=== PATIENT | male | born 1935 | race Caucasian/White ===

== ENCOUNTER 2019-03-28 08:37 | Outpatient (CLI) | payer MEDICARE, SELFPAY ==
[2019-03-28 09:30] LABS: Hematocrit 42.5 % (42.0-52.0); Hemoglobin 13.7 g/dL (11.7-16.6); Mean Corpuscular HGB Conc 32.2 g/dL (30.0-36.0); Mean Corpuscular Hemoglobin 30.5 pg (28.0-34.0); Mean Corpuscular Volume 94.7 fL (80-94); Mean Platelet Volume 11.4 fL (7.4-10.4); Platelet Count 253 10^3/cmm (130-400); Red Blood Count 4.49 10^6/uL (4.1-5.3); Red Cell Distribution Width 13.2 % (12.1-15.1)
[2019-03-28 09:41] LABS: Alanine Aminotransferase 15 U/L (0-41); Albumin Level 4.7 g/dL (3.5-5.2); Alkaline Phosphatase 93 IU/L (40-130); Anion Gap 15.6 (5-19); Blood Urea Nitrogen 13 mg/dL (8-23); Calcium 10.2 mg/Dl (8.8-10.2); Carbon Dioxide 28 mmol/L (22-29); Chloride 102 mmol/L (98-107); Globulin 2.9 g/dL (1.3-4.6); Glucose 96 mg/dL (74-106); Potassium 4.6 mmol/L (3.5-5.1); Sodium 141 mmol/L (136-145); Total Bilirubin 0.9 mg/dL (0.15-1.2); Total Protein 7.6 g/dL (6.6-8.7)
[2019-03-28 09:48] LABS: Aspartate Amino Transferase 23 U/L (0-40)
[2019-03-28 12:11] LABS: Absolute Eosinophils 0.2 10^3/cmm (0.0-0.7); Absolute Segmented Neutrophil 4.2 10/cmm (1.6-7.1); Band Neutrophils Absolute 0.4 10^3/cmm (0.0-1.2); Basophils Absolute 0.1 10^3/cmm (0.0-0.2); Eosinophils 3 %; Lymphocytes 20 %; Lymphocytes Absolute 1.5 10^3/cmm (1.2-3.4); Monocytes Absolute 0.6 10^3/cmm (0.1-0.6); Ovalocytes 1+; Platelet Estimate Normal (Normal); Poikilocytosis 1+; Segmented Neutrophils 61 %; Total Cells Counted 100 (0-100)
== END 2019-03-28 08:38 | disposition home or self-care (01) ==
LOC: LAB 08:48
PROVIDERS: Family Provider Family Medicine; PCP Family Medicine; Visit Provider Internal Medicine Cardiovascular Disease
DX: I35.0 Nonrheumatic aortic (valve) stenosis (principal)
CPT/HCPCS: 80053; 85007; 85025; 85027

== ENCOUNTER 2019-04-05 10:22 | Observation (INO) | payer MEDICARE, SELFPAY ==
[2019-04-04 17:27] VITALS: BMI 25.3
[2019-04-05] VITALS (22 sets, daily range): BP systolic 108–131; BP diastolic 61–93; PULSE 56–67; RESP 16–18; TEMP 36.7–37.1; O2SAT 95–99
[2019-04-05] MEDS: diphenhydrAMINE 50 mg Capsule PO (07:15)
--- NOTE | 2019-04-05 07:30 | XACV_ITS ---
Exam Room: [facility] Ht: 183 cm Wt: 85 kg BSA: 2.08 m2 Gender: Male : 1935 Any Known Allergies: Other Exam Priority: Routine Procedure(s): Procedure Description: Diagnostic procedure Procedure Description: Coronary Angiography Diagnostic Cath Status: Elective Diagnostic Findings LM has 0% stenosis. LAD has 0% stenosis. CX has 0% stenosis. mRCA: Mild 15% stenosis, ANAHI: 3 flow. Coronary angiography shows right dominance. Conclusions There is mild coronary artery disease with one vessel disease. Indication for right and left heart: Unexplained shortness of breath. #1 Lower L eft-sided filling pressure pulmonary capillary wedge pressure #2 N ormal pulmonary artery pressure PA mean 10 mmHg #3 L ow right ventricular pressure 19/-5 mmHg #4 Low right atrial filling pressure -1 mmHgNormal cardiac output 5 L/m, CI 3 L/min/m2No intracardiac shunt noted . Recommendations Continue current medical management and risk factor modification. Usual post catheterization care. Pressures Phase:Rest AO : 104 mmHg / 55 mmHg ( 75 mmHg ) @ 4:00:00 AM 107 mmHg / 53 mmHg ( 77 mmHg ) @ 4:08:00 AM RV : 19 mmHg / -5 mmHg / @ 3:55:00 AM PA : 17 mmHg / 5 mmHg ( 10 mmHg ) @ 3:54:00 AM 18 mmHg / 4 mmHg ( 9 mmHg ) @ 3:55:00 AM RA : a wave = v wave = mean = -1 mmHg @ 3:58:00 AM a wave = v wave = mean = 3 mmHg @ 3:58:00 AM O2 Content Phase:Rest PA : O2 Content O2: 70.4 % @ 4:00:00 AM Saturations Phase:Rest AO : 97 % @ 3:55:00 AM RA : 66 % @ 3:54:00 AM RV : 66 % @ 4:08:00 AM PA : 70 % @ 4:00:00 AM Cardiac Output Phase:Rest Rachel : 5 l/min @ 4:00:00 AM Rachel Cardiac Index: 3 L/min/m2 @ 4:00:00 AM Clinical Evaluation EBL: 5mL-10mL Procedural Details Wire inserted. Cardiovascular Instability: No. Wire inserted through IV catheter in right brachial vein. Hand injection through SWAN. Hand injection performed. Unable to advance the catheter. Physician moving to femoral approach. Wire and need out. Wire out. Versacore Floppy wire inserted. Medication's Wasted: Other = fentanyl 50 mcg. Medication's Wasted: Heparin = 4000 units. Procedure Consent Obtained. Pre-Procedure Time Out. Identified patient by full name and date of as verbalized by the patient/guarantor. Does the consent match the physician's order: Yes. Accurate & Complete Informed Consent: Yes. Inpatient/Outpatient History & Physical on Chart: Yes. If H&P is completed, is and addenduem needed: No; If yes, is the addendum complete: N/A. Visualize and Verify Site with Patient/Guarantor: N/A. Relevant Radiology Images available: N/A. Pre-op teaching completed and patient verbalized understanding. The risks, benefits, and alternatives of sedation and/or procedure were discussed by physician. The patient agrees to continue. Procedure started. Correct patient, site and procedure confirmed by cath team. PERRLA. Strong, equal hand carton forming machine helper bilaterally. Lungs clear x 5 lobes. IV Site on Arrival: 20 gauge in the left anticubital. IV Fluids: 0.9% NaCl at KVO. 0 mL infused prior to greenhouse laborer. Pre Procedural Pulses: bilateral dorsalis pedis was 3+. Pre Procedural Pulses: bilateral posterior tibial was 3+. Pre Procedural Pulses: bilateral radial was 3+. Baseline sample Acquired. HR: 57 BPM. IV Site on Arrival: 20 gauge in the right anticubital. bilateral groins was prepped with chloroprep then draped in the usual sterile fashion. right brachial was prepped with chloroprep then draped in the usual sterile fashion. right radial was prepped with chloroprep then draped in the usual sterile fashion. Physician notified. Equipment: 6F - Radial. Cardiac Cath Pack. ACIST Manifold Kit Model BT 2000. Heparinized Saline (2 units/mL), 1000 mL bag. Physician arrived. [facility] Clinical Fraility Score: 4: Vulnerable. Surface Mount Technology Operator Indications: Valvular Disease. Chest Pain Symptom Assessment: Atypical Angina. Physician scrubbed in. Immediate Pre-Procedure Time Out. Correct Patient: Yes; Correct Procedure: Yes; Correct Site: Yes; Correct Patient Position: Yes; Correct Supplies: Yes; Dried Flammable Prep: Yes; Blood Products Available: N/A;. Lidocaine 1% infiltrated to the right brachial. [place]-Donald MON catheter inserted. [place]-Donald out. Lidocaine 1% infiltrated to the right radial. Arterial access obtained. A 5 polish TIG catheter in over wire. A Manual Compression was successful obtaining hemostatsis at the Right Brachial Vein insertion site. A TR Band was successful obtaining hemostatsis at the Right Radial artery insertion site. Sheath(s) removed and manual pressure held until hemostasis was achieved. Sterile 4x4 and Op-site applied to the puncture site. No oozing or hematoma noted. Post sheath removal instructions were given and the patient verbalized understanding. TR band placed. Hemostasis obtained. Lidocaine 1% infiltrated to the right groin. Venous access obtained with a micropuncture set. Arterial access obtained with micropuncture set. CRD 5F Multi-pac Diagnostic Catheter. A 5 polish JL4 catheter in over wire. Catheter removed over the exchange wire. A 5 polish AL1 catheter in over wire. Inventory is CRD 6 FR XB 3.5 GUIDE. 6 polish XB 3.5 guide catheter was inserted over the wire. Multiple views taken of left coronary artery. Guide catheter out. A 5 polish JR4 catheter in over wire. Multiple views taken of right coronary artery. A 5 polish Angled Pig catheter in over wire. A 5 polish MPA1 catheter in over wire. Catheter out. Physician scrubbed out. A Suture was successful obtaining hemostatsis at the Right Femoral vein insertion site. A Suture was successful obtaining hemostatsis at the Right Femoral artery insertion site. Sheath(s) sutured into position with 2-0 silk and sterile 4x4's and Op-site applied over the site. No oozing or signs and symptoms of hematoma noted. Arterial sheath flushed and connected to tranducer and pressure bag with heparinized saline. PERRLA. Strong, equal hand carton forming machine helper bilaterally. Post Procedure: Pulses reassessed and unchanged. No VTE prophylaxis required. Medication's Wasted: Lidocaine 1% = 10 mL. Medication's Wasted: Nitro = 49.8 mg. Total IV fluids: 100 mL. Complications: none. Post-op diagnosis: severe aortic stenosis, pre valve procedure. Estimated blood loss: 5mL-10mL. Procedure completed. Patient transferred by bed to 1st floor. Vital chart was stopped. Site: Right Brachial Vein Sheath Size: 6 Fr Hemostasis Method: Manual Compression Hemostasis Success: Successful Site: Right Radial artery Sheath Size: 6 Fr Hemostasis Method: TR Band Hemostasis Success: Successful Site: Right Femoral vein Sheath Size: 6 Fr Hemostasis Method: Suture Hemostasis Success: Successful Site: Right Femoral artery Sheath Size: 6 Fr Hemostasis Method: Suture Hemostasis Success: Successful Procedure Medications Start: 8:52 AM Stop: 8:52 AM Medication: Versed Amount: 1 mg Route: I.V. Start: 8:52 AM Stop: 8:52 AM Medication: Fentanyl Amount: 50 mcg Route: I.V. Start: 8:58 AM Stop: 8:58 AM Medication: Versed Amount: 1 mg Route: I.V. Start: 9:11 AM Stop: 9:11 AM Medication: Nitrogylcerin Amount: 200 mcg Route: I.V. Start: 9:15 AM Stop: 9:15 AM Medication: Nitrogylcerin Amount: 200 mcg Route: I.A. Start: 9:15 AM Stop: 9:15 AM Medication: Versed Amount: 1 mg Route: I.V. Start: 9:48 AM Stop: 9:48 AM Medication: Versed Amount: 1 mg Route: I.V. I, the attending physician, have reviewed and verified all procedure medications. Yes, all medications given per verbal order History/Risk Factors Hypertension: No Dyslipidemia: No Peripheral Arterial Disease (PAD): No Myocardial Infarction (NE): No Obesity: No Renal Disease: No Tobacco Use: Former Prior Interventions PCI: No CABG: No Valve Surgery: No Report Signatures Finalized by:Berna Singh MD on 04/17/2019 10:08:52 PM
[2019-04-05 07:43] LABS: Basophils # 0.1 10^3/uL (0.0-0.1); Basophils % 1.5 %; Eosinophils # 0.2 10^3/uL (0.0-0.8); Eosinophils % 3.4 %; Hematocrit 38.5 % (42.0-52.0); Hemoglobin 12.4 g/dL (11.7-16.6); Lymphocytes % 27.4 %; Mean Corpuscular HGB Conc 32.2 g/dL (30.0-36.0); Mean Corpuscular Hemoglobin 29.5 pg (28.0-34.0); Mean Corpuscular Volume 91.4 fL (80-94); Mean Platelet Volume 10.8 fL (7.4-10.4); Monocytes # 0.9 10^3/uL (0.2-0.9); Monocytes % 12.8 %; Neutrophils # 3.9 10^3/uL (1.8-7.7); Neutrophils % 54.5 %; Nucleated Red Blood Cells % 0 %; Platelet Count 272 10^3/cmm (130-400); Red Blood Count 4.21 10^6/uL (4.1-5.3); Red Cell Distribution Width 13.2 % (12.1-15.1); White Blood Count 7.1 10^3/uL (4.0-10.0)
[2019-04-05 07:57] LABS: Blood Urea Nitrogen 22 mg/dL (8-23); Calcium 9.6 mg/Dl (8.8-10.2); Carbon Dioxide 26 mmol/L (22-29); Chloride 102 mmol/L (98-107); Glucose 94 mg/dL (74-106); Sodium 140 mmol/L (136-145)
[2019-04-05 08:02] LABS: INR 1.02 (0.8-1.2)
[2019-04-05] MEDS: acetaminophen 325 mg Tablet 650 MG PO (13:47)
== END 2019-04-05 19:00 | disposition home or self-care (01) ==
LOC: CSU 10:23
PROVIDERS: Admitting Provider Internal Medicine Cardiovascular Disease; Family Provider Family Medicine; PCP Family Medicine; Visit Provider Internal Medicine Cardiovascular Disease
DX: I25.10 Atherosclerotic heart disease of native coronary artery without angina pectoris (principal); I35.0 Nonrheumatic aortic (valve) stenosis; E78.00 Pure hypercholesterolemia, unspecified; K21.9 Gastro-esophageal reflux disease without esophagitis; N40.0 Benign prostatic hyperplasia without lower urinary tract symptoms; E03.9 Hypothyroidism, unspecified; Z87.891 Personal history of nicotine dependence
CPT/HCPCS: 36415; 80048; 85025; 85610; 93456; C1751; C1769; C1887; C1894; G0378; J1644; J2001; J2250; J3010; J3490; J7030; Q0163; Q9967

== ENCOUNTER → 2019-04-12 11:01 | Outpatient (BNVA) | payer MEDICARE, SELFPAY | PROVIDERS: Family Provider Family Medicine; PCP Family Medicine; Visit Provider Nurse Practitioner Family | DX: I06.1 Rheumatic aortic insufficiency (principal) | CPT/HCPCS: 80048 ==

== ENCOUNTER 2019-06-07 06:52 | Outpatient (CLI) | payer MEDICARE, SELFPAY | END 2019-06-07 06:53 | disposition home or self-care (01) | PROVIDERS: Family Provider Family Medicine; PCP Family Medicine; Visit Provider Internal Medicine Cardiovascular Disease | DX: Z01.89 Encounter for other specified special examinations (principal) ==

== ENCOUNTER 2019-07-23 17:55 | Inpatient (IN) | payer MEDICARE, OTHER, SELFPAY ==
--- NOTE | 2019-07-19 09:26 | XR_ITS ---
WS: [id number] PORTABLE CHEST HISTORY: Preop for AVR COMPARISON: None available. Scattered granulomata throughout both lungs. No pneumonia. No pulmonary mass or nodule. No pleural ef fusion or pneumothorax. Cardiac size: Normal. Mediastinum/Aorta: Mild atherosclerosis and ectasia aorta. No osseous abnormality seen. XR/XR chest 1V portable [id number] IMPRESSION: 1. Prior granulomatous disease. 2. Mildly ectatic partially calcified thoracic aorta.
--- NOTE | 2019-07-19 09:26 | ECG_ITS ---
Measurements Intervals [place] Rate: 60 P: 6 [place]: 176 QRS: -40 QRSD: 89 T: 14 QT: 413 QTc: 413 SINUS RHYTHM MARKED LEFT AXIS DEVIATION [QRS AXIS < -30] MODERATE VOLTAGE CRITERIA FOR LVH, CONSIDER NORMAL VARIANT [MEETS CRITERIA IN ONE OF: R(aVL), S(V1), R(V5), R(V5/V6)+S(V1)] No previous ECG available for comparison Electronically Signed On 07-20-2019 16:11:08 CDT by Reina Flowers M.D. [id number]
[2019-07-19 09:31] VITALS: BMI 25.7
[2019-07-19 10:13] LABS: Basophils # 0.1 10^3/uL (0.0-0.1); Basophils % 1.4 %; Eosinophils # 0.2 10^3/uL (0.0-0.8); Eosinophils % 2.9 %; Hematocrit 42.5 % (42.0-52.0); Hemoglobin 13.1 g/dL (11.7-16.6); Lymphocytes % 24.6 %; Mean Corpuscular HGB Conc 30.8 g/dL (30.0-36.0); Mean Corpuscular Hemoglobin 29.4 pg (28.0-34.0); Mean Corpuscular Volume 95.5 fL (80-94); Mean Platelet Volume 11.7 fL (7.4-10.4); Monocytes % 12.3 %; Neutrophils # 4.7 10^3/uL (1.8-7.7); Neutrophils % 58.6 %; Nucleated Red Blood Cells % 0 %; Platelet Count 228 10^3/cmm (130-400); Red Blood Count 4.45 10^6/uL (4.1-5.3); Red Cell Distribution Width 14.6 % (12.1-15.1); White Blood Count 8.1 10^3/uL (4.0-10.0)
[2019-07-19 10:16] LABS: Add Urine Microscopic? NO
[2019-07-19 10:22] LABS: INR 0.95 (0.8-1.2)
--- NOTE | 2019-07-19 10:22 | ANES.PREANE2 ---
Pre-Anesthetic Assessment Pre-Anesthetic Assessment: Height/Weight: Height 1.83 m Weight 86.183 kg Preop Diagnosis: Critical aortic valve stenosis Proposed Procedure: Operation Date: 07/23/19 11:50 Proposed Procedures p Aortic Valve Replacement 40093/I35.0(Not Applicable) - Dioni Crespo MD Familial anesthetic complications: None Social: Social History: No alcohol and No tobacco Exam: Pre-Anes Outpt Exam: alert, oriented x 3, clear to auscultation bilaterally and regular rate & rhythm Airway: Cervical ROM: WNL MP: 2 Dentition: False Pulmonary: Pulmonary: None reported CV/HEM: CV/HEM: Murmur Comments: aortic stenosis (critical) - Rhematic fevere at age 16 : : None reported Hepatic: Hepatic: None reported GI: GI: None reported Metabolic: Metabolic: Thyroid Musc/skel: Musc/skel: None reported Neuropsych: Neuropsych: Neuropathy (b/l feet) Anesthetic Plan: ASA status: 4 Anesthesia: General Risk of > 500 ml blood loss (7ml/kg in children): No PFSH Anesthesia PFSH: Social History (System 06/26/19 @ 16:20 by Kathleen Shelby) Smoking and tobacco status: former smoker Alcohol intake: never Data Anesthesia CBC & Chem 7: 07/19/19 10:02 Other Labs: Laboratory Results - last 48 hr 07/19/19 10:02 WBC 8.1 RBC 4.45 Hgb 13.1 Hct 42.5 MCV 95.5 H MCH 29.4 MCHC 30.8 RDW 14.6 Plt Count 228 MPV 11.7 H Neut % (Auto) 58.6 Lymph % (Auto) 24.6 [place] % (Auto) 12.3 Eos % (Auto) 2.9 Baso % (Auto) 1.4 Neut # (Auto) 4.7 Lymph # (Auto) 2.0 [place] # (Auto) 1.0 H Eos # (Auto) 0.2 Baso # (Auto) 0.1 Nucleated RBC % (auto) 0 Nucleated RBCs # 0.0 Cardiac Studies: No Data to Display
[2019-07-19 10:23] LABS: Partial Thromboplastin Time 22.8 SECONDS (23.9-36.7)
[2019-07-19 10:26] LABS: Specific Gravity, Urine 1.025 (1.005-1.030); Urine Appearance Clear (CLEAR); Urine Color Yellow (Yellow)
[2019-07-19 10:27] LABS: Bilirubin Urine Neg (NEGATIVE); Blood Urine Neg (Negative); Glucose Urine UA Norm (Normal); Ketones Urine Negative (Negative); Leukocyte Esterase Urine Negative (Negative); Nitrate Urine Negative (Negative); Protein Urine Neg (Negative); Urobilinogen Urine Norm (Negative)
[2019-07-19 11:14] LABS: Alanine Aminotransferase 14 U/L (0-41); Albumin Level 4.4 g/dL (3.5-5.2); Alkaline Phosphatase 83 IU/L (40-130); Anion Gap 16.9 (5-19); Aspartate Amino Transferase 24 U/L (0-40); Blood Urea Nitrogen 15 mg/dL (8-23); Calcium 9.8 mg/dL (8.5-10.5); Carbon Dioxide 25 mmol/L (22-29); Chloride 104 mmol/L (98-107); Free T4 Free Thyroxine 0.95 ng/dL (0.82-1.77); Globulin 3.4 g/dL (1.3-4.6); Glucose 88 mg/dL (65-115); Osmolality Calculated 290 mOsm/kg (285-295); Potassium 3.9 mmol/L (3.5-5.1); Sodium 142 mmol/L (136-145); Thyroid Stimulating Hormone 4.02 uIU/mL (0.27-4.20); Total Protein 7.8 g/dL (6.6-8.7)
[2019-07-23] VITALS (23 sets, daily range): BP systolic 87–142; BP diastolic 50–78; PULSE 72–89; RESP 13–18; TEMP 36.6–38.2; O2SAT 96–100
--- NOTE | 2019-07-23 06:21 | P.ANESUD_ITS ---
Pre-Anesthetic Update Pre-Anesthetic Assessment: Date of Surgery/Procedure: 07/23/19 Preop Antonella gnosis: Critical aortic valve stenosis Proposed Procedure: Operation Date: 07/23/19 09:50 Proposed Procedures p Aortic Valve Replacement 20238/I35.0(Not Applicable) - Dioni Crespo MD Any changes to Pre-Anesthetic Assessment?: No Last Intake: Intake NPO > 8 hrs, sips with meds this morning (water) Last Liquid Date 07/22/19 Last Solid Date 07/22/19 Labs Last 48hrs: Laboratory Results - last 48 hr 07/19/19 10:02 Blood Type A Positive Rho(D) Type Positive Antibody Screen Negative Crossmatch See Detail Vitals: Temperature 98.2 F 07/23/19 06:03 Temperature Source Temporal Artery S can 07/23/19 06:03 Pulse Rate 72 07/23/19 06:03 Pulse Rhythm 07/23/19 06:07 Pulse Strength 3+ Normal 07/23/19 06:07 Respiratory Rate 18 07/23/19 06:03 Blood Pressure 133/78 07/23/19 06:03 Blood Pressure Fallon n 96 07/23/19 06:03 Pulse Oximetry 96 07/23/19 06:03 Oxygen Delivery Me thod 07/23/19 06:07 Exam: Pre-Anes Outpt Exam: alert, oriented x 3, clear to auscultation bilaterally and regular rate & rhythm Additional Exam Findings (including area of procedure): Murmur Cardiac Studies: No Data to Display
[2019-07-23 06:44] LABS: Glucose Point of Care 86 mg/dL (70-110)
--- NOTE | 2019-07-23 06:47 | W.PM.OPSUD ---
Surgery/Procedure H&P Update DATE OF PROCEDURE: July 23, 2019 DATE H&P PERFORMED: 07/19/19 H&P UPDATE INFORMATION: I have reviewed H&P completed within last 30 days, I have examined patient prior to procedure and No changes to prior documentation PREOP DIAGNOSIS: Critical aortic valve stenosis PRIMARY INDICATION FOR PROCEDURE: Critical aortic valve stenosis with progressive symptomatology PLANNED PROCEDURE: Operation Date: 07/23/19 09:50 Proposed Procedures p Aortic Valve Replacement 75175/I35.0(Not Applicable) - Dioni Crespo MD
[2019-07-23] MEDS: mupirocin oint 22 gm 1 APPLIC NASAL (07:07)
[2019-07-23] MEDS: sodium chloride 0.9% 1,000 ML 30 ML IV (07:08)
[2019-07-23] MEDS: cefUROXime 1,500 MG in sodium chloride 0.9% (plus) 50 ML 100 MG IV ×2 (09:58→15:30)
[2019-07-23] MEDS: vancomycin 1,000 MG SDV 3000 MG IRRIGATION (10:42)
[2019-07-23] MEDS: thrombin 5,000 unit SDV 5000 UNIT XX (11:00)
--- NOTE | 2019-07-23 11:37 | XR_ITS ---
WS: [id number] XR chest 1V portable [id number] REASON FOR EXAM: status post open heart FINDINGS: Endotracheal tube is seen in adequate position above the estuardo. Sternotomy changes are now seen. There is mild edema in the perihilar areas. There are scattered granulomas seen. A catheter is seen in the heart in good position. XR/XR chest 1V portable [id number] IMPRESSION: Postop coronary bypass changes.
--- NOTE | 2019-07-23 16:30 | ECG_ITS ---
Measurements Intervals [place] Rate: 82 P: 1 [place]: 153 QRS: -61 QRSD: 110 T: 75 QT: 390 QTc: 458 SINUS RHYTHM MARKED LEFT AXIS DEVIATION [QRS AXIS < -30] ANTEROSEPTAL MYOCARDIAL INFARCTION [40+ ms Q WAVE IN V1-V4], OF INDETERMINATE AGE Compared to ECG 07/19/2019 10:15:27 Myocardial infarct finding now present Electronically Signed On 07-23-2019 18:27:47 CDT by Berna Singh M.D. [id number]
[2019-07-23 17:26] LABS: ABG PCO2 33.6 mmHg (35-45); ABG PH Result 7.45 (7.35-7.45); Arterial Blood Gas Hematocrit 31.4 % (42-52); Base Excess ABG -0.4 mmol/L (-2.0-2.0); Blood Gas Sample Site ARTLINE; Blood Gas Sample Type Arterial; Blood Gas Tidal Volume 0.65; HCO3 ABG 23.3 mmol/L (22-26); Oxygen Device VENT
[2019-07-23] MEDS: propofol 1,000 MG/100 ML INJ 2.6 MG IV (18:05)
[2019-07-23 18:31] LABS: Glucose Point of Care 116 mg/dL (70-110)
[2019-07-23 18:31] LABS: Glucose Point of Care 128 mg/dL (70-110)
[2019-07-23 18:43] LABS: Basophils # 0.1 10^3/uL (0.0-0.1); Basophils % 0.4 %; Eosinophils % 0.2 %; Hematocrit 32.9 % (42.0-52.0); Hemoglobin 10.7 g/dL (11.7-16.6); Lymphocytes # 1.3 10^3/uL (0.8-4.8); Lymphocytes % 9.8 %; Mean Corpuscular HGB Conc 32.5 g/dL (30.0-36.0); Mean Corpuscular Hemoglobin 30.3 pg (28.0-34.0); Mean Corpuscular Volume 93.2 fL (80-94); Mean Platelet Volume 11.4 fL (7.4-10.4); Monocytes # 1.3 10^3/uL (0.2-0.9); Monocytes % 10.1 %; Neutrophils # 10.2 10^3/uL (1.8-7.7); Neutrophils % 78.8 %; Nucleated Red Blood Cells % 0 %; Platelet Count 129 10^3/cmm (130-400); Red Blood Count 3.53 10^6/uL (4.1-5.3); Red Cell Distribution Width 14.3 % (12.1-15.1); White Blood Count 12.9 10^3/uL (4.0-10.0)
[2019-07-23 19:00] LABS: ABG PCO2 35.7 mmHg (35-45); ABG PH Result 7.45 (7.35-7.45); Base Excess ABG 0.9 mmol/L (-2.0-2.0); HCO3 ABG 24.8 mmol/L (22-26)
[2019-07-23 19:01] LABS: Arterial Blood Gas Hematocrit 33.4 % (42-52); Ionized Calcium Level - ABG 1.1 mmol/L (1.1-1.4); Potassium Level - ABG 3.7 mmol/L (3.5-5.0)
[2019-07-23 19:02] LABS: Carboxyhemoglobin 0.5 %THgb (0.4-20.1); HGB O2 Sat 99.5 % (95-100); Methemoglobin 0.5 % (0.4-1.5); Total Hemoglobin 10.9 g/dL (14-18)
[2019-07-23 19:12] LABS: INR 1.51 (0.8-1.2)
[2019-07-23 19:13] LABS: Partial Thromboplastin Time 33.3 SECONDS (23.9-36.7)
[2019-07-23 19:16] LABS: Anion Gap 15.8 (5-19); Blood Urea Nitrogen 13 mg/dL (8-23); Calcium 7.9 mg/dL (8.5-10.5); Carbon Dioxide 21 mmol/L (22-29); Chloride 114 mmol/L (98-107); Creatinine Clr Calc Pharmacy 81.5959; Glucose 129 mg/dL (65-115); Magnesium 3.5 mg/dL (1.7-2.3); Osmolality Calculated 300 mOsm/kg (285-295); Potassium 4.8 mmol/L (3.5-5.1); Sodium 146 mmol/L (136-145)
[2019-07-23] MEDS: sodium chloride 0.9% 1,000 ML 75 ML IV (19:35)
[2019-07-23] MEDS: chlorhexidine gluconate 0.12% Btl 473 mL 15 ML MUCOUS MEM (19:36)
[2019-07-23 20:53] LABS: Basophils # 0.1 10^3/uL (0.0-0.1); Basophils % 0.3 %; Hematocrit 32.3 % (42.0-52.0); Hemoglobin 10.5 g/dL (11.7-16.6); Lymphocytes # 0.5 10^3/uL (0.8-4.8); Lymphocytes % 3.4 %; Mean Corpuscular HGB Conc 32.5 g/dL (30.0-36.0); Mean Corpuscular Hemoglobin 30.1 pg (28.0-34.0); Mean Corpuscular Volume 92.6 fL (80-94); Mean Platelet Volume 11.1 fL (7.4-10.4); Monocytes # 1.3 10^3/uL (0.2-0.9); Monocytes % 8.4 %; Neutrophils # 13.1 10^3/uL (1.8-7.7); Neutrophils % 87.2 %; Nucleated Red Blood Cells % 0 %; Platelet Count 156 10^3/cmm (130-400); Red Blood Count 3.49 10^6/uL (4.1-5.3); Red Cell Distribution Width 14.7 % (12.1-15.1)
[2019-07-23 21:16] LABS: Anion Gap 15.3 (5-19); Blood Urea Nitrogen 13 mg/dL (8-23); Calcium 7.7 mg/dL (8.5-10.5); Carbon Dioxide 20 mmol/L (22-29); Chloride 114 mmol/L (98-107); Glucose 170 mg/dL (65-115); Osmolality Calculated 300 mOsm/kg (285-295); Potassium 4.3 mmol/L (3.5-5.1); Sodium 145 mmol/L (136-145)
[2019-07-23] MEDS: albumin 12.5 GM/250 ML VIAL IV (23:43)
[2019-07-24] VITALS (68 sets, daily range): BP systolic 86–151; BP diastolic 47–79; PULSE 73–97; RESP 13–16; TEMP 37.7–38.3; O2SAT 65–99
[2019-07-24 00:40] LABS: Anion Gap 14.1 (5-19); Blood Urea Nitrogen 15 mg/dL (8-23); Calcium 7.7 mg/dL (8.5-10.5); Carbon Dioxide 20 mmol/L (22-29); Chloride 114 mmol/L (98-107); Glucose 138 mg/dL (65-115); Osmolality Calculated 296 mOsm/kg (285-295); Potassium 4.1 mmol/L (3.5-5.1); Sodium 144 mmol/L (136-145)
[2019-07-24 01:33] LABS: Basophils % 0.2 %; Eosinophils % 0.1 %; Hematocrit 29.6 % (42.0-52.0); Hemoglobin 9.7 g/dL (11.7-16.6); Lymphocytes # 0.4 10^3/uL (0.8-4.8); Lymphocytes % 3.3 %; Mean Corpuscular HGB Conc 32.8 g/dL (30.0-36.0); Mean Corpuscular Hemoglobin 30.5 pg (28.0-34.0); Mean Corpuscular Volume 93.1 fL (80-94); Mean Platelet Volume 11.7 fL (7.4-10.4); Monocytes # 1.2 10^3/uL (0.2-0.9); Neutrophils # 10.7 10^3/uL (1.8-7.7); Neutrophils % 85.9 %; Nucleated Red Blood Cells % 0 %; Platelet Count 138 10^3/cmm (130-400); Red Blood Count 3.18 10^6/uL (4.1-5.3); Red Cell Distribution Width 14.7 % (12.1-15.1); White Blood Count 12.4 10^3/uL (4.0-10.0)
[2019-07-24 04:08] LABS: ABG PCO2 26.4 mmHg (35-45); ABG PH Result 7.52 (7.35-7.45); Alveolar-Arterial Oxygen Gradi 106.9 mmHg (5-10); Arterial Blood Gas Hematocrit 28.2 % (42-52); Base Excess ABG -0.6 mmol/L (-2.0-2.0); Blood Gas Sample Site ARTLINE; Blood Gas Sample Type Arterial; Blood Gas Tidal Volume 0.45; Carboxyhemoglobin 0.6 %THgb (0.4-20.1); HCO3 ABG 21.6 mmol/L (22-26); HGB O2 Sat 94.4 % (95-100); Ionized Calcium Level - ABG 1.1 mmol/L (1.1-1.4); Methemoglobin 1.2 % (0.4-1.5); Oxygen Device VENT; Oxygen Saturation ABG 96.1; PO2 ABG 68.5 mmHg (80.0-100.0); Potassium Level - ABG 3.9 mmol/L (3.5-5.0); Total Hemoglobin 9.2 g/dL (14-18)
[2019-07-24] MEDS: propofol 1,000 MG/100 ML INJ 7.8 MG IV (04:36)
[2019-07-24 04:38] LABS: Oxygen Saturation ABG 99.4
[2019-07-24 04:39] LABS: ABG PH Result 7.37 (7.35-7.45); Base Excess ABG -0.4 mmol/L (-2.0-2.0); HCO3 ABG 24.9 mmol/L (22-26); Oxygen Saturation ABG 99.2; Potassium Level - ABG 5.4 mmol/L (3.5-5.0)
[2019-07-24 04:40] LABS: Basophils % 0.2 %; Hematocrit 27.5 % (42.0-52.0); Hemoglobin 8.8 g/dL (11.7-16.6); Lymphocytes # 0.7 10^3/uL (0.8-4.8); Lymphocytes % 6.8 %; Mean Corpuscular Hemoglobin 29.6 pg (28.0-34.0); Mean Corpuscular Volume 92.6 fL (80-94); Mean Platelet Volume 11.5 fL (7.4-10.4); Monocytes % 9.7 %; Neutrophils # 8.9 10^3/uL (1.8-7.7); Neutrophils % 82.9 %; Nucleated Red Blood Cells % 0 %; Platelet Count 127 10^3/cmm (130-400); Red Blood Count 2.97 10^6/uL (4.1-5.3); Red Cell Distribution Width 15.1 % (12.1-15.1); White Blood Count 10.8 10^3/uL (4.0-10.0)
[2019-07-24 04:40] LABS: ABG PCO2 48.3 mmHg (35-45); Base Excess ABG -2.9 mmol/L (-2.0-2.0); HCO3 ABG 23.6 mmol/L (22-26)
[2019-07-24 04:41] LABS: Blood Gas Sample Type ARTERIAL; Potassium Level - ABG 4.2 mmol/L (3.5-5.0)
[2019-07-24 04:43] LABS: ABG PCO2 46.9 mmHg (35-45); ABG PH Result 7.28 (7.35-7.45); Base Excess ABG -4.5 mmol/L (-2.0-2.0); Blood Gas Sample Type ARTERIAL; Potassium Level - ABG 4.3 mmol/L (3.5-5.0)
[2019-07-24 04:44] LABS: ABG PCO2 47.9 mmHg (35-45); ABG PH Result 7.43 (7.35-7.45); Base Excess ABG 6.7 mmol/L (-2.0-2.0); HCO3 ABG 31.7 mmol/L (22-26); Potassium Level - ABG 3.8 mmol/L (3.5-5.0)
[2019-07-24 04:45] LABS: ABG PH Result 7.39 (7.35-7.45)
[2019-07-24 04:45] LABS: Blood Gas Sample Type ARTERIAL
[2019-07-24 04:46] LABS: ABG PCO2 43.4 mmHg (35-45); Base Excess ABG 1.3 mmol/L (-2.0-2.0); Blood Gas Sample Type ARTERIAL; HCO3 ABG 26.4 mmol/L (22-26); Potassium Level - ABG 3.8 mmol/L (3.5-5.0)
[2019-07-24 05:08] LABS: Anion Gap 15.1 (5-19); Blood Urea Nitrogen 15 mg/dL (8-23); Calcium 7.4 mg/dL (8.5-10.5); Carbon Dioxide 21 mmol/L (22-29); Chloride 114 mmol/L (98-107); Glucose 137 mg/dL (65-115); Glucose Fasting 137 mg/dL (74-106); Magnesium 2.8 mg/dL (1.7-2.3); Osmolality Calculated 300 mOsm/kg (285-295); Partial Thromboplastin Time 37.9 SECONDS (23.9-36.7); Potassium 4.1 mmol/L (3.5-5.1); Sodium 146 mmol/L (136-145)
[2019-07-24] MEDS: sodium chloride 0.9% 1,000 ML 75 ML IV ×3 (05:46→23:23)
--- NOTE | 2019-07-24 06:00 | XR_ITS ---
WS: [id number] XR chest 1V portable [id number] REASON FOR EXAM: POD #1 status post AVR FINDINGS: The [place]-Donald catheter is seen in the in the heart in good position. Bypass changes are noted. The endotracheal tube is well positioned. The feeding tube is seen in the mid chest area did not in the stomach. XR/XR chest 1V portable [id number] IMPRESSION: Intracardiac [place]pe[place]-Donald catheter good position. The feeding tube is seen in the mid mediastinum. The endotracheal tube is noted in good position. Coronary bypass changes are noted.
--- NOTE | 2019-07-24 06:00 | ECG_ITS ---
Measurements Intervals [place] Rate: 77 P: 8 [place]: 158 QRS: -39 QRSD: 102 T: 63 QT: 454 QTc: 515 SINUS RHYTHM MARKED LEFT AXIS DEVIATION [QRS AXIS < -30] PATTERN CONSISTENT WITH PULMONARY DISEASE INCOMPLETE RIGHT BUNDLE BRANCH BLOCK [90+ ms QRS DURATION, TERMINAL R IN V1/V2, 40+ ms S IN I/aVL/V4/V5/V6] SEPTAL MYOCARDIAL INFARCTION [40+ ms Q WAVE IN V1/V2], PROBABLY OLD Compared to ECG 07/23/2019 17:28:24 Incomplete right bundle-branch block now present Myocardial infarct finding still present Electronically Signed On 07-24-2019 17:19:34 CDT by Rico Curiel M.D. [id number]
[2019-07-24 06:32] LABS: Glucose Point of Care 138 mg/dL (70-110)
[2019-07-24 06:32] LABS: Glucose Point of Care 127 mg/dL (70-110)
[2019-07-24 06:32] LABS: Glucose Point of Care 133 mg/dL (70-110)
[2019-07-24 06:32] LABS: Glucose Point of Care 116 mg/dL (70-110)
[2019-07-24 06:32] LABS: Glucose Point of Care 137 mg/dL (70-110)
[2019-07-24 06:32] LABS: Glucose Point of Care 121 mg/dL (70-110)
[2019-07-24 06:32] LABS: Glucose Point of Care 134 mg/dL (70-110)
[2019-07-24 06:32] LABS: Glucose Point of Care 121 mg/dL (70-110)
[2019-07-24 06:32] LABS: Glucose Point of Care 119 mg/dL (70-110)
[2019-07-24 06:32] LABS: Glucose Point of Care 118 mg/dL (70-110)
--- NOTE | 2019-07-24 06:41 | PM.PN ---
Subjective Subjective: Interval history: Postop day 1 status post AVR. Uneventful night. Chest tube output under 84 cc since surgery. No arrhythmias. Pacing has not been required. Still on 3 mics per cake per minute of dobutamine. Cardiac index 2.3. Still on low-dose propofol, though has not awakened yet. Pupils 2 mm and equal. Lungs are very clear bilaterally by chest x-ray. The endotracheal tube is in good position. OG tube is actually in mid esophagus. Nurses report that and with attempt to advance, this began to move the endotracheal tube. Vitals/I&O/Wt Last Vital Signs Temp 100.0 F H 07/24/19 06:24 Pulse 78 07/24/19 06:23 Resp 14 07/24/19 06:23 BP 112/60 07/24/19 06:23 Pulse Ox 97 07/24/19 06:23 07/23/19 07/23/19 07/24/19 14:59 22:59 06:59 Intake Total 50 / 50 2266.337 / 2316.337 1184.08 / 3500.417 Output Total 400 / 400 2052 / 2452 607 / 3059 Balance -350 / -350 214.337 / -135.663 577.08 / 441.417 Physical Exam Chest: COMMONS NORMALS: inspection of chest normal (Dressings in place. Sternum stable.) Resp: COMMON NORMALS: clear to auscultation bilaterally (Remains sedated and intubated) AUSCULTATION: clear to auscultation bilaterally (Remains sedated and intubated) Cardio: COMMON NORMALS: regular rate and regular rhythm RATE: regular rate RHYTHM: regular rhythm Urinary Catheter Management^: Street: Cath Placed During This Visit: yes Reason for Continuing Indwelling Catheter: Accurate Measurement of Urinary Output in Critically Ill Patients Urinary Catheter Date of Insertion: 07/23/19 Urinary Catheter Time of Insertion: 09:54 Data : 07/24/19 04:00 07/24/19 04:00 A&P Assessment and plan (1) Bioprosthetic aortic valve replacement during current hospitalization: Postop day #1 status post AVR. Decrease sedation and awaken patient. Wean to extubation. I would leave OG tube in position currently and remove with extubation. Will transfuse 1 unit packed RBCs CBC, BMP, chest x-ray in a.m. Status: Acute Attestations Medical Necessity Statement*: Postop day #1 status post aortic valve replacement Time Spent in Patient Care: 16 - 35 minutes Coding Level of Care Code Acute Sample Examiner for Cassius Fwmina Exam Expanded Problem Focused Diagnoses 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
[2019-07-24 07:19] LABS: Glucose Point of Care 134 mg/dL (70-110)
--- NOTE | 2019-07-24 07:54 | P.OP_ITS ---
Operative Report Date of procedure: July 24, 2019 Pre-op Diagnosis: Critical aortic valve stenosis Post-op diagnosis: same Procedure Done: Aortic valve replacement with 23 mm bioprosthetic pericardial tissue valve Implants: [address] [place] pericardial tissue valve Specimens removed/disposition: Aortic valve leaflets Surgeon: Dioni Crespo Anesthesia: General Complications: None Condition: critical Disposition: ICU Procedure: BRIEF CLINICAL HISTORY: The patient is an 83-year-old gentleman referred to our service by Dr. Singh for consideration of aortic valve replacement secondary to critical aortic valve stenosis with a valve area of 0.7 cm?. Mr. Adan underwent routine careful preoperative evaluation, including left heart catheterization, which revealed no obstructive coronary disease. Details and risks of surgery were carefully and frankly discussed with the patient and his family. Increased risks of surgery secondary to advanced age were carefully reviewed. Patient and family stated understanding of these increased risks. He had originally been referred to [place] to consider TAVR, though was not felt to be an acceptable candidate for this procedure. Therefore, [place] was [place] [facility] [place]. Specific risks reviewed included the possibilty of , stroke, heart attack, major bleeding, infection, pneumonia, organ failure, failure to benefit, need for future surgery, phrenic nerve injury, need for long-term anticoagulation and potential complications of this, postoperative pain and early or delayed failure of the valve. All questions were answered and appropriate consents were reviewed and signed. He underwent preoperative education with both written and video materials. Benefits and risks of tissue versus mechanical valve were carefully discussed. Mr. Adan wished to proceed with surgery. PROCEDURE: Appropriate preoperative evaluation was performed by our Anesthesia colleagues with adequate IV's established. The patient was brought into the Operating Room Suite and placed on the Operating Room table in the supine position. General anesthesia was carefully induced as appropriate invasive monitoring lines were placed. After careful positioning, the patient was sterilely prepped and draped. A median sternotomy incision was made in standard fashion and continued down to the sternal table. The sternum was divided with a reciprocating saw and hemostasis was controlled with cautery and bone wax. Antibiotic soaked moist laparotomy pads were placed in the wound, followed by retractor. The sternum was and a pericardial cradle was opened and suspended. The heart and great vessels were carefully inspected and cannulation sites determined. He was noted to have an enlarged a sending aorta. 2-0 pledgeted Ethibond sutures were placed at cannulation sites, including the aorta, right atrial appendage, aortic root and right superior pulmonary vein. Following this, he was fully heparinized. Next, the heart was cannulated with a 22-[place] aortic cannula, two-stage venous cannula and an aortic root vent. A left ventricular vent was then placed through the right superior pulmonary vein. The patient was placed on cardiac pulmonary bypass and cooled systemically to 34 degrees. Aortic cross-clamp was then carefully placed and cold blood cardioplegia was administered through the aortic root as topical myocardial cooling was provided with cold saline with an insulation pad in place. Left ventricular decompression was maintained by the LV sump. After completion of the initial cardioplegic dose, a slightly oblique transverse aortotomy was created approximately 15 mm above the ostium to the right coronary artery. This aortotomy was enlarged with Metzenbaum scissors to provide adequate exposure to the diseased aortic valve. Coronary cannulae were utilized for hand injection of cardioplegia into the left main and right coronary ostia at 20 minute intervals while the aorta was opened. Next, the [place] valve was inspected and found to be trileaflet, though with fused right and left coronary cusps, and then excised utilizing a combination of Metzenbaum scissors, pituitary rongeurs for decalcification and scalpel blade as required. Great care was taken to remove all loosened debris. After adequate debridement and decalcification, with our LV sump turned off, the left ventricular cavity was irrigated with a large volume of iced saline in order to remove all debris. Following this, after inspection that the anterior leaflet of the mitral valve was intact, the aortic annulus was then carefully sized. Next, 2-0 pledgeted Ethibond sutures were placed circumferentially at the level of the annulus. After again sizing the valve, the appropriate sized valve at 23 mm was brought into the field. Annular sutures were placed through the valve sewing ring and the valve was lowered into position and secured. It was confirmed that the coronary ostia were not obstructed by the sewing ring. While the re-warming phase of bypass continued, the transverse aortotomy was closed with two layers of over-felt strips, utilizing 4-0 Prolene suture. Mr. Adan was then placed in deep Trendelenburg position as the cross-clamp was released and venting was performed to the aortic root and left ventricular sump. Adequate de-airing was performed and confirmed by transesophageal echocardiography. Pacing wires were placed, brought through the skin and secured. Any fibrillatory activity was cardioverted using internal paddles at 20 joules. He was then returned to the supine position as we continued active venting of the aortic root and LV sump. After completion of de- airing, the LV sump was removed and the site was secured. After completion of systemic re-warming and cardiac stability, the patient was weaned from bypass without difficulty on 5 mcg per kilogram per minute of Dobutamine. Following this, venous cannula was removed and Protamine test dose was given. Next, full Protamine dose was given. The heart was then decannulated and cannulation sites were oversewn. The aortic valve was again inspected by echocardiography and confirmed to be functioning well. Mediastinal drains were then placed and pleural drains if required. These were connected to Pleur-evac suction. Following this, retractor was removed and sponge and needle count was correct. After confirmation of hemostasis, the wound was irrigated. Platelet rich plasma was applied prior to reapproximating the sternal tables. The sternum was then reapproximated very carefully with interrupted #7 stainless steel wire. The fascia was closed with running #1 Vicryl suture, followed by closure of the subcutaneous layer with 2-0 and 3-0 Vicryl suture. Platelet rich plasma was also used in the subcutaneous layers. The skin was closed in a subcuticular manner. Sterile dressings were applied, followed by a vacuum-assisted dressing. After confirmation of hemodynamic stability and low chest tube output, the patient was then transferred to the Intensive Care Unit. I did senior vice president & general counsel with his daughter and by phone at the completion of the procedure.
[2019-07-24] MEDS: nitroglycerin drip 50 MG/250 ML PREMIX IV (08:56)
[2019-07-24] MEDS: enoxaparin 40 mg/0.4 mL Syringe SUBCUT (08:57)
[2019-07-24] MEDS: chlorhexidine gluconate 0.12% Btl 473 mL 15 ML MUCOUS MEM ×2 (11:05→18:01)
[2019-07-24] MEDS: pantoprazole 40 mg SDV IVP (11:09)
--- NOTE | 2019-07-24 15:01 | PC.OT ---
OT note. Pt intubated, will hold at this time. Will attempt later as able.
[2019-07-24 15:12] LABS: Glucose Point of Care 121 mg/dL (70-110)
[2019-07-24 15:12] LABS: Glucose Point of Care 134 mg/dL (70-110)
[2019-07-24 15:12] LABS: Glucose Point of Care 128 mg/dL (70-110)
[2019-07-24 15:12] LABS: Glucose Point of Care 120 mg/dL (70-110)
[2019-07-24 15:12] LABS: Glucose Point of Care 119 mg/dL (70-110)
[2019-07-24 15:12] LABS: Glucose Point of Care 140 mg/dL (70-110)
[2019-07-24 15:12] LABS: Glucose Point of Care 116 mg/dL (70-110)
[2019-07-24 15:12] LABS: Glucose Point of Care 141 mg/dL (70-110)
--- NOTE | 2019-07-24 17:22 | PC.NURSE ---
Dobutamine infusion is weaned off at 1715.
[2019-07-24] MEDS: albumin 12.5 GM/250 ML VIAL IV (17:53)
[2019-07-24 18:17] LABS: Glucose Point of Care 130 mg/dL (70-110)
[2019-07-24 18:17] LABS: Glucose Point of Care 136 mg/dL (70-110)
[2019-07-24 18:17] LABS: Glucose Point of Care 123 mg/dL (70-110)
[2019-07-25] VITALS (28 sets, daily range): BP systolic 86–139; BP diastolic 55–78; PULSE 77–95; RESP 12–21; TEMP 36.7–36.9; O2SAT 91–98
[2019-07-25] MEDS: oxyCODONE-APAP 5-325 mg Tablet PO (00:52)
[2019-07-25 03:50] LABS: Glucose Point of Care 126 mg/dL (70-110)
[2019-07-25 03:50] LABS: Glucose Point of Care 111 mg/dL (70-110)
[2019-07-25 03:50] LABS: Glucose Point of Care 98 mg/dL (70-110)
[2019-07-25 04:58] LABS: Basophils % 0.2 %; Hematocrit 30.1 % (42.0-52.0); Hemoglobin 9.6 g/dL (11.7-16.6); Lymphocytes # 1.1 10^3/uL (0.8-4.8); Lymphocytes % 6.6 %; Mean Corpuscular HGB Conc 31.9 g/dL (30.0-36.0); Mean Corpuscular Hemoglobin 29.7 pg (28.0-34.0); Mean Corpuscular Volume 93.2 fL (80-94); Mean Platelet Volume 11.8 fL (7.4-10.4); Monocytes # 2.1 10^3/uL (0.2-0.9); Monocytes % 12.2 %; Neutrophils # 13.6 10^3/uL (1.8-7.7); Neutrophils % 80.5 %; Nucleated Red Blood Cells % 0 %; Platelet Count 110 10^3/cmm (130-400); Red Blood Count 3.23 10^6/uL (4.1-5.3); Red Cell Distribution Width 15.4 % (12.1-15.1); White Blood Count 16.9 10^3/uL (4.0-10.0)
[2019-07-25 05:10] LABS: Magnesium 2.5 mg/dL (1.7-2.3)
[2019-07-25 05:12] LABS: Anion Gap 13.1 (5-19); Blood Urea Nitrogen 15 mg/dL (8-23); Calcium 7.7 mg/dL (8.5-10.5); Carbon Dioxide 22 mmol/L (22-29); Chloride 113 mmol/L (98-107); Creatinine Clr Calc Pharmacy 81.5959; Glucose 128 mg/dL (65-115); Osmolality Calculated 296 mOsm/kg (285-295); Potassium 4.1 mmol/L (3.5-5.1); Sodium 144 mmol/L (136-145)
--- NOTE | 2019-07-25 05:57 | ECG_ITS ---
Measurements Intervals [place] Rate: 87 P: -35 VA: 270 QRS: 3 QRSD: 136 T: -7 QT: 403 QTc: 487 SINUS RHYTHM WITH FIRST DEGREE AV BLOCK LEFT BUNDLE BRANCH BLOCK [120+ ms QRS DURATION, 80+ ms Q/S IN V1/V2, 85+ ms R IN I/aVL/V5/V6] Compared to ECG 07/24/2019 05:58:22 First degree AV block now present Left bundle-branch block now present Left-axis deviation no longer present Incomplete right bundle-branch block no longer present Myocardial infarct finding no longer present Electronically Signed On 07-25-2019 17:11:40 CDT by Luis M Rosado M.D. [id number]
--- NOTE | 2019-07-25 06:00 | XR_ITS ---
WS: [id number] XR chest 1V portable [id number] REASON FOR EXAM: POD #2 status post AVR FINDINGS: Sternotomy changes are again seen. The intracardiac Willard-Donald catheter is been removed. The re is to catheter is seen extending from the right side. We do not noted also the feeding tube. XR/XR chest 1V portable [id number] IMPRESSION: Readjustment the multiple tubes and removal of the Willard-Donald catheter.
--- NOTE | 2019-07-25 06:36 | P.PN_ITS ---
Subjective Subjective: Interval history: Extubated and up in chair on rounds this morning. Looks quite good. He is a bit confused, and thinking that his also had cardiac surgery. He actually thinks that another person performed his surgery and that I performed his 's surgery. He has followed commands appropriately. He appears comfortable. Hemodynamically stable. Low chest tube output. Chest x-ray remains clear though there may be a small developing left effusion in the costodiaphragmatic angle. White count has bumped up to 16.9. Afebrile. Good respiratory effort. Vitals/I&O/Wt Last Vital Signs Temp 98.5 F 07/25/19 04:00 Pulse 90 07/25/19 06:00 Resp 15 07/25/19 06:00 BP 139/77 07/25/19 06:00 Pulse Ox 96 07/25/19 06:00 07/24/19 07/24/19 07/25/19 14:59 22:59 06:59 Intake Total 810.66 / 810.66 100 / 910.66 1137.5 / 2048.16 Output Total 330 / 330 202 / 532 678 / 1210 Balance 480.66 / 480.66 -102 / 378.66 459.5 / 838.16 Physical Exam Chest: COMMONS NORMALS: inspection of chest normal (Wound VAC dressing remains in place. Sternum stable. Drain sites are dry) Resp: COMMON NORMALS: normal respiratory effort and no retractions EFFORT & INSPECTION: Yes able to speak in complete sentences AUSCULTATION: rales (Slightly in the bases.) Extremity: OTHER: 1+ peripheral edema. Urinary Catheter Management^: Street: Cath Placed During This Visit: yes Reason for Continuing Indwelling Catheter: Accurate Measurement of Urinary Output in Critically Ill Patients Urinary Catheter Date of Insertion: 07/23/19 Urinary Catheter Time of Insertion: 09:54 Data : 07/25/19 04:45 07/25/19 04:45 A&P Assessment and plan (1) Bioprosthetic aortic valve replacement during current hospitalization: Postop day #2 status post AVR. Plan: Lasix 20 mg IV now Metoprolol 12.5 mg twice daily Amiodarone 2 mg p.o. twice daily, will discontinue IV amiodarone later today CBC, BMP, chest x-ray in a.m. JUAN Coronado I think it would be beneficial for him to speak with his family by phone to help with orientation. 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
[2019-07-25 07:40] LABS: Glucose Point of Care 145 mg/dL (70-110)
[2019-07-25] MEDS: enoxaparin 40 mg/0.4 mL Syringe SUBCUT (07:41)
[2019-07-25] MEDS: FUROsemide 10 mg/mL SDV 2mL 20 MG IVP (07:41)
[2019-07-25] MEDS: metoprolol tartrate 25 mg Tablet 12.5 MG PO (07:42)
[2019-07-25] MEDS: levothyroxine 50 mcg Tablet PO (08:27)
[2019-07-25] MEDS: aspirin 325 mg Tablet PO (08:27)
[2019-07-25] MEDS: amiodarone 200 mg Tablet PO ×2 (08:27→17:47)
[2019-07-25] MEDS: gabapentin 300 mg Capsule PO ×3 (08:27→20:29)
--- NOTE | 2019-07-25 10:32 | PM.CONSULT ---
Providers/Reason For Consult Consulting Physican/Specialty*: Cardiology Reason for Consult*: Aortic valve replacement Attending Physician: Dioni Crespo MD Primary Care Provider: Jun Ling MD History of Present Illness History of Present Illness Clovis Adan is a 83 year old male past medical history significant for hypertension hyperlipidemia aortic valve stenosis underwent bioprosthetic aortic valve replacement with 23 mm valve 2 days ago. Postop course was complicated with atrial fibrillation treated with IV amiodarone. New right bundle branch block was also noted. This morning patient was switched back to p.o. amiodarone. He went back into atrial fibrillation but with controlled heart rate. I was asked by Dr. Crespo to assist in his care. When I saw the patient he was sitting in the chair heart rate is controlled but systolic blood pressure around 80 it is the reason physical therapy was canceled today. Patient got Lasix this morning. He otherwise denies chest pain PND orthopnea. White blood cell count is elevated. He denies fever chills. He denies cough and sputum. Review of Systems Eyes: Denies: photophobia Skin/Breast: Reports: surgical incision All/Imm: Denies: acute wheezing Meds/Allergies Home Medications and Allergies Home Medications Medication Instructions Recorded Confirmed Last Taken Type pravastatin 40 mg tablet 40 mg PO DAILY 90 Days #90 tab 06/06/19 07/23/19 07/22/19 Rx levothyroxine 50 mcg tablet 50 mcg PO DAILY #90 tab 07/04/19 07/23/19 07/22/19 Rx gabapentin 300 mg capsule 300 mg PO TID 90 Days #270 cap 07/16/19 07/23/19 07/23/19 Rx doxepin 5 % topical cream 1 applic TOPICAL .once daily 30 07/25/19 Unknown Rx Days #45 gm Allergies Allergy/AdvReac Type Severity Reaction Status Date / Time duloxetine [From Cymbalta] Allergy Unknown Verified 07/23/19 06:37 Current Medications Current Medications Generic Name Dose Route Start Last Admin Trade Name Freq PRN Reason Stop Dose Admin Amiodarone HCl 200 mg 07/25/19 09:00 07/25/19 08:27 Cordarone PO 200 mg BID CINDY Administration Aspirin 325 mg 07/24/19 09:00 07/25/19 08:27 Aspirin PO 325 mg DAILY CINDY Administration Chlorhexidine Gluconate 15 ml 07/23/19 18:00 07/25/19 08:36 Perigard MUCOUS MEM Not Given BID CINDY Enoxaparin Sodium 40 mg 07/24/19 07:45 07/25/19 07:41 Lovenox SUBCUT 40 mg Q24H CINDY Administration Gabapentin 300 mg 07/23/19 21:00 07/25/19 08:27 Neurontin PO 300 mg TID CINDY Administration Cefuroxime Sodium 1,500 mg/ 100 mls @ 200 mls/hr 07/24/19 03:30 07/25/19 03:59 Sodium Chloride IV 07/25/19 15:59 200 mls/hr Q12H CINDY Administration Protocol Albumin Human 12.5 gm in 250 mls @ 600 mls/hr 07/23/19 16:30 07/24/19 23:23 Albumin IV Infused PRN PRN Infusion For CVP < 4 or SBP< 90 Nitroglycerin/Dextrose 50 mg in 250 mls @ 0 mls/hr 07/23/19 16:30 07/24/19 08:56 Nitroglycerin Drip IV 10 mcg/min .Q0M CINDY 3 mls/hr Administration Protocol Per Protocol Sodium Nitroprusside 50 mg/ 252 mls @ 0 mls/hr 07/23/19 16:30 07/23/19 22:52 Dextrose IV 0 mcg/kg/min .Q0M CINDY 0 mls/hr Titration Protocol Per Protocol Sodium Chloride 1,000 mls @ 75 mls/hr 07/23/19 16:30 07/24/19 23:23 Sodium Chloride 0.9% IV 75 mls/hr .[id number] CINDY Administration Propofol 1,000 mg in 100 mls @ 0 mls/hr 07/23/19 16:30 07/24/19 08:03 Diprivan IV 0 mcg/kg/min .Q0M CINDY 0 mls/hr Titration Protocol Per Protocol Insulin Aspart 0 unit 07/25/19 08:00 07/25/19 08:28 Novolog SUBCUT 2 unit WM&BEDTIME CINDY Administration Protocol Levothyroxine Sodium 50 mcg 07/24/19 09:00 07/25/19 08:27 Synthroid PO 50 mcg DAILY CINDY Administration Metoprolol Tartrate 12.5 mg 07/25/19 07:00 07/25/19 07:42 Lopressor PO 12.5 mg BID CINDY Administration Oxycodone/Acetaminophen 1 - 2 tab 07/23/19 16:30 07/25/19 00:52 Percocet 5-325 Mg PO 1 tab Q6H PRN Administration MILD TO MODERATE PAIN PFSH Acute PFSH: Medical History GERD (gastroesophageal reflux disease) Hypercholesteremia Hypothyroidism (acquired) Prostatic hypertrophy Rheumatic fever Thyroid disease neuropathy Surgical History Bioprosthetic aortic valve replacement during current hospitalization H/O hernia repair x 5 Hx of tonsillectomy Family History Daughter No problems noted. Brother Prostate cancer Social History Smoking and tobacco status: former smoker Alcohol intake: never Dietary Habits: Current diet type/program: regular Caffeine: Yes Caffeine intake frequency: coffee Exercise: What type of physical activity do you participate in?: walking Physical activity functional status: independent ambulation How many days of moderate to strenuous exercise, like a brisk walk, did you do in the last 7 days: 2 On those days that you engage in moderate to strenuous exercise, how many minutes, on average, do you exercise?: 1 Safety: Seatbelt use: always Personal Safety: Do you feel safe at home: Yes Victim of physical abuse: No Victim of emotional abuse: No Victim of sexual abuse: No Would you like help information on resources?: No Vitals/I&O/Wt Last Vital Signs Temp 98.5 F 07/25/19 04:00 Pulse 79 07/25/19 09:09 Resp 18 07/25/19 09:09 BP 124/73 07/25/19 08:00 Pulse Ox 97 07/25/19 09:09 07/24/19 07/25/19 07/25/19 22:59 06:59 14:59 Intake Total 100 / 910.66 1137.5 / 2048.16 240 / 240 Output Total 202 / 532 678 / 1210 730 / 730 Balance -102 / 378.66 459.5 / 838.16 -490 / -490 Physical Exam Narrative: EXAM NARRATIVE: GENERAL: Patient is alert, awake and oriented x3. NECK: No jugular vein distension. HEENT: No cyanosis. No icterus. No pallor. HEART: Regularly irregulay S1 and S2. No murmur, rub or gallop. LUNGS: Decreased breath sound bilaterally. ABDOMEN: Mildly distended, nontender and distended. No guarding, rebound or tenderness. CENTRAL NERVOUS SYSTEM: Grossly nonfocal. EXTREMITIES: Lower extremities without edema bilaterally. Urinary Catheter Management^: Street: Cath Placed During This Visit: yes Reason for Continuing Indwelling Catheter: Accurate Measurement of Urinary Output in Critically Ill Patients Urinary Catheter Date of Insertion: 07/23/19 Urinary Catheter Time of Insertion: 09:54 A&P Assessment and plan (1) Bioprosthetic aortic valve replacement during current hospitalization: Patient is status post aortic valve replacement with bioprosthetic aortic valve. Postop course was complicated with new right bundle branch block could be secondary to inflammation and swelling around the valve area. We will continue to monitor. Status: Acute (2) Atrial fibrillation: Currently rate controlled. Continue p.o. amiodarone and metoprolol. Hopefully he will convert back into sinus rhythm. Status: Acute (3) Right bundle branch block: Most likely secondary to inflammation/injury after aortic valve replacement. We will continue to monitor hopefully once inflammation resolves it may will improve Status: Acute (4) Hypotension: Patient appears to be slightly hypotensive. I will check urinalysis to rule out UTI. I will give him 500 mL of IV fluid. May will add antibiotic. 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
[2019-07-25] MEDS: sodium chloride 0.9% 500 ML 999 ML IV (11:03)
[2019-07-25 11:31] LABS: Glucose Point of Care 160 mg/dL (70-110)
[2019-07-25 12:20] LABS: Urine Color Yellow (Yellow)
[2019-07-25 12:21] LABS: Add Urine Microscopic? YES; Bacteria Urine 2+; Bilirubin Urine Neg (NEGATIVE); Blood Urine 3+ (Negative); Glucose Urine UA Norm (Normal); Ketones Urine 1+ (Negative); Leukocyte Esterase Urine Negative (Negative); Nitrate Urine Negative (Negative); Protein Urine 1+ (Negative); Squamous Epithelial Cell Urine 0-4 (0-5); Urine Appearance SL Hazy (CLEAR); Urobilinogen Urine 1 mg/dL (Negative); WBC Urine RARE /hpf (0-5); pH Urine 5 (5-7)
[2019-07-25 12:22] LABS: Add Urine Culture? Yes; Fine Granular Casts Urine 0-4 /lpf; Mucus Urine 1+
[2019-07-25] MEDS: sodium chloride 0.9% 1,000 ML 75 ML IV (14:40)
[2019-07-25 16:38] LABS: Glucose Point of Care 118 mg/dL (70-110)
--- NOTE | 2019-07-25 18:14 | PC.NURSE ---
ART LINE AND CORTUS REMOVAL Arterial line and cortus removed per order. Pressure held until hemostasis achieved. Site cleansed and dressing applied.
[2019-07-25 20:29] LABS: Glucose Point of Care 123 mg/dL (70-110)
[2019-07-26] VITALS (22 sets, daily range): BP systolic 85–128; BP diastolic 51–69; PULSE 64–97; RESP 8–28; TEMP 36.5–36.8; O2SAT 91–98
[2019-07-26] MEDS: sodium chloride 0.9% 1,000 ML 75 ML IV (04:29)
[2019-07-26 05:05] LABS: Basophils # 0.1 10^3/uL (0.0-0.1); Basophils % 0.5 %; Eosinophils # 0.1 10^3/uL (0.0-0.8); Eosinophils % 0.7 %; Hematocrit 28.6 % (42.0-52.0); Hemoglobin 8.9 g/dL (11.7-16.6); Lymphocytes # 1.3 10^3/uL (0.8-4.8); Lymphocytes % 8.8 %; Mean Corpuscular HGB Conc 31.1 g/dL (30.0-36.0); Mean Corpuscular Hemoglobin 30.5 pg (28.0-34.0); Mean Corpuscular Volume 97.9 fL (80-94); Monocytes # 1.5 10^3/uL (0.2-0.9); Monocytes % 10.2 %; Neutrophils # 11.4 10^3/uL (1.8-7.7); Nucleated Red Blood Cells % 0.1 %; Platelet Count 102 10^3/cmm (130-400); Red Blood Count 2.92 10^6/uL (4.1-5.3); Red Cell Distribution Width 15.2 % (12.1-15.1); White Blood Count 14.4 10^3/uL (4.0-10.0)
[2019-07-26 05:22] LABS: Anion Gap 11.9 (5-19); Blood Urea Nitrogen 25 mg/dL (8-23); Calcium 7.6 mg/dL (8.5-10.5); Carbon Dioxide 22 mmol/L (22-29); Chloride 109 mmol/L (98-107); Glucose 107 mg/dL (65-115); Osmolality Calculated 285 mOsm/kg (285-295); Potassium 3.9 mmol/L (3.5-5.1); Sodium 139 mmol/L (136-145)
--- NOTE | 2019-07-26 06:00 | XR_ITS ---
WS: [id number] XR chest 1V portable [id number] REASON FOR EXAM: pod#3 s/p avr...diuresing FINDINGS: The left perihilar area shows slight increased density suggesting mild congestion. A central line is seen extending from the jugular approach on the right in good position. There is granulomas seen in both lung dodson Previous sternotomy findings. XR/XR chest 1V portable [id number] IMPRESSION: Coronary bypass changes. Central line extends from the jugular approach on the right Fullness in the left hilum suggest a mild congestion.
--- NOTE | 2019-07-26 06:56 | P.PN_ITS ---
Subjective Subjective: Interval history: Postop day #3 status post AVR. Greatly appreciate expertise of Dr. Singh. Patient is more alert this morning still a bit confused and believes his either had cardiac surgery or coronary stenting. Answering questions appropriately however. Urinalysis reveals what appears to be an asymptomatic early UTI. We will treat accordingly with Levaquin initially. Low chest tube output. Once he is back in the chair after morning activities, I will take out his mediastinal drains today. He appears to have a bundle branch block with underlying A. fib. I will leave the pacing wires in place for now. Amiodarone has been transitioned to oral. Vitals/I&O/Wt Last Vital Signs Temp 98.2 F 07/26/19 05:00 Pulse 97 07/26/19 06:00 Resp 18 07/26/19 06:00 BP 118/63 07/26/19 06:00 Pulse Ox 94 07/26/19 06:00 07/25/19 07/25/19 07/26/19 14:59 22:59 06:59 Intake Total 1360 / 1360 240 / 1600 1000 / 2600 Output Total 765 / 765 395 / 1160 410 / 1570 Balance 595 / 595 -155 / 440 590 / 1030 Physical Exam Chest: COMMONS NORMALS: inspection of chest normal (Wound VAC dressing in place. Sternum stable. Drain sites are intact with drains in position) Resp: COMMON NORMALS: normal respiratory effort, no retractions and clear to auscultation bilaterally EFFORT & INSPECTION: Yes able to speak in complete sentences AUSCULTATION: clear to auscultation bilaterally Cardio: COMMON NORMALS: regular rate, S1 normal heart sound and S2 normal heart sound RATE: regular rate RHYTHM: abnormal rhythm HEART SOUNDS: S1 normal and S2 normal Extremity: OTHER: Minimal peripheral edema. Edema in his hands also improving. Urinary Catheter Management^: Street: Cath Placed During This Visit: yes Reason for Continuing Indwelling Catheter: Accurate Measurement of Urinary Output in Critically Ill Patients Urinary Catheter Date of Insertion: 07/23/19 Urinary Catheter Time of Insertion: 09:54 Data : 07/26/19 04:10 07/26/19 04:10 A&P Assessment and plan (1) Bioprosthetic aortic valve replacement during current hospitalization: Postop day #3 status post AVR. A. fib with bundle branch block. Rate control. Early UTI Plan: Levaquin 500 mg daily first dose now Discontinue mediastinal drains later today. If cleared by Dr. Singh, may transfer to boss though he will need a sitter as he does still have some confusion. We will need to assess the best position for discharge planning. 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
[2019-07-26] MEDS: metoprolol tartrate 25 mg Tablet 12.5 MG PO ×2 (08:33→18:06)
[2019-07-26] MEDS: aspirin 325 mg Tablet PO (08:34)
[2019-07-26] MEDS: levoFLOXacin 500 mg Tablet PO (08:34)
[2019-07-26] MEDS: gabapentin 300 mg Capsule PO ×3 (08:34→21:02)
[2019-07-26] MEDS: amiodarone 200 mg Tablet PO ×3 (08:34→21:02)
[2019-07-26] MEDS: enoxaparin 40 mg/0.4 mL Syringe SUBCUT (08:35)
[2019-07-26 08:44] LABS: Glucose Point of Care 110 mg/dL (70-110)
[2019-07-26] MEDS: levothyroxine 50 mcg Tablet PO (08:44)
--- NOTE | 2019-07-26 09:00 | PC.SOCIAL ---
[facility] Page 2 of [facility] explained to patient's daughter Dedra on the phone. She verbalizes understanding. Initialed, dated, and timed and placed in chart.
--- NOTE | 2019-07-26 10:45 | PC.NURSE ---
Pt ready to go back to bed. Pt unsteady required 3 assist to get back into bed.
--- NOTE | 2019-07-26 12:19 | PM.PN ---
Subjective Subjective: Interval history: Continues to be in atrial fibrillation with controlled heart rate he has walked around with physical therapy. Blood pressure was within normal limit. Vitals/I&O/Wt Last Vital Signs Temp 98.2 F 07/26/19 05:00 Pulse 68 07/26/19 10:39 Resp 16 07/26/19 10:39 BP 118/63 07/26/19 06:00 Pulse Ox 94 07/26/19 10:39 07/25/19 07/26/19 07/26/19 22:59 06:59 14:59 Intake Total 240 / 1600 1000 / 2600 300 / 300 Output Total 395 / 1160 410 / 1570 Balance -155 / 440 590 / 1030 300 / 300 Physical Exam Narrative: EXAM NARRATIVE: GENERAL: Patient is alert, awake and oriented x3. NECK: No jugular vein distension. HEENT: No cyanosis. No icterus. No pallor. HEART: Regularly irregulay S1 and S2. No murmur, rub or gallop. LUNGS: Decreased breath sound bilaterally. ABDOMEN: Mildly distended, nontender and distended. No guarding, rebound or tenderness. CENTRAL NERVOUS SYSTEM: Grossly nonfocal. EXTREMITIES: Lower extremities without edema bilaterally. Urinary Catheter Management^: Street: Cath Placed During This Visit: yes Reason for Continuing Indwelling Catheter: Accurate Measurement of Urinary Output in Critically Ill Patients Urinary Catheter Date of Insertion: 07/23/19 Urinary Catheter Time of Insertion: 09:54 Data : 07/26/19 04:10 07/26/19 04:10 A&P Assessment and plan (1) Bioprosthetic aortic valve replacement during current hospitalization: He does post aortic valve replacement. Continue to optimize medicine. Status: Acute (2) Atrial fibrillation: Rate controlled. We will increase amiodarone to 200 mg 3 times a day. We are trying to convert him to sinus rhythm. He is already on metoprolol Status: Acute (3) Right bundle branch block: We will continue to monitor most likely secondary to aortic valve replacement and acquired Status: Acute (4) Hypotension: Currently resolved. Status: Acute Attestations Medical Necessity Statement*: Patient require continuation hospitalization for above defined care. 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
--- NOTE | 2019-07-26 13:35 | PC.NURSE ---
DR Crespo , in unit, removed Pacer wires, and chest tubes. Central line removed, Stitches removed prior. Pressure held until hemostasis obtained. Gauze and bioclusive dressing applied. Street cath removed. 7 ml of fluid removed from balloon. NO discharged noted on intact catheter tip. Zoll pads removed. , an area pf skin smaller than a quarter raw under the front pad. Applied antibiotic. Pt resting supine, after CVL removal. Pt tolerated all well.
[2019-07-26 17:21] LABS: Glucose Point of Care 115 mg/dL (70-110)
[2019-07-26 21:35] LABS: Glucose Point of Care 94 mg/dL (70-110)
[2019-07-27] VITALS (16 sets, daily range): BP systolic 98–134; BP diastolic 61–72; PULSE 70–79; RESP 15–22; TEMP 36.3–36.8; O2SAT 86–98
--- NOTE | 2019-07-27 04:00 | XR_ITS ---
WS: [id number] XR chest 1V portable [id number] REASON FOR EXAM: post op day 4 FINDINGS: Coronary bypass changes are noted. The heart is borderline enlarged with arteriosclerotic changes. No free air under the diaphragms. No pneumonia, pulmonary edema, pleural effusion, or pneumothorax. XR/XR chest 1V portable [id number] IMPRESSION: Sternotomy with findings of coronary bypass.
[2019-07-27] MEDS: levoFLOXacin 500 mg Tablet PO (05:43)
--- NOTE | 2019-07-27 05:44 | PC.NURSE ---
SHIFT SUMMARY PT HAS BEEN ALERT AND ORIENTATED. PT LUNGS SOUNDS HAVE REMAINED CLEAR. PT HAS BEEN ABLE TO USE URINAL. PT HAS BEEN EDUCATED FREQUENTLY ON HOW TO PROPERLY USE HIS HEART PILLOW AND NOT PUT STRAIN ON HIS CHEST. PT STATES HE UNDERSTANDS THE IMPORTANCE OF NOT USING HIS ARMS TO PUSH OR PULL. REINFORCEMENT IS NEEDED. PT IS CURRENTLY UP IN CHAIR. PT IS STILL NEEDING MAX ASSISTANCE TO GET UP.
--- NOTE | 2019-07-27 07:28 | P.PN_ITS ---
Subjective Subjective: Interval history: Patient says overall he is doing better. He still is weak and required physical therapy. Chest tubes are out. Underlying rhythm remains A. fib but controlled heart rate. Medications: Reviewed: Yes Vitals/I&O/Wt Last Vital Signs Temp 97.9 F 07/27/19 05:43 Pulse 78 07/27/19 05:00 Resp 20 H 07/27/19 05:00 BP 134/72 07/27/19 05:00 Pulse Ox 92 07/27/19 05:00 07/26/19 07/27/19 07/27/19 22:59 06:59 14:59 Intake Total 150 / 650 240 / 890 Output Total 100 / 475 200 / 675 Balance 50 / 175 40 / 215 Physical Exam Narrative: EXAM NARRATIVE: GENERAL: Patient is alert, awake and oriented x3. NECK: No jugular vein distension. HEENT: No cyanosis. No icterus. No pallor. HEART: Regularly irregulay S1 and S2. No murmur, rub or gallop. LUNGS: Decreased breath sound bilaterally. ABDOMEN: Mildly distended, nontender and distended. No guarding, rebound or tenderness. CENTRAL NERVOUS SYSTEM: Grossly nonfocal. EXTREMITIES: Lower extremities without edema bilaterally. Urinary Catheter Management^: Street: Cath Placed During This Visit: yes, but has since been removed by the nurse Reason for Continuing Indwelling Catheter: Decision to DC Catheter Urinary Catheter Date of Insertion: 07/23/19 Urinary Catheter Time of Insertion: 09:54 Date Urinary Catheter Removed: 07/26/19 Time Urinary Catheter Discontinued: 13:25 Data : 07/26/19 04:10 07/26/19 04:10 Micro: Microbiology 07/25/19 11:10 Urine Culture - Preliminary Urine,Clean Catch A&P Assessment and plan (1) Bioprosthetic aortic valve replacement during current hospitalization: Patient is status post aortic valve replacement. Postop atrial fibrillation was noted. Currently it is under control. Overall he is steadily improving. Status: Acute (2) Atrial fibrillation: Currently rate controlled amiodarone was increased to 200 mg 3 times a day. I will discussed with Dr. Crespo regarding risk-benefit at this point since it is more than 48 hours of A. fib we may will start anticoagulating him. Status: Acute Qualifiers: Atrial fibrillation type: unspecified Qualified Code(s): I48.91 - Unspecified atrial fibrillation (3) Right bundle branch block: We will continue to monitor most likely secondary to aortic valve replacement and acquired. Continue to monitor Status: Acute Attestations Medical Necessity Statement*: Patient require continuation of hospitalization for above defined care. 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
[2019-07-27 07:36] LABS: Glucose Point of Care 105 mg/dL (70-110)
[2019-07-27 07:45] LABS: Glucose Point of Care 91 mg/dL (70-110)
--- NOTE | 2019-07-27 08:36 | P.PN_ITS ---
Subjective Subjective: Interval history: Postop day #4 status post AVR. Continues with bundle branch block and what appears to be intermittent A. fib. He is continuing to be more alert and appropriate. Still using his arms excessively from time to time requires repeated reminding. Chest x-ray remains relatively clear though there is just a bit of increased vasculature on the right side whic h may represent some mild volume overload from recollection of third spaced fluid. Pulling about 1000 cc on incentive spirometry though does require quite a bit of encouragement to do this. Patient states he wishes to be discharged to home after his convalescence. Chest tubes were removed yesterday. Vitals/I&O/Wt Last Vital Signs Temp 97.9 F 07/27/19 05:43 Pulse 78 07/27/19 05:00 Resp 20 H 07/27/19 05:00 BP 134/72 07/27/19 05:00 Pulse Ox 92 07/27/19 05:00 07/26/19 07/27/19 07/27/19 22:59 06:59 14:59 Intake Total 150 / 650 240 / 890 Output Total 100 / 475 200 / 675 Balance 50 / 175 40 / 215 Physical Exam Chest: COMMONS NORMALS: inspection of chest normal (Wound VAC dressing remains in place. I will remove either later today or tomorrow.) Cardio: COMMON NORMALS: regular rate and regular rhythm (Underlying A. fib by EKG though his rhythm is fairly regular) RATE: regular rate RHYTHM: regular rhythm (Underlying A. fib by EKG though his rhythm is fairly regular) Extremity: NARRATIVE EXTREMITY EXAM: Remaining edema continues to resolve. Psych: OTHER: He is oriented to person, place, and situation, though does reportedly have intermittent bouts of mild confusion as reported by the nurses. 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 Continues to slowly improve. Though Mr. Adan wishes to be discharged to home, I do not think this would be well advised. He requires quite a bit of attention and assistance with transfers. I think he would be at great risk for injury and I think it would be much better served with continued convalescence after acute hospitalization at a skilled facility. We currently plan to have a video conference with his family today. I will be at bedside with Mr. Adan when this occurs as we discussed discharge options. I will plan to transfer to the boss today. I do recommend a one-to-one sitter at this time due to his intermittent episodes of confusion and excessive use of his arms. We will obtain a CBC and BMP tomorrow. Also obtain a urinalysis tomorrow. I again greatly appreciate the expertise and oversight from Dr. Singh. 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
[2019-07-27] MEDS: FUROsemide 20 mg Tablet PO (09:31)
[2019-07-27] MEDS: levothyroxine 50 mcg Tablet PO (09:31)
[2019-07-27] MEDS: gabapentin 300 mg Capsule PO ×3 (09:31→20:06)
[2019-07-27] MEDS: metoprolol tartrate 25 mg Tablet 12.5 MG PO ×2 (09:31→18:12)
[2019-07-27] MEDS: enoxaparin 40 mg/0.4 mL Syringe SUBCUT (09:31)
[2019-07-27] MEDS: amiodarone 200 mg Tablet PO ×3 (09:31→20:06)
[2019-07-27] MEDS: aspirin 325 mg Tablet PO (09:31)
[2019-07-27 11:34] LABS: Glucose Point of Care 83 mg/dL (70-110)
--- NOTE | 2019-07-27 11:45 | PC.NURSE ---
Attempted facetime with family, unsuccessful. Ended up using this nurse's phone on speaker phone. Had a conversation with family, patient and Dr Crespo about plans for patient at discharge. Patient had been saying he wa going to go home. Pt weak needs more physical therapy and re iteration of Sternal Precautions. Marva, case management also present. Family and patient agreed for pt's well being and safety to go to [facility] for rehab.
--- NOTE | 2019-07-27 13:30 | PC.NURSE ---
Report faxed to [facility] [employer] [employer]. Further verbal report given to NOELLE Medel. Took pt's belongings upstairs and gave verbal report to NOELLE Eastman.
--- NOTE | 2019-07-27 13:45 | PC.NURSE ---
Pt put himself back to bed while this nurse on phone giving report to [facility]. Pt stated he did not see what the problem was, he did ok. Reminded pt of sternal precautions being the issue. He MUST protect his chest and follow precautions. PT Now here, going to work with pt and transport to new room 268. Pt introduced to his one on one sitter.
[2019-07-27 13:49] LABS: Blood Gas Allen Test Pos; Blood Gas Sample Type Arterial
[2019-07-27 13:49] LABS: ABG PCO2 33.4 mmHg (35-45); ABG PH Result 7.48 (7.35-7.45); Base Excess ABG 1.7 mmol/L (-2.0-2.0); Blood Gas Allen Test Pos; Blood Gas Sample Type Arterial; Carboxyhemoglobin 0.6 %THgb (0.4-20.1); HGB O2 Sat 99.4 % (95-100); Methemoglobin 0.6 % (0.4-1.5); Potassium Level - ABG 4.8 mmol/L (3.5-5.0); Total Hemoglobin 8.8 g/dL (14-18)
[2019-07-27 13:49] LABS: ABG PCO2 48.3 mmHg (35-45); Arterial Blood Gas Hematocrit 25.4 % (42-52); Base Excess ABG -2.9 mmol/L (-2.0-2.0); Blood Gas Allen Test Pos; Blood Gas Sample Type Arterial; Carboxyhemoglobin 0.5 %THgb (0.4-20.1); HCO3 ABG 23.6 mmol/L (22-26); HGB O2 Sat 98.8 % (95-100); Ionized Calcium Level - ABG 1.1 mmol/L (1.1-1.4); Methemoglobin 0.9 % (0.4-1.5); Potassium Level - ABG 4.2 mmol/L (3.5-5.0); Total Hemoglobin 8.3 g/dL (14-18)
[2019-07-27 13:49] LABS: ABG PCO2 41.7 mmHg (35-45); ABG PH Result 7.37 (7.35-7.45); Arterial Blood Gas Hematocrit 30.7 % (42-52); Base Excess ABG -1.5 mmol/L (-2.0-2.0); Blood Gas Allen Test Pos; Blood Gas Sample Type Arterial; Carboxyhemoglobin 0.3 %THgb (0.4-20.1); HCO3 ABG 23.8 mmol/L (22-26); HGB O2 Sat 98.7 % (95-100); Ionized Calcium Level - ABG 1.1 mmol/L (1.1-1.4); Potassium Level - ABG 4.2 mmol/L (3.5-5.0)
[2019-07-27 13:49] LABS: ABG PCO2 46.9 mmHg (35-45); ABG PH Result 7.28 (7.35-7.45); Arterial Blood Gas Hematocrit 23.6 % (42-52); Base Excess ABG -4.5 mmol/L (-2.0-2.0); Blood Gas Allen Test Pos; Blood Gas Sample Type Arterial; Carboxyhemoglobin 0.4 %THgb (0.4-20.1); HGB O2 Sat 98.8 % (95-100); Methemoglobin 0.9 % (0.4-1.5); Potassium Level - ABG 4.3 mmol/L (3.5-5.0); Total Hemoglobin 7.7 g/dL (14-18)
--- NOTE | 2019-07-27 14:33 | PC.NURSE ---
Patient to floor. PT ambulated patient from ICU to his room in 269.. Patient O2 sat is 94% on 2.5 litters of O2. Patient forgets precautions and tries to lift and push self up. Sternal precautions posted, and staff aware of non-compliance. Sitter is with patient.
--- NOTE | 2019-07-27 14:38 | PC.NURSE ---
Patient has wound vac to sternal sugical site. No leaks noted, and collection canister not full. Vac cord connected and plugged in.
--- NOTE | 2019-07-27 16:48 | PC.NURSE ---
Patient up in chair. Patient shaving self. tolerated well. Assist of one.
--- NOTE | 2019-07-27 18:02 | PC.NURSE ---
Patient walked to bathroom with walker and standby assist. tolerated well. Had large BM.
[2019-07-27] MEDS: chlorhexidine gluconate 0.12% Btl 473 mL 15 ML MUCOUS MEM (18:11)
--- NOTE | 2019-07-27 18:29 | PC.NURSE ---
Patient rec Morphine twice today, she appeared to be sleeping mostly. Incont of urine, and rec q2hr and as needed incont care and reposition. Patient needed suction prn, for thick secretions.
[2019-07-27 18:51] LABS: Add Urine Microscopic? YES; Bilirubin Urine Neg (NEGATIVE); Blood Urine 2+ (Negative); Glucose Urine UA Norm (Normal); Ketones Urine Negative (Negative); Leukocyte Esterase Urine Negative (Negative); Nitrate Urine Negative (Negative); Protein Urine Neg (Negative); Specific Gravity, Urine 1.015 (1.005-1.030); Urine Appearance Clear (CLEAR); Urine Color Yellow (Yellow); Urobilinogen Urine Norm (Negative); pH Urine 5 (5-7)
[2019-07-27 18:52] LABS: Add Urine Culture? Yes; Bacteria Urine 1+; Mucus Urine 4+; RBC Urine 15-25 /hpf (0-2); Squamous Epithelial Cell Urine 15-25 (0-5)
[2019-07-28] VITALS (9 sets, daily range): BP systolic 104–122; BP diastolic 64–76; PULSE 70–77; RESP 18–22; TEMP 35.6–37.1; O2SAT 90–99
[2019-07-28] MEDS: levoFLOXacin 500 mg Tablet PO (05:19)
[2019-07-28 06:21] LABS: Basophils # 0.1 10^3/uL (0.0-0.1); Basophils % 0.4 %; Eosinophils # 0.3 10^3/uL (0.0-0.8); Eosinophils % 2.5 %; Hematocrit 28.5 % (42.0-52.0); Hemoglobin 8.9 g/dL (11.7-16.6); Lymphocytes # 1.2 10^3/uL (0.8-4.8); Lymphocytes % 10.5 %; Mean Corpuscular HGB Conc 31.2 g/dL (30.0-36.0); Mean Corpuscular Hemoglobin 30.4 pg (28.0-34.0); Mean Corpuscular Volume 97.3 fL (80-94); Mean Platelet Volume 11.1 fL (7.4-10.4); Monocytes # 1.3 10^3/uL (0.2-0.9); Monocytes % 11.7 %; Neutrophils # 8.4 10^3/uL (1.8-7.7); Neutrophils % 73.1 %; Nucleated Red Blood Cells # 0.2 /100WBC; Nucleated Red Blood Cells % 1.5 %; Platelet Count 185 10^3/cmm (130-400); Red Blood Count 2.93 10^6/uL (4.1-5.3); Red Cell Distribution Width 14.6 % (12.1-15.1); White Blood Count 11.4 10^3/uL (4.0-10.0)
[2019-07-28 06:42] LABS: Anion Gap 15.6 (5-19); Blood Urea Nitrogen 27 mg/dL (8-23); Calcium 7.6 mg/dL (8.5-10.5); Carbon Dioxide 20 mmol/L (22-29); Chloride 108 mmol/L (98-107); Glucose 129 mg/dL (65-115); Osmolality Calculated 289 mOsm/kg (285-295); Potassium 3.6 mmol/L (3.5-5.1); Sodium 140 mmol/L (136-145)
[2019-07-28] MEDS: aspirin 325 mg Tablet PO (08:25)
[2019-07-28] MEDS: levothyroxine 50 mcg Tablet PO (08:25)
[2019-07-28] MEDS: amiodarone 200 mg Tablet PO (08:25)
[2019-07-28] MEDS: metoprolol tartrate 25 mg Tablet 12.5 MG PO ×2 (08:26→16:38)
[2019-07-28] MEDS: gabapentin 300 mg Capsule PO ×3 (08:27→20:24)
[2019-07-28] MEDS: enoxaparin 40 mg/0.4 mL Syringe SUBCUT (08:29)
--- NOTE | 2019-07-28 09:30 | PC.NURSE ---
0800 patient set up in chair for breakfast. Uses IS three different times this morning. Patient states he did not rest well last night. He denied having pain, and it was not the cause of little sleep. Patent breath sounds diminished t/o. Patient rec oxygen at 3 l/nc. Reported to RT with concerns. Patient being assessed and treated with RT. Wound vac canister checked, appears to be in correct working order, suction as set, and dressing to chest wall intact with no noted leaks. Patient continues need instruction for transfer from sit/stand. Following queuing well.
--- NOTE | 2019-07-28 11:10 | PM.PN ---
Subjective Subjective: Interval history: Postop day #5 status post AVR. He was transferred to the boss yesterday. We do have a one-on-one sitter with him. He is doing quite well with only some mild episodes of confusion. Very appropriate with questioning and does appear to be oriented and asking appropriate questions. Review of his lab from today reveals his white count has continued to trend down and now is at 11,000. Chest x-ray from yesterday remains clear. Still can use some work with incentive spirometry though is pulling around 1000 cc. He still desaturates when mild nasal cannula and will probably need some oxygen supplementation for a period of time after discharge. Vitals/I&O/Wt Last Vital Signs Temp 98.8 F 07/28/19 07:31 Pulse 76 07/28/19 07:31 Resp 18 07/28/19 07:31 BP 122/76 07/28/19 07:31 Pulse Ox 95 07/28/19 07:31 07/27/19 07/28/19 07/28/19 22:59 06:59 14:59 Intake Total 390 / 790 120 / 910 Output Total 400 / 650 Balance 390 / 540 -280 / 260 Physical Exam Chest: COMMONS NORMALS: inspection of chest normal (Wound VAC dressing removed. Sternotomy incision clean and dry. Drain sites well approximated. New dressings applied.) and palpation of chest normal (Sternum is stable.) Resp: COMMON NORMALS: normal respiratory effort, no retractions, no use of accessory muscles and clear to auscultation bilaterally (Improving aeration to the bases.) AUSCULTATION: clear to auscultation bilaterally (Improving aeration to the bases.) Cardio: COMMON NORMALS: regular rate, regular rhythm, no murmurs and no rub RATE: regular rate RHYTHM: regular rhythm Extremity: COMMON NORMALS: no clubbing, cyanosis or edema and no pedal edema Urinary Catheter Management^: Street: Cath Placed During This Visit: yes, but has since been removed by the nurse Reason for Continuing Indwelling Catheter: Decision to DC Catheter Urinary Catheter Date of Insertion: 07/23/19 Urinary Catheter Time of Insertion: 09:54 Date Urinary Catheter Removed: 07/26/19 Time Urinary Catheter Discontinued: 13:25 Data : 07/28/19 05:57 07/28/19 05:57 Micro: Microbiology 07/25/19 11:10 Urine Culture - Final Urine,Clean Catch A&P Assessment and plan (1) 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 Slow but progressive recovery. White count trending down. We will need repeat EKG tomorrow to determine whether he is back in sinus rhythm or still with A. fib and a bundle branch block. His atrial fibrillation ventricular rate has been quite steady. We have tentatively plan for discharge to [facility] on Tuesday. I counseled with him and family by phone yesterday. All appear to be in agreement that he would be best served with continued rehabilitation through skilled care. 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
--- NOTE | 2019-07-28 11:31 | PC.SOCIAL ---
IMM Updated Updated pt on Pg 2 IMM. Pt verbally understands. No questions voiced. Provided pt a copy & left on pt's bedside table. signed, dated, timed the copy in chart.
[2019-07-28] MEDS: chlorhexidine gluconate 0.12% Btl 473 mL 15 ML MUCOUS MEM ×2 (12:33→17:44)
--- NOTE | 2019-07-28 13:20 | ECG_ITS ---
Measurements Intervals [place] Rate: 70 P: 3 UT: 320 QRS: 8 QRSD: 152 T: 13 QT: 463 QTc: 501 SINUS RHYTHM WITH FIRST DEGREE AV BLOCK LEFT BUNDLE BRANCH BLOCK [120+ ms QRS DURATION, 80+ ms Q/S IN V1/V2, 85+ ms R IN I/aVL/V5/V6] Compared to ECG 07/25/2019 06:08:01 No significant changes Electronically Signed On 07-29-2019 20:12:03 CDT by Rico Curiel M.D. [id number]
--- NOTE | 2019-07-28 14:17 | PM.PN ---
Subjective Subjective: Interval history: Patient has desaturated while walking. His QT is slightly prolonged with first-degree heart block, sinus rhythm Medications: Reviewed: Yes Vitals/I&O/Wt Last Vital Signs Temp 97 F L 07/28/19 12:00 Pulse 70 07/28/19 13:40 Resp 18 07/28/19 13:40 BP 107/68 07/28/19 12:00 Pulse Ox 95 07/28/19 13:40 07/27/19 07/28/19 07/28/19 22:59 06:59 14:59 Intake Total 390 / 790 120 / 910 Output Total 400 / 650 Balance 390 / 540 -280 / 260 Physical Exam Narrative: EXAM NARRATIVE: GENERAL: Patient is alert, awake and oriented x3. NECK: No jugular vein distension. HEENT: No cyanosis. No icterus. No pallor. HEART: Regularly irregulay S1 and S2. No murmur, rub or gallop. LUNGS: Decreased breath sound bilaterally. ABDOMEN: Mildly distended, nontender and distended. No guarding, rebound or tenderness. CENTRAL NERVOUS SYSTEM: Grossly nonfocal. EXTREMITIES: Lower extremities without edema bilaterally. 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 Patient is also appeared to be slightly decompensated. We will give patient IV Lasix. Status: Acute (2) Atrial fibrillation: Patient is in sinus rhythm with first-degree AV block slight QT prolongation. I will reduce amiodarone to 200 mg once a day. 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
--- NOTE | 2019-07-28 16:09 | PC.NURSE ---
Dressing change after shower. Incision painted with betadine, and coverderm (2) applied to site. Patient tolerated shower well.
[2019-07-28 16:38] LABS: Glucose Point of Care 77 mg/dL (70-110)
[2019-07-29] VITALS (8 sets, daily range): BP systolic 104–134; BP diastolic 64–81; PULSE 72–96; RESP 16–20; TEMP 36.4–37.6; O2SAT 92–99
[2019-07-29] MEDS: levoFLOXacin 500 mg Tablet PO (05:29)
--- NOTE | 2019-07-29 08:00 | ECG_ITS ---
Measurements Intervals [place] Rate: 78 P: -2 DC: 257 QRS: -1 QRSD: 150 T: 82 QT: 440 QTc: 502 SINUS RHYTHM WITH FIRST DEGREE AV BLOCK LEFT BUNDLE BRANCH BLOCK [120+ ms QRS DURATION, 80+ ms Q/S IN V1/V2, 85+ ms R IN I/aVL/V5/V6] Compared to ECG 07/25/2019 06:08:01 No significant changes Electronically Signed On 07-29-2019 20:14:11 CDT by Rico Curiel M.D. [id number]
[2019-07-29] MEDS: gabapentin 300 mg Capsule PO ×3 (09:07→20:33)
[2019-07-29] MEDS: aspirin 325 mg Tablet PO (09:07)
[2019-07-29] MEDS: levothyroxine 50 mcg Tablet PO (09:08)
[2019-07-29] MEDS: enoxaparin 40 mg/0.4 mL Syringe SUBCUT (09:08)
[2019-07-29] MEDS: amiodarone 200 mg Tablet PO (09:08)
[2019-07-29] MEDS: metoprolol tartrate 25 mg Tablet 12.5 MG PO ×2 (09:08→17:10)
[2019-07-29] MEDS: chlorhexidine gluconate 0.12% Btl 473 mL 15 ML MUCOUS MEM ×2 (09:08→17:11)
--- NOTE | 2019-07-29 10:12 | DCPLANNER ---
Attempted to explain IM to pt after introducing myself. Seems like he understood the information but then said hand it to my ; Gin, right over there . No one is right over there and his 's name is not Gin. We will attempt to phone his ; Carolyn and explain it to her.
--- NOTE | 2019-07-29 11:04 | PM.PN ---
Subjective Subjective: Interval history: Greatly appreciate Dr. Singh's oversight. Up in chair on rounds. Looks quite good. No episodes of confusion have been reported by the nursing service. Still has a bit of edema in her lower extremities and I concur with a bit of diuresis today. There was one recorded temperature of 99.3, though the sitter reports that he had just taken some coffee immediately prior to that temperature recording. Most recent one is 97.5. He received a Betasept shower yesterday. Amiodarone dosing has been adjusted by Dr. Singh related to first-degree AV block and with bundle branch. Vitals/I&O/Wt Last Vital Signs Temp 97.5 F L 07/29/19 10:59 Pulse 74 07/29/19 09:02 Resp 20 H 07/29/19 09:02 BP 124/73 07/29/19 08:00 Pulse Ox 99 07/29/19 09:02 07/28/19 07/29/19 07/29/19 22:59 06:59 14:59 Intake Total 360 / 360 Output Total 200 / 200 130 / 330 Balance -200 / -200 -130 / -330 360 / 360 Physical Exam Chest: COMMONS NORMALS: inspection of chest normal (Dressings are in place. Sternum stable. No drainage.) Resp: COMMON NORMALS: normal respiratory effort, no retractions, no use of accessory muscles and clear to auscultation bilaterally AUSCULTATION: clear to auscultation bilaterally Cardio: COMMON NORMALS: regular rate, regular rhythm and S1 normal heart sound RATE: regular rate RHYTHM: regular rhythm HEART SOUNDS: S1 normal Extremity: OTHER: There is 1+ edema bilaterally. 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 Continues to progress well. Plans for discharge to [facility] tomorrow. I will continue with oral Lasix today. CBC, BMP, chest x-ray in a.m. Discharge planning for tomorrow. He will need supplemental oxygen at discharge. 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
--- NOTE | 2019-07-29 11:19 | PC.NURSE ---
put order in for betasept for shower today
--- NOTE | 2019-07-29 12:48 | PC.NURSE ---
PT and OT working with patient
[2019-07-29] MEDS: chlorhexidine gluconate 4% Btl 118 mL 4 APPLIC (14:39)
--- NOTE | 2019-07-29 16:05 | P.PN_ITS ---
Subjective Subjective: Interval history: Patient is in sinus rhythm with right bundle branch block and first-degree AV block. Today's feeling better but felt dizzy when we try to stand him up later he got better and had good walk around with physical therapy. Medications: Reviewed: Yes Vitals/I&O/Wt Last Vital Signs Temp 98.5 F 07/29/19 15:18 Pulse 77 07/29/19 15:18 Resp 16 07/29/19 15:18 BP 110/69 07/29/19 15:18 Pulse Ox 92 07/29/19 15:18 07/29/19 07/29/19 07/29/19 06:59 14:59 22:59 Intake Total 600 / 600 Output Total 130 / 330 Balance -130 / -330 600 / 600 Physical Exam Narrative: EXAM NARRATIVE: GENERAL: Patient is alert, awake and oriented x3. NECK: No jugular vein distension. HEENT: No cyanosis. No icterus. No pallor. HEART: Regularly irregulay S1 and S2. No murmur, rub or gallop. LUNGS: Decreased breath sound bilaterally. ABDOMEN: Mildly distended, nontender and distended. No guarding, rebound or tenderness. CENTRAL NERVOUS SYSTEM: Grossly nonfocal. EXTREMITIES: Lower extremities without edema bilaterally. 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 Status post AVR. Continues to progress. Continue physical therapy. Patient was dizzy this morning we will note orthostasis on him. He was given IV Lasix. Overall he is stable. He may will be going to shelter care facility tomorrow. Status: Acute (2) Atrial fibrillation: Patient is sinus rhythm. Continue amiodarone 100 mg once a day. Continue full dose aspirin. Status: Acute Qualifiers: Atrial fibrillation type: unspecified Qualified Code(s): I48.91 - Unspecified atrial fibrillation (3) Right bundle branch block: Continue to monitor. 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
[2019-07-29] MEDS: FUROsemide 20 mg Tablet PO (16:09)
[2019-07-30] VITALS (8 sets, daily range): BP systolic 104–122; BP diastolic 59–75; PULSE 66–79; RESP 16–18; TEMP 36.2–36.8; O2SAT 90–99
[2019-07-30 04:45] LABS: Basophils # 0.1 10^3/uL (0.0-0.1); Basophils % 0.6 %; Eosinophils # 0.4 10^3/uL (0.0-0.8); Eosinophils % 2.9 %; Hematocrit 29.3 % (42.0-52.0); Hemoglobin 9.2 g/dL (11.7-16.6); Lymphocytes # 1.2 10^3/uL (0.8-4.8); Lymphocytes % 9.8 %; Mean Corpuscular HGB Conc 31.4 g/dL (30.0-36.0); Mean Corpuscular Hemoglobin 30.4 pg (28.0-34.0); Mean Corpuscular Volume 96.7 fL (80-94); Monocytes # 1.2 10^3/uL (0.2-0.9); Monocytes % 9.5 %; Neutrophils # 9.2 10^3/uL (1.8-7.7); Neutrophils % 73.2 %; Nucleated Red Blood Cells # 0.1 /100WBC; Platelet Count 253 10^3/cmm (130-400); Red Blood Count 3.03 10^6/uL (4.1-5.3); White Blood Count 12.6 10^3/uL (4.0-10.0)
[2019-07-30 05:08] LABS: Anion Gap 14.7 (5-19); Blood Urea Nitrogen 19 mg/dL (8-23); Calcium 8.2 mg/dL (8.5-10.5); Carbon Dioxide 21 mmol/L (22-29); Chloride 107 mmol/L (98-107); Glucose 103 mg/dL (65-115); Osmolality Calculated 285 mOsm/kg (285-295); Potassium 3.7 mmol/L (3.5-5.1); Sodium 139 mmol/L (136-145)
[2019-07-30] MEDS: levoFLOXacin 500 mg Tablet PO (05:17)
--- NOTE | 2019-07-30 05:55 | P.PN_ITS ---
Subjective Subjective: Interval history: Postop day #7 status post AVR. Uneventful night. Remains in sinus rhythm with first-degree AV block. I assisted him with the nurse to get up from the bed to the chair. He will need quite a bit of assistance and physical therapy. He is very cooperative but clearly weak. He is eager for discharge. Lab work is stable. Vitals/I&O/Wt Last Vital Signs Temp 98 F 07/30/19 03:00 Pulse 73 07/30/19 03:00 Resp 18 07/30/19 03:00 BP 122/75 07/30/19 03:00 Pulse Ox 99 07/30/19 03:00 07/29/19 07/29/19 07/30/19 14:59 22:59 06:59 Intake Total 600 / 600 800 / 1400 Output Total 700 / 700 700 / 1400 Balance 600 / 600 100 / 700 -700 / 0 Physical Exam Chest: COMMONS NORMALS: inspection of chest normal (We will have another Betasept shower today prior to discharge) and palpation of chest normal Resp: COMMON NORMALS: normal respiratory effort EFFORT & INSPECTION: Yes able to speak in complete sentences and Yes symmetric chest movement Cardio: COMMON NORMALS: regular rate and regular rhythm RATE: regular rate RHYTHM: regular rhythm Extremity: COMMON NORMALS: no clubbing, cyanosis or edema Urinary Catheter Management^: Street: Cath Placed During This Visit: yes, but has since been removed by the nurse Reason for Continuing Indwelling Catheter: Decision to DC Catheter Urinary Catheter Date of Insertion: 07/23/19 Urinary Catheter Time of Insertion: 09:54 Date Urinary Catheter Removed: 07/26/19 Time Urinary Catheter Discontinued: 13:25 Data : 07/30/19 04:30 07/30/19 04:30 Micro: Microbiology 07/27/19 16:20 Urine Culture - Preliminary Urine,Clean Catch A&P Assessment and plan (1) 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
--- NOTE | 2019-07-30 06:00 | XR_ITS ---
WS: [id number] PORTABLE CHEST HISTORY: Status post aVR COMPARISON: 07/27/2019 Prior median sternotomy. Mild hyperinflated lungs. Benign granuloma in the lower lung dodson. Haziness and mild interstitial t hickening in the medial RIGHT lower lung. Small bilateral pleural effusions. Overall improved aeratio n since the prior study. Cardiac size: Mildly enlarged cardiac silhouette. Mediastinum/Aorta: Mild atherosclerosis aorta. No osseous abnormality seen. XR/XR chest 1V portable [id number] IMPRESSION: 1. Small bilateral pleural effusions similar to the prior study. 2. Mild interstitial thickening in the medial RIGHT lower lung. Probably an ar ea of pneumonitis or pneumonia. 3. Prior median sternotomy and valve replacement changes with no pneumonia.
--- NOTE | 2019-07-30 06:46 | P.DS_ITS ---
Discharge Providers Date of Admission: 07/23/19 17:55 Date of Discharge: July 30, 2019 Attending Provider at Admission: Dioni Crespo MD Attending Provider at Discharge: Dioni Crespo MD Primary Care Provider: Jun Ling MD Diagnoses at Discharge Discharge Diagnosis (1) Bioprosthetic aortic valve replacement during current hospitalization: Status: Acute Reason for Visit Reason for Visit: Reason For Visit: AVR Hospital Course Hospital Course: Mr. Adan is a very pleasant 83-year-old gentleman with critical aortic valve stenosis who was evaluated by Dr. Singh. He was referred for consideration of TAVR but was not felt to be an acceptable candidate and open repair was recommended. He wished to have surgery at [facility]. After careful preop evaluation he was electively admitted on July 22 and underwent aortic valve replacement with a bioprosthetic 23 mm [place] valve. Postop day, he convalesced in the ICU where he made slow but steady progress. He remained hemodynamically stable throughout his postop course with a brief period of atrial fibrillation and spontaneously converted. He is on amiodarone currently 20 mg daily. He has a first-degree sinus block with a bundle branch. He has been carefully followed by Dr. Singh. Chest tube output remained low and chest tube discontinued in the morning of the fourth day. He was transferred to the boss where he continues to do well. Wound VAC dressing is been removed. Incisions are clean and dry sternum is stable. He did have an asymptomatic urinary tract infection was treated with Levaquin with good result. He will need outpatient rehabilitation and custodial care is been recommended. He and his family have agreed. He does desaturate with exercise without oxygen, therefore he will be discharged with 2 L nasal cannula. He is currently scheduled for discharge to [facility]. At the time of discharge, he is in stable condition. Physical Exam Chest: COMMONS NORMALS: inspection of chest normal (Incision clean and dry. Sternum stable. Drain sites well approximated.) and palpation of chest normal Resp: COMMON NORMALS: normal respiratory effort and no retractions EFFORT & INSPECTION: Yes able to speak in complete sentences Cardio: COMMON NORMALS: regular rate, regular rhythm, S1 normal heart sound and no murmurs RATE: regular rate RHYTHM: regular rhythm HEART SOUNDS: S1 normal Extremity: OTHER: Trace of pretibial edema. Urinary Catheter Management^: Street: Cath Placed During This Visit: yes, but has since been removed by the nurse Reason for Continuing Indwelling Catheter: Decision to DC Catheter Urinary Catheter Date of Insertion: 07/23/19 Urinary Catheter Time of Insertion: 09:54 Date Urinary Catheter Removed: 07/26/19 Time Urinary Catheter Discontinued: 13:25 Discharge Data Data Completed and Pending: Completed Studies During Hospitalization Category Date Time Status XR chest 1V familia ble [id number] Routine Exams 07/19/19 09:26 Completed XR chest 1V familia ble [id number] Routine Exams 07/23/19 11:37 Completed XR chest 1V familia ble [id number] Routine Exams 07/24/19 06:00 Completed XR chest 1V faimlia ble [id number] Routine Exams 07/25/19 06:00 Completed XR chest 1V familia ble [id number] Routine Exams 07/26/19 06:00 Completed XR chest 1V familia ble [id number] Routine Exams 07/27/19 04:00 Completed Pathology: Surgic al [PTH] Routine Pth 07/23/19 13:16 Completed Pending at discharge Category Date Time Status XR chest 1V familia ble [id number] Routine Exams 07/30/19 06:00 Taken ABG FULL [Arteria l Blood Gas Full] Routine Lab 07/23/19 11:40 Ordered Urine Culture Rou gianna Lab 07/27/19 16:20 Results Labs from last 24 hours 07/30/19 07/30/19 04:30 04:30 WBC 12.6 H RBC 3.03 L Hgb 9.2 L Hct 29.3 L MCV 96.7 H MCH 30.4 MCHC 31.4 RDW 15.0 Plt Count 253 MPV 11.0 H Neut % (Auto) 73.2 Lymph % (Auto) 9.8 Harding % (Auto) 9.5 Eos % (Auto) 2.9 Baso % (Auto) 0.6 Neut # (Auto) 9.2 H Lymph # (Auto) 1.2 Harding # (Auto) 1.2 H Eos # (Auto) 0.4 Baso # (Auto) 0.1 Nucleated RBC % (a uto) 1.0 Nucleated RBCs # 0.1 Sodium 139 Potassium 3.7 Chloride 107 Carbon Dioxide 21 L Anion Gap 14.7 BUN 19 Creatinine 1.0 Glucose 103 Calculated Osmolal ity 285 Calcium 8.2 L Vitals: Last Vital Signs Temp 98 F 07/30/19 03:00 Pulse 73 05/11/20 03:00 Resp 18 07/30/19 03:00 BP 122/75 07/30/19 03:00 Pulse Ox 99 07/30/19 03:00 Discharge Plan Discharge Patient Disposition: Home, Self-Care Condition: Stable Prescriptions: New hydrocodone-acetaminophen 5-325 mg Tablet 1 tab PO Q6H PRN (Reason: Moderate Pain) Qty: 28 RF: 0 amiodarone [Pacerone] 200 mg Tablet 200 mg PO DAILY Qty: 30 RF: 0 aspirin 325 mg Tablet 325 mg PO DAILY Qty: 100 RF: 5 metoprolol tartrate 25 mg Tablet 12.5 mg PO BID Qty: 60 RF: 5 Continued pravastatin 40 mg tablet 40 mg PO DAILY 90 Days Qty: 90 RF: 3 levothyroxine 50 mcg tablet 50 mcg PO DAILY Qty: 90 RF: 0 gabapentin 300 mg capsule 300 mg PO TID 90 Days Qty: 270 RF: 3 Discontinued doxepin 5 % cream 1 applic TOPICAL .once daily 30 Days Qty: 45 RF: 5 Discharge Orders: Discharge Order (Routine); Ordered 07/30/19 Ordered By: Dioni Crespo Referrals: [facility] [Outside] Dioni Crespo MD [Physician] - 08/02/19 Discharge Diet: Advance as tolerated Discharge Activity: Limit activity as instructed Activity Restrictions/Additional Instructions: Absolutely no lifting, pulling, or pushing, greater than 5 pounds with his upper extremities for the next 8 weeks May shower daily without dressings. Dry incisions completely, paint incisions with Betadine and cover to prevent soiling after showers and daily No swimming or tub baths x6 weeks Encourage frequent use of incentive spirometer Physical therapy as directed by onsite physical therapist Oxygen at 2 L nasal cannula. Check pulse oximetry daily and titrate. Report any lower extremity swelling, as patient may require diuresis Discharge Attestations Time Spent in Discharge Care*: less than 30 min Specific Discharge Activities: Specific discharge activities: educating patient, discussing with field nurse case manager/social workers/dc planners, documenting/other paperwork and evaluating patient/reviewing data Status at Discharge: Cognitive status at discharge: cognitively intact , Behavioral status at discharge: cooperative and dependent in ADL's , Functional status at discharge: other assisted ambulation Overall status at discharge: patient is progressing back to baseline Quality Metrics Clinical Quality Measures During this hospital stay, did patient experience: None Coding Level of Care Code Acute Kelp Or Seagrass Gatherer for Chg Fwd Diagnoses 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
[2019-07-30] MEDS: levothyroxine 50 mcg Tablet PO (09:13)
[2019-07-30] MEDS: chlorhexidine gluconate 0.12% Btl 473 mL 15 ML MUCOUS MEM ×2 (09:14→17:23)
[2019-07-30] MEDS: gabapentin 300 mg Capsule PO ×3 (09:14→20:55)
[2019-07-30] MEDS: amiodarone 200 mg Tablet PO (09:14)
[2019-07-30] MEDS: metoprolol tartrate 25 mg Tablet 12.5 MG PO ×2 (09:15→17:22)
[2019-07-30] MEDS: aspirin 325 mg Tablet PO (09:15)
[2019-07-30] MEDS: chlorhexidine gluconate 4% Btl 118 mL 1 APPLIC TOPICAL (09:17)
[2019-07-30] MEDS: enoxaparin 40 mg/0.4 mL Syringe SUBCUT (09:24)
[2019-07-30] MEDS: FUROsemide 20 mg Tablet PO ×2 (09:24→15:11)
--- NOTE | 2019-07-30 09:45 | PM.PN ---
Subjective Subjective: Interval history: Feeling better with heart rate into 70s. Medications: Reviewed: Yes Vitals/I&O/Wt Last Vital Signs Temp 97.6 F 07/30/19 08:00 Pulse 79 07/30/19 08:00 Resp 18 07/30/19 08:00 BP 106/59 07/30/19 08:00 Pulse Ox 97 07/30/19 08:00 07/29/19 07/30/19 07/30/19 22:59 06:59 14:59 Intake Total 800 / 1400 240 / 240 Output Total 700 / 700 700 / 1400 Balance 100 / 700 -700 / 0 240 / 240 Physical Exam Narrative: EXAM NARRATIVE: GENERAL: Patient is alert, awake and oriented x3. NECK: No jugular vein distension. HEENT: No cyanosis. No icterus. No pallor. HEART: Regularly irregulay S1 and S2. No murmur, rub or gallop. LUNGS: Decreased breath sound bilaterally. ABDOMEN: Mildly distended, nontender and distended. No guarding, rebound or tenderness. CENTRAL NERVOUS SYSTEM: Grossly nonfocal. EXTREMITIES: Lower extremities with 1+ edema bilaterally. Urinary Catheter Management^: Street: Cath Placed During This Visit: yes, but has since been removed by the nurse Reason for Continuing Indwelling Catheter: Decision to DC Catheter Urinary Catheter Date of Insertion: 07/23/19 Urinary Catheter Time of Insertion: 09:54 Date Urinary Catheter Removed: 07/26/19 Time Urinary Catheter Discontinued: 13:25 Data : 07/30/19 04:30 07/30/19 04:30 Micro: Microbiology 07/27/19 16:20 Urine Culture - Preliminary Urine,Clean Catch A&P Assessment and plan (1) Bioprosthetic aortic valve replacement during current hospitalization: Postop day 8. Status post AVR. Doing fine from a valvular and cardiac perspective. He is walked around heart rate is stable in sinus rhythm. Patient can be discharged to the half-way facility. He is going to follow-up with us in 7 to 10 days. Patient has been encouraged to call us back if required Status: Acute (2) Atrial fibrillation: Patient is sinus rhythm for post op A. fib. Continue amiodarone 200 mg once a day. Continue full dose aspirin 325 mg. Status: Acute Qualifiers: Atrial fibrillation type: unspecified Qualified Code(s): I48.91 - Unspecified atrial fibrillation (3) Right bundle branch block: Continue to monitor with twelve-lead EKG as an outpatient in 10 days. If noticed slowing of the heart rate dizziness please call Dr. Welsh's office. Status: Acute Attestations Medical Necessity Statement*: From a cardiovascular perspective patient can be discharged to shelter facility. Follow-up with Dr. Welsh in 10 days. Follow-up with Dr. 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
[2019-07-31] VITALS: BP 120/68; PULSE 74; RESP 20; TEMP 37.1; O2SAT 94
[2019-07-31 04:00] VITALS: BP 109/68; PULSE 73; RESP 20; TEMP 36.4; O2SAT 93
[2019-07-31] MEDS: levoFLOXacin 500 mg Tablet PO (05:59)
[2019-07-31 08:00] VITALS: BP 113/68; PULSE 79; RESP 18; TEMP 37; O2SAT 93
[2019-07-31] MEDS: enoxaparin 40 mg/0.4 mL Syringe SUBCUT (09:10)
[2019-07-31] MEDS: chlorhexidine gluconate 0.12% Btl 473 mL 15 ML MUCOUS MEM (09:10)
[2019-07-31] MEDS: aspirin 325 mg Tablet PO (09:11)
[2019-07-31] MEDS: gabapentin 300 mg Capsule PO (09:11)
[2019-07-31] MEDS: levothyroxine 50 mcg Tablet PO (09:11)
[2019-07-31] MEDS: metoprolol tartrate 25 mg Tablet 12.5 MG PO (09:11)
[2019-07-31] MEDS: amiodarone 200 mg Tablet PO (09:11)
[2019-07-31] MEDS: chlorhexidine gluconate 4% Btl 118 mL 1 APPLIC TOPICAL (09:17)
[2019-07-31] MEDS: FUROsemide 20 mg Tablet PO (09:17)
[2019-07-31 12:00] VITALS: BP 110/67; PULSE 72; RESP 18; TEMP 37.1; O2SAT 94
--- NOTE | 2019-07-31 13:37 | PC.NURSE ---
notified family that patient is being discharged to [facility] today
[2019-07-31 13:47] VITALS: BP 110/67; PULSE 72; RESP 18; TEMP 37.1; O2SAT 94
== END 2019-07-31 13:49 | disposition home or self-care (01) | DRG 220 ==
LOC: ICU 17:56 → MEDSURG 07-27 14:23
PROVIDERS: Internal Medicine Cardiovascular Disease; Admitting Provider Thoracic Surgery (Cardiothoracic Vascular Surgery); Family Provider Family Medicine; PCP Family Medicine; Visit Provider Thoracic Surgery (Cardiothoracic Vascular Surgery)
PROC: 30233N1 Transfusion of Nonautologous Red Blood Cells into Peripheral Vein, Percutaneous Approach (ICD-10-PCS; principal; 2019-07-23 08:50)
DX: I06.0 Rheumatic aortic stenosis (principal); I97.190 Other postprocedural cardiac functional disturbances following cardiac surgery; N39.0 Urinary tract infection, site not specified; I10 Essential (primary) hypertension; E78.5 Hyperlipidemia, unspecified; I48.91 Unspecified atrial fibrillation; I45.10 Unspecified right bundle-branch block; K21.9 Gastro-esophageal reflux disease without esophagitis; E78.00 Pure hypercholesterolemia, unspecified; N40.0 Benign prostatic hyperplasia without lower urinary tract symptoms; E03.9 Hypothyroidism, unspecified; Z87.891 Personal history of nicotine dependence; I95.81 Postprocedural hypotension
CPT/HCPCS: 12345; 36415; 36416; 36430; 36592; 71045; 80048; 80051; 80076; 81001; 81003; 82803; 82810; 82947; 82962; 83735; 83986; 84439; 84443; 85025; 85347; 85610; 85730; 86850; 86900; 86920; 87086; 88305; 93005; 94002; 94003; 94640; 94799; 96372; 96375; 97110; 97116; 97163; 97166; 97530; 97535; C9113; J0282; J0697; J1250; J1644; J1650; J1815; J1940; J2001; J2150; J2250; J2370; J2704; J2720; J3010; J3370; J3475; J3490; J7030; J7040; J7050; J7060; P9016; P9041; P9047

== ENCOUNTER → 2019-12-05 11:32 | Outpatient (BNVA) | payer MEDICARE, SELFPAY | PROVIDERS: Family Provider Family Medicine; PCP Family Medicine; Visit Provider Family Medicine | DX: E78.00 Pure hypercholesterolemia, unspecified (principal); D64.9 Anemia, unspecified; E03.9 Hypothyroidism, unspecified | CPT/HCPCS: 80053; 80061; 84443; 85025 ==

== ENCOUNTER → 2020-04-16 11:10 | Outpatient (BNVA) | payer MEDICARE, SELFPAY | PROVIDERS: Family Provider Family Medicine; PCP Family Medicine; Visit Provider Specialist | DX: G62.9 Polyneuropathy, unspecified (principal); Z87.891 Personal history of nicotine dependence | CPT/HCPCS: 99213 ==

== ENCOUNTER 2020-05-20 06:50 | Emergency (ER) | payer MEDICARE, SELFPAY ==
[2020-05-20 07:21] VITALS: BP 138/83; PULSE 92; RESP 16; TEMP 36.2; O2SAT 96; BMI 25.7
[2020-05-20 07:31] VITALS: BP 117/64; PULSE 88; RESP 17; O2SAT 96
--- NOTE | 2020-05-20 07:35 | XR_ITS ---
WS: [id number] THORACIC SPINE TECHNIQUE: AP and lateral views are performed. HISTORY: pain COMPARISON: None available. Mild increase in thoracic kyphosis. Osteopenia with moderate degenerative disc space narrowing and os teophytosis. Anterior bridging osteophytes throughout the mid and lower thoracic spine. Marginal oste ophytes are greater to the RIGHT. No acute fractures are identified. Prior median sternotomy. XR/XR thoracic spine 3V* [id number] IMPRESSION: 1. Moderate spondylitic changes in the thoracic spine. No fractures are identi fied.
--- NOTE | 2020-05-20 07:35 | XR_ITS ---
WS: [id number] LEFT RIBS, MULTIPLE VIEWS WITH PA CHEST HISTORY: fall pain COMPARISON: 07/30/2019 Lungs and mediastinum: Scattered benign granulomata. No pneumonia or pulmonary contusion. No pneumoth orax. Prior median sternotomy. Ribs: Rib deformities along the inferior lateral and posterior LEFT thorax. Mild deformity of the lateral s eventh, eighth and ninth and 10th ribs. There is additional slight deformity involving the anterior l ateral second rib which may be remote fracture. XR/XR ribs LT mn 3V w CXR1V [id number] IMPRESSION: 1. Minimally deformed acute LEFT seventh, eighth, ninth and 10th rib fractures . There is noted additional age-indeterminate second rib fracture. 2. No pneumothorax.
--- NOTE | 2020-05-20 08:40 | ED_ITS ---
HPI - Back Pain/Injury General: Chief Complaint: Back Pain/Injury Stated Complaint: Poss broken rib Time Seen by Provider: 05/20/20 07:11 History of Present Illness: HPI Narrative: 84 yo male presents complaining of right lateral and posterior pain after falling down stairs. Not strike his head and out of consciousness. He has no other injury. He is wearing a rib belt. He is not taking anything for the pain at home. MD elicited complaint: back pain and fall Pertinent past history: recent trauma Onset (ago): day(s) Timing: constant Severity: moderate Quality: sharp Location: lumbar spine and left upper back (Laterally) Radiation: none Exacerbating factors: movement and deep breaths Relieving factors: immobilization Context: fall Associated symptoms: Deny abdominal pain, arthralgias, chills, change in bowel habits, difficulty walking, dysuria, fatigue, fecal incontinence, fever(s), hematuria, myalgias, nausea, numbness, syncope, tingling/numbness/burning, urinary frequency, urinary urgency, vomiting or weakness Work related injury: No Review of Systems Const: Denies: fever(s), chills or fatigue ENMT: Denies: throat pain, ear or mastoid pain, nasal discharge or nasal congestion Card: Denies: syncope Resp: Denies: dyspnea, productive cough or non-productive cough GI: Denies: abdominal pain, nausea, vomiting, fecal incontinence or change in bowel habits : Denies: dysuria, urinary urgency or hematuria Skin/Breast: Denies: rash or pruritus Neuro: Denies: difficulty walking PFSH ED PFSH: Medical History GERD (gastroesophageal reflux disease) Hypercholesteremia Hypothyroidism (acquired) Prostatic hypertrophy Rheumatic fever Thyroid disease neuropathy Surgical History Bioprosthetic aortic valve replacement during current hospitalization H/O hernia repair x 5 History of aortic valve replacement Hx of tonsillectomy Status post aortic valve replacement with bioprosthetic valve Family History Daughter No problems noted. Brother Prostate cancer Social History Smoking and tobacco status: former smoker Alcohol intake: never Physical Exam Const: COMMON NORMALS: no acute distress GENERAL APPEARANCE: cooperative and comfortable ORIENTATION/CONSCIOUSNESS: Yes awake, Yes oriented to person, Yes oriented to place and Yes oriented to time HENMT: COMMON NORMALS: normocephalic, atraumatic and hearing grossly normal bilaterally HEAD & SCALP: normocephalic and atraumatic Eye: COMMON NORMALS: Equal, round and reactive pupils present, EOMs intact bilaterally, conjunctivae normal and no scleral icterus CONJUNCTIVA: Yes conjunctivae normal PUPIL: Yes Equal, round and reactive pupils present Neck/C-Spine: COMMON NORMALS: full ROM, no lymphadenopathy, supple and no JVD Chest: OTHER: Pain with palpation over the left lower lateral chest wall. Positioning is consistent with fracture seen on x-ray. There is no subcutaneous emphysema. Good breath sounds in the region. Resp: COMMON NORMALS: normal respiratory effort, No retractions, No use of accessory muscles and clear to auscultation bilaterally AUSCULTATION: clear to auscultation bilaterally Cardio: COMMON NORMALS: no JVD, regular rate, regular rhythm and No murmurs present (Cardio) RATE: regular rate RHYTHM: regular rhythm GI: COMMON NORMALS: Soft to palpation and No hepatosplenomegaly present AUSCULTATION: Yes normoactive bowel sounds PALPATION: Yes Soft to palpation, No Tenderness to palpation present (GI), No Guarding due to palpation present (GI) and Yes No hepatosplenomegaly present Extremity: COMMON NORMALS: normal to inspection, capillary refill normal, no clubbing, cyanosis or edema, no calf tenderness and no pedal edema Neuro: SENSORIUM/ORIENTATION: Yes oriented to person, Yes oriented to place and Yes oriented to time Skin: COMMON NORMALS: no rashes or lesions noted GENERAL SKIN EXAM: no rashes or lesions noted Course Vital Signs: Vital signs: Vital Signs Temperature 97.2 F L 05/20/20 07:21 Pulse Rate 79 05/20/20 08:51 Respiratory Rate 17 05/20/20 08:51 Blood Pressure 119/73 05/20/20 08:51 Pulse Oximetry 94 05/20/20 08:51 MDM - Back Pain/Injury MDM Narrative: Medical decision making narrative: X-ray shows acute rib fracture consistent with his clinical exam. We will start him on pain medications advised against rib belt follow-up with primary care as needed Discharge Plan Discharge Patient Disposition: Home Clinical Impression: Fracture, rib, Strain of lumbar region Condition: Stable Prescriptions: New hydrocodone-acetaminophen 5-325 mg tablet 1 tab PO Q6H PRN (Reason: pain) Qty: 20 RF: 0 No Action pravastatin 40 mg tablet 40 mg PO DAILY 90 Days Qty: 90 RF: 3 levothyroxine 50 mcg tablet 50 mcg PO DAILY Qty: 90 RF: 1 gabapentin 300 mg capsule 300 mg PO TID Qty: 270 RF: 1 aspirin 325 mg Tablet 325 mg PO DAILY Qty: 100 RF: 5 Discharge Orders: Discharge ED (Routine); Ordered 05/20/20 Ordered By: Osmar Raya Referrals: Jun Ling MD [Primary Care Provider] - Discharge Diet: Usual diet Discharge Activity: Limit activity as instructed Patient Instructions: Opioid Safety Coding Level of Care Code 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
[2020-05-20 08:51] VITALS: BP 119/73; PULSE 79; RESP 17; O2SAT 94
== END 2020-05-20 08:53 | disposition home or self-care (01) ==
PROVIDERS: Emergency Provider Family Medicine; PCP Family Medicine
DX: S22.42XA Multiple fractures of ribs, left side, initial encounter for closed fracture (principal); S39.012A Strain of muscle, fascia and tendon of lower back, initial encounter; Z79.82 Long term (current) use of aspirin; W10.8XXA Fall (on) (from) other stairs and steps, initial encounter; Z87.891 Personal history of nicotine dependence
CPT/HCPCS: 71101; 72072; 99282

== ENCOUNTER → 2020-05-26 10:47 | Outpatient (BNVA) | payer MEDICARE, SELFPAY | PROVIDERS: PCP Family Medicine; Visit Provider Family Medicine | DX: E03.9 Hypothyroidism, unspecified (principal); E78.00 Pure hypercholesterolemia, unspecified; Z95.3 Presence of xenogenic heart valve; S22.41XA Multiple fractures of ribs, right side, initial encounter for closed fracture | CPT/HCPCS: 80053; 80061; 84443; 85025 ==

== ENCOUNTER → 2021-04-09 08:24 | Outpatient (BNVA) | payer MEDICARE, SELFPAY | PROVIDERS: PCP Family Medicine; Visit Provider Podiatrist Foot & Ankle Surgery | DX: M79.671 Pain in right foot (principal) | CPT/HCPCS: 73630 ==

== ENCOUNTER → 2021-04-14 08:29 | Outpatient (BNVA) | payer MEDICARE, SELFPAY | PROVIDERS: PCP Family Medicine; Visit Provider Specialist | DX: G62.9 Polyneuropathy, unspecified (principal) | CPT/HCPCS: 99212; 99213 ==

== ENCOUNTER → 2021-05-04 09:25 | Outpatient (BNVA) | payer MEDICARE, SELFPAY | PROVIDERS: PCP Family Medicine; Visit Provider Podiatrist Foot & Ankle Surgery | DX: Z01.818 Encounter for other preprocedural examination (principal) | CPT/HCPCS: 87635 ==

== ENCOUNTER 2021-05-08 09:55 | Day surgery (SDC) | payer MEDICARE, SELFPAY ==
[2021-05-07 15:46] VITALS: BMI 25.0
--- NOTE | 2021-05-08 10:20 | P.OP_ITS ---
Operative Report Date of procedure: May 09, 2021 Pre-op diagnosis: Recalcitrant ulceration right hallux interphalangeal joint, hallux interphalangeus accessory ossicle right foot. Procedure done: Excision of accessory ossicle and resection of proximal phalanx head right great toe. Implants: 4-0 Vicryl, 4-0 nylon Surgeon: Drake Cardenas D.P.M. [employer] Recapper: Roscoe Estimated blood loss: Less than 5 See intraoperative documentation Brief History: Patient is a pleasant 85-year-old male has had a recalcitrant ulceration to the plantar aspect of his right hallux. On x-ray he has hallux interphalangeus accessory ossicle corresponding directly to the area of excessive pressure and callus buildup. Callus becomes excessive in a matter of days and ulcerates. This is been going on for greater than a year. He would like to proceed with surgical offloading this will entail excision of accessory ossicle and resection of the proximal phalanx head on the right great toe. Risks include pain, bleeding, numbness, infection, surgical site dehiscence, failure to adequately offload the right great toe and reoccurrence of ulceration, hyperkeratosis as well as transfer pressure and transfer lesions. N.p.o. since midnight. Covid screening negative. Informed consent signed by patient and myself. No guarantees written, expressed or implied. Patient wished to proceed. Procedure: Under mild sedation the patient was brought to the operating room and remained on the gurney in supine position. A timeout was performed. Anesthesia was then administered by the anesthesia service. Local anesthesia injected by myself consisting of 20 cc of one-to-one mixture 0.5% Marcaine and 1% lidocaine plain and a right Juárez block fashion. Well-padded pneumatic tourniquet applied to the right ankle. Right lower extremity was then scrubbed, prepped and draped utilizing normal aseptic technique followed by exam duration of the right foot utilizing an Esmarch bandage and tourniquet inflation to 250 mmHg. Attention was directed to the right hallux interphalangeal joint where a transverse semielliptical incision was converging with small skin bridge was performed with a skin bridge excised and passed from the operative field. Transection of the extensor houses longus and transverse capsulotomy was perform ed the head of the proximal phalanx was freed from its soft tissue attachments and the head of the proximal phalanx was then transected utilizing a sagittal saw, hallux interphalangeus was then visualized in the joint space and excised in total and passed from operative field followed by saline flush. Extensor tendon was reapproximated utilizing 4-0 Vicryl followed by closure of subcutaneous tissue with 4-0 Vicryl and skin closed with 4-0 nylon. Incision was dressed with Adaptic, sterile 4 x 4, Kerlix, Markie wrap and postop shoe was applied. Tourniquet was deflated and a prompt hyperemic response was noted to the distal digits of the right foot. Patient tolerated the procedure and anesthesia well and was transferred to the PACU with vital signs stable and vascular status intact. Following a period of postop monitoring he will be discharged home. May be protected weightbearing with postop shoe. Has follow- up and at home care instructions on discharge paperwork.
[2021-05-08 10:21] VITALS: BP 140/79; PULSE 76; RESP 18; TEMP 36.1; O2SAT 96
--- NOTE | 2021-05-08 10:24 | ECG_ITS ---
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 Measurements Intervals [place] Rate: 72 P: 11 SD: 181 QRS: -46 QRSD: 96 T: -35 QT: 381 QTc: 419 Interpretive Statements SINUS RHYTHM LEFT AXIS DEVIATION [QRS AXIS < -30] PATTERN CONSISTENT WITH PULMONARY DISEASE MODERATE T-WAVE ABNORMALITY, CONSIDER INFERIOR ISCHEMIA [-0.1+ mV T-WAVE IN II/aVF] Compared to ECG 07/29/2019 08:56:22 Left-axis deviation now present T-wave abnormality now present Possible ischemia now present First degree AV block no longer present Left bundle-branch block no longer present Electronically Signed On 05-09-2021 10:31:41 FOREST BOTANY INSTRUCTOR by Reina Flowers M.D. [id number]
[2021-05-08] MEDS: sodium chloride 0.9% 1,000 ML 30 ML IV (10:38)
[2021-05-08] MEDS: CELEcoxib 200 mg Capsule 400 MG PO (10:38)
--- NOTE | 2021-05-08 11:11 | ANES.PREANE2 ---
Pre-Anesthetic Assessment Height/Weight: Height 1.83 m Weight 83.915 kg Temp Pulse Resp BP Pulse Ox 97 F L 76 18 140/79 96 05/08/21 10:21 05/08/21 10:21 05/08/21 10:21 05/08/21 10:21 05/08/21 10:21 Preop Diagnosis: Recalcitrant ulceration right hallux interphalangeal joint Operation Date: 05/08/21 11:20 Proposed Procedures p Condylectomy and flexor tenotomy right great toe 74610/[id number]/L84(Right) - Drake Cardenas DPM Familial anesthetic complications: None Was Beta Keily taken within 24 hours: N/A Was Clonidine taken within 24 hours: N/A Social No alcohol and No tobacco Exam alert, oriented x 3, clear to auscultation bilaterally and regular rate & rhythm Airway Submandibular: within normal limits Cervical ROM: Other (Limited) Mallampati: Class II Dentition: false Pulmonary None reported CV/HEM Atrial Fibrillation and Murmur S/P AVR in 2019, 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 ? Indication for right and left heart: Unexplained shortness of breath. ? #1 Lower ? L? eft-sided filling pressure pulmonary capillary wedge pressure ? #2? N? ormal pulmonary artery pressure PA mean 10 mmHg ? #3? L? ow? right? ventricular pressure? 19/-5 mmHg ? #4 Low right atrial filling pressure -1? mmHgNormal cardiac output 5 L/m, CI 3 L/min/m2No intracardiac shunt noted ECHO 01/2019 ?1-Normal left ventricular cavity size. Normal left ventricular?? ?systolic function. No regional wall motion abnormalities. Left?? ?ventricular ejection fraction is estimated at 63 %. Grade I/IV?? ?diastolic dysfunction (abnormal relaxation filling pattern),?? ?normal to mildly elevated filling pressures.?? ?2-Mildly thickened mitral valve. No mitral valve stenosis. Mild?? ?mitral valve regurgitation.?? ?3-Severe aortic valve calcification. Moderate to severe aortic?? ?valve stenosis, mean gradient 22.2 mmHg, JOHNATHON 0.76 cm squared. Peak?? ?gradient of 46mmHg, while velocity across the aortic valve is???3.4m/s.? 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 ?5-Trace tricuspid valve regurgitation.?? ?6-Right atrial pressure is around 5 mm of mercury.?? ?7-There are no prior echocardiogram studies to compare.?? BPH Hepatic None reported GI Gastroesophageal Reflux Disease Metabolic Thyroid Disease [facility] None reported Neuropsych None reported Anesthetic Plan ASA status: 3 (85 year old male s/p AVR) Anesthesia: Anesthesia Evaluation, General and MAC Other: Prefers MAC. I discussed with the patient risks, goals, and benefits of MAC and general anesthesia. We discussed spectrum of MAC anesthesia including conversion to general as well as possibility of recall of intraoperative stimuli including discomfort/pain. Patient agrees to proceed with MAC. Risk of > 500 ml blood loss (7ml/kg in children): No Medications/Allergies Home Medications Medication Instructions Recorded Confirmed Last Taken Type aspirin 325 mg tablet 325 mg PO DAILY #100 tab 07/30/19 05/07/21 05/04/21 Rx pravastatin 40 mg tablet 40 mg PO DAILY 90 Days #90 tab 06/10/20 05/07/21 Unknown Rx levothyroxine 50 mcg tablet See Rx Instructions .ROUTE 03/23/21 05/07/21 Unknown Rx .COMPLEX #90 tab gabapentin 300 mg capsule 300 mg PO TID #270 cap 04/14/21 05/07/21 Unknown Rx Allergies Allergy/AdvReac Type Severity Reaction Status Date / Time duloxetine [From Cymbalta] Allergy Unknown Verified 05/04/21 09:18 Current Medications Generic Name Dose Route Start Last Admin Trade Name Jeanq PRN Reason Stop Dose Admin Sodium Chloride 1,000 mls @ 30 mls/hr 05/08/21 10:15 05/08/21 10:38 Sodium Chloride 0.9% IV 05/09/21 10:14 30 mls/hr .Q24H CINDY Administration PFSH Anesthesia Medical History GERD (gastroesophageal reflux disease) Hypercholesteremia Hypothyroidism (acquired) Prostatic hypertrophy Rheumatic fever Thyroid disease neuropathy Surgical History Bioprosthetic aortic valve replacement during current hospitalization H/O hernia repair x 5 History of aortic valve replacement Hx of tonsillectomy Status post aortic valve replacement with bioprosthetic valve Family History Daughter No problems noted. Brother Prostate cancer Social History Smoking and tobacco status: never smoked Alcohol intake: never Data Anesthesia : 05/08/21 11:05 Cardiac Studies: No Data to Display
[2021-05-08 11:17] LABS: Basophils # 0.1 10^3/uL (0.0-0.1); Basophils % 1.2 %; Eosinophils # 0.2 10^3/uL (0.0-0.8); Hematocrit 42.9 % (42.0-52.0); Hemoglobin 14.2 g/dL (11.7-16.6); Lymphocytes % 23.7 %; Mean Corpuscular HGB Conc 33.1 g/dL (30.0-36.0); Mean Corpuscular Hemoglobin 30.5 pg (28.0-34.0); Mean Corpuscular Volume 92.3 fl (80-94); Mean Platelet Volume 11.4 fL (7.4-10.4); Monocytes # 0.8 10^3/uL (0.2-0.9); Monocytes % 9.4 %; Neutrophils # 5.26 10^3/uL (1.8-7.7); Neutrophils % 63.3 %; Nucleated Red Blood Cells % 0 %; Platelet Count 240 10^3/cmm (130-400); Red Blood Count 4.65 10^6/uL (4.1-5.3); White Blood Count 8.3 10^3/uL (4.0-10.0)
[2021-05-08 12:04] LABS: Slide Review Slide Review Perform
--- NOTE | 2021-05-08 12:42 | W.PM.OPSUD ---
Surgery/Procedure H&P Update DATE OF PROCEDURE: May 08, 2021 DATE H&P PERFORMED: 05/04/21 CHANGES TO PREVIOUS DOCUMENTATION: none PREOP DIAGNOSIS: Recalcitrant ulceration right hallux interphalangeal joint PLANNED PROCEDURE: Operation Date: 05/08/21 11:20 Proposed Procedures p Condylectomy and flexor tenotomy right great toe [id number]/05187/L84(Right) - Drake Cardenas DPM
[2021-05-08] MEDS: lidocaine 1% INJ 20 mL SUBCUT (13:02)
--- NOTE | 2021-05-08 13:34 | XR_ITS ---
WS: [id number] Right foot, AP and lateral views, 05/08/2021 Clinical Data: post op Comparison: Right foot, 04/09/2021. Findings: No fractures or dislocations are seen. No bone destruction or erosion is noted. The joint spaces and soft tissues are normal. There is a plantar spur. XR/XR foot RT 2V [id number] Impression: Negative right foot.
[2021-05-08 13:40] VITALS: BP 101/64; PULSE 71; RESP 16; TEMP 36.1; O2SAT 95
[2021-05-08 13:45] VITALS: BP 117/63; PULSE 69; RESP 18; O2SAT 94
[2021-05-08 13:50] VITALS: BP 132/76; PULSE 70; RESP 18; O2SAT 95
[2021-05-08 14:00] VITALS: BP 131/75; PULSE 62; RESP 16; TEMP 36.1; O2SAT 97
[2021-05-08 14:48] VITALS: BP 148/69; PULSE 68; RESP 18; O2SAT 98
--- NOTE | 2021-05-08 15:36 | ANE.PACU2 ---
Inpatient post-anesthesia follow up: Airway intact: Yes Vital signs: Temperature 97 F Pulse Rate 68 Respiratory Rate 18 Blood Pressure 148/69 Pulse Oximetry 98 Oxygen Delivery Me thod Room Air Oxygen Flow Rate Fraction of Inspir ed Oxygen Hydration adequate: Yes Nausea and vomiting: No Pain level: 1 Mental status: Baseline
== END 2021-05-08 14:45 | disposition home or self-care (01) ==
PROVIDERS: Anesthesiology; PCP Family Medicine; Visit Provider Podiatrist Foot & Ankle Surgery
PROC: (CPT 21050; principal; 2021-05-08 11:10)
DX: L84 Corns and callosities (principal); G62.9 Polyneuropathy, unspecified; Z79.82 Long term (current) use of aspirin; E78.00 Pure hypercholesterolemia, unspecified; E03.9 Hypothyroidism, unspecified; I25.10 Atherosclerotic heart disease of native coronary artery without angina pectoris; N40.0 Benign prostatic hyperplasia without lower urinary tract symptoms
CPT/HCPCS: 28153; 28230; 73620; 85025; 93005; J0690; J2704; J3490; J7030

== ENCOUNTER → 2021-05-21 13:46 | Outpatient (BNVA) | payer MEDICARE, SELFPAY | PROVIDERS: PCP Family Medicine; Visit Provider Podiatrist Foot & Ankle Surgery | DX: Z98.890 Other specified postprocedural states (principal) | CPT/HCPCS: 73630 ==

== ENCOUNTER 2021-06-18 07:54 | Emergency (ER) | payer MEDICARE, SELFPAY ==
[2021-06-18 07:57] VITALS: BP 129/61; PULSE 75; RESP 14; TEMP 37.3; O2SAT 95; BMI 24.4
--- NOTE | 2021-06-18 07:58 | CT_ITS ---
WS: [id number] CT LUMBAR SPINE, noncontrast. HISTORY: pain/fall TECHNIQUE: Contiguous 2.5 mm axial imaging are performed. Sagittal and coronal reformats are submitte d and reviewed. All CT scans at [facility] use at least one of these dose optimization techni ques: automated exposure control; mA and/or kV adjustment per patient size (includes targeted exams w here dose is matched to clinical indication); or iterative reconstruction. IV contrast: None DLP: 2511.02 mGy.cm COMPARISON: None available. Slight increase in the lumbar lordosis. 2 mm retrolisthesis of L4. Anterior bridging osteophytes from L2 to L5. Osteophyte is complete at the L4-5 level anteriorly. There is mild osteopenia. No fracture identified. L1-2: Normal. L2-3: Mild facet arthritis. No high-grade stenosis. L3-4: Mild annular disc bulging, central disc protrusion, facet and ligamentum flavum arthritis. Mild central stenosis and encroachment into the subarticular recesses. L4-5: Mild annular disc bulging with marked osteophytic ridging. Mild central stenosis and narrowing of the subarticular recesses. Mild encroachment upon the traversing L5 nerve roots. L5-S1: Shallow central disc protrusion. No high-grade stenosis. Scattered calcifications within the aorta. No aneurysm. Mild bilateral perinephric stranding. Calcifi cation lower pole LEFT kidney. CT/CT lumbar spine wo con* [id number] IMPRESSION: 1. No acute lumbar spine fracture identified. 2. Multilevel facet joint arthritis in the anterior bridging osteophytes. 3. Mild central and subarticular recess stenosis at L3-4 and L4-5. 4. Shallow central disc protrusion at L5-S1.
--- NOTE | 2021-06-18 07:59 | ECG_ITS ---
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 Measurements Intervals [place] Rate: 74 P: -14 IN: 178 QRS: -25 QRSD: 100 T: 138 QT: 375 QTc: 417 Interpretive Statements SINUS RHYTHM MINIMAL VOLTAGE CRITERIA FOR LVH, CONSIDER NORMAL VARIANT SEPTAL MYOCARDIAL INFARCTION , PROBABLY OLD [40+ ms Q WAVE IN V1/V2] MODERATE T-WAVE ABNORMALITY, CONSIDER LATERAL ISCHEMIA Compared to ECG 05/08/2021 10:32:18 Myocardial infarct finding now present Left-axis deviation no longer present T-wave abnormality still present Possible ischemia still present Electronically Signed On 06-19-2021 11:14:33 CDT by Reina Flowers M.D. [id number]
--- NOTE | 2021-06-18 07:59 | XR_ITS ---
WS: [id number] Exam: XR chest 1V portable [id number] Date/Time of Exam: 06/18/2021 8:04 AM Reason For Exam: dyspnea/cough Comparison 05/20/2020. Comparison 05/20/2020. Lungs are fully expanded and clear. Cardiomediastinal silhouette is unremarkable. Signs of median mihai rnotomy. No pleural effusion. Calcified granulomas in both lungs. Monitoring leads superimpose the ch est. XR/XR chest 1V portable [id number] IMPRESSION: 1. No acute cardiopulmonary finding.
--- NOTE | 2021-06-18 08:27 | ED_ITS ---
HPI - Fall General: Chief Complaint: Fall Stated Complaint: LOW BACK PAIN, FALL, COVID + Time Seen by Provider: 06/18/21 07:58 Source: patient Mode of arrival: EMS History of Present Illness: 85-year-old male presents emergency room after a fall last night. States he has neuropathy and actually falls quite a bit he did really slip trip he did not pass out get lightheaded or dizzy he just fell which is similar pattern he has had before interestingly he also is known to be Covid positive he has been vaccinated he has no symptoms he received a COVID test in the mail and just took it because he got it and it came back positive. Is not had any confirmatory test I presume is one of the home rapid antigen kits. The test was positive yesterday has had no further development of symptoms at all. He is complaining now of some low back pain but has been able to ambulate. Denies any other injuries. MD complaint: fall Onset (ago): day(s) Fall from: standing Fall witnessed: no Place fall occurred: home Loss of consciousness: None Prolonged down time: no Symptoms prior to fall: none Context: history of frequent falls (Secondary to peripheral neuropathy) Location of injury: back Severity: mild Associated symptoms-after fall: Reports difficulty walking; Denies abdominal pain, chest pain, confusion, headache(s), hematuria, lightheadedness, neck pain, numbness, short of breath, vertigo or weakness Review of Systems Const: Denies: fever(s), chills, body aches, change in appetite, fatigue or malaise ENMT: Denies: throat pain, ear or mastoid pain, nasal discharge or nasal congestion Card: Denies: chest pain or lightheadedness Resp: Denies: dyspnea, productive cough or non-productive cough GI: Denies: abdominal pain : Denies: hematuria Musc: Denies: neck pain Skin/Breast: Denies: rash or pruritus Neuro: Reports: difficulty walking; Denies: headache(s), vertigo or confusion PFS ED PFSH: Medical History COVID-19 GERD (gastroesophageal reflux disease) Hypercholesteremia Hypothyroidism (acquired) Prostatic hypertrophy Rheumatic fever Thyroid disease neuropathy Surgical History Bioprosthetic aortic valve replacement during current hospitalization H/O hernia repair x 5 History of aortic valve replacement Hx of tonsillectomy Status post aortic valve replacement with bioprosthetic valve Status post right foot surgery Family History Daughter No problems noted. Brother Prostate cancer Social History Smoking and tobacco status: never smoked Alcohol intake: never Physical Exam Const: GENERAL APPEARANCE: cooperative and comfortable ORIENTATION/CONSCIOUSNESS: Yes awake, Yes oriented to person, Yes oriented to place and Yes oriented to time HENMT: COMMON NORMALS: normocephalic, atraumatic and hearing grossly normal bilaterally HEAD & SCALP: normocephalic and atraumatic Neck/C-Spine: COMMON NORMALS: no JVD Resp: COMMON NORMALS: normal respiratory effort, No retractions, No use of accessory muscles and clear to auscultation bilaterally AUSCULTATION: clear to auscultation bilaterally Cardio: COMMON NORMALS: no JVD, regular rate, regular rhythm and No murmurs present (Cardio) RATE: regular rate RHYTHM: regular rhythm GI: COMMON NORMALS: Soft to palpation and No hepatosplenomegaly present AUSCULTATION: Yes normoactive bowel sounds PALPATION: Yes Soft to palpation, No Tenderness to palpation present (GI), No Guarding due to palpation present (GI) and Yes No hepatosplenomegaly present Extremity: COMMON NORMALS: normal to inspection, capillary refill normal, no clubbing, cyanosis or edema, no calf tenderness and no pedal edema Neuro: SENSORIUM/ORIENTATION: Yes oriented to person, Yes oriented to place and Yes oriented to time Skin: COMMON NORMALS: no rashes or lesions noted GENERAL SKIN EXAM: no rashes or lesions noted Course Vital Signs: Vital signs: Vital Signs Temperature 99.2 F 06/18/21 07:57 Pulse Rate 71 06/18/21 12:29 Respiratory Rate 16 06/18/21 12:29 Blood Pressure 150/82 06/18/21 12:29 Pulse Oximetry 96 06/18/21 12:29 MDM - Fall Medical Decision Making Covid testing done today confirms. Patient is otherwise asymptomatic labs and imaging reviewed. Will discharge patient home set him up for outpatient monoclonal antibodies discussed risks benefits he wishes to proceed otherwise follow-up with primary care as needed. Return if has any worsening of symptoms. Medical Records I reviewed the patient's medical records. Lab Data I reviewed the patient's lab results. : 06/18/21 10:00 06/18/21 10:00 Radiology Impressions Lumbar Spine CT 06/18/21 07:58 IMPRESSION: 1. No acute lumbar spine fracture identified. 2. Multilevel facet joint arthritis in the anterior bridging osteophytes. 3. Mild central and subarticular recess stenosis at L3-4 and L4-5. 4. Shallow central disc protrusion at L5-S1. Chest X-Ray 06/18/21 07:59 IMPRESSION: 1. No acute cardiopulmonary finding. Laboratory Results WBC 7.2 10^3/uL (4.0-10.0) 06/18/21 10:00 Corrected WBC Cancelled 06/18/21 09:03 RBC 4.39 10^6/uL (4.1-5.3) 06/18/21 10:00 Hgb 13.0 g/dL (11.7-16.6) 06/18/21 10:00 Hct 40.6 % (42.0-52.0) L 06/18/21 10:00 MCV 92.5 fl (80-94) 06/18/21 10:00 MCH 29.6 pg (28.0-34.0) 06/18/21 10:00 MCHC 32.0 g/dL (30.0-36.0) 06/18/21 10:00 RDW 14.4 % (12.1-15.1) 06/18/21 10:00 Plt Count 194 10^3/cmm (130-400) 06/18/21 10:00 MPV 11.4 fL (7.4-10.4) H 06/18/21 10:00 Gran % Cancelled 06/18/21 09:03 Neut % (Auto) 70.2 % 06/18/21 10:00 Lymph % (Auto) 13.5 % 06/18/21 10:00 [place] % (Auto) 14.3 % 06/18/21 10:00 Eos % (Auto) 0.6 % 06/18/21 10:00 Baso % (Auto) 1.1 % 06/18/21 10:00 Neut # (Auto) 5.06 10^3/uL (1.8-7.7) 06/18/21 10:00 Lymph # (Auto) 1.0 10^3/uL (0.8-4.8) 06/18/21 10:00 [place] # (Auto) 1.0 10^3/uL (0.2-0.9) H 06/18/21 10:00 Eos # (Auto) 0.0 10^3/uL (0.0-0.8) 06/18/21 10:00 Baso # (Auto) 0.1 10^3/uL (0.0-0.1) 06/18/21 10:00 Absolute Gran (auto) Cancelled 06/18/21 09:03 Nucleated RBC % (auto) 0 % 06/18/21 10:00 Nucleated RBCs # 0.0 /100WBC 06/18/21 10:00 Sodium 136 mmol/L (136-145) 06/18/21 10:00 Potassium 3.8 mmol/L (3.5-5.1) 06/18/21 10:00 Chloride 104 mmol/L (98-107) 06/18/21 10:00 Carbon Dioxide 21 mmol/L (22-29) L 06/18/21 10:00 Anion Gap 14.8 (5-19) 06/18/21 10:00 BUN 11 mg/dL (8-23) 06/18/21 10:00 Creatinine 0.9 mg/dL (0.7-1.2) 06/18/21 10:00 GFR Calculation Not Reportable 06/18/21 10:00 Glucose 92 mg/dL (65-115) 06/18/21 10:00 Calculated Osmolality 281 mOsm/kg (285-295) L 06/18/21 10:00 Calcium 8.6 mg/dL (8.5-10.5) 06/18/21 10:00 Coronavirus 229E (PCR) Not detected (NOT DETECT) 06/18/21 08:57 SARS-CoV-2 (PCR) Detected (NOT DETECT) A 06/18/21 08:57 Discharge Plan Discharge Patient Disposition: Home Clinical Impression: Fall, COVID-19 Condition: Stable Prescriptions: New diclofenac sodium 75 mg tablet,delayed release (DR/EC) 75 mg PO Q12H PRN (Reason: pain) Qty: 20 0RF No Action gabapentin 300 mg capsule 300 mg PO TID Qty: 270 2RF levothyroxine 50 mcg tablet See Rx Instructions .ROUTE .COMPLEX Qty: 90 2RF Dose Instruction: Take 1 tablet by mouth once daily Rx Instructions: Take 1 tablet by mouth once daily pravastatin 40 mg tablet See Rx Instructions .ROUTE .COMPLEX Qty: 90 1RF Dose Instruction: Take 1 tablet by mouth once daily Rx Instructions: Take 1 tablet by mouth once daily aspirin 325 mg Tablet 325 mg PO DAILY Qty: 100 5RF Discharge Orders: Discharge ED (Routine); Ordered 06/18/21 Ordered By: Osmar Raya Other Ambulatory Orders: Request for MCA (Routine) Timeframe: 1 Day Facility: [facility] - Location: Outpatient Surgical Services Ordered By: Osmar Raya Referrals: Jun Ling MD [Primary Care Provider] - Patient Instructions: Opioid Safety Coding Level of Care Code 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
[2021-06-18 09:49] VITALS: BP 136/75; PULSE 73; RESP 21; O2SAT 97
[2021-06-18 10:17] LABS: Basophils # 0.1 10^3/uL (0.0-0.1); Basophils % 1.1 %; Eosinophils % 0.6 %; Hematocrit 40.6 % (42.0-52.0); Lymphocytes % 13.5 %; Mean Corpuscular Hemoglobin 29.6 pg (28.0-34.0); Mean Corpuscular Volume 92.5 fl (80-94); Mean Platelet Volume 11.4 fL (7.4-10.4); Monocytes % 14.3 %; Neutrophils # 5.06 10^3/uL (1.8-7.7); Neutrophils % 70.2 %; Nucleated Red Blood Cells % 0 %; Platelet Count 194 10^3/cmm (130-400); Red Blood Count 4.39 10^6/uL (4.1-5.3); Red Cell Distribution Width 14.4 % (12.1-15.1); White Blood Count 7.2 10^3/uL (4.0-10.0)
[2021-06-18 10:47] LABS: Anion Gap 14.8 (5-19); Blood Urea Nitrogen 11 mg/dL (8-23); Calcium 8.6 mg/dL (8.5-10.5); Carbon Dioxide 21 mmol/L (22-29); Chloride 104 mmol/L (98-107); Glucose 92 mg/dL (65-115); Osmolality Calculated 281 mOsm/kg (285-295); Potassium 3.8 mmol/L (3.5-5.1); Sodium 136 mmol/L (136-145)
[2021-06-18 11:17] VITALS: BP 139/81; PULSE 73; RESP 15; O2SAT 96
[2021-06-18 11:19] LABS: Adenovirus Not Detected (NOT DETECT); Chlamydia Pneumoniae Not Detected (NOT DETECT); Coronavirus 229E,HKU1,NL63,OC4 Not Detected (NOT DETECT); Human Metapneumovirus Not Detected (NOT DETECT); Human Rhinovirus/Enterovirus Not Detected (NOT DETECT); Influenza A Not Detected (NOT DETECT); Influenza A H1 Not Detected (NOT DETECT); Influenza A H1-2009 Not Detected (NOT DETECT); Influenza A H3 Not Detected (NOT DETECT); Influenza B Not Detected (NOT DETECT); Mycoplasma Pneumoniae Not Detected (NOT DETECT); Parainfluenza Virus Type 1 Not Detected (NOT DETECT); Parainfluenza Virus Type 2 Not Detected (NOT DETECT); Parainfluenza Virus Type 3 Not Detected (NOT DETECT); Parainfluenza Virus Type 4 Not Detected (NOT DETECT); Respiratory Syncytial Virus A Not Detected (NOT DETECT); Respiratory Syncytial Virus B Not Detected (NOT DETECT); SARS-COV-2 Detected (NOT DETECT)
[2021-06-18 12:29] VITALS: BP 150/82; PULSE 71; RESP 16; O2SAT 96
== END 2021-06-18 12:30 | disposition home or self-care (01) ==
PROVIDERS: Emergency Provider Family Medicine; PCP Family Medicine
DX: U07.1 COVID-19 (principal); M54.50 Low back pain, unspecified; W19.XXXA Unspecified fall, initial encounter; R29.6 Repeated falls; Z91.81 History of falling; G62.9 Polyneuropathy, unspecified; Z79.82 Long term (current) use of aspirin
CPT/HCPCS: 71045; 72131; 80048; 85025; 87635; 93005; 99283

== ENCOUNTER 2021-08-12 16:45 | Inpatient (IN) | payer MEDICARE, SELFPAY ==
[2021-08-12] VITALS (7 sets, daily range): BP systolic 135–157; BP diastolic 81–92; PULSE 28–125; RESP 16–125; TEMP 37.2–39.7; O2SAT 91–96; BMI 27.5
--- NOTE | 2021-08-12 16:56 | ECG_ITS ---
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 Measurements Intervals [place] Rate: 112 P: -1 DC: 179 QRS: -57 QRSD: 109 T: 80 QT: 307 QTc: 420 Interpretive Statements SINUS TACHYCARDIA LEFT AXIS DEVIATION [QRS AXIS < -30] LEFT VENTRICULAR HYPERTROPHY AND ST-T CHANGE Compared to ECG 06/18/2021 08:46:35 Left-axis deviation now present ST (T wave) deviation now present Sinus rhythm no longer present Myocardial infarct finding no longer present T-wave abnormality no longer present Possible ischemia no longer present Electronically Signed On 08-12-2021 21:20:21 CDT by Reina Flowers M.D. [id number]
--- NOTE | 2021-08-12 16:56 | XRR_ITS ---
PROCEDURE INFORMATION: Exam: XR Chest Exam date and time: 08/12/2021 5:35 PM Age: 85 years old Clinical indication: Dyspnea; Prior surgery; Surgery date: 6+ months; Surgery type: Aortic valve repair; Additional info: Shortness of breath TECHNIQUE: Imaging protocol: XR of the chest. Views: 1 view. COMPARISON: CR XR chest 1V portable [id number] 06/18/2021 8:11 AM FINDINGS: Lungs: Calcified granulomas at the right lung base. No consolidation. Pleural spaces: No pleural effusion. No pneumothorax. Heart/Mediastinum: Sequela of aortic valve replacement. No cardiomegaly. Bones/joints: Sternotomy wires noted. Visualized osseous structures are intact. XR/XR chest 1V portable [id number] IMPRESSION: No acute findings.
--- NOTE | 2021-08-12 16:56 | CTR_ITS ---
PROCEDURE INFORMATION: Exam: CT Head Without Contrast Exam date and time: 08/12/2021 5:31 PM Age: 85 years old Clinical indication: Altered mental status/memory loss; Additional info: AMS TECHNIQUE: Imaging protocol: Computed tomography of the head without contrast. Radiation optimization: All CT scans at this facility use at least one of these dose optimization techniques: automated exposure control; mA and/or kV adjustment per patient size (includes targeted exams where dose is matched to clinical indication); or iterative reconstruction. COMPARISON: No relevant prior studies available. RADIATION DOSE METRICS: Total DLP (mGy-cm): 1238.66 FINDINGS: Brain: No hemorrhage. No edema. Moderate diffuse cerebral atrophy. No significant white matter disease. No mass effect. Cerebral ventricles: No ventriculomegaly. Paranasal sinuses: Visualized sinuses are unremarkable. No fluid levels. Mastoid air cells: Visualized mastoid air cells are well aerated. Bones/joints: Unremarkable. No acute fracture. Soft tissues: Unremarkable. CT/CT head wo con* [id number] IMPRESSION: No acute intracranial abnormality.
[2021-08-12 17:08] LABS: Basophils # 0.1 10^3/uL (0.0-0.1); Basophils % 0.5 %; Eosinophils % 0.4 %; Hematocrit 41.5 % (42.0-52.0); Hemoglobin 13.6 g/dL (11.7-16.6); Lymphocytes % 9.7 %; Mean Corpuscular HGB Conc 32.8 g/dL (30.0-36.0); Mean Corpuscular Hemoglobin 30.1 pg (28.0-34.0); Mean Corpuscular Volume 91.8 fl (80-94); Monocytes # 0.3 10^3/uL (0.2-0.9); Monocytes % 2.6 %; Neutrophils # 8.98 10^3/uL (1.8-7.7); Neutrophils % 86.3 %; Nucleated Red Blood Cells % 0 %; Platelet Count 194 10^3/cmm (130-400); Red Blood Count 4.52 10^6/uL (4.1-5.3); Red Cell Distribution Width 14.9 % (12.1-15.1); White Blood Count 10.4 10^3/uL (4.0-10.0)
--- NOTE | 2021-08-12 17:09 | ED_ITS ---
HPI - Altered Mental Status General: Chief Complaint: Altered Mental Status Stated Complaint: AMS/ POSSIBLE STROKE Time Seen by Provider: 08/12/21 16:50 History of Present Illness: Patient comes in by EMS with altered mental status. Per EMS the patient was found by family unresponsive in his chair about 45 minutes prior to arrival. It is unclear when he was last seen normal. Upon arrival here he is hypoxic and requiring supplemental oxygen. He is febrile, tachycardic, and diaphoretic. The patient is confused and does not answer questions or follow commands, except for his name and that he is at the hospital. Review of Systems General: Reports: Other (Unable to obtain review of systems due to mental status) Const: Denies: fever(s) or body aches Eyes: Denies: change in vision or blurry vision ENMT: Denies: throat pain or odynophagia Card: Denies: chest pain or palpitations Resp: Denies: dyspnea or productive cough GI: Denies: abdominal pain, nausea or vomiting : Denies: flank pain or dysuria Musc: Denies: neck pain or back pain Skin/Breast: Denies: rash or pruritus Neuro: Reports: numbness in extremities and weakness in extremities; Denies: headache(s) Psych: Denies: anxiety or change in appetite Endo: Denies: polyuria or excessive sweating PFSH ED PFSH: Medical History COVID-19 GERD (gastroesophageal reflux disease) Hypercholesteremia Hypothyroidism (acquired) Prostatic hypertrophy Rheumatic fever Thyroid disease neuropathy Surgical History Bioprosthetic aortic valve replacement during current hospitalization H/O hernia repair x 5 History of aortic valve replacement Hx of tonsillectomy Status post aortic valve replacement with bioprosthetic valve Status post right foot surgery Family History Daughter No problems noted. Brother Prostate cancer Social History Smoking and tobacco status: never smoked Alcohol intake: never Physical Exam Narrative: Patient is confused and diaphoretic his skin is hot to touch HENMT: COMMON NORMALS: normocephalic and atraumatic HEAD & SCALP: normocephalic and atraumatic Eye: COMMON NORMALS: Equal, round and reactive pupils present and EOMs intact bilaterally PUPIL: Yes Equal, round and reactive pupils present Neck/C-Spine: COMMON NORMALS: full ROM and supple Resp: COMMON NORMALS: normal respiratory effort, No retractions and No use of accessory muscles Cardio: OTHER: Tachycardia GI: COMMON NORMALS: Normal to inspection, nondistended, normoactive bowel sounds present, Soft to palpation and non-tender PALPATION: Yes Soft to palpation Back/Pelvis: COMMON NORMALS: thoracic and lumbar spine normal to inspection and no thoracic nor lumbar tenderness Extremity: COMMON NORMALS: normal to inspection and full ROM Neuro: OTHER: Confused, but awake. Oriented to person and place Skin: COMMON NORMALS: no rashes or lesions noted and no wounds GENERAL SKIN EXAM: no rashes or lesions noted Course Vital Signs: Vital signs: Vital Signs Temperature 98.3 F 08/13/21 04:00 Pulse Rate 75 08/13/21 05:35 Respiratory Rate 17 08/13/21 04:00 Blood Pressure 99/63 08/13/21 04:00 Pulse Oximetry 95 08/13/21 04:00 MDM - Altered Mental Status Medical Decision Making Patient comes in by EMS with altered mental status. Per EMS the patient was found by family unresponsive in his chair about 45 minutes prior to arrival. It is unclear when he was last seen normal. Upon arrival here he is hypoxic and requiring supplemental oxygen. He is febrile, tachycardic, and diaphoretic. The patient is confused and does not answer questions or follow commands, except for his name and that he is at the hospital. Will check labs, CT, give IV fluids, and reassess. On reassessment the patient is more awake and alert. He continues to require oxygen and his chest x-ray is concerning for possible pneumonia. We will start antibiotics. I discussed the case with the hospitalist, and we will admit for further work-up and treatment. Lab Data : 08/13/21 02:16 08/13/21 02:16 Radiology Impressions Chest X-Ray 08/12/21 16:56 IMPRESSION: No acute findings. Head CT 08/12/21 16:56 IMPRESSION: No acute intracranial abnormality. Laboratory Results WBC 10.4 10^3/uL (4.0-10.0) H 08/12/21 16:56 RBC 4.52 10^6/uL (4.1-5.3) 08/12/21 16:56 Hgb 13.6 g/dL (11.7-16.6) 08/12/21 16:56 Hct 41.5 % (42.0-52.0) L 08/12/21 16:56 MCV 91.8 fl (80-94) 08/12/21 16:56 MCH 30.1 pg (28.0-34.0) 08/12/21 16:56 MCHC 32.8 g/dL (30.0-36.0) 08/12/21 16:56 RDW 14.9 % (12.1-15.1) 08/12/21 16:56 Plt Count 194 10^3/cmm (130-400) 08/12/21 16:56 MPV 12.0 fL (7.4-10.4) H 08/12/21 16:56 Neut % (Auto) 86.3 % 08/12/21 16:56 Lymph % (Auto) 9.7 % 08/12/21 16:56 [place] % (Auto) 2.6 % 08/12/21 16:56 Eos % (Auto) 0.4 % 08/12/21 16:56 Baso % (Auto) 0.5 % 08/12/21 16:56 Neut # (Auto) 8.98 10^3/uL (1.8-7.7) H 08/12/21 16:56 Lymph # (Auto) 1.0 10^3/uL (0.8-4.8) 08/12/21 16:56 [place] # (Auto) 0.3 10^3/uL (0.2-0.9) 08/12/21 16:56 Eos # (Auto) 0.0 10^3/uL (0.0-0.8) 08/12/21 16:56 Baso # (Auto) 0.1 10^3/uL (0.0-0.1) 08/12/21 16:56 Nucleated RBC % (auto) 0 % 08/12/21 16:56 Nucleated RBCs # 0.0 /100WBC 08/12/21 16:56 Specimen Type Arterial 08/12/21 17:46 Sample Site Radial, left 08/12/21 17:46 ABG pH 7.50 (7.35-7.45) H 08/12/21 17:46 ABG pCO2 28.4 mmHg (35-45) L 08/12/21 17:46 ABG pO2 94.8 mmHg (80.0-100.0) 08/12/21 17:46 ABG HCO3 22.2 mmol/L (22-26) 08/12/21 17:46 ABG Base Excess 0.0 mmol/L (-2.0-2.0) 08/12/21 17:46 Reji Test Pos 08/12/21 17:46 Hematocrit 39.0 % (42-52) L 08/12/21 17:46 O2 Delivery Device Nc 08/12/21 17:46 O2 Liters/Min 3.5 % 08/12/21 17:46 FiO2 34.0 % 08/12/21 17:46 Drum Stock Clerk ID Cak 08/12/21 17:46 Sodium 134 mmol/L (136-145) L 08/12/21 16:56 Potassium 4.2 mmol/L (3.5-5.1) 08/12/21 16:56 Chloride 99 mmol/L (98-107) 08/12/21 16:56 Carbon Dioxide 19 mmol/L (22-29) L 08/12/21 16:56 Anion Gap 20.2 (5-19) H 08/12/21 16:56 BUN 14 mg/dL (8-23) 08/12/21 16:56 Creatinine 0.8 mg/dL (0.7-1.2) 08/12/21 16:56 GFR Calculation Not Reportable 08/12/21 16:56 Glucose 162 mg/dL (65-115) H 08/12/21 16:56 Calculated Osmolality 282 mOsm/kg (285-295) L 08/12/21 16:56 Calcium 9.3 mg/dL (8.5-10.5) 08/12/21 16:56 Magnesium 2.0 mg/dL (1.7-2.3) 08/12/21 16:56 Total Bilirubin 1.7 mg/dL (0.15-1.2) H 08/12/21 16:56 AST 74 U/L (0-40) H 08/12/21 16:56 ALT 55 U/L (0-41) H 08/12/21 16:56 Alkaline Phosphatase 114 IU/L (40-130) 08/12/21 16:56 Total Protein 7.4 g/dL (6.6-8.7) 08/12/21 16:56 Albumin 4.0 g/dL (3.5-5.2) 08/12/21 16:56 Globulin 3.4 g/dL (1.3-4.6) 08/12/21 16:56 Procalcitonin 0.53 ng/mL (0-0.5) H 08/12/21 16:56 Urine Color Yellow (Yellow) 08/12/21 17:07 Urine Appearance Clear (CLEAR) 08/12/21 17:07 Urine pH 5 (5-7) 08/12/21 17:07 Ur Specific [place] 1.015 (1.005-1.030) 08/12/21 17:07 Urine Protein 1+ (Negative) H 08/12/21 17:07 Urine Glucose (UA) Norm (Normal) 08/12/21 17:07 Urine Ketones 1+ (Negative) H 08/12/21 17:07 Urine Blood 3+ (Negative) H 08/12/21 17:07 Urine Nitrate Negative (Negative) 08/12/21 17:07 Urine Bilirubin Neg (Negative) 08/12/21 17:07 Urine Urobilinogen 1 mg/dL (Negative) H 08/12/21 17:07 Ur Leukocyte Esterase Negative (Negative) 08/12/21 17:07 Urine RBC 5-10 /hpf (0-2) H 08/12/21 17:07 Urine WBC 5-10 /hpf (0-5) H 08/12/21 17:07 Ur Squamous Epith Cells 0-4 /hpf (0-5) H 08/12/21 17:07 Amorphous Sediment 2+ /hpf 08/12/21 17:07 Urine Bacteria 1+ /hpf (NONE) H 08/12/21 17:07 Salicylates 1.5 mg/dL (3-10) L 08/12/21 16:56 Urine Opiates Screen Negative ng/mL (Negative) 08/12/21 17:07 Acetaminophen < 5.0 ug/mL (10-30) L 08/12/21 16:56 Ur Barbiturates Screen Negative ng/mL (Negative) 08/12/21 17:07 Ur Phencyclidine Scrn Negative ng/mL (Negative) 08/12/21 17:07 Ur Amphetamines Screen Negative ng/mL (Negative) 08/12/21 17:07 U Benzodiazepines Scrn Negative ng/mL (Negative) 08/12/21 17:07 Urine Cocaine Screen Negative ng/mL (Negative) 08/12/21 17:07 U Marijuana (THC) Screen Negative ng/mL (Negative) 08/12/21 17:07 Ethyl Alcohol < 10 mg/dL (0-10) 08/12/21 16:56 Discharge Plan Discharge Patient Disposition: Admitted As Inpatient Admit Provider: Mike Arias Clinical Impression: CAP (community acquired pneumonia), Hypoxia Condition: Stable Coding Level of Care Code ED 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
[2021-08-12 17:29] LABS: Add Urine Microscopic? YES; Bilirubin Urine Neg (Negative); Blood Urine 3+ (Negative); Glucose Urine UA Norm (Normal); Ketones Urine 1+ (Negative); Leukocyte Esterase Urine Negative (Negative); Nitrate Urine Negative (Negative); Protein Urine 1+ (Negative); Specific Gravity, Urine 1.015 (1.005-1.030); Squamous Epithelial Cell Urine 0-4 /hpf (0-5); Urine Appearance Clear (CLEAR); Urine Color Yellow (Yellow); Urobilinogen Urine 1 mg/dL (Negative); pH Urine 5 (5-7)
[2021-08-12 17:30] LABS: Amorphous Sediment Urine 2+ /hpf; Amphetamines Screen Urine Negative (Negative); Bacteria Urine 1+ /hpf; Barbiturates Screen Urine Negative (Negative); Benzodiazepines Screen Urine Negative (Negative); Cocaine Screen Urine Negative (Negative); Opiate Screen Urine Negative (Negative); PCP Screen Urine Negative (Negative); THC Screen Urine Negative (Negative)
[2021-08-12 17:32] LABS: Add Urine Culture? No
[2021-08-12 17:49] LABS: Alanine Aminotransferase 55 U/L (0-41); Alkaline Phosphatase 114 IU/L (40-130); Anion Gap 20.2 (5-19); Aspartate Amino Transferase 74 U/L (0-40); Blood Urea Nitrogen 14 mg/dL (8-23); Calcium 9.3 mg/dL (8.5-10.5); Carbon Dioxide 19 mmol/L (22-29); Chloride 99 mmol/L (98-107); Globulin 3.4 g/dL (1.3-4.6); Glucose 162 mg/dL (65-115); Osmolality Calculated 282 mOsm/kg (285-295); Potassium 4.2 mmol/L (3.5-5.1); Salicylate 1.5 mg/dL (3-10); Sodium 134 mmol/L (136-145); Total Bilirubin 1.7 mg/dL (0.15-1.2); Total Protein 7.4 g/dL (6.6-8.7)
[2021-08-12 17:57] LABS: ABG PCO2 28.4 mmHg (35-45); Blood Gas Allen Test Pos; Blood Gas LPM 3.5 %; Blood Gas Operator Identificat CAK; Blood Gas Sample Site Radial, left; Blood Gas Sample Type Arterial; HCO3 ABG 22.2 mmol/L (22-26); Oxygen Device NC; PO2 ABG 94.8 mmHg (80.0-100.0)
[2021-08-12 18:00] LABS: Acetaminophen < 5.0 ug/mL (10-30); Alcohol Level < 10 mg/dL (0-10)
--- NOTE | 2021-08-12 18:14 | PM.HP ---
Providers/Chief Complaint Admitting Physician: Mike Arias Primary Care Provider: Jun Ling MD Chief Complaint: AMS/ POSSIBLE STROKE History of Present Illness Clovis Adan is a 85 year old male with a past medical history significant for hypothyroidism, hyperlipidemia, and neuropathy who presents to the emergency department with altered mental status. Prior to presentation to the emergency department, patient was reportedly found by family unresponsive about 45 minutes prior to arrival. In the ED, he was found to be hypoxic requiring 4 L nasal cannula support. He was found to be tachycardic, febrile, and diaphoretic. He was found to have altered mental status with confusion. Upon evaluation patient is unable to recall prior events that lead him to the ED which severely limits history. He is oriented to his name and knows he it at the hospital. He does not know the year. He reports he was told he had pneumonia. He endorses fevers and diffuse weakness. Denies chest pain, chills, abdominal pain, or headaches. Denies recent chocking or aspiration episdoe. 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 Review of Systems Narrative: A complete review of systems was obtained and is negative except as stated in HPI. Medications/Allergies Home Medications Medication Instructions Recorded Confirmed Last Taken Type aspirin 325 mg tablet 325 mg PO DAILY #100 tab 07/30/19 06/10/21 05/04/21 Rx levothyroxine 50 mcg tablet See Rx Instructions .ROUTE 03/23/21 06/10/21 Unknown Rx .COMPLEX #90 tab gabapentin 300 mg capsule 300 mg PO TID #270 cap 04/14/21 06/10/21 Unknown Rx pravastatin 40 mg tablet See Rx Instructions .ROUTE 06/15/21 Unknown Rx .COMPLEX #90 tab diclofenac sodium 75 mg 75 mg PO Q12H PRN #20 tab 06/18/21 Unknown Rx tablet,delayed release Allergies Allergy/AdvReac Type Severity Reaction Status Date / Time duloxetine [From Cymbalta] Allergy Unknown Verified 06/18/21 07:57 PFSH Acute PFSH: Medical History COVID-19 GERD (gastroesophageal reflux disease) Hypercholesteremia Hypothyroidism (acquired) Prostatic hypertrophy Rheumatic fever Thyroid disease neuropathy Surgical History Bioprosthetic aortic valve replacement during current hospitalization H/O hernia repair x 5 History of aortic valve replacement Hx of tonsillectomy Status post aortic valve replacement with bioprosthetic valve Status post right foot surgery Family History Daughter No problems noted. Brother Prostate cancer Social History Smoking and tobacco status: never smoked Alcohol intake: never Vitals/I&O/Wt Last Vital Signs Temp 100.6 F H 08/12/21 17:03 Pulse 118 H 08/12/21 17:03 Resp 16 08/12/21 17:03 BP 143/82 08/12/21 17:03 Pulse Ox 92 08/12/21 17:03 Physical Exam Narrative: General: Patient is awake. Appears ill. Febrile. Head: Normocephalic. Atraumatic. EOM intact. Neck: No JVD. Cardiovascular: RRR. 2-3+ systolic ejection murmur. No rubs. No gallops. Lungs: Breath sounds mildly diminished in bilateral bases. Breath sounds are course. No use of accessory muscles, no crackles or wheezes. On nasal canula. Skin: No jaundice. No rashes. Abdomen: Normal bowel sounds, abdomen soft and nontender. Genito Urinary: Genital exam not performed since complaints not related. Rectal: Rectal exam not performed since no symptoms indicated blood loss. Extremeties: No cyanosis or clubbing. Musculoskeletal: Diffuse weakness, but no focal deficits. Neurological: Moves all 4 extremities. No myoclonus. Data : 08/12/21 16:56 08/12/21 16:56 A&P Assessment and plan (1) CAP (community acquired pneumonia): -Febrile and hypoxic with shortness of breath, diaphoresis, and tachycardia -Faint infiltrate on CXR -Start ceftriaxone -Pulmonary toilet -Telemetry Status: Acute (2) Hypoxia: -Acute hypoxic respiratory failure on 4 L -2/2 CAP -Treat undelying PNA -Continuous pulse oximetry Status: Acute (3) Altered mental status: -Secondary to acute infectious encephalopathy -No focal or localizing findings -CT head negative for acute findings -Treat underlying infection -Frequent reorientation Status: Acute (4) Debility: -With generalized weakness -Secondary to CAP -Treat underlying infection -PT/OT Status: Acute (5) Peripheral neuropathy: -Continue gabapentin Status: Acute (6) Hypothyroidism (acquired): -Continue Synthroid Status: Acute (7) Atrial fibrillation: -Continue aspirin -Not on therapeutic anticoagulation Status: Acute Qualifiers: Atrial fibrillation type: unspecified Qualified Code(s): I48.91 - Unspecified atrial fibrillation (8) Metabolic acidosis: -2/2 infection -Treat underlying infection Status: Acute (9) Leukocytosis: -2/2 infection -Treat underlying infection Status: Acute (10) Hyperbilirubinemia: -2/2 infection -Treat underlying infection Status: Acute (11) Hypercholesteremia: Status: Acute Plan DVT ppx: Lovenox Attestations Medical Necessity Statement*: Patient with CAP and marked weakness with hospitalization expected to cross two midnights. Coding Level of Care Code Acute Chorus Master for [facility] Fwd Diagnoses CAP (community acquired pneumonia) J18.9 Hypoxia R09.02 Peripheral neuropathy G62.9 Hypothyroidism (acquired) E03.9 Hypercholesteremia E78.00 Atrial fibrillation I48.91 Atrial fibrillation type: unspecified Altered mental status R41.82 Debility R53.81 Metabolic acidosis E87.2 Leukocytosis D72.829 Hyperbilirubinemia E80.6
[2021-08-12] MEDS: sodium chloride 0.9% 1,000 ML 999 ML IV (18:21)
[2021-08-12] MEDS: cefTRIAXone 1,000 MG in sodium chloride 0.9% (plus) 50 ML 100 MG IV (18:23)
[2021-08-12] MEDS: azithromycin 500 MG in sodium chloride 0.9% 250 ML 250 MG IV (18:33)
[2021-08-12 18:54] LABS: Lactate (Lactic Acid level) 2.1 mmol/L (0.5-2.2)
[2021-08-12 18:56] LABS: Ammonia 22 umol/L (16-60)
[2021-08-12 20:08] LABS: Adenovirus Not Detected (NOT DETECT); Chlamydia Pneumoniae Not Detected (NOT DETECT); Coronavirus 229E,HKU1,NL63,OC4 Not Detected (NOT DETECT); Human Metapneumovirus Not Detected (NOT DETECT); Human Rhinovirus/Enterovirus Not Detected (NOT DETECT); Influenza A Not Detected (NOT DETECT); Influenza A H1 Not Detected (NOT DETECT); Influenza A H1-2009 Not Detected (NOT DETECT); Influenza A H3 Not Detected (NOT DETECT); Influenza B Not Detected (NOT DETECT); Mycoplasma Pneumoniae Not Detected (NOT DETECT); Parainfluenza Virus Type 1 Not Detected (NOT DETECT); Parainfluenza Virus Type 2 Not Detected (NOT DETECT); Parainfluenza Virus Type 3 Not Detected (NOT DETECT); Parainfluenza Virus Type 4 Not Detected (NOT DETECT); Respiratory Syncytial Virus A Not Detected (NOT DETECT); Respiratory Syncytial Virus B Not Detected (NOT DETECT); SARS-COV-2 Not Detected (NOT DETECT)
[2021-08-12 20:33] LABS: Procalcitonin 0.53 ng/mL (0-0.5)
[2021-08-12] MEDS: gabapentin 300 mg Capsule PO (20:55)
[2021-08-12] MEDS: enoxaparin 40 mg/0.4 mL Syringe SUBCUT (20:55)
[2021-08-12] MEDS: acetaminophen 650 mg Supp PR (20:55)
[2021-08-12] MEDS: levothyroxine 50 mcg Tablet PO (20:56)
[2021-08-13] VITALS (9 sets, daily range): BP systolic 99–138; BP diastolic 60–75; PULSE 73–96; RESP 13–20; TEMP 36.8–37.6; O2SAT 93–97
[2021-08-13 03:36] LABS: Alanine Aminotransferase 64 U/L (0-41); Albumin Level 3.2 g/dL (3.5-5.2); Alkaline Phosphatase 133 IU/L (40-130); Anion Gap 17.6 (5-19); Aspartate Amino Transferase 94 U/L (0-40); Blood Urea Nitrogen 19 mg/dL (8-23); Calcium 8.4 mg/dL (8.5-10.5); Carbon Dioxide 20 mmol/L (22-29); Chloride 105 mmol/L (98-107); Globulin 3.3 g/dL (1.3-4.6); Glucose 137 mg/dL (65-115); Osmolality Calculated 292 mOsm/kg (285-295); Phosphorus 2.7 mg/dL (2.5-4.5); Potassium 3.6 mmol/L (3.5-5.1); Sodium 139 mmol/L (136-145); Total Bilirubin 1.5 mg/dL (0.15-1.2); Total Protein 6.5 g/dL (6.6-8.7)
[2021-08-13 04:23] LABS: Basophils # 0.1 10^3/uL (0.0-0.1); Basophils % 0.3 %; Hematocrit 37.5 % (42.0-52.0); Lymphocytes # 0.9 10^3/uL (0.8-4.8); Mean Corpuscular Hemoglobin 30.6 pg (28.0-34.0); Mean Corpuscular Volume 95.7 fl (80-94); Mean Platelet Volume 11.8 fL (7.4-10.4); Monocytes # 1.6 10^3/uL (0.2-0.9); Monocytes % 6.7 %; Neutrophils # 20.07 10^3/uL (1.8-7.7); Neutrophils % 87.3 %; Nucleated Red Blood Cells % 0 %; Platelet Count 173 10^3/cmm (130-400); Red Blood Count 3.92 10^6/uL (4.1-5.3); Red Cell Distribution Width 15.3 % (12.1-15.1)
[2021-08-13 04:24] LABS: Slide Review Slide Review Perform
[2021-08-13 08:01] LABS: Acinetobacter baumannii Not Detected (NOT DETECT); Bacteroides fragilis Not Detected (NOT DETECT); CTX-M Not Detected (NOT DETECT); Citrobacter Not Detected (NOT DETECT); Cronobacter sakazakii Not Detected (NOT DETECT); Enterobacter cloacae complex Not Detected (NOT DETECT); Enterobacter non cloacae Not Detected (NOT DETECT); Fusobacterium necrophorum Not Detected (NOT DETECT); Fusobacterium nucleatum Not Detected (NOT DETECT); Haemophilus influenzae Not Detected (NOT DETECT); IMP Resistance Gene Not Detected (NOT DETECT); KPC Resistance Gene Not Detected (NOT DETECT); Klebsiella pneumoniae group Not Detected (NOT DETECT); Morganella morganii Not Detected (NOT DETECT); NDM Resistance Gene Not Detected (NOT DETECT); Neisseria meningitidis Not Detected (NOT DETECT); OXA Resistance Gene Not Detected (NOT DETECT); Pan Candida Not Detected (NOT DETECT); Pan Gram-Positive Not Detected (NOT DETECT); Proteus mirabilis Not Detected (NOT DETECT); Pseudomonas aeruginosa Not Detected (NOT DETECT); Salmonella Not Detected (NOT DETECT); Serratia Not Detected (NOT DETECT); Serratia marcescens Not Detected (NOT DETECT); Stenotrophomonas maltophilia Not Detected (NOT DETECT); VIM Resistance Gene Not Detected (NOT DETECT)
[2021-08-13] MEDS: levothyroxine 50 mcg Tablet PO (08:04)
[2021-08-13] MEDS: gabapentin 300 mg Capsule PO ×3 (08:04→20:28)
[2021-08-13] MEDS: aspirin 325 mg Tablet PO (08:04)
--- NOTE | 2021-08-13 10:02 | P.PN_ITS ---
Subjective Subjective: Patient reports his fevers improved. He endorses generalized fatigue and weakness. He denies nausea, emesis, abdominal pain, focal weakness, or headaches. He expresses concern over his being at home. Medications: Reviewed: Yes Vitals/I&O/Wt Last Vital Signs Temp 98.3 F 08/13/21 04:00 Pulse 73 08/13/21 07:09 Resp 13 08/13/21 07:09 BP 121/68 08/13/21 07:09 Pulse Ox 96 08/13/21 07:09 08/12/21 08/13/21 08/13/21 22:59 06:59 14:59 Intake Total 170 / 170 360 / 530 260 / 260 Output Total 650 / 650 Balance 170 / 170 -290 / -120 260 / 260 Weight last 48 hrs Weight 90.401 kg Weight 92.079 kg Weight 92.397 kg Physical Exam Narrative: General: Patient is awake. Appears fatigued. Head: Normocephalic. Atraumatic. EOM intact. Neck: No JVD. Cardiovascular: RRR. No gallops. 3+ systolic ejection murmur. Lungs: Clear to auscultation, no use of accessory muscles, no crackles or wheezes. Skin: No jaundice. No rashes. Abdomen: Normal bowel sounds, abdomen soft and nontender. Genito Urinary: Genital exam not performed since complaints not related. Rectal: Rectal exam not performed since no symptoms indicated blood loss. Extremeties: No cyanosis or clubbing. Musculoskeletal: No swollen or erythematous joints. Neurological: Moves all 4 extremities. No myoclonus. Data : 08/13/21 02:16 08/13/21 02:16 Micro: Microbiology 08/12/21 18:15 Blood Culture - Preliminary Blood Escherichia coli 08/12/21 18:20 Blood Culture - Preliminary Blood Escherichia coli A&P Assessment and plan (1) Bacteremia: -Blood cultures with E. coli x2 -Continue Rocephin -Follow-up sensitivities -TTE given prosthetic heart valve Status: Acute (2) UTI (urinary tract infection): -Continue IV antibiotics Status: Acute (3) CAP (community acquired pneumonia): -Continue ceftriazone (08/12-p) -Continue azithromycin (08/12-p) -Telemetry with continuous pulse oximetry Status: Acute (4) Hypoxia: -Acute hypoxic respiratory failure -2/2 CAP -Continue antibiotics as above Status: Acute (5) Altered mental status: -2/2 acute infectious encephalopathy, improving -Treat underlying infection -Frequent reorientation as needed Status: Acute (6) Debility: -Remains diffusely weak with generalized weakness and physical deconditioning 2/2 CAP -PT/OT Status: Acute (7) Peripheral neuropathy: -Continue gabapentin Status: Acute (8) Hypothyroidism (acquired): -Continue Synthroid Status: Acute (9) Atrial fibrillation: -Continue aspirin -Not on therapeutic anticoagulation Status: Acute Qualifiers: Atrial fibrillation type: unspecified Qualified Code(s): I48.91 - Unspecified atrial fibrillation (10) Metabolic acidosis: -2/2 infection -Treat underlying infection Status: Acute (11) Leukocytosis: -Worsening -Continue IV antibiotics Status: Acute (12) Hyperbilirubinemia: -With transaminitis -2/2 infection -Treat underlying infection Status: Acute (13) History of aortic valve replacement: -Murmur noted on exam -Euvolemic -Daily assessment of volume status Status: Acute (14) Hypercholesteremia: Status: Acute Plan DVT ppx: Lovenox Attestations Medical Necessity Statement*: Patient remains significantly debilitated with worsening leukocytosis, UTI, CAP, and E. coli bacteremia Coding Level of Care Code Acute Steam Conditioner Filling for [facility] Fwd Diagnoses CAP (community acquired pneumonia) J18.9 Hypoxia R09.02 Altered mental status R41.82 Debility R53.81 Peripheral neuropathy G62.9 Hypothyroidism (acquired) E03.9 Atrial fibrillation I48.91 Atrial fibrillation type: unspecified Metabolic acidosis E87.2 Leukocytosis D72.829 Hyperbilirubinemia E80.6 Hypercholesteremia E78.00 History of aortic valve replacement Z95.2 Bacteremia R78.81 UTI (urinary tract infection) N39.0
--- NOTE | 2021-08-13 10:18 | USCV_ITS ---
Clovis Adan Age: 85 Gender: M : 1935 Exam Date: 08/13/2021 11:12 Ordering Phys: Mike Arias MD Technologist: Michelle Paul Exam Location: [facility] [place] Indication: Bacteremia history of valve replacement BP: 139 / 77 HR: 81 Rhythm: Sinus Technical Quality: Adequate MEASUREMENTS (Male / Female) Normal Values 2D ECHO LV Diastolic Diameter PLAX 4.5 cm 4.2 - 5.9 / 3.9 - 5.3 cm LV Systolic Diameter PLAX 3.0 cm IVS Diastolic Thickness 0.8 cm 0.6 - 1.0 / 0.6 - 0.9 cm IVS Systolic Thickness 1.6 cm LVPW Diastolic Thickness 0.9 cm 0.6 - 1.0 / 0.6 - 0.9 cm LVPW Systolic Thickness 1.4 cm LVOT Diameter 2.0 cm LV Ejection Fraction 2D Teich 63.0 % LV Ejection Fraction MOD 2C 63.3 % LV Ejection Fraction 2C AL 62.1 % LA Diameter 3.9 cm LA Width 2.9 cm LA Height 3.5 cm RA Width 3.0 cm RA Height 3.2 cm Aorta at Sinotubular Diameter 2.8 cm M-MODE MV E Point Septal Separation 0.5 cm FINDINGS Left Ventricle Normal left ventricular size and systolic function, EF 66 %. Mild diffuse hypokinesia of the septum and anteroseptal segments. Right Ventricle Upper limit of normal with a normal ejection fraction. Right Atrium Upper limit of normal. Left Atrium I will order normal size Mitral Valve Thickened mitral valve. Aortic Valve The bioprosthetic valve in the aortic position appears to be well-seated. The valve leaflets appears to be somewhat thickened Tricuspid Valve No gross abnormalities noted Pulmonic Valve No gross abnormalities noted Pericardium No pericardial effusion. Aorta Normal aortic annulus size. IVC Normal inferior vena cava. CONCLUSIONS Normal left ventricular size and systolic function, EF 66 %. Mild diffuse hypokinesia of the septum and anteroseptal segments. Left atrium, upper limit of normal size. Thickened mitral valve. The bioprosthetic valve in the aortic position appears to be well-seated. The valve leaflets appears to be somewhat thickened. No obvious masses or vegetations. Consider HEMA, if clinically indicated Compared to the study from 02/05/2019, there may not be a significant change Dr Rico Curiel MD FACC (Electronically Signed) Final Date: 13 Aug 2021 17:36 S
--- NOTE | 2021-08-13 11:04 | PC.CHAP ---
Pastoral Care Encounter/Spiritual Assessment Type of Contact [] Declined control room agent visit [] Patient/Family/Request visit [] Outpatient visit [] Follow-up visit [] Physician referral [] Code/Alert [x] Routine visit [] Staff referral [] Actively dying [] Patient sleeping [] Family support [] [] Out of room [] Palliative care [] [x] Receiving care in room [] Pre-surgical visit [] Trauma [] Long length of stay [] ICU visit [] Other: Relational/Emotional Strength [x] Patient feels connected with others/family/visitors/staff [] Distress [] Loneliness/isolation [] Abandonment Spirituality of Patient [x] Person of Arely [] Attends Mandaen of their Arely [x] Believes in Prayer [] Reads Bible or Roman Catholic materials [] There are Spiritual issues to be addressed Pocket Flap Creasing Machine Operator Interventions [x] Prayer [x] Active listening [x] Non-anxious presence [x] Spiritual/emotional support [] Crisis/trauma care [x] Spiritual counseling [] Bereavement support [] Provided bereavement packet [] Provided Bible/devotional materials [] Provided toy/stuffed animal, coloring book to patient or family member [] Provided Communion [] Anointing/[place] [] Salvation [x] Completed spiritual assessment [] Other: Impact on Illness or Injury [] Angry [] Fearful [] Anxious [] Often cries [] Exhaustion [] Unable to work [] Unable to attend hoahaoism [] Unable to walk/stand [] Unable to read [] Unable to drive [] Unable to eat/drink [] Unable to sleep [] Unable to be with family [] Patient intubated [] Other: Summary Tests doesn't know about health waiting doctors report going home Time spent with patient 10 mins
[2021-08-13] MEDS: azithromycin 500 MG in sodium chloride 0.9% 250 ML 250 MG IV (18:16)
[2021-08-13] MEDS: cefTRIAXone 1,000 MG in sodium chloride 0.9% (plus) 50 ML 100 MG IV (19:32)
[2021-08-13] MEDS: enoxaparin 40 mg/0.4 mL Syringe SUBCUT (20:28)
[2021-08-13] MEDS: acetaminophen 325 mg Tablet 650 MG PO (20:34)
[2021-08-14] VITALS (9 sets, daily range): BP systolic 101–125; BP diastolic 63–74; PULSE 71–89; RESP 16–19; TEMP 36.6–36.9; O2SAT 93–97
[2021-08-14] MEDS: acetaminophen 325 mg Tablet 650 MG PO (04:34)
[2021-08-14] MEDS: aspirin 325 mg Tablet PO (07:59)
[2021-08-14] MEDS: levothyroxine 50 mcg Tablet PO (07:59)
[2021-08-14] MEDS: gabapentin 300 mg Capsule PO ×3 (07:59→21:04)
--- NOTE | 2021-08-14 08:09 | P.PN_ITS ---
Subjective Subjective: Patient reports he is feeling better today. He denies nauesa, emesis, chest pain, fevers, or chills. Continues to endorse generalized weakness. Discussed PT/OT recommendation that he go to SNF for rehab when discharged. He reports he did this last time and he didn't think it helped him much. He reports he would like home services if possible instead. Medications: Reviewed: Yes Vitals/I&O/Wt Last Vital Signs Temp 98.2 F 08/14/21 04:00 Pulse 75 08/14/21 05:42 Resp 18 08/14/21 04:00 BP 118/74 08/14/21 04:00 Pulse Ox 94 08/14/21 04:00 08/13/21 08/14/21 08/14/21 22:59 06:59 14:59 Intake Total 900 / 1400 650 / 2050 Output Total 800 / 800 Balance 900 / 1400 -150 / 1250 Weight last 48 hrs Weight 88.269 kg Weight 90.401 kg Weight 92.079 kg Weight 92.397 kg Physical Exam Narrative: General: Patient is awake and alert.? Appears fatigued. Head:? Normocephalic. Atraumatic. EOM intact. Neck: No JVD. Cardiovascular: RRR. No gallops. 3+ systolic ejection murmur. Lungs: Clear to auscultation, no use of accessory muscles, no crackles or wheezes. Skin: No jaundice. No rashes. Abdomen: Normal bowel sounds, abdomen soft and nontender. Genito Urinary: Genital exam not performed since complaints not related. Rectal: Rectal exam not performed since no symptoms indicated blood loss. Extremeties: No cyanosis or clubbing. Musculoskeletal: No swollen or erythematous joints. Neurological: Moves all 4 extremities. No myoclonus. Urinary Catheter Management: 2-way Urethral: Cath Placed During This Visit: yes Reason for Continuing Indwelling Catheter: Acute Urinary Retention or Obstruction Urinary Catheter Date of Insertion: 08/12/21 Data : 08/13/21 02:16 08/13/21 02:16 Micro: Microbiology 08/12/21 18:15 Blood Culture - Preliminary Blood Escherichia coli 08/12/21 18:20 Blood Culture - Preliminary Blood Escherichia coli A&P Assessment and plan (1) Bacteremia: -E. coli bacteremia -Sensitivities are pending -Suspected source is UTI -Continue ceftriaxone -TTE negative for evidence of IE Status: Acute (2) UTI (urinary tract infection): -Unfortunately urine specimen did not reflex to culture, suspect same E. coli likely culprit -Continue IV abx Status: Acute (3) CAP (community acquired pneumonia): -Continue ceftriazone (08/12-p) -Continue azithromycin (08/12-p) -Telemetry with continuous pulse oximetry Status: Acute (4) Hypoxia: -Acute hypoxic respiratory failure 2/2 CAP -Continue antibiotics for CAP -Wean supplemental oxygen support as tolerated Status: Acute (5) Altered mental status: -2/2 acute metabolic encephalopathy, resolved Status: Acute (6) Debility: -PT/OT recommending SNF -Patient prefers , will discuss w/ CM Status: Acute (7) Peripheral neuropathy: -Continue gabapentin Status: Acute (8) Hypothyroidism (acquired): -Continue Synthroid Status: Acute (9) Atrial fibrillation: -Not on therapuetic anticoagulation -Continue aspirin -Telemetry monitoring Status: Acute Qualifiers: Atrial fibrillation type: unspecified Qualified Code(s): I48.91 - Unspecified atrial fibrillation (10) Metabolic acidosis: -AM labs pending, will follow up -Continue treating underlying infection Status: Acute (11) Hyperbilirubinemia: -AM labs pending, will follow up -Continue treating underlying infection Status: Acute (12) Leukocytosis: -AM labs pending, will follow up -Continue treating underlying infection Status: Acute (13) History of aortic valve replacement: -TTE reviewed, valve in good position without evidence of IE Status: Acute (14) Hypercholesteremia: Status: Acute Plan DVT ppx: Lovenox Attestations Medical Necessity Statement*: Patient requires ongoing hospitalization for IV antibiotics in the setting of E coli bacteremia with sensitivities still pending, CAP, and UTI Coding Level of Care Code Acute Strategy Lead for [facility] Fwd Diagnoses Bacteremia R78.81 UTI (urinary tract infection) N39.0 CAP (community acquired pneumonia) J18.9 Hypoxia R09.02 Altered mental status R41.82 Debility R53.81 Peripheral neuropathy G62.9 Hypothyroidism (acquired) E03.9 Atrial fibrillation I48.91 Atrial fibrillation type: unspecified Metabolic acidosis E87.2 Hyperbilirubinemia E80.6 Leukocytosis D72.829 Hypercholesteremia E78.00 History of aortic valve replacement Z95.2
[2021-08-14 10:25] LABS: Basophils # 0.1 10^3/uL (0.0-0.1); Basophils % 0.5 %; Eosinophils # 0.1 10^3/uL (0.0-0.8); Eosinophils % 0.9 %; Hematocrit 41.2 % (42.0-52.0); Hemoglobin 13.1 g/dL (11.7-16.6); Lymphocytes % 6.6 %; Mean Corpuscular HGB Conc 31.8 g/dL (30.0-36.0); Mean Corpuscular Volume 94.3 fl (80-94); Monocytes # 0.5 10^3/uL (0.2-0.9); Monocytes % 3.1 %; Neutrophils # 13.27 10^3/uL (1.8-7.7); Neutrophils % 88.3 %; Nucleated Red Blood Cells % 0 %; Platelet Count 183 10^3/cmm (130-400); Red Blood Count 4.37 10^6/uL (4.1-5.3); Red Cell Distribution Width 15.6 % (12.1-15.1)
[2021-08-14 10:40] LABS: Alanine Aminotransferase 56 U/L (0-41); Albumin Level 3.4 g/dL (3.5-5.2); Alkaline Phosphatase 145 IU/L (40-130); Anion Gap 16.5 (5-19); Aspartate Amino Transferase 73 U/L (0-40); Blood Urea Nitrogen 28 mg/dL (8-23); Calcium 9.2 mg/dL (8.5-10.5); Carbon Dioxide 24 mmol/L (22-29); Chloride 99 mmol/L (98-107); Globulin 4.2 g/dL (1.3-4.6); Glucose 178 mg/dL (65-115); Osmolality Calculated 292 mOsm/kg (285-295); Potassium 3.5 mmol/L (3.5-5.1); Sodium 136 mmol/L (136-145); Total Bilirubin 0.7 mg/dL (0.15-1.2); Total Protein 7.6 g/dL (6.6-8.7)
[2021-08-14] MEDS: azithromycin 500 MG in sodium chloride 0.9% 250 ML 250 MG IV (17:22)
[2021-08-14] MEDS: cefTRIAXone 1,000 MG in sodium chloride 0.9% (plus) 50 ML 100 MG IV (19:48)
[2021-08-14] MEDS: enoxaparin 40 mg/0.4 mL Syringe SUBCUT (19:50)
[2021-08-15] VITALS (7 sets, daily range): BP systolic 110–129; BP diastolic 71–80; PULSE 72–113; RESP 17–19; TEMP 36.5–36.9; O2SAT 93–97
[2021-08-15 05:35] LABS: Basophils # 0.1 10^3/uL (0.0-0.1); Basophils % 0.6 %; Eosinophils # 0.3 10^3/uL (0.0-0.8); Eosinophils % 2.3 %; Hematocrit 39.8 % (42.0-52.0); Hemoglobin 12.4 g/dL (11.7-16.6); Lymphocytes # 1.5 10^3/uL (0.8-4.8); Lymphocytes % 11.2 %; Mean Corpuscular HGB Conc 31.2 g/dL (30.0-36.0); Mean Corpuscular Hemoglobin 29.7 pg (28.0-34.0); Mean Corpuscular Volume 95.2 fl (80-94); Mean Platelet Volume 11.8 fL (7.4-10.4); Monocytes # 1.1 10^3/uL (0.2-0.9); Monocytes % 8.6 %; Neutrophils # 10.19 10^3/uL (1.8-7.7); Neutrophils % 76.7 %; Nucleated Red Blood Cells % 0 %; Platelet Count 169 10^3/cmm (130-400); Red Blood Count 4.18 10^6/uL (4.1-5.3); Red Cell Distribution Width 15.6 % (12.1-15.1); White Blood Count 13.3 10^3/uL (4.0-10.0)
[2021-08-15 05:52] LABS: Alanine Aminotransferase 47 U/L (0-41); Albumin Level 3.1 g/dL (3.5-5.2); Alkaline Phosphatase 136 IU/L (40-130); Anion Gap 14.9 (5-19); Aspartate Amino Transferase 56 U/L (0-40); Blood Urea Nitrogen 22 mg/dL (8-23); Calcium 8.6 mg/dL (8.5-10.5); Carbon Dioxide 23 mmol/L (22-29); Chloride 104 mmol/L (98-107); Globulin 3.8 g/dL (1.3-4.6); Glucose 95 mg/dL (65-115); Osmolality Calculated 289 mOsm/kg (285-295); Potassium 3.9 mmol/L (3.5-5.1); Sodium 138 mmol/L (136-145); Total Bilirubin 0.6 mg/dL (0.15-1.2); Total Protein 6.9 g/dL (6.6-8.7)
[2021-08-15] MEDS: aspirin 325 mg Tablet PO (08:10)
[2021-08-15] MEDS: gabapentin 300 mg Capsule PO (08:10)
[2021-08-15] MEDS: levothyroxine 50 mcg Tablet PO (08:10)
--- NOTE | 2021-08-15 10:33 | PM.DCS ---
Discharge Providers Date of Admission: 08/12/21 18:07 Date of Discharge: August 15, 2021 Attending Provider at Admission: Mike Arias MD Attending Provider at Discharge: Mike Arias MD Primary Care Provider: Jun Ling MD Diagnoses at Discharge Discharge Diagnosis (1) Bacteremia: Status: Acute (2) UTI (urinary tract infection): Status: Acute (3) CAP (community acquired pneumonia): Status: Acute (4) Hypoxia: Status: Acute (5) Altered mental status: Status: Acute (6) Debility: Status: Acute (7) Peripheral neuropathy: Status: Acute (8) Hypothyroidism (acquired): Status: Acute (9) Atrial fibrillation: Status: Acute Qualifiers: Atrial fibrillation type: unspecified Qualified Code(s): I48.91 - Unspecified atrial fibrillation Permanent problem details: Pt had post operative fibrillation (10) Metabolic acidosis: Status: Acute (11) Hyperbilirubinemia: Status: Acute (12) Leukocytosis: Status: Acute (13) History of aortic valve replacement: Status: Acute (14) Hypercholesteremia: Status: Acute Reason for Visit Reason for Visit: AMS/ POSSIBLE STROKE Hospital Course Hospital Course Clovis Adan is a 85 year old male with a past medical history significant for hypothyroidism, hyperlipidemia, and neuropathy who presents to the emergency department with altered mental status, found to have acute metabolic encephalopathy secondary to pansensitive E coli bacteremia, urinary tract infection, and community acquired pneumonia complicated by acute hypoxic respiratory failure. He was treated with ceftriaxone and azithromycin, and discharged on cefdinir based upon culture and sensitivity information to complete at least 14 days of antibiotic therapy. Patient has history of prosthetic heart valve for which TTE was negative for evidence of infective endocarditis. He was found to have multiple derrangements on labs upon admission including metabolic acidosis, hyperbilirubinemia, and leukocytosis which improved with treatment. He was evaluated by therapy recommending initially SNF placement which patient refused. He was open to home health which was set up prior to discharge. Patient was discharged to home in stable condition. Physical Exam Narrative: General: Patient is awake and alert.? NAD. Head:? Normocephalic. Atraumatic. EOM intact. Neck: No JVD. Cardiovascular: RRR. No gallops. 3+ systolic ejection murmur unchanged from prior exam. Lungs: Clear to auscultation, no use of accessory muscles, no crackles or wheezes. Skin: No jaundice. No rashes. Abdomen: Normal bowel sounds, abdomen soft and nontender. No guarding. Extremeties: No cyanosis or clubbing. Musculoskeletal: No swollen or erythematous joints. Neurological: Moves all 4 extremities. No myoclonus. Urinary Catheter Management: 2-way Urethral: Cath Placed During This Visit: yes, but has since been removed by the nurse Reason for Continuing Indwelling Catheter: Decision to DC Catheter Urinary Catheter Date of Insertion: 08/12/21 Date Urinary Catheter Removed: 08/14/21 Time Urinary Catheter Discontinued: 11:56 Discharge Data Studies Completed and Pending Completed Studies During Hospitalization Category Date Time Status CT head wo con* [id number] Urgent Cat Scan 08/12/21 16:56 Completed XR chest 1V portable [id number] Urgent Exams 08/12/21 16:56 Completed CV. echo limited [id number] Routine Ultrasound 08/13/21 10:18 Completed Pending at discharge Category Date Time Status Blood Culture Stat Lab 08/12/21 18:20 Results Radiology Impressions Chest X-Ray 08/12/21 16:56 IMPRESSION: No acute findings. Head CT 08/12/21 16:56 IMPRESSION: No acute intracranial abnormality. Laboratory Results WBC 13.3 10^3/uL (4.0-10.0) H 08/15/21 05:20 RBC 4.18 10^6/uL (4.1-5.3) 08/15/21 05:20 Hgb 12.4 g/dL (11.7-16.6) 08/15/21 05:20 Hct 39.8 % (42.0-52.0) L 08/15/21 05:20 MCV 95.2 fl (80-94) H 08/15/21 05:20 MCH 29.7 pg (28.0-34.0) 08/15/21 05:20 MCHC 31.2 g/dL (30.0-36.0) 08/15/21 05:20 RDW 15.6 % (12.1-15.1) H 08/15/21 05:20 Plt Count 169 10^3/cmm (130-400) 08/15/21 05:20 MPV 11.8 fL (7.4-10.4) H 08/15/21 05:20 Neut % (Auto) 76.7 % 08/15/21 05:20 Lymph % (Auto) 11.2 % 08/15/21 05:20 [place] % (Auto) 8.6 % 08/15/21 05:20 Eos % (Auto) 2.3 % 08/15/21 05:20 Baso % (Auto) 0.6 % 08/15/21 05:20 Neut # (Auto) 10.19 10^3/uL (1.8-7.7) H 08/15/21 05:20 Lymph # (Auto) 1.5 10^3/uL (0.8-4.8) 08/15/21 05:20 [place] # (Auto) 1.1 10^3/uL (0.2-0.9) H 08/15/21 05:20 Eos # (Auto) 0.3 10^3/uL (0.0-0.8) 08/15/21 05:20 Baso # (Auto) 0.1 10^3/uL (0.0-0.1) 08/15/21 05:20 Nucleated RBC % (auto) 0 % 08/15/21 05:20 Nucleated RBCs # 0.0 /100WBC 08/15/21 05:20 Specimen Type Arterial 08/12/21 17:46 Sample Site Radial, left 08/12/21 17:46 ABG pH 7.50 (7.35-7.45) H 08/12/21 17:46 ABG pCO2 28.4 mmHg (35-45) L 08/12/21 17:46 ABG pO2 94.8 mmHg (80.0-100.0) 08/12/21 17:46 ABG HCO3 22.2 mmol/L (22-26) 08/12/21 17:46 ABG Base Excess 0.0 mmol/L (-2.0-2.0) 08/12/21 17:46 Reji Test Pos 08/12/21 17:46 Hematocrit 39.0 % (42-52) L 08/12/21 17:46 O2 Delivery Device Nc 08/12/21 17:46 O2 Liters/Min 3.5 % 08/12/21 17:46 FiO2 34.0 % 08/12/21 17:46 Fisheries Technician ID Cak 08/12/21 17:46 Sodium 138 mmol/L (136-145) 08/15/21 05:20 Potassium 3.9 mmol/L (3.5-5.1) 08/15/21 05:20 Chloride 104 mmol/L (98-107) 08/15/21 05:20 Carbon Dioxide 23 mmol/L (22-29) 08/15/21 05:20 Anion Gap 14.9 (5-19) 08/15/21 05:20 BUN 22 mg/dL (8-23) 08/15/21 05:20 Creatinine 0.7 mg/dL (0.7-1.2) 08/15/21 05:20 GFR Calculation Not Reportable 08/15/21 05:20 Glucose 95 mg/dL (65-115) 08/15/21 05:20 Calculated Osmolality 289 mOsm/kg (285-295) 08/15/21 05:20 Lactate 2.1 mmol/L (0.5-2.2) 08/12/21 18:15 Calcium 8.6 mg/dL (8.5-10.5) 08/15/21 05:20 Phosphorus 2.7 mg/dL (2.5-4.5) 08/13/21 02:16 Magnesium 2.0 mg/dL (1.7-2.3) 08/12/21 16:56 Total Bilirubin 0.6 mg/dL (0.15-1.2) 08/15/21 05:20 AST 56 U/L (0-40) H 08/15/21 05:20 ALT 47 U/L (0-41) H 08/15/21 05:20 Alkaline Phosphatase 136 IU/L (40-130) H 08/15/21 05:20 Ammonia 22 umol/L (16-60) 08/12/21 18:15 Total Protein 6.9 g/dL (6.6-8.7) 08/15/21 05:20 Albumin 3.1 g/dL (3.5-5.2) L 08/15/21 05:20 Globulin 3.8 g/dL (1.3-4.6) 08/15/21 05:20 Procalcitonin 0.53 ng/mL (0-0.5) H 08/12/21 16:56 Urine Color Yellow (Yellow) 08/12/21 17:07 Urine Appearance Clear (CLEAR) 08/12/21 17:07 Urine pH 5 (5-7) 08/12/21 17:07 Ur Specific [place] 1.015 (1.005-1.030) 08/12/21 17:07 Urine Protein 1+ (Negative) H 08/12/21 17:07 Urine Glucose (UA) Norm (Normal) 08/12/21 17:07 Urine Ketones 1+ (Negative) H 08/12/21 17:07 Urine Blood 3+ (Negative) H 08/12/21 17:07 Urine Nitrate Negative (Negative) 08/12/21 17:07 Urine Bilirubin Neg (Negative) 08/12/21 17:07 Urine Urobilinogen 1 mg/dL (Negative) H 08/12/21 17:07 Ur Leukocyte Esterase Negative (Negative) 08/12/21 17:07 Urine RBC 5-10 /hpf (0-2) H 08/12/21 17:07 Urine WBC 5-10 /hpf (0-5) H 08/12/21 17:07 Ur Squamous Epith Cells 0-4 /hpf (0-5) H 08/12/21 17:07 Amorphous Sediment 2+ /hpf 08/12/21 17:07 Urine Bacteria 1+ /hpf (NONE) H 08/12/21 17:07 Salicylates 1.5 mg/dL (3-10) L 08/12/21 16:56 Urine Opiates Screen Negative ng/mL (Negative) 08/12/21 17:07 Acetaminophen < 5.0 ug/mL (10-30) L 08/12/21 16:56 Ur Barbiturates Screen Negative ng/mL (Negative) 08/12/21 17:07 Ur Phencyclidine Scrn Negative ng/mL (Negative) 08/12/21 17:07 Ur Amphetamines Screen Negative ng/mL (Negative) 08/12/21 17:07 U Benzodiazepines Scrn Negative ng/mL (Negative) 08/12/21 17:07 Urine Cocaine Screen Negative ng/mL (Negative) 08/12/21 17:07 U Marijuana (THC) Screen Negative ng/mL (Negative) 08/12/21 17:07 Ethyl Alcohol < 10 mg/dL (0-10) 08/12/21 16:56 Coronavirus 229E (PCR) Not detected (NOT DETECT) 08/12/21 18:16 SARS-CoV-2 (PCR) Not detected (NOT DETECT) 08/12/21 18:16 Vitals Last Vital Signs Temp 97.7 F 08/15/21 08:08 Pulse 74 08/15/21 09:03 Resp 18 08/15/21 08:08 BP 119/75 08/15/21 08:08 Pulse Ox 93 08/15/21 09:03 Discharge Plan Discharge Patient Disposition: Home Health Service Condition: Stable Prescriptions: New cefdinir 300 mg capsule 300 mg PO BID 12 Days Qty: 24 0RF Continued gabapentin 300 mg capsule 300 mg PO TID Qty: 270 2RF levothyroxine 50 mcg tablet See Rx Instructions .ROUTE .COMPLEX Qty: 90 2RF Dose Instruction: Take 1 tablet by mouth once daily Rx Instructions: Take 1 tablet by mouth once daily aspirin 325 mg Tablet 325 mg PO DAILY Qty: 100 5RF pravastatin 40 mg tablet 40 mg PO DAILY 0RF Discharge Orders: Discharge Order (Routine); Ordered 08/15/21 Ordered By: Mike Arias Referrals: [facility] [Outside] Jun Ling MD [Primary Care Provider] - 4-7 days ([facility] will contact you to schedule an follow-up appointment in 4 to 7 days, If you haven't heard from them by Tuesday afternoon. Please call ) Discharge Diet: Cardiac Discharge Activity: Increase activity as tolerated Patient Instructions: Cefdinir (By mouth), Urinary Tract Infection in Men (DC), Community Acquired Pneumonia (DC), Hypoxia (GEN), Opioid Safety Discharge Attestations Time Spent in Discharge Care*: greater than 30 min Status at Discharge: Cognitive status at discharge: cognitively intact, Behavioral status at discharge: cooperative and dependent in ADL's, Quality Metrics Clinical Quality Measures [ No reported AMI, CVA or VTE this stay] Coding Level of Care Code Acute Chg FW DC note Diagnoses Bacteremia R78.81 UTI (urinary tract infection) N39.0 CAP (community acquired pneumonia) J18.9 Hypoxia R09.02 Altered mental status R41.82 Debility R53.81 Peripheral neuropathy G62.9 Hypothyroidism (acquired) E03.9 Atrial fibrillation I48.91 Atrial fibrillation type: unspecified Metabolic acidosis E87.2 Hyperbilirubinemia E80.6 Leukocytosis D72.829 History of aortic valve replacement Z95.2 Hypercholesteremia E78.00
--- NOTE | 2021-08-15 10:42 | PC.SOCIAL ---
IMM Update pg 2 of IMM updated and reviewed w/ patient. Copy provided and Copy placed in chart.
== END 2021-08-15 14:17 | disposition home health service (06) | DRG 193 ==
LOC: ER 18:07 → MEDSURG 18:38
PROVIDERS: Admitting Provider Internal Medicine; Emergency Provider Emergency Medicine; PCP Family Medicine; Visit Provider Internal Medicine
DX: J18.9 Pneumonia, unspecified organism (principal); G93.41 Metabolic encephalopathy; J96.01 Acute respiratory failure with hypoxia; E87.2 Acidosis; N39.0 Urinary tract infection, site not specified; Z86.16 Personal history of COVID-19; K21.9 Gastro-esophageal reflux disease without esophagitis; E78.00 Pure hypercholesterolemia, unspecified; E03.9 Hypothyroidism, unspecified; G62.9 Polyneuropathy, unspecified; E78.5 Hyperlipidemia, unspecified; Z95.3 Presence of xenogenic heart valve; B96.20 Unspecified Escherichia coli [E. coli] as the cause of diseases classified elsewhere
CPT/HCPCS: 36415; 36600; 70450; 71045; 80053; 80306; 80307; 81001; 82140; 82803; 83605; 83735; 84100; 84145; 85025; 87040; 87077; 87150; 87186; 87205; 87635; 93005; 93308; 94664; 94762; 96365; 96367; 96372; 97110; 97116; 97161; 97167; 97530; 97535; 99285; J0456; J0696; J1650; J7030; J7050

== ENCOUNTER → 2021-08-24 08:01 | Outpatient (BNVA) | payer MEDICARE, SELFPAY | PROVIDERS: PCP Family Medicine; Visit Provider Podiatrist Foot & Ankle Surgery | DX: M19.071 Primary osteoarthritis, right ankle and foot (principal) | CPT/HCPCS: 99213 ==

== ENCOUNTER → 2021-09-22 14:28 | Outpatient (BNVA) | payer MEDICARE, SELFPAY | PROVIDERS: PCP Family Medicine; Visit Provider Nurse Practitioner Family | DX: I48.91 Unspecified atrial fibrillation (principal); Z95.3 Presence of xenogenic heart valve | CPT/HCPCS: 99213; 99214 ==

== ENCOUNTER 2021-10-02 19:26 | Emergency (ER) | payer MEDICARE, SELFPAY ==
[2021-10-02 19:45] VITALS: BP 120/68; PULSE 88; RESP 18; TEMP 37.6; O2SAT 95; BMI 25.7
[2021-10-03 00:08] VITALS: BP 144/84; PULSE 82; RESP 12; O2SAT 95
--- NOTE | 2021-10-03 00:49 | CTR_ITS ---
PROCEDURE INFORMATION: Exam: CT Head Without Contrast Exam date and time: 10/03/2021 1:23 AM Age: 85 years old Clinical indication: Weakness, facial TECHNIQUE: Imaging protocol: Computed tomography of the head without contrast. Radiation optimization: All CT scans at this facility use at least one of these dose optimization techniques: automated exposure control; mA and/or kV adjustment per patient size (includes targeted exams where dose is matched to clinical indication); or iterative reconstruction. COMPARISON: CT head wo con* [id number] 08/12/2021 5:31 PM RADIATION DOSE METRICS: Total DLP (mGy-cm): 1128.58 FINDINGS: Brain: There is unchanged generalized brain parenchymal atrophy related to the patient's age. Unchanged moderate nonspecific white matter changes are seen, consistent with small vessel disease. Unchanged bilateral basal ganglion tiny low-attenuation areas are seen, which may represent prominent [place] Kenneth perivascular spaces or tiny old lacunar infarcts. There are no intracranial masses, mass effect or midline shift. There is no cerebral edema. There is no subarachnoid hemorrhage. There are no intra-or extra-axial fluid collections, intraventricular or intraparenchymal hemorrhage. There are no definite low attenuation demarcating areas on the non-contrast CT to suggest subacute stroke. Cerebral ventricles: Unchanged mildly dilated ventricles are seen. This may be related to the generalized brain parenchymal atrophy or could be related to normal pressure hydrocephalus. Recommend correlation with clinical exam findings and neurological findings. CSF nuclear cisternogram may be performed for complete assessment, if there is clinical concern. The basilar cisterns appear unremarkable. Paranasal sinuses: Visualized sinuses are unremarkable. Mastoid air cells: Visualized mastoid air cells are unremarkable. Bones/joints: No definite acute osseous or skull abnormalities seen. Soft tissues: Unremarkable. Notes: If there is further clinical concern for intracranial pathology, MRI of the brain may be performed for further assessment. CT/CT head wo con* [id number] IMPRESSION: Unchanged atrophic changes. Unchanged mildly dilated ventricles. No non-contrast CT evidence of intracranial hemorrhage, masses or definite subacute stroke. MR brain may be performed, if there is further clinical concern. ASPECTS ([place] Stroke Program Early CT Score) is 10.
--- NOTE | 2021-10-03 00:49 | XRR_ITS ---
PROCEDURE INFORMATION: Exam: XR Chest Exam date and time: 10/03/2021 1:13 AM Age: 85 years old Clinical indication: Other: Weakness TECHNIQUE: Imaging protocol: Radiologic exam of the chest. Views: 1 view. COMPARISON: CR (CHEST, ) 08/12/2021 5:35 PM FINDINGS: Lungs: There are normal lung volumes without confluent interstitial or airspace opacities. Age-related interstitial prominence is seen in the lungs. Unchanged bilateral lower lung zones scattered calcified granulomas are seen. Pleural spaces: There are no pleural effusions or pneumothorax. Heart/Mediastinum: The heart size is normal. The patient is status post median sternotomy with sternal wires. There is a mildly tortuous thoracic aorta. The trachea is in the midline. Bones/joints: No acute abnormalities. Unchanged old healed left lower posterolateral rib fractures are seen. There is unchanged generalized osteopenia. Soft tissues: Multiple external densities are seen overlying the chest, limiting assessment. XR/XR chest 1V portable [id number] IMPRESSION: No confluent infiltrates in the lungs.
--- NOTE | 2021-10-03 00:50 | ECG_ITS ---
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 Measurements Intervals [place] Rate: 79 P: 21 LA: 184 QRS: -49 QRSD: 104 T: 68 QT: 376 QTc: 433 Interpretive Statements SINUS RHYTHM PATTERN CONSISTENT WITH PULMONARY DISEASE LEFT ANTERIOR FASCICULAR BLOCK [QRS AXIS <= -45, QR IN I, RS IN II] MINIMAL ST DEPRESSION [0.025+ mV ST DEPRESSION] Compared to ECG 10/03/2021 01:35:22 Left anterior fascicular block now present ST (T wave) deviation now present Left-axis deviation no longer present Intraventricular conduction delay no longer present Electronically Signed On 10-05-2021 17:54:44 CDT by Shahzad Jacobsen M.D. [email or web address]
[2021-10-03 00:56] LABS: Basophils # 0.1 10^3/uL (0.0-0.1); Basophils % 0.8 %; Eosinophils # 0.1 10^3/uL (0.0-0.8); Eosinophils % 1.2 %; Hematocrit 38.2 % (42.0-52.0); Hemoglobin 12.8 g/dL (11.7-16.6); Lymphocytes # 2.3 10^3/uL (0.8-4.8); Lymphocytes % 19.2 %; Mean Corpuscular HGB Conc 33.5 g/dL (30.0-36.0); Mean Corpuscular Hemoglobin 29.9 pg (28.0-34.0); Mean Corpuscular Volume 89.3 fl (80-94); Mean Platelet Volume 12.1 fL (7.4-10.4); Monocytes # 1.7 10^3/uL (0.2-0.9); Monocytes % 14.3 %; Neutrophils # 7.58 10^3/uL (1.8-7.7); Nucleated Red Blood Cells % 0 %; Platelet Count 214 10^3/cmm (130-400); Red Blood Count 4.28 10^6/uL (4.1-5.3); Red Cell Distribution Width 14.8 % (12.1-15.1); White Blood Count 11.9 10^3/uL (4.0-10.0)
[2021-10-03 01:23] LABS: Troponin(5th) Baseline 17 ng/L (0-15)
[2021-10-03 01:31] LABS: NT Pro B Type Natriuretic Pept 276 pg/mL (0-450); Procalcitonin 0.08 ng/mL (0-0.5)
[2021-10-03] MEDS: sodium chloride 0.9% 1,000 ML 999 ML IV (01:35)
[2021-10-03 01:38] LABS: Lactate (Lactic Acid level) 1.7 mmol/L (0.5-2.2)
[2021-10-03 01:41] LABS: Alanine Aminotransferase 11 U/L (0-41); Albumin Level 3.9 g/dL (3.5-5.2); Alkaline Phosphatase 92 IU/L (40-130); Aspartate Amino Transferase 18 U/L (0-40); Blood Urea Nitrogen 15 mg/dL (8-23); C Reactive Protein 57.8 mg/L (0.0-4.9); Calcium 8.9 mg/dL (8.5-10.5); Carbon Dioxide 24 mmol/L (22-29); Chloride 102 mmol/L (98-107); Creatine Phosphokinase 115 U/L (39-308); Creatinine Clr Calc Pharmacy 78.7823; Globulin 3.2 g/dL (1.3-4.6); Glucose 90 mg/dL (65-115); Osmolality Calculated 286 mOsm/kg (285-295); Sodium 138 mmol/L (136-145); Total Bilirubin 0.8 mg/dL (0.15-1.2); Total Protein 7.1 g/dL (6.6-8.7)
[2021-10-03 02:17] LABS: Troponin 5 2HR 17.53 ng/L (0-15)
[2021-10-03 02:18] LABS: Troponin 5 2HR Delta 0.53 ABS# (0-10)
--- NOTE | 2021-10-03 02:27 | W.ED.DIZZY ---
HPI - Dizziness General: Chief Complaint: Dizziness Stated Complaint: dizzy Time Seen by Provider: 10/03/21 00:12 Source: patient History of Present Illness: HPI Narrative: 85-year-old gentleman who has had an episode of bilateral lower extremity weakness at home. He called a family member this evening. He notes that this began to be noticeable around noon today. It progressively got worse, until he was unsteady on his feet, not fully able to walk on his own this evening. He has a neuropathy in his feet, but the symptoms seem stable. He has not had any focal loss of strength to the left or right side. No language problems, no vision problems, no speech problems, no change in sensation. He has a low-grade temp on arrival, he denies cough, congestion, abdominal pain or urinary symptoms. Onset (ago): hour(s) Timing: gradual onset Severity: moderate Associated symptoms: Denies chest pain, cough, fevers/chills, headache(s), nausea, nasal congestion or vomiting Associated neuro symptoms: Reports confusion (mild), extremity weakness and gait changes; Deny difficulty speaking, dysphagia, diplopia, facial numbness, facial weakness or numbness in extremities Review of Systems Const: Denies: fever(s) Eyes: Denies: change in vision ENMT: Denies: nasal congestion Card: Denies: chest pain Resp: Denies: dyspnea or productive cough GI: Denies: nausea, vomiting or dysphagia Neuro: Reports: confusion (mild); Denies: headache(s) or numbness in extremities PFS ED PFSH: Medical History (Updated 10/03/21 @ 03:13 by Jose A Teixeira DO) COVID-19 GERD (gastroesophageal reflux disease) Hypercholesteremia Hypothyroidism (acquired) Prostatic hypertrophy Rheumatic fever Thyroid disease neuropathy Surgical History (Updated 09/22/21 @ 16:09 by MILES Dasilva) H/O hernia repair x 5 Hx of tonsillectomy Status post aortic valve replacement with bioprosthetic valve Status post right foot surgery Family History Daughter No problems noted. Brother Prostate cancer Social History Smoking and tobacco status: never smoked Alcohol intake: never Physical Exam Const: GENERAL APPEARANCE: cooperative and frail appearing (moderate) ORIENTATION/CONSCIOUSNESS: Yes awake, Yes oriented to person, Yes oriented to place and Yes oriented to time HENMT: COMMON NORMALS: normocephalic, atraumatic and Normal external nose present HEAD & SCALP: normocephalic and atraumatic FACE & SINUS: normal facial exam NOSE: Normal external nose present Eye: COMMON NORMALS: Equal, round and reactive pupils present and EOMs intact bilaterally VISUAL ACUITY: Yes acuity normal PUPIL: Yes Equal, round and reactive pupils present Resp: COMMON NORMALS: normal respiratory effort, No use of accessory muscles and clear to auscultation bilaterally AUSCULTATION: clear to auscultation bilaterally Cardio: COMMON NORMALS: regular rate and regular rhythm RATE: regular rate RHYTHM: regular rhythm GI: COMMON NORMALS: Normal to inspection, nondistended, normoactive bowel sounds present and Soft to palpation PALPATION: Yes Soft to palpation Extremity: COMMON NORMALS: no pedal edema Neuro: [place] COMA SCALE: document GCS findings [place] coma scale eye opening: Spontaneous [place] coma scale verbal response: Orientated [place] coma scale motor response: Obey commands [place] coma scale total score: 15 SENSORIUM/ORIENTATION: Yes oriented to person, Yes oriented to place and Yes oriented to time CRANIAL NERVES: Yes CN VII (facial) Laterality: left CN VII left: facial droop (minimal. family says may not be signficantly different or new) COORDINATION/BALANCE: allqlf-yp-mdqu test normal and dcex-es-zfcv test normal SPEECH: speech normal MOTOR EXAM: Pronator motor function not present and Normal motor muscle tone present throughout COORDINATION: wmsdkn-kj-inzb test normal and jerx-cm-wyan test normal Course Vital Signs: Vital signs: Vital Signs Temperature 99.7 F H 10/02/21 19:45 Pulse Rate 75 10/03/21 03:55 Respiratory Rate 16 10/03/21 03:55 Blood Pressure 128/68 10/03/21 03:55 Pulse Oximetry 95 10/03/21 03:55 MDM - Dizziness Medical Decision Making 85-year-old gentleman with generalized lower extremity weakness. His white blood cell count is 11.9 with a normal differential. BMP is normal. His troponin was slightly elevated at baseline, but did not further elevated at 2 hours. His CRP is elevated at 58, which is attributable to his temperature. Urinalysis is pending chest x-ray does not reveal a pneumonia. Head CT is negative. UA reveals uti, which is most likely cause. patient walked with minimal assistance in the er after fluid bolus. received iv rocephin. home on cefdinir to treat uti. Lab Data : 10/03/21 00:00 10/03/21 00:00 Radiology Impressions Chest X-Ray 10/03/21 00:49 IMPRESSION: No confluent infiltrates in the lungs. Head CT 10/03/21 00:49 IMPRESSION: Unchanged atrophic changes. Unchanged mildly dilated ventricles. No non-contrast CT evidence of intracranial hemorrhage, masses or definite subacute stroke. MR brain may be performed, if there is further clinical concern. ASPECTS ([place] Stroke Program Early CT Score) is 10. Laboratory Results WBC 11.9 10^3/uL (4.0-10.0) H 10/03/21 00:00 RBC 4.28 10^6/uL (4.1-5.3) 10/03/21 00:00 Hgb 12.8 g/dL (11.7-16.6) 10/03/21 00:00 Hct 38.2 % (42.0-52.0) L 10/03/21 00:00 MCV 89.3 fl (80-94) 10/03/21 00:00 MCH 29.9 pg (28.0-34.0) 10/03/21 00:00 MCHC 33.5 g/dL (30.0-36.0) 10/03/21 00:00 RDW 14.8 % (12.1-15.1) 10/03/21 00:00 Plt Count 214 10^3/cmm (130-400) 10/03/21 00:00 MPV 12.1 fL (7.4-10.4) H 10/03/21 00:00 Neut % (Auto) 64.0 % 10/03/21 00:00 Lymph % (Auto) 19.2 % 10/03/21 00:00 [place] % (Auto) 14.3 % 10/03/21 00:00 Eos % (Auto) 1.2 % 10/03/21 00:00 Baso % (Auto) 0.8 % 10/03/21 00:00 Neut # (Auto) 7.58 10^3/uL (1.8-7.7) 10/03/21 00:00 Lymph # (Auto) 2.3 10^3/uL (0.8-4.8) 10/03/21 00:00 [place] # (Auto) 1.7 10^3/uL (0.2-0.9) H 10/03/21 00:00 Eos # (Auto) 0.1 10^3/uL (0.0-0.8) 10/03/21 00:00 Baso # (Auto) 0.1 10^3/uL (0.0-0.1) 10/03/21 00:00 Nucleated RBC % (auto) 0 % 10/03/21 00:00 Nucleated RBCs # 0.0 /100WBC 10/03/21 00:00 Sodium 138 mmol/L (136-145) 10/03/21 00:00 Potassium 4.0 mmol/L (3.5-5.1) 10/03/21 00:00 Chloride 102 mmol/L (98-107) 10/03/21 00:00 Carbon Dioxide 24 mmol/L (22-29) 10/03/21 00:00 Anion Gap 16.0 (5-19) 10/03/21 00:00 BUN 15 mg/dL (8-23) 10/03/21 00:00 Creatinine 0.8 mg/dL (0.7-1.2) 10/03/21 00:00 GFR Calculation Not Reportable 10/03/21 00:00 Glucose 90 mg/dL (65-115) 10/03/21 00:00 Calculated Osmolality 286 mOsm/kg (285-295) 10/03/21 00:00 Lactate 1.7 mmol/L (0.5-2.2) 10/03/21 01:13 Calcium 8.9 mg/dL (8.5-10.5) 10/03/21 00:00 Total Bilirubin 0.8 mg/dL (0.15-1.2) 10/03/21 00:00 AST 18 U/L (0-40) 10/03/21 00:00 ALT 11 U/L (0-41) 10/03/21 00:00 Alkaline Phosphatase 92 IU/L (40-130) 10/03/21 00:00 Creatine Kinase 115 U/L (39-308) 10/03/21 00:00 Troponin T Baseline 17 ng/L (0-15) H 10/03/21 00:00 Troponin T 120 Minute 17.53 ng/L (0-15) H 10/03/21 01:38 Delta Troponin T 0.53 ABS# (0-10) 10/03/21 01:38 C-Reactive Protein 57.8 mg/L (0.0-4.9) H 10/03/21 00:00 NT-Pro-B Natriuret Pep 276 pg/mL (0-450) 10/03/21 00:00 Total Protein 7.1 g/dL (6.6-8.7) 10/03/21 00:00 Albumin 3.9 g/dL (3.5-5.2) 10/03/21 00:00 Globulin 3.2 g/dL (1.3-4.6) 10/03/21 00:00 Procalcitonin 0.08 ng/mL (0-0.5) 10/03/21 00:00 Urine Color Yellow (Yellow) 10/03/21 02:10 Urine Appearance Clear (CLEAR) 10/03/21 02:10 Urine pH 6.5 (5-7) 10/03/21 02:10 Ur Specific [place] 1.005 (1.005-1.030) 10/03/21 02:10 Urine Protein Neg (Negative) 10/03/21 02:10 Urine Glucose (UA) Norm (Normal) 10/03/21 02:10 Urine Ketones Negative (Negative) 10/03/21 02:10 Urine Blood Neg (Negative) 10/03/21 02:10 Urine Nitrate Negative (Negative) 10/03/21 02:10 Urine Bilirubin Neg (Negative) 10/03/21 02:10 Urine Urobilinogen Norm mg/dL (Negative) 10/03/21 02:10 Ur Leukocyte Esterase 2+ (Negative) H 10/03/21 02:10 Urine RBC 0-4 /hpf (0-2) H 10/03/21 02:10 Urine WBC 5-10 /hpf (0-5) H 10/03/21 02:10 Ur Squamous Epith Cells 0-4 /hpf (0-5) H 10/03/21 02:10 Amorphous Sediment Not Reportable 10/03/21 02:10 Urine Bacteria Trace /hpf (NONE) 10/03/21 02:10 Discharge Plan Discharge Patient Disposition: Home Clinical Impression: Urinary tract infection in male Condition: Stable Prescriptions: New cefdinir 300 mg capsule 300 mg PO BID Qty: 14 0RF No Action gabapentin 300 mg capsule 300 mg PO TID Qty: 270 2RF prednisone 20 mg tablet 40 mg PO DAILY 5 Days Qty: 10 0RF levothyroxine 50 mcg tablet See Rx Instructions .ROUTE .COMPLEX Qty: 90 2RF Dose Instruction: Take 1 tablet by mouth once daily Rx Instructions: Take 1 tablet by mouth once daily aspirin 325 mg Tablet 325 mg PO DAILY Qty: 100 5RF pravastatin 40 mg tablet 40 mg PO DAILY 0RF Discharge Orders: Discharge ED (Routine); Ordered 10/03/21 Ordered By: Jose A Teixeira Referrals: Jun Ling MD [Primary Care Provider] - 1-3 days Discharge Diet: Advance as tolerated Discharge Activity: Increase activity as tolerated Patient Instructions: Urinary Tract Infection in Older Adults (ED) Activity Restrictions/Additional Instructions: Return for fever greater than 100 despite 2-3 doses of antibiotics, worsening weakness, mental status changes, lethargy, any other concerning symptoms. Coding Level of Care Code ED Placement Coordinator for Cassius Cadet
[2021-10-03 02:32] LABS: Add Urine Microscopic? YES; Bilirubin Urine Neg (Negative); Blood Urine Neg (Negative); Glucose Urine UA Norm (Normal); Ketones Urine Negative (Negative); Leukocyte Esterase Urine 2+ (Negative); Nitrate Urine Negative (Negative); Protein Urine Neg (Negative); Specific Gravity, Urine 1.005 (1.005-1.030); Urine Appearance Clear (CLEAR); Urine Color Yellow (Yellow); Urobilinogen Urine Norm (Negative); pH Urine 6.5 (5-7)
[2021-10-03 02:33] LABS: RBC Urine 0-4 /hpf (0-2)
[2021-10-03 02:34] LABS: Add Urine Culture? No; Bacteria Urine TRACE /hpf; Squamous Epithelial Cell Urine 0-4 /hpf (0-5)
--- NOTE | 2021-10-03 02:50 | ECG_ITS ---
[facility] Test Date: 2021-10-03 Pat Name: Clovis Adan Department: Room: Gender: Male Senior Online Marketing Manager: : 1935 Requested By: Jose A Mckeon Order Number: [id number] Cirilo MD: Shahzad Jacobsen M.D. Measurements Intervals [place] Rate: 81 P: 26 [place]: 185 QRS: -36 QRSD: 117 T: 68 QT: 373 QTc: 433 Interpretive Statements SINUS RHYTHM LEFT AXIS DEVIATION [QRS AXIS < -30] PATTERN CONSISTENT WITH PULMONARY DISEASE MODERATE INTRAVENTRICULAR CONDUCTION DELAY [110+ ms QRS DURATION] Compared to ECG 08/12/2021 17:18:29 Intraventricular conduction delay now present Sinus tachycardia no longer present Left ventricular hypertrophy no longer present ST (T wave) deviation no longer present Electronically Signed On 10-05-2021 18:17:54 CDT by Shahzad Jacobsen M.D. [id number]
[2021-10-03] MEDS: cefTRIAXone 1,000 MG in sodium chloride 0.9% (plus) 50 ML 100 MG IV (03:10)
[2021-10-03 03:55] VITALS: BP 128/68; PULSE 75; RESP 16; O2SAT 95
== END 2021-10-03 03:50 | disposition home or self-care (01) ==
PROVIDERS: Emergency Provider Emergency Medicine; PCP Family Medicine
DX: N39.0 Urinary tract infection, site not specified (principal); Z79.82 Long term (current) use of aspirin
CPT/HCPCS: 70450; 71045; 80053; 81001; 82550; 83605; 83880; 84145; 84484; 85025; 86140; 93005; 96365; 99285; J0696; J7030

== ENCOUNTER 2022-02-06 20:51 | Observation (INO) | payer MEDICARE, SELFPAY ==
--- NOTE | 2022-02-06 20:59 | CTR_ITS ---
PROCEDURE INFORMATION: Exam: CT Head Without Contrast Exam date and time: 02/06/2022 9:00 PM Age: 86 years old Clinical indication: Stroke-like symptoms; Right facial droop; Generalized weakness; Additional info: Symptoms of acute stroke TECHNIQUE: Imaging protocol: Computed tomography of the head without contrast. Radiation optimization: All CT scans at this facility use at least one of these dose optimization techniques: automated exposure control; mA and/or kV adjustment per patient size (includes targeted exams where dose is matched to clinical indication); or iterative reconstruction. Other technique: STROKE PROTOCOL was implemented. COMPARISON: CT head wo con* [id number] 10/03/2021 1:23 AM RADIATION DOSE METRICS: Total DLP (mGy-cm): 1123.19 FINDINGS: Brain: Mild atrophy and mild white matter chronic microvascular changes are noted. No hemorrhage or evidence of acute infarction. Cerebral ventricles: No ventriculomegaly. Paranasal sinuses: Visualized sinuses are unremarkable. No fluid levels. Mastoid air cells: Visualized mastoid air cells are well aerated. Bones/joints: Unremarkable. No acute fracture. Soft tissues: Unremarkable. CT/CT head thrombolytic [id number] IMPRESSION: No acute intracranial abnormality. ASSESSMENT: ASPECTS ([place] Stroke Program Early CT Score) is 10.
--- NOTE | 2022-02-06 20:59 | XRR_ITS ---
PROCEDURE INFORMATION: Exam: XR Chest Exam date and time: 02/06/2022 10:07 PM Age: 86 years old Clinical indication: Other: Weakness, R facial droop, AMS TECHNIQUE: Imaging protocol: Radiologic exam of the chest. Views: 1 view. COMPARISON: CR (CHEST, ) 10/03/2021 1:13 AM FINDINGS: Lungs: Several calcified granulomas are again noted. No acute airspace process is visualized. Pleural spaces: Unremarkable. No pleural effusion. No pneumothorax. Heart/Mediastinum: The heart is normal in size. Changes of prior cardiac surgery are again noted. Bones/joints: Unremarkable. XR/XR chest 1V portable [id number] IMPRESSION: No acute cardiopulmonary abnormality.
--- NOTE | 2022-02-06 20:59 | ECG_ITS ---
[facility] Test Date: 2022-02-06 Pat Name: Clovis Adan Department: Room: Gender: Male Test Director: : 1935 Requested By: Jose A Mckeon Order Number: [id number] Cirilo MD: Shahzad Jacobsen M.D. Measurements Intervals [place] Rate: 83 P: 45 ND: 188 QRS: -47 QRSD: 107 T: 67 QT: 363 QTc: 427 Interpretive Statements SINUS RHYTHM PATTERN CONSISTENT WITH PULMONARY DISEASE LEFT ANTERIOR FASCICULAR BLOCK [QRS AXIS <= -45, QR IN I, RS IN II] LEFT VENTRICULAR HYPERTROPHY AND ST-T CHANGE [VOLTAGE CRITERIA PLUS ST/T ABNORMALITY] Compared to ECG 10/03/2021 03:16:17 Left ventricular hypertrophy now present ST (T wave) deviation still present Electronically Signed On 02-08-2022 18:19:06 CONTINUOUS DRYOUT OPERATOR by Shahzad Jacobsen M.D. [id number]
[2022-02-06 21:22] VITALS: BP 162/86; PULSE 83; RESP 20; TEMP 38; O2SAT 94; BMI 26.6
[2022-02-06 21:38] LABS: Basophils # 0.1 10^3/uL (0.0-0.1); Basophils % 0.9 %; Eosinophils # 0.1 10^3/uL (0.0-0.8); Eosinophils % 1.4 %; Hematocrit 41.7 % (42.0-52.0); Hemoglobin 13.6 g/dL (11.7-16.6); Lymphocytes # 0.8 10^3/uL (0.8-4.8); Lymphocytes % 10.7 %; Mean Corpuscular HGB Conc 32.6 g/dL (30.0-36.0); Mean Corpuscular Volume 92.1 fl (80-94); Mean Platelet Volume 10.5 fL (7.4-10.4); Monocytes # 1.1 10^3/uL (0.2-0.9); Monocytes % 14.6 %; Neutrophils # 5.47 10^3/uL (1.8-7.7); Nucleated Red Blood Cells % 0 %; Platelet Count 247 10^3/cmm (130-400); Red Blood Count 4.53 10^6/uL (4.1-5.3); Red Cell Distribution Width 14.1 % (12.1-15.1); White Blood Count 7.6 10^3/uL (4.0-10.0)
[2022-02-06 21:39] LABS: Glucose Point of Care 103 mg/dL (70-110)
[2022-02-06 21:49] LABS: INR 1.01 (0.8-1.2)
[2022-02-06 21:50] LABS: Partial Thromboplastin Time 28.9 SECONDS (23.9-36.7)
[2022-02-06 22:00] LABS: Alanine Aminotransferase 17 U/L (0-41); Alkaline Phosphatase 110 U/L (40-130); Anion Gap 14.7 (5-19); Aspartate Amino Transferase 21 U/L (0-40); Blood Urea Nitrogen 11 mg/dL (8-23); Calcium 9.2 mg/dL (8.5-10.5); Carbon Dioxide 26 mmol/L (22-29); Chloride 92 mmol/L (98-107); Globulin 3.7 g/dL (1.3-4.6); Glucose 104 mg/dL (65-115); Osmolality Calculated 268 mOsm/kg (285-295); Potassium 3.7 mmol/L (3.5-5.1); Sodium 129 mmol/L (136-145); Total Bilirubin 0.4 mg/dL (0.15-1.2); Total Protein 7.7 g/dL (6.6-8.7)
[2022-02-06 22:04] LABS: Amphetamines Screen Urine Negative (Negative); Barbiturates Screen Urine Negative (Negative); Benzodiazepines Screen Urine Negative (Negative); Cocaine Screen Urine Negative (Negative); Opiate Screen Urine Negative (Negative); PCP Screen Urine Negative (Negative); THC Screen Urine Negative (Negative)
[2022-02-06 22:06] LABS: Bilirubin Urine Neg (Negative); Blood Urine 2+ (Negative); Glucose Urine UA Norm (Normal); Ketones Urine Negative (Negative); Leukocyte Esterase Urine 1+ (Negative); Nitrate Urine Negative (Negative); Protein Urine Neg (Negative); Specific Gravity, Urine 1.015 (1.005-1.030); Urine Appearance Clear (CLEAR); Urine Color Yellow (Yellow); Urobilinogen Urine Norm (Negative); pH Urine 6 (5-7)
[2022-02-06 22:07] LABS: Add Urine Microscopic? YES
[2022-02-06 22:08] LABS: Add Urine Culture? Yes; Bacteria Urine 1+ /hpf
[2022-02-06 22:12] VITALS: BP 149/80; PULSE 83; RESP 13; O2SAT 95
[2022-02-06 23:00] VITALS: BP 152/75; PULSE 86; RESP 20; O2SAT 94
[2022-02-06 23:07] LABS: Influenza A by IFA negative (Negative); Influenza B by IFA negative (Negative); SARS Covid-2 Antigen negative (Negative)
[2022-02-07] VITALS (11 sets, daily range): BP systolic 114–161; BP diastolic 66–80; PULSE 79–88; RESP 14–22; TEMP 36.6–38.8; O2SAT 9–95
[2022-02-07] MEDS: cefTRIAXone 1,000 MG in sodium chloride 0.9% (plus) 50 ML 100 MG IV (00:48)
[2022-02-07] MEDS: sodium chloride 0.9% 500 ML 999 ML IV (00:49)
--- NOTE | 2022-02-07 01:44 | W.ED.NEUROSD ---
HPI - Neuro Symptoms/Deficit General: Chief Complaint: Neuro Symptoms/Deficit Stated Complaint: WEAKNESS/DIZZY Time Seen by Provider: 02/06/22 21:23 Source: patient and family History of Present Illness: 86-year-old gentleman with a history of atrial fibrillation. He presents with dizziness and weakness at home. There was some concern over the potential of facial droop, and vision changes as well. The symptoms seem to have improved to some degree at this point. Complaint now is mainly generalized weakness. He had a temperature at home. He had some mild mental status changes. Onset (ago): hour(s) Timing confirmed by: family member Location: speech, left face and altered History of same: No Severity: mild Quality: other Relieving factors: none Exacerbating factors: none Associated symptoms: Deny chest pain, cough, diaphoresis or nausea Review of Systems Const: Reports: fever(s); Denies: chills, body aches or diaphoresis Eyes: Denies: change in vision Card: Denies: chest pain GI: Denies: nausea Neuro: Reports: weakness in extremities (bilateral); Denies: numbness in extremities PFSH ED PFSH: Medical History COVID-19 GERD (gastroesophageal reflux disease) Hypercholesteremia Hypothyroidism (acquired) Prostatic hypertrophy Recent urinary tract infection Rheumatic fever Scalp psoriasis Thyroid disease neuropathy Surgical History H/O hernia repair x 5 Hx of tonsillectomy Status post aortic valve replacement with bioprosthetic valve Status post right foot surgery Family History Daughter No problems noted. Brother Prostate cancer Social History Smoking and tobacco status: never smoked Alcohol intake: never NIH stroke score NIHSS: Level Of Consciousness - 1a: 0 Level Of Consciousness Questions - 1b: Both Correct Level Of Consciousness Commands - 1c: Both Correct Best Gaze - 2: Normal Visual [place] - 3: No Visual Loss Facial Palsy - 4: Minor Paralysis Motor Arm Right - 5: No Drift Motor Arm Left - 5: Drift Motor Leg Right - 6: No Drift Motor Leg Left - 6: Drift Limb Ataxia - 7: Absent Sensory - 8: Normal Best Language - 9: No Aphasia Dysarthia - 10: Normal Extinction And Inattention - 11: 0 Score: Total Score: 3 Physical Exam Const: COMMON NORMALS: alert GENERAL APPEARANCE: cooperative and frail appearing HENMT: COMMON NORMALS: normocephalic, atraumatic and Normal external nose present HEAD & SCALP: normocephalic and atraumatic FACE & SINUS: normal facial exam and face symmetric (improved on my eam) NOSE: Normal external nose present Eye: COMMON NORMALS: Equal, round and reactive pupils present and EOMs intact bilaterally PUPIL: Yes Equal, round and reactive pupils present Chest: CHEST: Yes Symmetrical chest wall rise Resp: COMMON NORMALS: normal respiratory effort, No use of accessory muscles and clear to auscultation bilaterally AUSCULTATION: clear to auscultation bilaterally Cardio: COMMON NORMALS: regular rate and regular rhythm RATE: regular rate RHYTHM: regular rhythm GI: COMMON NORMALS: Normal to inspection, nondistended, normoactive bowel sounds present and non-tender Neuro: [place]NN[place] COMA SCALE: document GCS findings [place] coma scale eye opening: Spontaneous [place] coma scale verbal response: Orientated [place] coma scale motor response: Obey commands [place] coma scale total score: 15 SENSORIUM/ORIENTATION: Yes alert CRANIAL NERVES: Yes CN normal except as noted COORDINATION/BALANCE: vluogm-dn-kdos test normal and agoy-um-xwyi test normal SPEECH: speech normal MOTOR EXAM: Pronator motor function not present COORDINATION: xhcsjr-hc-xkoy test normal and mizc-on-jmym test normal Course Vital Signs: Vital signs: Vital Signs Temperature 99.6 F 02/07/22 20:00 Pulse Rate 81 02/07/22 20:00 Respiratory Rate 16 02/07/22 20:00 Blood Pressure 150/80 02/07/22 20:00 Pulse Oximetry 91 02/07/22 20:00 Oxygen Delivery Me thod 02/07/22 20:00 MDM - Neuro Symptoms/Deficit Medical Decision Making He does have a temperature of 100.4. His white blood cell count is 7.6. Sodium is 129. Head CT reveals nothing acute. Chest x-ray reveals no acute change. Rapid flu and COVID are negative. Urinalysis shows urinary tract infection, likely the source of temperature. He is given IV fluid and Rocephin here. On my exam, I get his NIH scale at a 3 on standing the patient, he appears weak and tries to fall to the left. This is new for him, as he does not even usually use a walker at home. Given his weakness, fever, etc., he will be admitted. Lab Data 02/06/22 21:33 02/06/22 21:33 Radiology Impressions Chest X-Ray 02/06/22 20:59 IMPRESSION: No acute cardiopulmonary abnormality. Head CT 02/06/22 20:59 IMPRESSION: No acute intracranial abnormality. ASSESSMENT: ASPECTS ([place] Stroke Program Early CT Score) is 10. Abdomen/Pelvis CT 02/07/22 03:52 IMPRESSION: 1. Tiny irregular regions of ground-glass opacity seen in the right lower lobe. Associated 0.2-0.4 cm 4 nodules are seen (series 3, images 3-8). This could represent early pneumonia. Recommend correlation with clinical findings. Also recommend follow-up per Fleischner society recommendations with CT in 1 year. 2. Small to medium-sized hiatal hernia. 3. Tiny dependent gallstones. 4. Diffuse colonic diverticulosis, severe in the sigmoid colon region. No CT evidence of diverticulitis. 5. Other chronic changes, as noted above. Head/Neck CTA 02/07/22 15:42 IMPRESSION: No stenosis or occlusion of intracranial arteries. IMPRESSION: No stenosis or occlusion. REFERENCES: NASCET CRITERIA. The degree of stenosis in the cervical segment of the internal carotid artery is based on NASCET criteria. Normal is no stenosis. Mild is less than 50% stenosis. Moderate is 50-69% stenosis. Severe is 70% to 99% stenosis. Total occlusion is no detectable patent lumen. Laboratory Results WBC 7.6 10^3/uL (4.0-10.0) 02/06/22 21:33 RBC 4.53 10^6/uL (4.1-5.3) 02/06/22 21:33 Hgb 13.6 g/dL (11.7-16.6) 02/06/22 21:33 Hct 41.7 % (42.0-52.0) L 02/06/22 21:33 MCV 92.1 fl (80-94) 02/06/22 21:33 MCH 30.0 pg (28.0-34.0) 02/06/22 21: MCHC 32.6 g/dL (30.0-36.0) 02/06/22 21:33 RDW 14.1 % (12.1-15.1) 02/06/22 21:33 Plt Count 247 10^3/cmm (130-400) 02/06/22 21: MPV 10.5 fL (7.4-10.4) H 02/06/22 21:33 Neut % (Auto) 72.0 % 02/06/22 21: Lymph % (Auto) 10.7 % 02/06/22 21: [place] % (Auto) 14.6 % 02/06/22 21: Eos % (Auto) 1.4 % 02/06/22 21: Baso % (Auto) 0.9 % 02/06/22 21: Neut # (Auto) 5.47 10^3/uL (1.8-7.7) 02/06/22 21: Lymph # (Auto) 0.8 10^3/uL (0.8-4.8) 02/06/22 21:33 [place] # (Auto) 1.1 10^3/uL (0.2-0.9) H 02/06/22 21:33 Eos # (Auto) 0.1 10^3/uL (0.0-0.8) 02/06/22 21:33 Baso # (Auto) 0.1 10^3/uL (0.0-0.1) 02/06/22 21: Nucleated RBC % (auto) 0 % 02/06/22 21: Nucleated RBCs # 0.0 /100WBC 02/06/22 21: PT 13.60 SECONDS (12.1-14.9) 02/06/22 21: INR 1.01 (0.8-1.2) 02/06/22 21:33 APTT 28.9 SECONDS (23.9-36.7) 02/06/22 21:33 Sodium 129 mmol/L (136-145) L 02/06/22 21: Potassium 3.7 mmol/L (3.5-5.1) 02/06/22 21: Chloride 92 mmol/L (98-107) L 02/06/22 21:33 Carbon Dioxide 26 mmol/L (22-29) 02/06/22 21:33 Anion Gap 14.7 (5-19) 02/06/22 21:33 BUN 11 mg/dL (8-23) 02/06/22 21:33 Creatinine 0.8 mg/dL (0.7-1.2) 02/06/22 21:33 GFR Calculation Not Reportable 02/06/22 21:33 Glucose 104 mg/dL (65-115) 02/06/22 21:33 POC Glucose 103 mg/dL (70-110) 02/06/22 21:32 Calculated Osmolality 268 mOsm/kg (285-295) L 02/06/22 21:33 Calcium 9.2 mg/dL (8.5-10.5) 02/06/22 21:33 Total Bilirubin 0.4 mg/dL (0.15-1.2) 02/06/22 21:33 AST 21 U/L (0-40) 02/06/22 21:33 ALT 17 U/L (0-41) 02/06/22 21:33 Alkaline Phosphatase 110 U/L (40-130) 02/06/22 21:33 Total Protein 7.7 g/dL (6.6-8.7) 02/06/22 21:33 Albumin 4.0 g/dL (3.5-5.2) 02/06/22 21:33 Globulin 3.7 g/dL (1.3-4.6) 02/06/22 21:33 Urine Color Yellow (Yellow) 02/06/22 21:45 Urine Appearance Clear (CLEAR) 02/06/22 21:45 Urine pH 6 (5-7) 02/06/22 21:45 Ur Specific [place] 1.015 (1.005-1.030) 02/06/22 21:45 Urine Protein Neg (Negative) 02/06/22 21:45 Urine Glucose (UA) Norm (Normal) 02/06/22 21:45 Urine Ketones Negative (Negative) 02/06/22 21:45 Urine Blood 2+ (Negative) H 02/06/22 21:45 Urine Nitrate Negative (Negative) 02/06/22 21:45 Urine Bilirubin Neg (Negative) 02/06/22 21:45 Urine Urobilinogen Norm mg/dL (Negative) 02/06/22 21:45 Ur Leukocyte Esterase 1+ (Negative) H 02/06/22 21:45 Urine RBC 5-10 /hpf (0-2) H 02/06/22 21:45 Urine WBC 10-15 /hpf (0-5) H 02/06/22 21:45 Ur Squamous Epith Cells None /hpf (0-5) 02/06/22 21:45 Amorphous Sediment Not Reportable 02/06/22 21:45 Urine Bacteria 1+ /hpf (NONE) H 02/06/22 21:45 Urine Opiates Screen Negative ng/mL (Negative) 02/06/22 21:45 Ur Barbiturates Screen Negative ng/mL (Negative) 02/06/22 21:45 Ur Phencyclidine Scrn Negative ng/mL (Negative) 02/06/22 21:45 Ur Amphetamines Screen Negative ng/mL (Negative) 02/06/22 21:45 U Benzodiazepines Scrn Negative ng/mL (Negative) 02/06/22 21:45 Urine Cocaine Screen Negative ng/mL (Negative) 02/06/22 21:45 U Marijuana (THC) Screen Negative ng/mL (Negative) 02/06/22 21:45 Influenza Type A Ag negative (Negative) 02/06/22 22:20 Influenza Type B Ag negative (Negative) 02/06/22 22:20 SARS-CoV-2 Ag (Rapid) negative (Negative) 02/06/22 22:20 Discharge Plan Discharge Patient Disposition: Admitted As Inpatient Admit Provider: Essie Olivo Clinical Impression: Urinary tract infection, Weakness Condition: Stable Coding Level of Care Code ED Portable Canteen Operator for Chg Fwd Exam Comprehensive
--- NOTE | 2022-02-07 02:43 | PC.NURSE ---
attempted to ambulate patient. sitting on side of bed he would drift to the left. unable to stand on his own. Dr Teixeira notified.
--- NOTE | 2022-02-07 03:52 | CTR_ITS ---
PROCEDURE INFORMATION: Exam: CT Abdomen And Pelvis Without Contrast Exam date and time: 02/07/2022 4:13 AM Age: 86 years old Clinical indication: Other: Recurrent UTI, evaluate for hydronephrosis, obstruction; Additional info: Recurrent UTI in male, evaluate for hydronephrosis, obstructive process TECHNIQUE: Imaging protocol: Computed tomography of the abdomen and pelvis without contrast. Radiation optimization: All CT scans at this facility use at least one of these dose optimization techniques: automated exposure control; mA and/or kV adjustment per patient size (includes targeted exams where dose is matched to clinical indication); or iterative reconstruction. COMPARISON: CT lumbar spine wo con* [id number] 06/18/2021 8:35 AM RADIATION DOSE METRICS: Total DLP (mGy-cm): 719.77 FINDINGS: Lungs: Tiny irregular regions of ground-glass opacity are seen in the right lower lobe. Associated 0.2-0.4 cm 4 nodules are seen (series 3, images 3-8). This could represent early pneumonia. Recommend correlation with clinical findings. Also recommend follow-up per Fleischner society recommendations. Some hilar calcifications and right lower lobe calcified granulomas are also seen. The patient is status post median sternotomy with sternal wires. Postprocedural changes of the aortic valve are seen. Liver: Appears unremarkable on the non-contrast CT. Gallbladder and bile ducts: Tiny dependent gallstones. No gallbladder wall thickening. Sonography may be performed for complete assessment. No ductal dilation. Pancreas: Mild atrophic changes of the pancreas are seen. No ductal dilatation. Spleen: Appears unremarkable on the non-contrast CT. No splenomegaly. Adrenal glands: Normal. No mass. Kidneys and ureters: Appear unremarkable on the non-contrast CT. No hydronephrosis. Stomach and bowel: The non-contrast opacified stomach is not well distended with relative gastric fold prominence. Assessment is limited. Small to medium-sized hiatal hernia is seen. The noncontrast opacified small bowel loops appear unremarkable. The noncontrast opacified colonic loops show colonic diverticulosis, severe in the sigmoid colon region. No CT evidence of diverticulitis. The lack of orally administered contrast material limits assessment. Appendix: No CT evidence of appendicitis. Intraperitoneal space: No abdominal ascites. No free air. Some benign phleboliths seen in the pelvis. Vasculature: No abdominal aortic aneurysm. Lymph nodes: No enlarged lymph nodes. Urinary bladder: No bladder debris. No wall thickening. Reproductive: The prostate demonstrates mild nonspecific enlargement. The seminal vesicles are normal. Recommend correlation with clinical exam findings and PSA level assessment. Bones/joints: No acute osseous abnormality seen. There is generalized osteopenia. Degenerative disc disease changes are seen at the L4-L5 level. Rely-ac-[id number] bilateral hip degenerative changes are seen. Soft tissues: Unremarkable. CT/CT kidney stone [id number] IMPRESSION: 1. Tiny irregular regions of ground-glass opacity seen in the right lower lobe. Associated 0.2-0.4 cm 4 nodules are seen (series 3, images 3-8). This could represent early pneumonia. Recommend correlation with clinical findings. Also recommend follow-up per Fleischner society recommendations with CT in 1 year. 2. Small to medium-sized hiatal hernia. 3. Tiny dependent gallstones. 4. Diffuse colonic diverticulosis, severe in the sigmoid colon region. No CT evidence of diverticulitis. 5. Other chronic changes, as noted above.
--- NOTE | 2022-02-07 04:01 | P.HP_ITS ---
Providers/Chief Complaint Admitting Physician: Essie Olivo MD Primary Care Provider: Jun Ling MD Chief Complaint: WEAKNESS/DIZZY History of Present Illness Clovis Adan is a 86 year old male with BPH, dyslipidemia, recent UTI, h/o rheumatic fever presenting to the ER today with c/o Generalized malaise, fatigue, Dizziness , fever over the last 4-5 days. Initially when he presented to the ER he exhibited some facial droop and was exhibiting gait instability, therefore there was concern for stroke. Ct head was normal. He has no focal neurological deficits at the time of my assessment. Denies any chest pain, dyspnea, palpitations, syncope, dysuria. He has h/o BPH. Review of Systems General: Reports: 10 or more systems reviewed and unremarkable except in HPI and below Const: Denies: fever(s), chills or body aches Eyes: Denies: change in vision, blurry vision or photophobia ENMT: Reports: hoarseness; Denies: throat pain, enlarged tonsils, odynophagia or nasal congestion Card: Denies: chest pain, palpitations, irregular heart rhythm, edema, swelling of feet/ankles, lightheadedness, pre-syncope, dyspnea on exertion or orthopnea Resp: Denies: dyspnea, productive cough, non-productive cough, wheezing, stridor, pain on inspiration, change in phlegm color, hemoptysis or chest congestion GI: Denies: abdominal pain, nausea, vomiting, hematemesis, coffee ground emesis, dysphagia, heartburn, diarrhea, constipation, GI cramping, change in stool character, hematochezia or melena : Denies: flank pain, dysuria, urinary frequency, urinary urgency, urinary hesitancy or hematuria Musc: Denies: neck pain, back pain, extremity pain, joint swelling, joint warmth or deformity Neuro: Denies: headache(s), numbness in extremities, weakness in extremities, sensory changes, difficulty walking, frequent falls, dizziness, vertigo, behavioral changes, Slurred speech present or seizure-like activity Psych: Denies: anxiety, depression, suicidal ideation or homicidal ideation Endo: Denies: polyuria, polydipsia, tired all the time, cold intolerance or hot flashes Bassam/Lymph: Denies: easy bruising or easy bleeding Medications/Allergies Home Medications Medication Instructions Recorded Confirmed Last Taken Type aspirin 325 mg tablet 325 mg PO DAILY #100 tabs 07/30/19 09/22/21 05/04/21 Rx gabapentin 300 mg capsule 300 mg PO TID #270 caps 04/14/21 09/22/21 Unknown Rx cefdinir 300 mg capsule 300 mg PO BID #14 caps 10/03/21 Unknown Rx pravastatin 40 mg tablet 40 mg PO DAILY #90 tabs 12/18/21 Unknown Rx levothyroxine 50 mcg tablet See Rx Instructions .Route 12/23/21 Unknown Rx .COMPLEX #90 tabs cefdinir 300 mg capsule 300 mg PO BID 7 days #14 caps 02/07/22 Unknown Rx Allergies Allergy/AdvReac Type Severity Reaction Status Date / Time duloxetine [From Cymbalta] Allergy Unknown Verified 10/09/21 08:19 PFSH Acute PFSH: Medical History COVID-19 GERD (gastroesophageal reflux disease) Hypercholesteremia Hypothyroidism (acquired) Prostatic hypertrophy Recent urinary tract infection Rheumatic fever Scalp psoriasis Thyroid disease neuropathy Surgical History H/O hernia repair x 5 Hx of tonsillectomy Status post aortic valve replacement with bioprosthetic valve Status post right foot surgery Family History Daughter No problems noted. Brother Prostate cancer Social History Smoking and tobacco status: never smoked Alcohol intake: never Vitals/I&O/Wt Last Vital Signs Temp 100.4 F H 02/06/22 21:22 Pulse 86 02/07/22 03:41 Resp 19 H 02/07/22 03:41 BP 144/78 02/07/22 03:41 Pulse Ox 95 02/07/22 03:41 O2 Del Method 02/07/22 02:00 02/06/22 02/06/22 02/07/22 14:59 22:59 06:59 Intake Total 550 / 550 Balance 550 / 550 Weight last 48 hrs Weight 89.176 kg Physical Exam Narrative: General: No acute distress, AO x3 HEENT: PERRLA, pupils bilaterally equal and reactive, pallors not present Chest: Normal vesicular breath sounds, no added sounds, equal good air entry bilaterally CVS: S1-S2 regular, no murmurs, no tachycardia, no gallops, no rubs Abdomen: Soft, nontender, no organomegaly, bowel sounds present Neuro: No focal deficits, no facial deformity, AO x3, power 5/5 in all limbs Extremities: No edema, clubbing, cyanosis Data 02/06/22 21:33 02/06/22 21:33 A&P Assessment and plan (1) Urinary tract infection: (2) Weakness: Plan Presenting today with generalized fatigue, malaise, mild encephalopathy T max 101.8F, UA 1+ LA, 10-15 WBC , possibly symptoms related to UTI Patient has a h/o complicated UTI in 07/2021 with E.coli bacteremia In a male patient with recurrent UTI including h/o complicated UTI, needs to be evaluated further for anatomical issues, obstruction. 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
[2022-02-07] MEDS: enoxaparin 40 mg/0.4 mL Syringe SUBCUT (05:05)
[2022-02-07] MEDS: acetaminophen 325 mg Tablet 650 MG PO (05:25)
[2022-02-07] MEDS: levothyroxine 50 mcg Tablet PO (05:26)
[2022-02-07 06:28] LABS: Lactic Sepsis W/Reflex 1.7 mmol/L (0.5-2.2)
[2022-02-07 06:54] LABS: Thyroid Stimulating Hormone 3.94 uIU/mL (0.27-4.20)
[2022-02-07 07:43] LABS: Alanine Aminotransferase 13 U/L (0-41); Albumin Level 3.5 g/dL (3.5-5.2); Alkaline Phosphatase 96 U/L (40-130); Aspartate Amino Transferase 21 U/L (0-40); Blood Urea Nitrogen 9 mg/dL (8-23); Calcium 8.6 mg/dL (8.5-10.5); Carbon Dioxide 21 mmol/L (22-29); Chloride 101 mmol/L (98-107); Globulin 3.3 g/dL (1.3-4.6); Glucose 94 mg/dL (65-115); Osmolality Calculated 280 mOsm/kg (285-295); Sodium 136 mmol/L (136-145); Total Bilirubin 0.4 mg/dL (0.15-1.2); Total Protein 6.8 g/dL (6.6-8.7)
[2022-02-07 08:00] LABS: Anion Gap 17.9 (5-19); Potassium 3.9 mmol/L (3.5-5.1)
[2022-02-07] MEDS: aspirin 325 mg Tablet PO (08:55)
[2022-02-07] MEDS: pantoprazole DR 40 mg Tablet PO (08:55)
[2022-02-07] MEDS: gabapentin 300 mg Capsule PO ×3 (08:55→20:07)
--- NOTE | 2022-02-07 10:18 | PM.MISC ---
Miscellaneous Note Note: Patient has been admitted for work-up of generalized weakness and fatigue No signs of stroke No new focal deficit Awake and alert Pleasant and cooperative Clinical slightly dehydrated He has good strength of upper and lower extremities Gait was not tested at the time of my evaluation Awaiting PT evaluation Patient is not disoriented Assessment plan Check B12, folic acid Check for BPPV PT and OT Patient is still experiencing febrile events, continue ceftriaxone for possible UTI Follow-up with urine cultures Full code Possible discharge tomorrow if clinically better No active signs of stroke NIH 0
[2022-02-07 11:30] LABS: Thyroid Stimulating Hormone 3.27 uIU/mL (0.27-4.20); Vitamin B12 213 pg/mL (232-1245)
[2022-02-07 12:12] LABS: Folate Level 13.7 ng/mL (4.5-32.2)
--- NOTE | 2022-02-07 15:33 | PC.NURSE ---
In patient's room to give him his 1500 pill. Awoke patient from sleeping. Patient seems delayed in answering questions even though when he finally did he answered are correct. Patient's left side of his face appears to be drooping and he does not follow what is asked of him. Asked patient to squeeze his eyes closed and to keep them closed. Patient instead rapidly blinked his eyes and never closed them. New NIH scale completed.
--- NOTE | 2022-02-07 15:42 | CTR_ITS ---
PROCEDURE INFORMATION: Exam: CTA Head With Contrast, Arteriography Exam date and time: 02/07/2022 4:05 PM Age: 86 years old Clinical indication: Other: Facial changes TECHNIQUE: Imaging protocol: Computed tomographic angiography of the head with contrast. Exam focused on the arteries. 3D rendering (Not supervised by radiologist): MIP and/or 3D reconstructed images were created by the technologist. Radiation optimization: All CT scans at this facility use at least one of these dose optimization techniques: automated exposure control; mA and/or kV adjustment per patient size (includes targeted exams where dose is matched to clinical indication); or iterative reconstruction. Contrast material: OMNIPAQUE 350; Contrast volume: 100 ml; Contrast route: INTRAVENOUS (IV); COMPARISON: CT head thrombolytic [id number] 02/06/2022 9:00 PM RADIATION DOSE METRICS: Total DLP (mGy-cm): 1149.88 FINDINGS: ANTERIOR CIRCULATION: Right internal carotid artery: Intracranial segment is patent with no significant stenosis. No aneurysm. Right middle cerebral artery: No occlusion or significant stenosis. No aneurysm. Right anterior cerebral artery: No occlusion or significant stenosis. No aneurysm. Left internal carotid artery: Intracranial segment is patent with no significant stenosis. No aneurysm. Left middle cerebral artery: No occlusion or significant stenosis. No aneurysm. Left anterior cerebral artery: No occlusion or significant stenosis. No aneurysm. POSTERIOR CIRCULATION: Right vertebral artery: No occlusion or significant stenosis. No aneurysm. Left vertebral artery: No occlusion or significant stenosis. No aneurysm. Basilar artery: No occlusion or significant stenosis. No aneurysm. Right posterior cerebral artery: No occlusion or significant stenosis. No aneurysm. Left posterior cerebral artery: No occlusion or significant stenosis. No aneurysm. Brain: There are mild periventricular and subcortical lucencies consistent with chronic microvascular ischemic changes.The peñaloza-white differentiation is maintained. No hemorrhage. No edema. Cerebral ventricles: No ventriculomegaly. Bones/joints: Unremarkable. No acute fracture. Soft tissues: Unremarkable. PROCEDURE INFORMATION: Exam: CTA Neck With Contrast Exam date and time: 02/07/2022 4:05 PM Age: 86 years old Clinical indication: Other: Facial changes TECHNIQUE: Imaging protocol: Computed tomographic angiography of the neck with contrast. 3D rendering (Not supervised by radiologist): MIP and/or 3D reconstructed images were created by the technologist. Radiation optimization: All CT scans at this facility use at least one of these dose optimization techniques: automated exposure control; mA and/or kV adjustment per patient size (includes targeted exams where dose is matched to clinical indication); or iterative reconstruction. Contrast material: OMNIPAQUE 350; Contrast volume: 100 ml; Contrast route: INTRAVENOUS (IV); COMPARISON: CT head thrombolytic [id number] 02/06/2022 9:00 PM RADIATION DOSE METRICS: Total DLP (mGy-cm): 1149.88 FINDINGS: Right common carotid artery: No stenosis. No dissection or occlusion. Right internal carotid artery: No stenosis of the extracranial segment. No dissection or occlusion. Right external carotid artery: No occlusion or stenosis of the origin. Left common carotid artery: No stenosis. No dissection or occlusion. Left internal carotid artery: No stenosis of the extracranial segment. No dissection or occlusion. Left external carotid artery: No occlusion or stenosis of the origin. Right vertebral artery: No stenosis. No dissection or occlusion. Left vertebral artery: No stenosis. No dissection or occlusion. Soft tissues: Normal. No significant soft tissue swelling. Bones/joints: No acute fracture. CT/CT angio headne* [id number] IMPRESSION: No stenosis or occlusion of intracranial arteries. IMPRESSION: No stenosis or occlusion. REFERENCES: NASCET CRITERIA. The degree of stenosis in the cervical segment of the internal carotid artery is based on NASCET criteria. Normal is no stenosis. Mild is less than 50% stenosis. Moderate is 50-69% stenosis. Severe is 70% to 99% stenosis. Total occlusion is no detectable patent lumen.
[2022-02-07] MEDS: iohexol 350 mg/mL 500 mL Btl (per mL) IV (16:07)
[2022-02-08] VITALS (7 sets, daily range): BP systolic 120–167; BP diastolic 67–80; PULSE 67–109; RESP 16–21; TEMP 36.5–38.5; O2SAT 91–94
[2022-02-08] MEDS: acetaminophen 325 mg Tablet 650 MG PO ×3 (00:06→19:34)
[2022-02-08] MEDS: cefTRIAXone 1,000 MG in sodium chloride 0.9% (plus) 50 ML 100 MG IV (00:06)
[2022-02-08] MEDS: enoxaparin 40 mg/0.4 mL Syringe SUBCUT (04:23)
[2022-02-08] MEDS: levothyroxine 50 mcg Tablet PO (05:09)
[2022-02-08 05:11] LABS: Basophils # 0.1 10^3/uL (0.0-0.1); Basophils % 0.7 %; Eosinophils % 0.1 %; Hematocrit 40.8 % (42.0-52.0); Hemoglobin 13.1 g/dL (11.7-16.6); Lymphocytes # 1.1 10^3/uL (0.8-4.8); Lymphocytes % 12.3 %; Mean Corpuscular HGB Conc 32.1 g/dL (30.0-36.0); Mean Corpuscular Hemoglobin 29.8 pg (28.0-34.0); Mean Corpuscular Volume 92.9 fl (80-94); Mean Platelet Volume 11.3 fL (7.4-10.4); Monocytes # 1.2 10^3/uL (0.2-0.9); Monocytes % 13.5 %; Neutrophils # 6.73 10^3/uL (1.8-7.7); Neutrophils % 73.2 %; Nucleated Red Blood Cells % 0 %; Platelet Count 228 10^3/cmm (130-400); Red Blood Count 4.39 10^6/uL (4.1-5.3); Red Cell Distribution Width 14.6 % (12.1-15.1); White Blood Count 9.2 10^3/uL (4.0-10.0)
[2022-02-08 05:32] LABS: Blood Urea Nitrogen 12 mg/dL (8-23); Calcium 8.7 mg/dL (8.5-10.5); Carbon Dioxide 22 mmol/L (22-29); Chloride 101 mmol/L (98-107); Glucose 91 mg/dL (65-115); Osmolality Calculated 281 mOsm/kg (285-295); Sodium 136 mmol/L (136-145)
[2022-02-08] MEDS: gabapentin 300 mg Capsule PO ×3 (10:12→19:34)
[2022-02-08] MEDS: aspirin 325 mg Tablet PO (10:12)
[2022-02-08] MEDS: pantoprazole DR 40 mg Tablet PO (10:12)
--- NOTE | 2022-02-08 11:23 | P.PN_ITS ---
Subjective Subjective: Patient endorses sore throat. Reports generalized malaise and fatigue. Endorses fever. Tmax 100.5 overnight. Denies chest pain, nausea, emesis, or abdominal pain. Medications: Reviewed: Yes Vitals/I&O/Wt Last Vital Signs Temp 98.6 F 02/08/22 07:51 Pulse 67 02/08/22 07:51 Resp 16 02/08/22 07:51 BP 154/77 02/08/22 07:51 Pulse Ox 94 02/08/22 07:51 O2 Del Method 02/08/22 07:51 02/07/22 02/08/22 02/08/22 22:59 06:59 14:59 Intake Total 170 / 370 240 / 240 Output Total 500 / 1250 Balance -330 / -880 240 / 240 Weight last 48 hrs Weight 89.176 kg Physical Exam Narrative: General: Patient is awake. Frail appearing. Head: Normocephalic. Atraumatic. EOM intact. Neck: No JVD. Cardiovascular: RRR. No gallops. No murmurs. Lungs: Clear to auscultation, no use of accessory muscles, no crackles or wheezes. Skin: No jaundice. No rashes. Abdomen: Normal bowel sounds, abdomen soft and nontender. Rectal: Rectal exam not performed since no symptoms indicated blood loss. Extremities: No cyanosis or clubbing. Musculoskeletal: Normal range of motion, no swollen or erythematous joints. Neurological: Moves all 4 extremities. No myoclonus. Data 02/08/22 04:26 02/08/22 04:26 Micro: Microbiology 02/06/22 21:45 Urine Culture - Final Urine,Clean Catch 02/07/22 05:40 Blood Culture - Preliminary Blood NEGATIVE TO DATE 02/07/22 05:52 Blood Culture - Preliminary Blood NEGATIVE TO DATE A&P Assessment and plan (1) Urinary tract infection: Febrile Continues to fever, not responding to treatment as intended CT abd/pelvis reviewed Follow up urine culture Blood cultures are prelim negative Tylenol as needed for fever Continue ceftriaxone (2) Weakness: Head CT, head/neck CTA reviewed and negative for acute findings No focal neurological deficits on exam Continue to monitor Serial neuro exams Treat underlying infection Physical therapy consulted (3) GERD (gastroesophageal reflux disease): Continue PPI (4) Hypothyroidism (acquired): Continue Synthroid (5) Peripheral neuropathy: Continue gabapentin Plan DVT ppx: Lovenox Code status: Full Code Attestations Medical Necessity Statement*: Patient requires ongoing hospitalization for continued IV antibiotics until no longer febrile, physical therapy, culture surveillance, and supportive care. 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
[2022-02-09] MEDS: cefTRIAXone 1,000 MG in sodium chloride 0.9% (plus) 50 ML 100 MG IV (01:16)
[2022-02-09 02:00] VITALS: BP 129/77; PULSE 83; RESP 17; TEMP 37.3
[2022-02-09 04:00] VITALS: BP 129/77; PULSE 83; RESP 17; TEMP 37.3; O2SAT 92
[2022-02-09] MEDS: enoxaparin 40 mg/0.4 mL Syringe SUBCUT (04:44)
[2022-02-09] MEDS: levothyroxine 50 mcg Tablet PO (05:34)
[2022-02-09 08:00] VITALS: BP 125/73; PULSE 78; RESP 16; TEMP 36.7; O2SAT 94
[2022-02-09] MEDS: aspirin 325 mg Tablet PO (08:41)
[2022-02-09] MEDS: pantoprazole DR 40 mg Tablet PO (08:41)
[2022-02-09] MEDS: gabapentin 300 mg Capsule PO (08:41)
--- NOTE | 2022-02-09 09:18 | PM.DCS ---
Discharge Providers Date of Admission: 02/07/22 03:10 Date of Discharge: February 09, 2022 Attending Provider at Admission: Essie Olivo MD Attending Provider at Discharge: Mike Arias MD Primary Care Provider: Jun Ling MD Diagnoses at Discharge Discharge Diagnosis (1) Urinary tract infection: Status: Acute (2) Weakness: Status: Acute (3) GERD (gastroesophageal reflux disease): Status: Acute (4) Hypothyroidism (acquired): Status: Acute (5) Peripheral neuropathy: Status: Acute (6) B12 deficiency: Status: Acute Reason for Visit Reason for Visit: WEAKNESS/DIZZY Hospital Course Hospital Course Clovis Adan is an 86-year-old male with a past medical history significant for GERD, hyperlipidemia, hypothyroidism, rheumatic fever, and neuropathy who presented with generalized malaise, fatigue, dizziness, and fever x4-5 days, found to have urinary tract infection. There was initially concern for stroke however imaging was negative for stroke and mentation returned to baseline. Urine culture was not diagnostic. He was treated with ceftriaxone and transitioned to cefdinir at discharge. Patient also found to have vitamin B12 deficiency which was treated with parental then oral cyanocobalamin. Patient discharged to home in stable condition. He is to follow up with his PCP in 1 week for further management. Physical Exam Narrative: General: Patient is awake and alert. Pleasant. Head: Normocephalic. Atraumatic. Neck: No JVD. Cardiovascular: RRR. No gallops. No murmurs. No peripheral edema. Lungs: Clear to auscultation, no use of accessory muscles, no crackles or wheezes. Skin: No jaundice. No rashes. Abdomen: Normal bowel sounds, abdomen soft and nontender. Genito Urinary: Genital exam not performed since complaints not related. Rectal: Rectal exam not performed since no symptoms indicated blood loss. Extremities: No cyanosis or clubbing. Musculoskeletal: 5/5 strength, normal range of motion, no swollen or erythematous joints. Neurological: Moves all 4 extremities. No myoclonus. Discharge Data Studies Completed and Pending Completed Studies During Hospitalization Category Date Time Status CT abdomen renal stone [CT kidney stone [id number]] Routine Cat Scan 02/07/22 03:[address] head thrombolytic [id number] Stat Cat Scan 02/06/22 20:59 Completed CTA head neck [CT angio headneck* [id number]] Stat Cat Scan 02/07/22 15:42 Completed XR chest 1V portable [id number] Stat Exams 02/06/22 20:59 Completed Pending at discharge Category Date Time Status Blood Culture Stat Lab 02/07/22 05:40 Results Radiology Impressions Chest X-Ray 02/06/22 20:59 IMPRESSION: No acute cardiopulmonary abnormality. Head CT 02/06/22 20:59 IMPRESSION: No acute intracranial abnormality. ASSESSMENT: ASPECTS ([place] Stroke Program Early CT Score) is 10. Abdomen/Pelvis CT 02/07/22 03:52 IMPRESSION: 1. Tiny irregular regions of ground-glass opacity seen in the right lower lobe. Associated 0.2-0.4 cm 4 nodules are seen (series 3, images 3-8). This could represent early pneumonia. Recommend correlation with clinical findings. Also recommend follow-up per Fleischner society recommendations with CT in 1 year. 2. Small to medium-sized hiatal hernia. 3. Tiny dependent gallstones. 4. Diffuse colonic diverticulosis, severe in the sigmoid colon region. No CT evidence of diverticulitis. 5. Other chronic changes, as noted above. Head/Neck CTA 02/07/22 15:42 IMPRESSION: No stenosis or occlusion of intracranial arteries. IMPRESSION: No stenosis or occlusion. REFERENCES: NASCET CRITERIA. The degree of stenosis in the cervical segment of the internal carotid artery is based on NASCET criteria. Normal is no stenosis. Mild is less than 50% stenosis. Moderate is 50-69% stenosis. Severe is 70% to 99% stenosis. Total occlusion is no detectable patent lumen. Laboratory Results WBC 9.2 10^3/uL (4.0-10.0) 02/08/22 04:26 RBC 4.39 10^6/uL (4.1-5.3) 02/08/22 04:26 Hgb 13.1 g/dL (11.7-16.6) 02/08/22 04:26 Hct 40.8 % (42.0-52.0) L 02/08/22 04:26 MCV 92.9 fl (80-94) 02/08/22 04:26 MCH 29.8 pg (28.0-34.0) 02/08/22 04:26 MCHC 32.1 g/dL (30.0-36.0) 02/08/22 04:26 RDW 14.6 % (12.1-15.1) 02/08/22 04:26 Plt Count 228 10^3/cmm (130-400) 02/08/22 04:26 MPV 11.3 fL (7.4-10.4) H 02/08/22 04:26 Neut % (Auto) 73.2 % 02/08/22 04:26 Lymph % (Auto) 12.3 % 02/08/22 04:26 [place] % (Auto) 13.5 % 02/08/22 04:26 Eos % (Auto) 0.1 % 02/08/22 04:26 Baso % (Auto) 0.7 % 02/08/22 04:26 Neut # (Auto) 6.73 10^3/uL (1.8-7.7) 02/08/22 04:26 Lymph # (Auto) 1.1 10^3/uL (0.8-4.8) 02/08/22 04:26 [place] # (Auto) 1.2 10^3/uL (0.2-0.9) H 02/08/22 04:26 Eos # (Auto) 0.0 10^3/uL (0.0-0.8) 02/08/22 04:26 Baso # (Auto) 0.1 10^3/uL (0.0-0.1) 02/08/22 04:26 Nucleated RBC % (auto) 0 % 02/08/22 04:26 Nucleated RBCs # 0.0 /100WBC 02/08/22 04:26 PT 13.60 SECONDS (12.1-14.9) 02/06/22 21:33 INR 1.01 (0.8-1.2) 02/06/22 21:33 APTT 28.9 SECONDS (23.9-36.7) 02/06/22 21:33 Sodium 136 mmol/L (136-145) 02/08/22 04:26 Potassium 4.0 mmol/L (3.5-5.1) 02/08/22 04:26 Chloride 101 mmol/L (98-107) 02/08/22 04:26 Carbon Dioxide 22 mmol/L (22-29) 02/08/22 04:26 Anion Gap 17.0 (5-19) 02/08/22 04:26 BUN 12 mg/dL (8-23) 02/08/22 04:26 Creatinine 0.7 mg/dL (0.7-1.2) 02/08/22 04:26 GFR Calculation Not Reportable 02/08/22 04:26 Glucose 91 mg/dL (65-115) 02/08/22 04:26 POC Glucose 103 mg/dL (70-110) 02/06/22 21:32 Calculated Osmolality 281 mOsm/kg (285-295) L 02/08/22 04:26 Lactic Acid 1.7 mmol/L (0.5-2.2) 02/07/22 05:52 Calcium 8.7 mg/dL (8.5-10.5) 02/08/22 04:26 Total Bilirubin 0.4 mg/dL (0.15-1.2) 02/07/22 05:52 AST 21 U/L (0-40) 02/07/22 05:52 ALT 13 U/L (0-41) 02/07/22 05:52 Alkaline Phosphatase 96 U/L (40-130) 02/07/22 05:52 Total Protein 6.8 g/dL (6.6-8.7) 02/07/22 05:52 Albumin 3.5 g/dL (3.5-5.2) 02/07/22 05:52 Globulin 3.3 g/dL (1.3-4.6) 02/07/22 05:52 Vitamin B12 213 pg/mL (232-1245) L 02/07/22 10:38 Folate 13.7 ng/mL (4.5-32.2) 02/07/22 10:38 TSH 3.27 uIU/mL (0.27-4.20) 02/07/22 10:38 Urine Color Yellow (Yellow) 02/06/22 21:45 Urine Appearance Clear (CLEAR) 02/06/22 21:45 Urine pH 6 (5-7) 02/06/22 21:45 Ur Specific [place] 1.015 (1.005-1.030) 02/06/22 21:45 Urine Protein Neg (Negative) 02/06/22 21:45 Urine Glucose (UA) Norm (Normal) 02/06/22 21:45 Urine Ketones Negative (Negative) 02/06/22 21:45 Urine Blood 2+ (Negative) H 02/06/22 21:45 Urine Nitrate Negative (Negative) 02/06/22 21:45 Urine Bilirubin Neg (Negative) 02/06/22 21:45 Urine Urobilinogen Norm mg/dL (Negative) 02/06/22 21:45 Ur Leukocyte Esterase 1+ (Negative) H 02/06/22 21:45 Urine RBC 5-10 /hpf (0-2) H 02/06/22 21:45 Urine WBC 10-15 /hpf (0-5) H 02/06/22 21:45 Ur Squamous Epith Cells None /hpf (0-5) 02/06/22 21:45 Amorphous Sediment Not Reportable 02/06/22 21:45 Urine Bacteria 1+ /hpf (NONE) H 02/06/22 21:45 Urine Opiates Screen Negative ng/mL (Negative) 02/06/22 21:45 Ur Barbiturates Screen Negative ng/mL (Negative) 02/06/22 21:45 Ur Phencyclidine Scrn Negative ng/mL (Negative) 02/06/22 21:45 Ur Amphetamines Screen Negative ng/mL (Negative) 02/06/22 21:45 U Benzodiazepines Scrn Negative ng/mL (Negative) 02/06/22 21:45 Urine Cocaine Screen Negative ng/mL (Negative) 02/06/22 21:45 U Marijuana (THC) Screen Negative ng/mL (Negative) 02/06/22 21:45 Influenza Type A Ag negative (Negative) 02/06/22 22:20 Influenza Type B Ag negative (Negative) 02/06/22 22:20 SARS-CoV-2 Ag (Rapid) negative (Negative) 02/06/22 22:20 Vitals Last Vital Signs Temp 99.2 F 02/09/22 04:00 Pulse 83 02/09/22 04:00 Resp 17 02/09/22 04:00 BP 129/77 02/09/22 04:00 Pulse Ox 92 02/09/22 04:00 O2 Del Method 02/09/22 04:00 O2 Flow Rate 2 02/08/22 23:17 Discharge Plan Discharge Patient Disposition: Home Condition: Stable Prescriptions: New cefdinir 300 mg capsule 300 mg PO BID 7 Days Qty: 14 0RF cyanocobalamin (vitamin B-12) 1,000 mcg capsule 1,000 mcg PO DAILY Qty: 30 0RF Continued gabapentin 300 mg capsule 300 mg PO TID Qty: 270 2RF pravastatin 40 mg tablet 40 mg PO DAILY Qty: 90 1RF levothyroxine 50 mcg tablet See Rx Instructions .ROUTE .COMPLEX Qty: 90 2RF Dose Instruction: Take 1 tablet by mouth once daily Rx Instructions: Take 1 tablet by mouth once daily aspirin 325 mg Tablet 325 mg PO DAILY Qty: 100 5RF Discharge Orders: Discharge Order (Routine); Ordered 02/09/22 Ordered By: Mike Arias Referrals: Jun Ling MD [Primary Care Provider] - 02/17/22 10:00 am Discharge Diet: Advance as tolerated Discharge Activity: Increase activity as tolerated Patient Instructions: Cefdinir (By mouth), Vitamin B-12 (By mouth), Urinary Tract Infection in Men (ED), Weakness (ED), Opioid Safety Activity Restrictions/Additional Instructions: Return for worsening weakness despite treatment, continued fever despite 2-3 doses of antibiotics, language problems, speech problems, any other concerning symptoms. Follow-up with your doctor the beginning of this week. Discharge Attestations Time Spent in Discharge Care*: greater than 30 min Status at Discharge: Cognitive status at discharge: cognitively intact, Behavioral status at discharge: cooperative and dependent in ADL's, Overall status at discharge: patient is back to baseline Quality Metrics Clinical Quality Measures [ No reported AMI, CVA or VTE this stay] Coding Level of Care Code Acute Chg [facility] note Diagnoses Urinary tract infection N39.0 Weakness R53.1 GERD (gastroesophageal reflux disease) K21.9 Hypothyroidism (acquired) E03.9 Peripheral neuropathy G62.9 B12 deficiency E53.8
[2022-02-09] MEDS: cyanocobalamin 1,000 mcg/mL SDV 1000 MCG IM (10:41)
[2022-02-09 10:48] VITALS: BP 125/73; PULSE 78; RESP 16; TEMP 36.7; O2SAT 94
== END 2022-02-09 11:27 | disposition home or self-care (01) | DRG 690 ==
LOC: ER 02-07 03:10 → MEDSURG 02-07 03:24
PROVIDERS: Internal Medicine; Admitting Provider Student in an Organized Health Care Education/Training Program; Emergency Provider Emergency Medicine; PCP Family Medicine; Visit Provider Internal Medicine
DX: N39.0 Urinary tract infection, site not specified (principal); G93.40 Encephalopathy, unspecified; E53.8 Deficiency of other specified B group vitamins; E86.0 Dehydration; R42 Dizziness and giddiness; R53.1 Weakness; R29.810 Facial weakness; N40.0 Benign prostatic hyperplasia without lower urinary tract symptoms; G62.9 Polyneuropathy, unspecified; K21.9 Gastro-esophageal reflux disease without esophagitis; E03.9 Hypothyroidism, unspecified; J02.9 Acute pharyngitis, unspecified; Z20.822 Contact with and (suspected) exposure to COVID-19; Z79.82 Long term (current) use of aspirin; Z95.2 Presence of prosthetic heart valve; Z87.440 Personal history of urinary (tract) infections
CPT/HCPCS: 36415; 36416; 70450; 70496; 70498; 71045; 74176; 80048; 80053; 80306; 81001; 82607; 82746; 82962; 83605; 84443; 85025; 85610; 85730; 87040; 87086; 87426; 87804; 93005; 96365; 96372; 97110; 97116; 97161; 99285; G0378; J0696; J1650; J3420; J7040; Q9967

== ENCOUNTER → 2022-04-13 09:12 | Outpatient (BNVA) | payer MEDICARE, SELFPAY | PROVIDERS: PCP Family Medicine; Visit Provider Specialist | DX: G62.9 Polyneuropathy, unspecified (principal); E53.8 Deficiency of other specified B group vitamins; R26.89 Other abnormalities of gait and mobility | CPT/HCPCS: 36415; 82607; 99214 ==

== ENCOUNTER → 2022-04-21 14:28 | Outpatient (BNVA) | payer MEDICARE, SELFPAY | PROVIDERS: PCP Family Medicine; Visit Provider Internal Medicine Cardiovascular Disease | DX: Z95.3 Presence of xenogenic heart valve (principal); E03.9 Hypothyroidism, unspecified; I48.91 Unspecified atrial fibrillation | CPT/HCPCS: 99214; Q3014 ==

== ENCOUNTER → 2022-12-22 13:19 | Outpatient (BNVA) | payer MEDICARE, SELFPAY | PROVIDERS: PCP Family Medicine; Visit Provider Internal Medicine Cardiovascular Disease | DX: Z95.3 Presence of xenogenic heart valve (principal); E78.00 Pure hypercholesterolemia, unspecified; K21.9 Gastro-esophageal reflux disease without esophagitis; E03.9 Hypothyroidism, unspecified; I48.91 Unspecified atrial fibrillation; I45.10 Unspecified right bundle-branch block; Z79.82 Long term (current) use of aspirin | CPT/HCPCS: 99214 ==

== ENCOUNTER → 2023-03-29 14:34 | Outpatient (BNVA) | payer MEDICARE, SELFPAY | PROVIDERS: PCP Family Medicine; Visit Provider Specialist | DX: G62.89 Other specified polyneuropathies (principal) | CPT/HCPCS: 99213 ==

== ENCOUNTER → 2023-04-12 13:41 | Outpatient (BNVA) | payer MEDICARE, SELFPAY | PROVIDERS: PCP Family Medicine; Visit Provider Family Medicine | DX: E53.8 Deficiency of other specified B group vitamins (principal); I48.91 Unspecified atrial fibrillation; E78.00 Pure hypercholesterolemia, unspecified; E03.9 Hypothyroidism, unspecified; M51.16 Intervertebral disc disorders with radiculopathy, lumbar region | CPT/HCPCS: 80053; 80061; 82607; 84443; 85025 ==

== ENCOUNTER 2023-05-16 09:28 | Outpatient (CLI) | payer MEDICARE, SELFPAY | END 2023-05-16 09:29 | disposition home or self-care (01) | LOC: RAD 09:30 | PROVIDERS: PCP Family Medicine; Visit Provider Family Medicine | DX: S83.241A Other tear of medial meniscus, current injury, right knee, initial encounter (principal); M11.261 Other chondrocalcinosis, right knee; X58.XXXA Exposure to other specified factors, initial encounter | CPT/HCPCS: 73562 ==

== ENCOUNTER 2023-06-01 15:55 | Inpatient (IN) | payer MEDICARE, SELFPAY ==
[2023-06-01 16:00] VITALS: BP 137/69; PULSE 124; TEMP 37; O2SAT 90; BMI 24.4
--- NOTE | 2023-06-01 16:07 | CTR_ITS ---
PROCEDURE INFORMATION: Exam: CT Head Without Contrast Exam date and time: 06/01/2023 6:16 PM Age: 87 years old Clinical indication: Altered mental status/memory loss; Additional info: AMS TECHNIQUE: Imaging protocol: Computed tomography of the head without contrast. Radiation optimization: All CT scans at this facility use at least one of these dose optimization techniques: automated exposure control; mA and/or kV adjustment per patient size (includes targeted exams where dose is matched to clinical indication); or iterative reconstruction. COMPARISON: CT angio headneck* [id number] 02/07/2022 4:05 PM RADIATION DOSE METRICS: Total DLP (mGy-cm): 1169.28 FINDINGS: Brain: There is moderate cerebral atrophy. There are mild deep white matter microangiopathic ischemic changes. No acute hemorrhage is identified. No mass or mass effect is identified. Cerebral ventricles: Moderately dilated ventricles secondary to atrophy. Paranasal sinuses: Visualized sinuses are unremarkable. No fluid levels. Mastoid air cells: Visualized mastoid air cells are well aerated. Bones/joints: Unremarkable. No acute fracture. Soft tissues: Unremarkable. CT/CT head wo con* [id number] IMPRESSION: 1. No acute intracranial pathology. 2. Senescent changes.
--- NOTE | 2023-06-01 16:07 | XRR_ITS ---
PROCEDURE INFORMATION: Exam: XR Chest Exam date and time: 06/01/2023 4:18 PM Age: 87 years old Clinical indication: Other: AMS TECHNIQUE: Imaging protocol: Radiologic exam of the chest. Views: 1 view. COMPARISON: CR XR chest 1V portable [id number] 02/06/2022 10:07 PM FINDINGS: Lungs: Faint patchy infiltrates involve both lung bases but I see no dense consolidation or mass. Pleural spaces: Unremarkable. No pleural effusion. No pneumothorax. Heart/Mediastinum: Unremarkable. No cardiomegaly. Bones/joints: Sternal sutures are noted. XR/XR chest 1V portable [id number] IMPRESSION: Faint bibasilar infiltrates which may indicate early pneumonia
--- NOTE | 2023-06-01 16:09 | ECG_ITS ---
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 Measurements Intervals [place] Rate: 115 P: 36 [place]: 175 QRS: -46 QRSD: 108 T: 80 QT: 317 QTc: 439 Interpretive Statements SINUS TACHYCARDIA LEFT AXIS DEVIATION [QRS AXIS < -30] PATTERN CONSISTENT WITH PULMONARY DISEASE LEFT VENTRICULAR HYPERTROPHY AND ST-T CHANGE [VOLTAGE CRITERIA PLUS ST/T ABNORMALITY] Compared to ECG 02/06/2022 21:22:30 Left-axis deviation now present Sinus rhythm no longer present Left anterior fascicular block no longer present ST (T wave) deviation still present Electronically Signed On 06-02-2023 15:17:59 CDT by Luis M Rosado M.D. [id number]
--- NOTE | 2023-06-01 16:16 | W.ED.AMS ---
HPI - Altered Mental Status General: Chief Complaint: Altered Mental Status Stated Complaint: N/V/D, AMS Time Seen by Provider: 06/01/23 16:07 History of Present Illness: 87-year-old male patient comes in today for complaints of nausea and vomiting and weakness. Patient has a history of some hypothyroidism, BPH, rheumatic fever, GERD, high cholesterol, mild dementia, heart valve replacement. Patient was seen by the daughter last night and was normal. This afternoon when the daughter had seen the patient there was concern for mild confusion and nausea and vomiting. Patient was unable to get up out of bed. Patient was brought in by EMS. Patient has generalized weakness in the extremities. 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 Patient does have some difficulty with speech slurred but family is able to understand him. Patient answers questions promptly. Review of Systems General: Reports: 10 or more systems reviewed and unremarkable except in HPI and below GI: Reports: nausea and vomiting Neuro: Denies: headache(s) PFSH ED PFSH: Medical History Scalp psoriasis Recent urinary tract infection COVID-19 Hypercholesteremia GERD (gastroesophageal reflux disease) Prostatic hypertrophy Hypothyroidism (acquired) Thyroid disease neuropathy Rheumatic fever Surgical History Status post right foot surgery Status post aortic valve replacement with bioprosthetic valve H/O hernia repair x 5 Hx of tonsillectomy Family History Daughter No problems noted. Brother Prostate cancer Social History Smoking and tobacco/nicotine status: never used tobacco/nicotine Alcohol intake: never Substance/Drug Use: never Physical Exam Const: COMMON NORMALS: alert HENMT: COMMON NORMALS: normocephalic HEAD & SCALP: normocephalic Neck/C-Spine: COMMON NORMALS: full ROM Resp: COMMON NORMALS: normal respiratory effort and clear to auscultation bilaterally AUSCULTATION: clear to auscultation bilaterally Cardio: COMMON NORMALS: regular rate RATE: regular rate GI: COMMON NORMALS: Soft to palpation PALPATION: Yes Soft to palpation : COMMON NORMALS: Yes no CVA tenderness BLADDER/KIDNEY EXAM: Yes no CVA tenderness Back/Pelvis: COMMON NORMALS: no CVA tenderness Extremity: NARRATIVE EXTREMITY EXAM: Generalized weakness, unable to hold up any leg. Patient has some weakness in bilateral upper extremities. Neuro: SENSORIUM/ORIENTATION: Yes alert Skin: COMMON NORMALS: turgor normal GENERAL SKIN EXAM: turgor normal Course ED course: 1734, x-ray noted bibasilar infiltrates. I discussed this with Dr. Craig, ER attending, he agreed with plan to go ahead and start Zosyn while we await for other test results. 1844, patient is more alert and talkative in the room. Patient is had about 1 L of IV fluids and given antibiotics. Chest x-ray noted bilateral pneumonia. Lactic was 4.1. Reviewed with patient that we expect to admit patient for further treatment of pneumonia. Patient reports understanding and agreed to plan. Vital Signs: Vital signs: Vital Signs Temperature 98.6 F 06/01/23 16:00 Pulse Rate 101 H 06/01/23 20:13 Respiratory Rate 16 06/01/23 20:13 Blood Pressure 119/69 06/01/23 18:00 Pulse Oximetry 96 06/01/23 20:13 Oxygen Delivery Me thod Room Air 06/01/23 20:13 MDM - Altered Mental Status Medical Decision Making 87-year-old male patient comes in today with generalized weakness and episode of nausea and vomiting. Lungs are clear to auscultation. Patient does have history of open heart surgery for valve replacement. Abdomen soft nontender. Bowel sounds are present. Patient has generalized weakness with inability to stand. Patient does have some speech slurring. Vital signs has some elevation in pulse at 124. Blood pressure is 137/69. Differential diagnosis includes not limited to CVA, ACS, sepsis, urinary tract infection, bowel obstruction. CBC was unremarkable. CMP noted anion gap 20, creatinine 1.0, sodium 143, lactic 4.1 and CRP of 18. Chest x-ray noted bibasilar pneumonia. Patient's oxygen was dipping below 90 and was put on 3 L nasal cannula which brought the oxygen up to 95%. Patient was given Zosyn for the treatment and concern for sepsis. Patient was infused with 1 L of IV fluids and followed by a second liter. Patient became more alert after the first liter of fluid. Patient needs to be admitted for further monitoring and treatment. Dr. Mendosa, hospitalist agreed to admission. Lab Data 06/01/23 17:56 06/01/23 17:56 Radiology Impressions Chest X-Ray 06/01/23 16:07 IMPRESSION: Faint bibasilar infiltrates which may indicate early pneumonia Head CT 06/01/23 16:07 IMPRESSION: 1. No acute intracranial pathology. 2. Senescent changes. Laboratory Results WBC 5.35 10^3/uL (3.29-11.43) 06/01/23 17:56 RBC 4.40 10^6/uL (3.85-5.65) 06/01/23 17:56 Hgb 13.20 g/dL (11.27-16.99) 06/01/23 17:56 Hct 40.3 % (37-53) 06/01/23 17:56 MCV 91.6 fl (82-101) 06/01/23 17:56 MCH 30.0 pg (27-33) 06/01/23 17:56 MCHC 32.8 g/dL (30-55) 06/01/23 17:56 RDW 15.0 % (12.1-15.1) 06/01/23 17:56 Plt Count 208 10^3/cmm (157-399) 06/01/23 17:56 MPV 11.0 fL (7.4-10.4) H 06/01/23 17:56 Neut % (Auto) 89.1 % 06/01/23 17:56 Lymph % (Auto) 4.1 % 06/01/23 17:56 [place] % (Auto) 5.8 % 06/01/23 17:56 Eos % (Auto) 0.0 % 06/01/23 17:56 Baso % (Auto) 0.6 % 06/01/23 17:56 Neut # (Auto) 4.77 10^3/uL (1.8-7.7) 06/01/23 17:56 Lymph # (Auto) 0.2 10^3/uL (0.8-4.8) L 06/01/23 17:56 [place] # (Auto) 0.3 10^3/uL (0.2-0.9) 06/01/23 17:56 Eos # (Auto) 0.0 10^3/uL (0.0-0.8) 06/01/23 17:56 Baso # (Auto) 0.0 10^3/uL (0.0-0.1) 06/01/23 17:56 Nucleated RBC % (auto) 0 % 06/01/23 17:56 Nucleated RBCs # 0.0 /100WBC 06/01/23 17:56 PT 13.60 SECONDS (12.1-14.9) 06/01/23 17:56 INR 1.01 (0.8-1.2) 06/01/23 17:56 APTT 17.1 SECONDS (23.9-36.7) L 06/01/23 17:56 Sodium 143 mmol/L (136-145) 06/01/23 17:56 Potassium 3.7 mmol/L (3.5-5.1) 06/01/23 17:56 Chloride 106 mmol/L (98-107) 06/01/23 17:56 Carbon Dioxide 20 mmol/L (22-29) L 06/01/23 17:56 Anion Gap 20.7 (5-19) H 06/01/23 17:56 BUN 24 mg/dL (8-23) H 06/01/23 17:56 Creatinine 1.0 mg/dL (0.7-1.2) 06/01/23 17:56 GFR Calculation Not Reportable 06/01/23 17:56 Glucose 153 mg/dL (65-115) H 06/01/23 17:56 Calculated Osmolality 303 mOsm/kg (285-295) H 06/01/23 17:56 Lactic Acid 4.1 mmol/L (0.5-2.2) H* 06/01/23 17:56 Calcium 8.6 mg/dL (8.5-10.5) 06/01/23 17:56 Total Bilirubin 0.6 mg/dL (0.15-1.2) 06/01/23 17:56 AST 41 U/L (0-40) H 06/01/23 17:56 ALT 29 U/L (0-41) 06/01/23 17:56 Alkaline Phosphatase 94 U/L (40-130) 06/01/23 17:56 Troponin T Baseline 27 ng/L (0-15) H 06/01/23 17:56 C-Reactive Protein 18.1 mg/L (0.0-4.9) H 06/01/23 17:56 Total Protein 6.8 g/dL (6.6-8.7) 06/01/23 17:56 Albumin 4.4 g/dL (3.5-5.2) 06/01/23 17:56 Globulin 2.4 g/dL (1.3-4.6) 06/01/23 17:56 Lipase 32 U/L (13-60) 06/01/23 17:56 TSH 3.07 uIU/mL (0.27-4.20) 06/01/23 17:56 Urine Color Yellow (Yellow) 06/01/23 18:55 Urine Appearance Sl hazy (CLEAR) A 06/01/23 18:55 Urine pH 5 (5-7) 06/01/23 18:55 Ur Specific [place] 1.025 (1.005-1.030) 06/01/23 18:55 Urine Protein 1+ (Negative) H 06/01/23 18:55 Urine Glucose (UA) Norm (Normal) 06/01/23 18:55 Urine Ketones 1+ (Negative) H 06/01/23 18:55 Urine Blood 2+ (Negative) H 06/01/23 18:55 Urine Nitrate Negative (Negative) 06/01/23 18:55 Urine Bilirubin 1+ (Negative) H 06/01/23 18:55 Urine Urobilinogen Norm mg/dL (Negative) 06/01/23 18:55 Ur Leukocyte Esterase Trace (Negative) H 06/01/23 18:55 Urine RBC 0-4 /hpf (0-2) H 06/01/23 18:55 Urine WBC 0-4 /hpf (0-5) H 06/01/23 18:55 Ur Squamous Epith Cells 0-4 /hpf (0-5) H 06/01/23 18:55 Amorphous Sediment Trace /hpf 06/01/23 18:55 Urine Bacteria 1+ /hpf (NONE) H 06/01/23 18:55 Hyaline Casts 0-4 /lpf H 06/01/23 18:55 Urine Mucus 3+ /hpf 06/01/23 18:55 Ethyl Alcohol < 10 mg/dL (0-10) 06/01/23 17:56 Influenza Type A Ag negative (Negative) 06/01/23 17:47 Influenza Type B Ag negative (Negative) 06/01/23 17:47 SARS-CoV-2 Ag (Rapid) negative (Negative) 06/01/23 17:47 All radiology interpretation(s) finalized by discharge EKG Data EKG 1: I personally reviewed and interpreted this EKG as follows: EKG interpretation date: 06/01/23 EKG interpretation time: 17:28 Prior EKG tracings: not available for review Interpretation: EKG shows a sinus tachycardia with a regular rhythm at [address] elevation. No ectopy. No prior exam was available for comparison. Computer generated interpretation: Sinus tachycardia, left axis deviation, pattern consistent with pulmonary disease, left ventricular hypertrophy and ST-T change, abnormal EKG, unconfirmed report. Discharge Plan Discharge Patient Disposition: Admitted As Inpatient Clinical Impression: Sepsis Qualifiers: Sepsis type: sepsis due to unspecified organism Sepsis acute organ dysfunction status: with acute organ dysfunction Severe sepsis acute organ dysfunction type: encephalopathy Severe sepsis shock status: without septic shock Qualified Code(s): A41.9 - Sepsis, unspecified organism Pneumonia Qualifiers: Pneumonia type: due to unspecified organism Laterality: bilateral Lung location: lower lobe of lung Qualified Code(s): J18.9 - Pneumonia, unspecified organism Condition: Stable Coding Level of Care Code ED Disk Grinder for Cassius Cadet
[2023-06-01 18:00] VITALS: BP 119/69; PULSE 111; RESP 16; O2SAT 94
--- NOTE | 2023-06-01 18:09 | ECG_ITS ---
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 Measurements Intervals [place] Rate: 111 P: 23 [place]: 171 QRS: -47 QRSD: 106 T: 75 QT: 320 QTc: 436 Interpretive Statements SINUS TACHYCARDIA LEFT AXIS DEVIATION [QRS AXIS < -30] PATTERN CONSISTENT WITH PULMONARY DISEASE LEFT VENTRICULAR HYPERTROPHY AND ST-T CHANGE [VOLTAGE CRITERIA PLUS ST/T ABNORMALITY] Compared to ECG 06/01/2023 16:26:27 No significant changes Electronically Signed On 06-02-2023 8:34:45 CDT by Shahzad Jacobsen M.D. [id number]
--- NOTE | 2023-06-01 18:14 | PC.NURSE ---
meds delayed due to no IV access and pt being in CT once IV access was established.
[2023-06-01 18:16] LABS: Basophils % 0.6 %; Hematocrit 40.3 % (37-53); Lymphocytes # 0.2 10^3/uL (0.8-4.8); Lymphocytes % 4.1 %; Mean Corpuscular HGB Conc 32.8 g/dL (30-55); Mean Corpuscular Volume 91.6 fl (82-101); Monocytes # 0.3 10^3/uL (0.2-0.9); Monocytes % 5.8 %; Neutrophils # 4.77 10^3/uL (1.8-7.7); Neutrophils % 89.1 %; Nucleated Red Blood Cells % 0 %; Platelet Count 208 10^3/cmm (157-399); White Blood Count 5.35 10^3/uL (3.29-11.43)
[2023-06-01 18:24] LABS: Influenza A by IFA negative (Negative); Influenza B by IFA negative (Negative); SARS Covid-2 Antigen negative (Negative)
[2023-06-01 18:27] LABS: INR 1.01 (0.8-1.2)
[2023-06-01 18:32] LABS: Partial Thromboplastin Time 17.1 SECONDS (23.9-36.7)
[2023-06-01] MEDS: ondansetron 2 mg/ML SDV 2 mL 4 MG IVP (18:32)
[2023-06-01] MEDS: sodium chloride 0.9% 1,000 ML 999 ML IV ×2 (18:33→21:27)
[2023-06-01] MEDS: piperacillin-tazobactam 4.5 GM in sodium chloride 0.9% (plus) 50 ML IV (18:33)
[2023-06-01 18:37] LABS: Lactic Sepsis W/Reflex 4.1 mmol/L (0.5-2.2)
[2023-06-01 18:38] LABS: Troponin(5th) Baseline 27 ng/L (0-15)
[2023-06-01 18:42] LABS: Alanine Aminotransferase 29 U/L (0-41); Albumin Level 4.4 g/dL (3.5-5.2); Alkaline Phosphatase 94 U/L (40-130); Anion Gap 20.7 (5-19); Aspartate Amino Transferase 41 U/L (0-40); Blood Urea Nitrogen 24 mg/dL (8-23); C Reactive Protein 18.1 mg/L (0.0-4.9); Calcium 8.6 mg/dL (8.5-10.5); Carbon Dioxide 20 mmol/L (22-29); Chloride 106 mmol/L (98-107); Creatinine Clr Calc Pharmacy 59.4141; Globulin 2.4 g/dL (1.3-4.6); Glucose 153 mg/dL (65-115); Lipase 32 U/L (13-60); Osmolality Calculated 303 mOsm/kg (285-295); Potassium 3.7 mmol/L (3.5-5.1); Sodium 143 mmol/L (136-145); Thyroid Stimulating Hormone 3.07 uIU/mL (0.27-4.20); Total Bilirubin 0.6 mg/dL (0.15-1.2); Total Protein 6.8 g/dL (6.6-8.7)
[2023-06-01 18:45] LABS: Alcohol Level < 10 mg/dL (0-10)
[2023-06-01 19:01] LABS: Slide Review Slide Review Perform
[2023-06-01 19:11] LABS: Blood Urine 2+ (Negative); Glucose Urine UA Norm (Normal); Ketones Urine 1+ (Negative); Nitrate Urine Negative (Negative); Protein Urine 1+ (Negative); Specific Gravity, Urine 1.025 (1.005-1.030); Urine Appearance SL Hazy (CLEAR); Urine Color Yellow (Yellow); pH Urine 5 (5-7)
[2023-06-01 19:12] LABS: Add Urine Microscopic? YES; Bilirubin Urine 1+ (Negative); Leukocyte Esterase Urine Trace (Negative); Urobilinogen Urine Norm (Negative)
[2023-06-01 19:14] LABS: Add Urine Culture? No; Amorphous Sediment Urine TRACE /hpf; Bacteria Urine 1+ /hpf; Hyaline Casts Urine 0-4 /lpf; Mucus Urine 3+ /hpf; RBC Urine 0-4 /hpf (0-2); Squamous Epithelial Cell Urine 0-4 /hpf (0-5); WBC Urine 0-4 /hpf (0-5)
[2023-06-01 19:49] LABS: Reflex Lactate Order REFLEX LACTIC ORDERD
[2023-06-01 19:50] VITALS: RESP 16; O2SAT 96
[2023-06-01 20:13] VITALS: PULSE 101; RESP 16; O2SAT 96
--- NOTE | 2023-06-01 20:18 | P.HP_ITS ---
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 Patient is stating that his symptoms started today when he woke up, he was not able to get up because of extreme weakness, he did not notice any fever but has been noticing lethargy fatigue without any chest pain. Patient stating that he also experienced 3-4 episode of emesis with diarrhea. Patient is stating that he does not cook at home, lives alone and normally eats at fast food, last night he ate [employer]'s sausage biscuit. In the ER patient was given septic bolus r his lactic acid was high with source of infection community-acquired pneumonia he is afebrile no leukocytosis, no tachypnea other than tachycardia His D-dimer is extremely high I have requested stat CTA chest prolonged venous drop Blood pressure was soft on admission patient's mentation improved with IV fluid hydration Review of Systems 2 Const: Reports: chills, body aches, fatigue and malaise; Denies: fever(s) Eyes: Denies: change in vision ENMT: Denies: throat pain Card: Denies: chest pain Resp: Reports: dyspnea GI: Reports: abdominal pain, nausea and vomiting : Denies: flank pain Musc: Denies: neck pain Skin/Breast: Denies: rash Neuro: Denies: headache(s) Psych: Denies: anxiety Medications/Allergies Home Medications Medication Instructions Recorded Confirmed Last Taken Type aspirin 325 mg tablet 325 mg PO DAILY #100 tabs 07/30/19 05/16/23 05/04/21 Rx cyanocobalamin (vitamin B-12) 5,000 mcg PO DAILY 12/22/22 05/16/23 Unknown History 1,000 mcg capsule gabapentin 400 mg capsule 400 mg PO TID #300 caps 03/30/23 05/16/23 Unknown Rx levothyroxine 75 mcg tablet 75 mcg PO DAILY #90 tabs 04/12/23 05/16/23 Unknown Rx ketoconazole 2 % topical cream 1 applic topical BID #30 grams 04/21/23 05/16/23 Unknown Rx pravastatin 40 mg tablet 40 mg PO DAILY #90 tabs 04/28/23 05/16/23 Unknown Rx Allergies Allergy/AdvReac Type Severity Reaction Status Date / Time duloxetine [From Cymbalta] Allergy Unknown Verified 06/01/23 21:49 PFSH Acute 2 PFSH: Medical History Fungal dermatitis B12 deficiency Urinary tract infection COVID-19 Peripheral neuropathy [place] of toe Cellulitis of great toe of right foot Right bundle branch block Atrial fibrillation Pt had post operative fibrillation Aortic valve stenosis and insufficiency, rheumatic Scalp psoriasis Recent urinary tract infection COVID-19 Hypercholesteremia GERD (gastroesophageal reflux disease) Prostatic hypertrophy Hypothyroidism (acquired) Thyroid disease neuropathy Rheumatic fever Surgical History Status post right foot surgery Status post aortic valve replacement with bioprosthetic valve H/O hernia repair x 5 Hx of tonsillectomy Family History Daughter No problems noted. Brother Prostate cancer Social History Smoking and tobacco/nicotine status: never used tobacco/nicotine Alcohol intake: never Substance/Drug Use: never Vitals/I&O/Wt Last Vital Signs Temp 98.6 F 06/01/23 16:00 Pulse 101 H 06/01/23 20:13 Resp 16 06/01/23 20:13 BP 119/69 06/01/23 18:00 Pulse Ox 96 06/01/23 20:13 O2 Del Method Room Air 06/01/23 20:13 Weight last 48 hrs Weight 81.647 kg Physical Exam 2 Narrative: Patient is awake and alert Able to make this in for himself Currently on 2 L Pleasant cooperative Tachycardia Dehydrated Abdomen soft Lower extremity no edema Nonfocal neuroexam Fatigue lethargic Asking for a sip of water Did not notice any aspiration when he drank water Data 06/01/23 17:56 06/01/23 17:56 Micro: Microbiology 06/01/23 17:56 Blood Culture - Preliminary Blood SPECIMEN COLLECTED 06/01/23 17:30 Blood Culture - Preliminary Blood SPECIMEN COLLECTED A&P Assessment and plan (1) Pneumonia: Qualifiers: Laterality: bilateral Lung location: lower lobe of lung Pneumonia type: due to unspecified organism Qualified Code(s): J18.9 - Pneumonia, unspecified organism (2) Sepsis: Qualifiers: Sepsis acute organ dysfunction status: with acute organ dysfunction S epsis type: sepsis due to unspecified organism Severe sepsis acute organ dysfunction type: encephalopathy Severe sepsis shock status: without septic shock Qualified Code(s): A41.9 - Sepsis, unspecified organism; R65.20 - Severe sepsis without septic shock; G93.41 - Metabolic encephalopathy (3) Neurologic gait disorder: (4) Weakness: (5) Hypoxic: Plan Acute hypoxia Hypoxic requiring 2 L Tachycardia Rule out DVT and PE Request venous Doppler thromboembolic phenomenon Requested CTA chest D-dimer extremely high Left lower lobe infiltrate Start ceftriaxone azithromycin Sepsis related to pneumonia Criteria met with lactic acid, encephalopathy, metabolic encephalopathy, related to sepsis, tachypnea Received septic bolus, continue to biotics Repeat lactic acid Sepsis related metabolic encephalopathy: Resolved with IV fluid hydration No sign of stroke Patient has B12 related neuropathy and gait ataxia Goals of care discussed He is DNR/DNI Lives alone, family checks on him on daily basis Patient eats at fast food restaurants mostly, does not cook for himself Continue B12 and check TSH along A1c level Recurrent nausea vomiting will request KUB, abdominal exam is benign No fever Attestations 2 Medical Necessity Statement*: More than 2 midnights anticipated Diagnoses Pneumonia J18.9 Laterality: bilateral Lung location: lower lobe of lung Pneumonia type: due to unspecified organism Sepsis A41.9; R65.20; G93.41 Sepsis acute organ dysfunction status: with acute organ dysfunction Sepsis type: sepsis due to unspecified organism Severe sepsis acute organ dysfunction type: encephalopathy Severe sepsis shock status: without septic shock Neurologic gait disorder R26.9 Weakness R53.1 Hypoxic R09.02
[2023-06-01 20:54] LABS: Troponin 5 2HR 32.41 ng/L (0-15); Troponin 5 2HR Delta 5.41 ABS# (0-10)
[2023-06-01 21:13] LABS: NT Pro B Type Natriuretic Pept 1040 pg/mL (0-450); Procalcitonin 4.56 ng/mL (0-0.5)
[2023-06-01 21:19] LABS: Lactic Acid level (Lactate) 3.1 mmol/L (0.5-2.2)
[2023-06-01 21:36] VITALS: BP 119/69; PULSE 101; RESP 16; TEMP 37; O2SAT 96
--- NOTE | 2023-06-01 21:52 | CTR_ITS ---
PROCEDURE INFORMATION: Exam: CTA Chest With Contrast Exam date and time: 06/01/2023 11:41 PM Age: 87 years old Clinical indication: Other: AMS TECHNIQUE: Imaging protocol: Computed tomographic angiography of the chest with contrast. Exam focused on the arteries. 3D rendering (Not supervised by radiologist): MIP and/or 3D reconstructed images were created by the technologist. Radiation optimization: All CT scans at this facility use at least one of these dose optimization techniques: automated exposure control; mA and/or kV adjustment per patient size (includes targeted exams where dose is matched to clinical indication); or iterative reconstruction. Contrast material: OMNI 350; Contrast volume: 100 ml; Contrast route: INTRAVENOUS (IV); COMPARISON: CR XR chest 1V portable [id number] 06/01/2023 4:18 PM RADIATION DOSE METRICS: Total DLP (mGy-cm): 521.72 FINDINGS: Pulmonary arteries: The pulmonary arteries are adequately visualized to the segmental level. No filling defects are identified to suggest pulmonary artery embolism. Main pulmonary artery is normal in size. Aorta: Suggested proximal aortic repair. 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 Atherosclerotic calcifications of the aorta. Lungs: Breathing artifact limits evaluation of the pulmonary parenchyma. Moderate bilateral posterior lobe atelectatic changes with possible areas of consolidation. Extensive granulomatous disease in the right lung. Questionable areas of ground-glass and interstitial opacification in the right middle lobe and lingula. Pleural spaces: No pleural effusion or pneumothorax. Heart: Artificial aortic valve. Mild cardiomegaly. No pericardial effusion or pericardial thickening. Coronary arteries: Mild coronary artery calcification. Lymph nodes: There are no enlarged mediastinal, axillary, or hilar lymph nodes identified. Calcified mediastinal and right hilar lymph nodes. Diaphragm: Moderate hiatal hernia. Bones/joints: Unremarkable. No acute fracture. Soft tissues: Questionable apparent edema in the medial right upper extremity extending into the axillary region. CT/CT angio chest PE protcl [id number] IMPRESSION: 1. No evidence of pulmonary artery embolism. 2. Bilateral posterior lower lobe opacities likely reflecting combination of atelectasis and small areas of consolidation. Correlate with atypical infection. 3. Questionable apparent edema in the medial right upper extremity extending into the axillary region. Nonspecific findings should be correlated with history and physical exam. 4. Suggested proximal aortic repair. 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 Correlate with history. Consider cardiothoracic consultation if this is an unexpected finding. 5. Old granulomatous disease. 6. Other nonemergent findings above.
--- NOTE | 2023-06-01 21:55 | XRR_ITS ---
PROCEDURE INFORMATION: Exam: XR Abdomen Exam date and time: 06/01/2023 10:40 PM Age: 87 years old Clinical indication: Abdominal tenderness and nausea and vomiting; Additional info: Abd pain nausea vomit TECHNIQUE: Imaging protocol: Radiologic exam of the abdomen. Views: Frontal supine view of the abdomen. 1 View. COMPARISON: CT kidney stone [id number] 02/07/2022 4:13 AM FINDINGS: Gastrointestinal tract: Nonspecific bowel-gas pattern without evidence of large or small bowel obstruction. Bones/joints: Unremarkable. XR/XR KUB portable [id number] IMPRESSION: No plain film evidence of acute intra-abdominal or pelvic process.
[2023-06-01 22:38] LABS: Estmated Average Glucose 120; Hemoglobin A1C 5.8 % (4.0-6.0)
--- NOTE | 2023-06-01 23:13 | PC.NURSE ---
Patient's underwear soiled in urine and feces. Patient cleaned and placed in gown.
[2023-06-01] MEDS: iohexol 350 mg/mL 500 mL Btl (per mL) IV (23:46)
[2023-06-01 23:53] LABS: Thyroid Stimulating Hormone 3.11 uIU/mL (0.27-4.20)
--- NOTE | 2023-06-01 23:55 | ECG_ITS ---
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 Measurements Intervals [place] Rate: 87 P: 74 [place]: 182 QRS: -40 QRSD: 94 T: -19 QT: 354 QTc: 428 Interpretive Statements SINUS RHYTHM LEFT AXIS DEVIATION [QRS AXIS < -30] PATTERN CONSISTENT WITH PULMONARY DISEASE MINIMAL VOLTAGE CRITERIA FOR LVH, CONSIDER NORMAL VARIANT [MEETS CRITERIA IN ONE OF: R(aVL), S(V1), R(V5), R(V5/V6)+S(V1)] MINIMAL ST DEPRESSION [0.025+ mV ST DEPRESSION] Compared to ECG 06/01/2023 17:08:10 Sinus tachycardia no longer present ST (T wave) deviation still present Electronically Signed On 06-02-2023 8:38:46 CDT by Shahzad Jacobsen M.D. [id number]
[2023-06-02] VITALS (10 sets, daily range): BP systolic 104–124; BP diastolic 57–73; PULSE 68–89; RESP 16–18; TEMP 36.6–37.1; O2SAT 90–98
[2023-06-02] MEDS: doxycycline 100 mg Tablet PO ×2 (00:05→08:00)
[2023-06-02 00:29] LABS: Vitamin B12 > 2000 pg/mL (232-1245)
--- NOTE | 2023-06-02 00:58 | PC.NURSE ---
Unable to get 6 hour troponin after multiple attempts. Will attempt to get troponin with AM labs.
[2023-06-02 05:16] LABS: Basophils % 0.4 %; Hematocrit 37.2 % (37-53); Lymphocytes # 0.8 10^3/uL (0.8-4.8); Lymphocytes % 7.7 %; Mean Corpuscular HGB Conc 32.8 g/dL (30-55); Mean Corpuscular Hemoglobin 30.6 pg (27-33); Mean Corpuscular Volume 93.2 fl (82-101); Monocytes # 0.7 10^3/uL (0.2-0.9); Monocytes % 6.5 %; Neutrophils # 8.94 10^3/uL (1.8-7.7); Nucleated Red Blood Cells % 0 %; Platelet Count 178 10^3/cmm (157-399); Red Blood Count 3.99 10^6/uL (3.85-5.65); Red Cell Distribution Width 15.5 % (12.1-15.1); White Blood Count 10.51 10^3/uL (3.29-11.43)
[2023-06-02 05:40] LABS: Troponin 5 6HR 40.08 ng/L (0-15)
[2023-06-02 05:44] LABS: Troponin 5 6HR Delta 13.08 ng/L (0-12)
[2023-06-02 05:46] LABS: Lactic Sepsis W/Reflex 2.2 mmol/L (0.5-2.2)
--- NOTE | 2023-06-02 05:46 | PC.NURSE ---
Patient has a 6 hour troponin of 40, with a delta of 13. Notified that it was drawn much later than when it was ordered due not being able to get blood on patient.
[2023-06-02 05:47] LABS: Anion Gap 16.6 (5-19); Blood Urea Nitrogen 20 mg/dL (8-23); C Reactive Protein 105.1 mg/L (0.0-4.9); Calcium 7.4 mg/dL (8.5-10.5); Carbon Dioxide 21 mmol/L (22-29); Chloride 110 mmol/L (98-107); Glucose 112 mg/dL (65-115); Magnesium 1.9 mg/dL (1.7-2.3); Osmolality Calculated 301 mOsm/kg (285-295); Phosphorus 2.8 mg/dL (2.5-4.5); Potassium 3.6 mmol/L (3.5-5.1); Sodium 144 mmol/L (136-145)
[2023-06-02 05:50] LABS: Slide Review Slide Review Perform
[2023-06-02 07:01] LABS: Reflex Lactate Order REFLEX LACTIC ORDERD
[2023-06-02] MEDS: cyanocobalamin 1,000 mcg Tablet 1000 MCG PO (07:59)
[2023-06-02] MEDS: cefTRIAXone 1,000 MG in sodium chloride 0.9% (plus) 50 ML 100 MG IV (07:59)
[2023-06-02] MEDS: aspirin 81 mg EC Tablet PO (07:59)
[2023-06-02] MEDS: sennosides-docusate Tablet 1 TAB PO (08:00)
[2023-06-02] MEDS: levothyroxine 75 mcg Tablet PO (08:00)
[2023-06-02 08:30] LABS: Lactic Acid level (Lactate) 1.8 mmol/L (0.5-2.2)
[2023-06-02 09:32] LABS: Erythrocyte Sedimentation Rate 8 mm/hr (0-10)
--- NOTE | 2023-06-02 09:56 | ECG_ITS ---
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 Measurements Intervals [place] Rate: 74 P: -10 ID: 174 QRS: -36 QRSD: 104 T: -20 QT: 389 QTc: 434 Interpretive Statements SINUS RHYTHM LEFT AXIS DEVIATION [QRS AXIS < -30] PATTERN CONSISTENT WITH PULMONARY DISEASE MODERATE VOLTAGE CRITERIA FOR LVH, CONSIDER NORMAL VARIANT [MEETS CRITERIA IN ONE OF: R(aVL), S(V1), R(V5), R(V5/V6)+S(V1)] Compared to ECG 06/01/2023 23:55:34 ST (T wave) deviation no longer present Electronically Signed On 06-02-2023 15:19:53 CDT by Luis M Rosado M.D. [id number]
[2023-06-02] MEDS: azithromycin 500 MG in sodium chloride 0.9% 250 ML 250 MG IV (10:33)
[2023-06-02 10:50] LABS: Troponin(5th) Baseline 35 ng/L (0-15)
--- NOTE | 2023-06-02 11:27 | ECG_ITS ---
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 Measurements Intervals [place] Rate: 77 P: 52 [place]: 174 QRS: -37 QRSD: 108 T: -13 QT: 392 QTc: 445 Interpretive Statements SINUS RHYTHM LEFT AXIS DEVIATION [QRS AXIS < -30] PATTERN CONSISTENT WITH PULMONARY DISEASE MODERATE VOLTAGE CRITERIA FOR LVH, CONSIDER NORMAL VARIANT [MEETS CRITERIA IN ONE OF: R(aVL), S(V1), R(V5), R(V5/V6)+S(V1)] Compared to ECG 06/02/2023 09:56:53 No significant changes Electronically Signed On 06-02-2023 15:22:09 CDT by Luis M Rosado M.D. [email or web address] [id number]
[2023-06-02 12:19] LABS: Bacillus cereus group Not Detected (NOT DETECT); Bacillus subtillis group Not Detected (NOT DETECT); Corynebacterium Not Detected (NOT DETECT); Cutibacterium acnes (P.acnes) Not Detected (NOT DETECT); Enterococcus Not Detected (NOT DETECT); Enterococcus faecalis Not Detected (NOT DETECT); Enterococcus faecium Not Detected (NOT DETECT); Lactobacillus species Not Detected (NOT DETECT); Listeria Not Detected (NOT DETECT); Listeria monocytogenes Not Detected (NOT DETECT); Micrococcus Not Detected (NOT DETECT); Pan Candida Not Detected (NOT DETECT); Pan Gram-Negative Not Detected (NOT DETECT); Staphylococcus epidermidis Not Detected (NOT DETECT); Staphylococcus lugdunensis Not Detected (NOT DETECT); Staphylococcus species Detected (NOT DETECT); Streptococcus agalactiae Not Detected (NOT DETECT); Streptococcus anginosus group Not Detected (NOT DETECT); Streptococcus pneumoniae Not Detected (NOT DETECT); Streptococcus pyogenes Not Detected (NOT DETECT); Streptococcus species Not Detected (NOT DETECT); mecA Not Detected (NOT DETECT); mecC Not Detected (NOT DETECT)
[2023-06-02 12:39] LABS: Adenovirus Not Detected (NOT DETECT); Chlamydia Pneumoniae Not Detected (NOT DETECT); Coronavirus 229E,HKU1,NL63,OC4 Not Detected (NOT DETECT); Human Metapneumovirus Not Detected (NOT DETECT); Human Rhinovirus/Enterovirus Not Detected (NOT DETECT); Influenza A Not Detected (NOT DETECT); Influenza A H1 Not Detected (NOT DETECT); Influenza A H1-2009 Not Detected (NOT DETECT); Influenza A H3 Not Detected (NOT DETECT); Influenza B Not Detected (NOT DETECT); Mycoplasma Pneumoniae Not Detected (NOT DETECT); Parainfluenza Virus Type 1 Not Detected (NOT DETECT); Parainfluenza Virus Type 2 Not Detected (NOT DETECT); Parainfluenza Virus Type 3 Not Detected (NOT DETECT); Parainfluenza Virus Type 4 Not Detected (NOT DETECT); Respiratory Syncytial Virus A Not Detected (NOT DETECT); Respiratory Syncytial Virus B Not Detected (NOT DETECT); SARS-COV-2 Not Detected (NOT DETECT)
[2023-06-02 12:49] LABS: Troponin 5 2HR 33.16 ng/L (0-15)
[2023-06-02 12:50] LABS: Troponin 5 2HR Delta -1.84 ABS# (0-10)
--- NOTE | 2023-06-02 13:04 | P.PN_ITS ---
Subjective 2 Subjective: Patient was seen this morning, son is at bedside, he reports generalized weakness, fatigue, malaise, for the last few days, does have a cough, shortness of breath he lives at home by himself however his family members are nearby, denies any flank pain, no dysuria, Vitals/I&O/Wt Last Vital Signs Temp 98.0 F 06/02/23 08:00 Pulse 77 06/02/23 09:05 Resp 16 06/02/23 09:05 BP 111/63 06/02/23 08:00 Pulse Ox 98 06/02/23 09:05 O2 Del Method Nasal Cannula 06/02/23 09:05 O2 Flow Rate 2 06/02/23 09:05 06/01/23 06/02/23 06/02/23 22:59 06:59 14:59 Intake Total 2049 540 / 540 Output Total 325 / 325 Balance 2049 -325 / 1725 540 / 540 Weight last 48 hrs Weight 89.471 kg Weight 89.176 kg Weight 81.647 kg Physical Exam 2 Const: COMMON NORMALS: no acute distress and patient oriented x3 Resp: COMMON NORMALS: normal respiratory effort, No retractions and No use of accessory muscles AUSCULTATION: crackles and wheezes Cardio: COMMON NORMALS: regular rate, regular rhythm, S1 normal heart sound present and S2 normal heart sound present RATE: regular rate RHYTHM: r egular rhythm HEART SOUNDS: S1 normal heart sound present and S2 normal heart sound present GI: COMMON NORMALS: Normal to inspection, nondistended, normoactive bowel sounds present and non-tender Extremity: COMMON NORMALS: no pedal edema Neuro: COMMON NORMALS: patient oriented x3, CN's II-XII intact bilaterally and moves all extremities Psych: COMMON NORMALS: mental status grossly normal Data 06/02/23 05:05 06/02/23 05:05 Micro: Microbiology 06/01/23 17:30 Blood Culture - Preliminary Blood Staphylococcus species 06/01/23 17:56 Blood Culture - Preliminary Blood SPECIMEN COLLECTED A&P Assessment and plan (1) Pneumonia: Qualifiers: Laterality: bilateral Lung location: lower lobe of lung Pneumonia type: due to unspecified organism Qualified Code(s): J18.9 - Pneumonia, unspecified organism (2) Sepsis: Qualifiers: Sepsis acute organ dysfunction status: with acute organ dysfunction S epsis type: sepsis due to unspecified organism Severe sepsis acute organ dysfunction type: encephalopathy Severe sepsis shock status: without septic shock Qualified Code(s): A41.9 - Sepsis, unspecified organism; R65.20 - Severe sepsis without septic shock; G93.41 - Metabolic encephalopathy (3) Neurologic gait disorder: (4) Weakness: (5) Hypoxic: (6) Gram-positive bacteremia: (7) Status post aortic valve replacement with bioprosthetic valve: (8) NSTEMI (non-ST elevated myocardial infarction): Plan Staphylococcal species bacteremia -Contamination versus real infection, ? Cardiac echo ? Broaden antibiotic coverage to vancomycin Acute hypoxia, secondary to pneumonia Hypoxic requiring 2 L Tachycardia Venous ultrasound negative for DVT, CT angiogram negative for PE Left lower lobe infiltrate, with acute hypoxia On vancomycin, Zosyn as above Sepsis related to pneumonia Criteria met with lactic acid, encephalopathy, metabolic encephalopathy, related to sepsis, tachypnea Received septic bolus, continue to biotics Repeat lactic acid Sepsis related metabolic encephalopathy: Resolved with IV fluid hydration No focal neurologic deficits, no slurring of her words Patient has B12 related neuropathy and gait ataxia NSTEMI -? No chest pain complaints ? Serial EKGs, serial troponins, telemetry monitoring, ? 6-hour troponin 40, 6-hour delta 13.08, denies any chest pain CONCLUSIONS Normal left ventricular size, systolic function and wall thickness, with no regional wall motion abnormalities. Left ventricular ejection fraction is estimated at 60%. Grade I/IV diastolic dysfunction (abnormal relaxation filling pattern), normal to mildly elevated filling pressures. Structurally normal mitral valve. Trace mitral valve regurgitation. Normal bioprosthetic aortic valve. No prosthetic regurgitation. Aortic valve mean gradient is 6.8 mmHg. Ascending aorta measures 4.44 cm. No change from the previous study July 2021 -Continue aspirin, statin Goals of care discussed He is DNR/DNI Lives alone, family checks on him on daily basis Plan for today, expand antibiotic coverage to vancomycin, Zosyn follow blood cultures were repeat blood cultures tomorrow, continue to monitor clinical status closely Attestations 2 Medical Necessity Statement*: Patient requires hospitalization for acute hypoxia, pneumonia, with staphylococcal species bacteremia, with sepsis, NSTEMI Diagnoses Pneumonia J18.9 Laterality: bilateral Lung location: lower lobe of lung Pneumonia type: due to unspecified organism Sepsis A41.9; R65.20; G93.41 Sepsis acute organ dysfunction status: with acute organ dysfunction Sepsis type: sepsis due to unspecified organism Severe sepsis acute organ dysfunction type: encephalopathy Severe sepsis shock status: without septic shock Neurologic gait disorder R26.9 Weakness R53.1 Hypoxic R09.02 Gram-positive bacteremia R78.81 Status post aortic valve replacement with bioprosthetic valve Z95.3 NSTEMI (non-ST elevated myocardial infarction) I21.4
[2023-06-02] MEDS: gabapentin 300 mg Capsule PO ×2 (14:54→21:53)
[2023-06-02] MEDS: vancomycin 1,500 MG/300 ML PIGGYBACK 200 MG IV (14:54)
--- NOTE | 2023-06-02 16:18 | ECG_ITS ---
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 Measurements Intervals [place] Rate: 83 P: 76 SC: 181 QRS: -36 QRSD: 94 T: -1 QT: 366 QTc: 431 Interpretive Statements SINUS RHYTHM LEFT AXIS DEVIATION [QRS AXIS < -30] PATTERN CONSISTENT WITH PULMONARY DISEASE MODERATE VOLTAGE CRITERIA FOR LVH, CONSIDER NORMAL VARIANT [MEETS CRITERIA IN ONE OF: R(aVL), S(V1), R(V5), R(V5/V6)+S(V1)] Compared to ECG 06/02/2023 11:27:50 No significant changes Electronically Signed On 06-03-2023 8:16:43 CDT by Shahzad Jacobsen M.D. [id number]
[2023-06-02] MEDS: piperacillin-tazobactam 3.375 GM in sodium chloride 0.9% (plus) 50 ML IV (16:51)
[2023-06-02 16:54] LABS: Troponin 5 6HR 31.97 ng/L (0-15); Troponin 5 6HR Delta -3.03 ng/L (0-12)
[2023-06-02 20:25] LABS: C.Diff PCR (Lab) POSITIVE (Negative)
[2023-06-02 20:47] LABS: Clostridioides Difficile Toxin NEGATIVE (Negative)
--- NOTE | 2023-06-02 21:32 | USCV_ITS ---
Clovis Adan Age: 87 Gender: M : 1935 Exam Date: 06/02/2023 04:29 Ordering Phys: Berna Mendosa MD Technologist: ARMANDO Exam Location: [facility] [place] Indication: Presenting in ER due to weakness. order says chf . No history of CHF per patient. s/p Porcine AVR 2019. BP: 119 / 69 HR: 73 Rhythm: Sinus Technical Quality: Adequate MEASUREMENTS (Male / Female) Normal Values 2D ECHO LV Diastolic Diameter PLAX 3.7 cm 4.2 - 5.9 / 3.9 - 5.3 cm IVS Diastolic Thickness 1.3 cm 0.6 - 1.0 / 0.6 - 0.9 cm IVS Systolic Thickness 2.0 cm LVPW Diastolic Thickness 1.2 cm 0.6 - 1.0 / 0.6 - 0.9 cm LVPW Systolic Thickness 1.8 cm LVOT Diameter 1.9 cm LV Ejection Fraction 2D Teich 72.9 % LV Ejection Fraction MOD 2C 49.4 % LV Ejection Fraction 2C AL 49.1 % LA Diameter 2.8 cm Aorta at Sinotubular Diameter 3.8 cm IVC Diameter 1.5 cm M-MODE LA Ao Ratio MM 1.2 AV Cusp Separation MM 1.1 cm DOPPLER AV Peak Velocity 189.0 cm/s LVOT Peak Velocity 99.0 cm/s AV Area Cont Eq vti 1.8 cm squared AV Area Cont Eq pk 1.5 cm squared MV Peak Velocity 148.0 cm/s MV Area PHT 4.2 cm squared Mitral E to A Ratio 0.7 TV Peak Velocity 201.0 cm/s TR Peak Velocity 239.0 cm/s TR Peak Gradient 22.8 mmHg TV Peak E Velocity 52.0 cm/s Right Atrial Pressure 3.0 mmHg Pulmonary Artery Systolic Pressu 25.8 mmHg PV Peak Velocity 121.0 cm/s FINDINGS Left Ventricle Normal left ventricular size, systolic function and wall thickness, with no regional wall motion abnormalities. Left ventricular ejection fraction is estimated at 60%. Grade I/IV diastolic dysfunction (abnormal relaxation filling pattern), normal to mildly elevated filling pressures. Right Ventricle Normal right ventricular size and systolic function. Normal right ventricular systolic pressure. Right Atrium The right atrium is normal in size. Left Atrium The left atrium is normal in size. Mitral Valve Structurally normal mitral valve. Trace mitral valve regurgitation. Aortic Valve Normal bioprosthetic aortic valve. No prosthetic regurgitation. Aortic valve mean gradient is 6.8 mmHg. Tricuspid Valve Structurally normal tricuspid valve. Mild tricuspid valve regurgitation. Pulmonic Valve Pulmonic valve not well visualized. Trace pulmonary valve regurgitation. Pericardium Normal pericardium without effusion. Aorta Ascending aorta measures 4.44 cm. IVC The inferior vena cava appears normal. CONCLUSIONS Normal left ventricular size, systolic function and wall thickness, with no regional wall motion abnormalities. Left ventricular ejection fraction is estimated at 60%. Grade I/IV diastolic dysfunction (abnormal relaxation filling pattern), normal to mildly elevated filling pressures. Structurally normal mitral valve. Trace mitral valve regurgitation. Normal bioprosthetic aortic valve. No prosthetic regurgitation. Aortic valve mean gradient is 6.8 mmHg. Ascending aorta measures 4.44 cm. No change from the previous study July 2021 Dr. Luis M Rosado MD (Electronically Signed) Final Date: 02 June 2023 10:00 S
[2023-06-02] MEDS: vancomycin 125 mg Capsule PO (21:52)
--- NOTE | 2023-06-02 21:52 | USCV_ITS ---
Clovis Adan Age: 87 Gender: M : 1935 Exam Date: 06/02/2023 04:02 Ordering Phys: Berna Mendosa MD Technologist: ARMANDO Exam Location: [facility] [place] Indication: order says swelling . No history of DVT per patient. HISTORY: order says swelling . No history of DVT per patient. PROCEDURES: Venous duplex imaging was performed in bilateral lower extremities. The following venous structures were evaluated: common femoral vein, profunda vein, proximal portion of the greater saphenous vein, superficial femoral vein, and the popliteal vein. In addition, the posterior tibial veins were evaluated. FINDINGS: Normal 2-D Doppler and augmentation and compressibility throughout the lower extremity venous structures. Additional imaging through the proximal calf veins also reveals no thrombus. Limited evaluation of the greater saphenous vein is patent with no thrombus. CONCLUSIONS No DVT bilateral lower extremities. Dr. Mariluz Archuleta DO (Electronically Signed) Final Date: 02 June 2023 07:38 S
[2023-06-02] MEDS: linezolid premix 600 MG/300 ML PREMIX 300 MG IV (21:53)
[2023-06-03] VITALS (9 sets, daily range): BP systolic 116–148; BP diastolic 63–79; PULSE 64–101; RESP 14–20; TEMP 36.4–37.6; O2SAT 90–93
[2023-06-03 05:23] LABS: Basophils # 0.1 10^3/uL (0.0-0.1); Basophils % 0.5 %; Eosinophils # 0.1 10^3/uL (0.0-0.8); Eosinophils % 0.4 %; Hematocrit 44.2 % (37-53); Lymphocytes # 1.3 10^3/uL (0.8-4.8); Lymphocytes % 9.2 %; Mean Corpuscular HGB Conc 31.4 g/dL (30-55); Mean Corpuscular Hemoglobin 30.1 pg (27-33); Mean Corpuscular Volume 95.7 fl (82-101); Mean Platelet Volume 11.2 fL (7.4-10.4); Monocytes # 0.7 10^3/uL (0.2-0.9); Monocytes % 5.1 %; Neutrophils % 84.4 %; Nucleated Red Blood Cells % 0 %; Platelet Count 221 10^3/cmm (157-399); Red Blood Count 4.62 10^6/uL (3.85-5.65); Red Cell Distribution Width 15.9 % (12.1-15.1); White Blood Count 13.63 10^3/uL (3.29-11.43)
[2023-06-03 06:03] LABS: Alanine Aminotransferase 25 U/L (0-41); Albumin Level 3.5 g/dL (3.5-5.2); Alkaline Phosphatase 77 U/L (40-130); Anion Gap 20.7 (5-19); Aspartate Amino Transferase 58 U/L (0-40); Blood Urea Nitrogen 17 mg/dL (8-23); C Reactive Protein 210.1 mg/L (0.0-4.9); Calcium 8.3 mg/dL (8.5-10.5); Carbon Dioxide 17 mmol/L (22-29); Chloride 105 mmol/L (98-107); Creatinine Clr Calc Pharmacy 77.9351; Globulin 3.6 g/dL (1.3-4.6); Glucose 99 mg/dL (65-115); Magnesium 2.1 mg/dL (1.7-2.3); Osmolality Calculated 290 mOsm/kg (285-295); Potassium 3.7 mmol/L (3.5-5.1); Sodium 139 mmol/L (136-145); Total Bilirubin 0.9 mg/dL (0.15-1.2); Total Protein 7.1 g/dL (6.6-8.7)
[2023-06-03 06:07] LABS: NT Pro B Type Natriuretic Pept 1304 pg/mL (0-450); Procalcitonin 11.84 ng/mL (0-0.5)
[2023-06-03] MEDS: levothyroxine 75 mcg Tablet PO (08:34)
[2023-06-03] MEDS: aspirin 81 mg EC Tablet PO (08:34)
[2023-06-03] MEDS: vancomycin 125 mg Capsule PO ×4 (08:34→21:24)
[2023-06-03] MEDS: atorvastatin 40 mg Tablet PO (08:34)
[2023-06-03] MEDS: cefTRIAXone 1,000 MG in sodium chloride 0.9% (plus) 50 ML 100 MG IV (08:34)
[2023-06-03] MEDS: gabapentin 300 mg Capsule PO ×3 (08:34→21:24)
[2023-06-03] MEDS: cyanocobalamin 1,000 mcg Tablet 1000 MCG PO (08:34)
[2023-06-03] MEDS: linezolid premix 600 MG/300 ML PREMIX 300 MG IV ×2 (09:37→21:25)
--- NOTE | 2023-06-03 09:39 | PC.SOCIAL ---
IMM Update Pg. 2 of IMM Updated and reviewed with patient, who verbalized understanding. Copy provided. Initialed, dated, timed, copy placed in chart.
--- NOTE | 2023-06-03 13:05 | P.PN_ITS ---
Subjective 2 Subjective: Patient was seen this morning, he is sitting up at the side of bed, enjoying his breakfast, I discussed the C. difficile studies, he reports that he had diarrhea throughout the night, no abdominal pain, no distention, but does report feeling fatigued and tired Vitals/I&O/Wt Last Vital Signs Temp 98 F 06/03/23 11:43 Pulse 84 06/03/23 11:43 Resp 14 06/03/23 11:43 BP 148/75 06/03/23 11:43 Pulse Ox 93 06/03/23 11:43 O2 Del Method Room Air 06/03/23 11:43 O2 Flow Rate 2 06/02/23 09:05 06/02/23 06/03/23 06/03/23 22:59 06:59 14:59 Intake Total 590 / 1370 300 / 1670 830 / 830 Balance 590 / 1370 300 / 1670 830 / 830 Weight last 48 hrs Weight 91.427 kg Weight 89.471 kg Weight 89.176 kg Weight 81.647 kg Physical Exam 2 Const: COMMON NORMALS: no acute distress and patient oriented x3 Resp: COMMON NORMALS: normal respiratory effort, No retractions, No use of accessory muscles and clear to auscultation bilaterally AUSCULTATION: clear to auscultation bilaterally Cardio: COMMON NORMALS: regular rate, regular rhythm, S1 normal heart sound present and S2 normal heart sound present RATE: regular rate RHYTHM: r egular rhythm HEART SOUNDS: S1 normal heart sound present and S2 normal heart sound present GI: COMMON NORMALS: Normal to inspection, nondistended, normoactive bowel sounds present and non-tender Extremity: COMMON NORMALS: no pedal edema Neuro: COMMON NORMALS: patient oriented x3 Psych: COMMON NORMALS: mental status grossly normal Data 06/03/23 05:15 06/03/23 05:15 Micro: Microbiology 06/02/23 14:00 Urine Culture - Preliminary Urine,Clean Catch 06/02/23 18:04 Stool Lactoferrin - Final Stool Occult Blood (FIT) - Final 06/01/23 17:56 Blood Culture - Preliminary Blood NEGATIVE TO DATE 06/02/23 14:37 Blood Culture - Preliminary Blood SPECIMEN COLLECTED 06/02/23 14:27 Blood Culture - Preliminary Blood SPECIMEN COLLECTED 06/01/23 17:30 Blood Culture - Preliminary Blood Staphylococcus species A&P Assessment and plan (1) Pneumonia: Qualifiers: Laterality: bilateral Lung location: lower lobe of lung Pneumonia type: due to unspecified organism Qualified Code(s): J18.9 - Pneumonia, unspecified organism (2) Sepsis: Qualifiers: Sepsis acute organ dysfunction status: with acute organ dysfunction S epsis type: sepsis due to unspecified organism Severe sepsis acute organ dysfunction type: encephalopathy Severe sepsis shock status: without septic shock Qualified Code(s): A41.9 - Sepsis, unspecified organism; R65.20 - Severe sepsis without septic shock; G93.41 - Metabolic encephalopathy (3) Neurologic gait disorder: (4) Weakness: (5) Hypoxic: (6) Gram-positive bacteremia: (7) Status post aortic valve replacement with bioprosthetic valve: (8) NSTEMI (non-ST elevated myocardial infarction): (9) C. difficile diarrhea: Plan C. difficile diarrhea, ? P.o. vancomycin Staphylococcal species bacteremia -Contamination versus real infection, ? Cardiac echo ? Currently on Zyvox Acute hypoxia, secondary to pneumonia Hypoxic requiring 2 L Tachycardia Venous ultrasound negative for DVT, CT angiogram negative for PE Left lower lobe infiltrate, with acute hypoxia On Zyvox, and Rocephin Sepsis related to pneumonia Criteria met with lactic acid, encephalopathy, metabolic encephalopathy, related to sepsis, tachypnea Received septic bolus, continue to biotics Repeat lactic acid Sepsis related metabolic encephalopathy: Resolved with IV fluid hydration No focal neurologic deficits, no slurring of her words Patient has B12 related neuropathy and gait ataxia NSTEMI -? No chest pain complaints ? Serial EKGs, serial troponins, telemetry monitoring, ? 6-hour troponin 40, 6-hour delta 13.08, denies any chest pain CONCLUSIONS Normal left ventricular size, systolic function and wall thickness, with no regional wall motion abnormalities. Left ventricular ejection fraction is estimated at 60%. Grade I/IV diastolic dysfunction (abnormal relaxation filling pattern), normal to mildly elevated filling pressures. Structurally normal mitral valve. Trace mitral valve regurgitation. Normal bioprosthetic aortic valve. No prosthetic regurgitation. Aortic valve mean gradient is 6.8 mmHg. Ascending aorta measures 4.44 cm. No change from the previous study July 2021 -Continue aspirin, statin Goals of care discussed He is DNR/DNI Lives alone, family checks on him on daily basis Plan for today, continue p.o. vancomycin, currently on IV Zyvox and Rocephin for pneumonia Attestations 2 Medical Necessity Statement*: Patient requires hospitalization for C. difficile diarrhea, strep bacteremia, pneumonia, Diagnoses Pneumonia J18.9 Laterality: bilateral Lung location: lower lobe of lung Pneumonia type: due to unspecified organism Sepsis A41.9; R65.20; G93.41 Sepsis acute organ dysfunction status: with acute organ dysfunction Sepsis type: sepsis due to unspecified organism Severe sepsis acute organ dysfunction type: encephalopathy Severe sepsis shock status: without septic shock Neurologic gait disorder R26.9 Weakness R53.1 Hypoxic R09.02 Gram-positive bacteremia R78.81 Status post aortic valve replacement with bioprosthetic valve Z95.3 NSTEMI (non-ST elevated myocardial infarction) I21.4 C. difficile diarrhea A04.72
[2023-06-04] VITALS (10 sets, daily range): BP systolic 133–175; BP diastolic 65–89; PULSE 62–89; RESP 14–18; TEMP 36.3–37; O2SAT 90–93
[2023-06-04 03:50] LABS: Basophils % 0.2 %; Eosinophils # 0.1 10^3/uL (0.0-0.8); Eosinophils % 0.6 %; Lymphocytes # 0.5 10^3/uL (0.8-4.8); Lymphocytes % 4.5 %; Mean Corpuscular HGB Conc 32.9 g/dL (30-55); Mean Corpuscular Volume 91.1 fl (82-101); Mean Platelet Volume 11.7 fL (7.4-10.4); Monocytes # 0.2 10^3/uL (0.2-0.9); Monocytes % 1.9 %; Neutrophils # 9.98 10^3/uL (1.8-7.7); Neutrophils % 92.5 %; Nucleated Red Blood Cells % 0 %; Platelet Count 199 10^3/cmm (157-399); Red Blood Count 4.17 10^6/uL (3.85-5.65); White Blood Count 10.79 10^3/uL (3.29-11.43)
[2023-06-04 04:29] LABS: NT Pro B Type Natriuretic Pept 2433 pg/mL (0-450)
[2023-06-04 04:33] LABS: Alanine Aminotransferase 21 U/L (0-41); Albumin Level 3.3 g/dL (3.5-5.2); Alkaline Phosphatase 66 U/L (40-130); Aspartate Amino Transferase 35 U/L (0-40); Blood Urea Nitrogen 13 mg/dL (8-23); C Reactive Protein 91.1 mg/L (0.0-4.9); Calcium 7.9 mg/dL (8.5-10.5); Carbon Dioxide 23 mmol/L (22-29); Chloride 104 mmol/L (98-107); Creatinine Clr Calc Pharmacy 77.9351; Globulin 2.6 g/dL (1.3-4.6); Glucose 91 mg/dL (65-115); Magnesium 1.9 mg/dL (1.7-2.3); Osmolality Calculated 286 mOsm/kg (285-295); Phosphorus 1.7 mg/dL (2.5-4.5); Sodium 138 mmol/L (136-145); Total Protein 5.9 g/dL (6.6-8.7)
[2023-06-04] MEDS: levothyroxine 75 mcg Tablet PO (08:16)
[2023-06-04] MEDS: cyanocobalamin 1,000 mcg Tablet 1000 MCG PO (08:16)
[2023-06-04] MEDS: potassium chloride ER 20 mEq Tablet 40 MEQ PO (08:16)
[2023-06-04] MEDS: vancomycin 125 mg Capsule PO ×4 (08:16→20:34)
[2023-06-04] MEDS: gabapentin 300 mg Capsule PO ×3 (08:16→20:34)
[2023-06-04] MEDS: aspirin 81 mg EC Tablet PO (08:16)
[2023-06-04] MEDS: atorvastatin 40 mg Tablet PO (08:17)
[2023-06-04] MEDS: cefTRIAXone 1,000 MG in sodium chloride 0.9% (plus) 50 ML 100 MG IV (08:17)
[2023-06-04] MEDS: phosphorus 250 mg Tablet PO ×2 (11:03→17:00)
[2023-06-04] MEDS: doxycycline 100 mg Tablet PO ×2 (11:05→17:00)
--- NOTE | 2023-06-04 15:15 | XRR_ITS ---
PROCEDURE INFORMATION: Exam: XR Abdomen Exam date and time: 06/04/2023 3:07 PM Age: 87 years old Clinical indication: Abdominal tenderness and bloating and nausea and vomiting; Patient HX: Abdominal distention; Nn/v/d; AMS TECHNIQUE: Imaging protocol: Radiologic exam of the abdomen. Views: Frontal supine view of the abdomen. 1 View. COMPARISON: CR (ABDOMEN, ) 06/01/2023 10:40 PM FINDINGS: Gastrointestinal tract: Nonobstructive bowel gas pattern. No evidence of free air or pneumatosis. Bones/joints: No evidence of acute osseous abnormality. XR/XR KUB portable [id number] IMPRESSION: 1. Nonobstructive bowel gas pattern. If there is ongoing clinical concern, consider correlation with CT.
--- NOTE | 2023-06-04 15:15 | P.PN_ITS ---
Subjective 2 Subjective: Patient was seen this morning, he continues to complain of diarrhea, does report abdominal pain, but currently minimal this morning, no nausea, no vomiting he does feel better, Vitals/I&O/Wt Last Vital Signs Temp 98.6 F 06/04/23 11:58 Pulse 71 06/04/23 11:58 Resp 14 06/04/23 11:58 BP 156/80 06/04/23 11:58 Pulse Ox 92 06/04/23 11:58 O2 Del Method Room Air 06/04/23 11:58 O2 Flow Rate 2 06/02/23 09:05 06/04/23 06/04/23 06/04/23 06:59 14:59 22:59 Intake Total 290 / 290 Balance 290 / 290 Weight last 48 hrs Weight 90.378 kg Weight 91.427 kg Physical Exam 2 Const: COMMON NORMALS: no acute distress and patient oriented x3 Resp: COMMON NORMALS: normal respiratory effort, No retractions, No use of accessory muscles and clear to auscultation bilaterally AUSCULTATION: clear to auscultation bilaterally Cardio: COMMON NORMALS: regular rate, regular rhythm, S1 normal heart sound present and S2 normal heart sound present RATE: regular rate RHYTHM: r egular rhythm HEART SOUNDS: S1 normal heart sound present and S2 normal heart sound present GI: COMMON NORMALS: Normal to inspection, nondistended, normoactive bowel sounds present, Soft to palpation and non-tender PALPATION: Yes Soft to palpation Extremity: COMMON NORMALS: no pedal edema Neuro: COMMON NORMALS: patient oriented x3 Psych: COMMON NORMALS: mental status grossly normal Data 06/04/23 02:40 06/04/23 02:40 Micro: Microbiology 06/02/23 14:00 Urine Culture - Final Urine,Clean Catch 06/01/23 17:30 Blood Culture - Preliminary Blood Staphylococcus species Coag negative Staphylococcus 06/02/23 14:37 Blood Culture - Preliminary Blood NEGATIVE TO DATE 06/02/23 14:27 Blood Culture - Preliminary Blood NEGATIVE TO DATE A&P Assessment and plan (1) Pneumonia: Qualifiers: Laterality: bilateral Lung location: lower lobe of lung Pneumonia type: due to unspecified organism Qualified Code(s): J18.9 - Pneumonia, unspecified organism (2) Sepsis: Qualifiers: Sepsis acute organ dysfunction status: with acute organ dysfunction S epsis type: sepsis due to unspecified organism Severe sepsis acute organ dysfunction type: encephalopathy Severe sepsis shock status: without septic shock Qualified Code(s): A41.9 - Sepsis, unspecified organism; R65.20 - Severe sepsis without septic shock; G93.41 - Metabolic encephalopathy (3) Neurologic gait disorder: (4) Weakness: (5) Hypoxic: (6) Gram-positive bacteremia: (7) Status post aortic valve replacement with bioprosthetic valve: (8) NSTEMI (non-ST elevated myocardial infarction): (9) C. difficile diarrhea: Plan C. difficile diarrhea, ? P.o. vancomycin Staphylococcal species bacteremia -Coagulase-negative staph species, likely contamination as an 1 of 4 blood cultures, will stop IV antibiotics Acute hypoxia, secondary to pneumonia Hypoxic requiring 2 L Tachycardia Venous ultrasound negative for DVT, CT angiogram negative for PE Left lower lobe infiltrate, with acute hypoxia On Rocephin, doxycycline Sepsis related to pneumonia Criteria met with lactic acid, encephalopathy, metabolic encephalopathy, related to sepsis, tachypnea Received septic bolus, continue to biotics Repeat lactic acid Sepsis related metabolic encephalopathy: Resolved with IV fluid hydration No focal neurologic deficits, no slurring of her words Patient has B12 related neuropathy and gait ataxia NSTEMI -? No chest pain complaints ? Serial EKGs, serial troponins, telemetry monitoring, ? 6-hour troponin 40, 6-hour delta 13.08, denies any chest pain CONCLUSIONS Normal left ventricular size, systolic function and wall thickness, with no regional wall motion abnormalities. Left ventricular ejection fraction is estimated at 60%. Grade I/IV diastolic dysfunction (abnormal relaxation filling pattern), normal to mildly elevated filling pressures. Structurally normal mitral valve. Trace mitral valve regurgitation. Normal bioprosthetic aortic valve. No prosthetic regurgitation. Aortic valve mean gradient is 6.8 mmHg. Ascending aorta measures 4.44 cm. No change from the previous study July 2021 -Continue aspirin, statin Goals of care discussed He is DNR/DNI Lives alone, family checks on him on daily basis Plan for today, continue p.o. vancomycin, stop IV Zyvox for staph bacteremia likely contamination continue IV antibiotics for pneumonia continue to monitor closely, KUB Attestations 2 Medical Necessity Statement*: Patient requires hospitalization for C. difficile colitis, pneumonia Diagnoses Pneumonia J18.9 Laterality: bilateral Lung location: lower lobe of lung Pneumonia type: due to unspecified organism Sepsis A41.9; R65.20; G93.41 Sepsis acute organ dysfunction status: with acute organ dysfunction Sepsis type: sepsis due to unspecified organism Severe sepsis acute organ dysfunction type: encephalopathy Severe sepsis shock status: without septic shock Neurologic gait disorder R26.9 Weakness R53.1 Hypoxic R09.02 Gram-positive bacteremia R78.81 Status post aortic valve replacement with bioprosthetic valve Z95.3 NSTEMI (non-ST elevated myocardial infarction) I21.4 C. difficile diarrhea A04.72
[2023-06-05 03:11] VITALS: BP 167/83; PULSE 78; RESP 16; TEMP 36.7; O2SAT 93
[2023-06-05 05:32] VITALS: PULSE 82
[2023-06-05 05:42] LABS: Basophils # 0.1 10^3/uL (0.0-0.1); Basophils % 0.5 %; Eosinophils # 0.3 10^3/uL (0.0-0.8); Eosinophils % 2.7 %; Hematocrit 41.4 % (37-53); Lymphocytes # 0.9 10^3/uL (0.8-4.8); Lymphocytes % 8.8 %; Mean Corpuscular HGB Conc 33.1 g/dL (30-55); Mean Corpuscular Volume 90.8 fl (82-101); Mean Platelet Volume 11.5 fL (7.4-10.4); Monocytes # 0.6 10^3/uL (0.2-0.9); Neutrophils % 81.4 %; Nucleated Red Blood Cells % 0 %; Platelet Count 242 10^3/cmm (157-399); Red Blood Count 4.56 10^6/uL (3.85-5.65); Red Cell Distribution Width 14.9 % (12.1-15.1); White Blood Count 10.68 10^3/uL (3.29-11.43)
[2023-06-05 06:10] LABS: Alanine Aminotransferase 27 U/L (0-41); Alkaline Phosphatase 92 U/L (40-130); Aspartate Amino Transferase 38 U/L (0-40); Blood Urea Nitrogen 15 mg/dL (8-23); Calcium 8.8 mg/dL (8.5-10.5); Carbon Dioxide 24 mmol/L (22-29); Chloride 102 mmol/L (98-107); Globulin 3.1 g/dL (1.3-4.6); Glucose 75 mg/dL (65-115); Magnesium 2.2 mg/dL (1.7-2.3); Osmolality Calculated 290 mOsm/kg (285-295); Phosphorus 1.7 mg/dL (2.5-4.5); Sodium 140 mmol/L (136-145); Total Bilirubin 1.1 mg/dL (0.15-1.2); Total Protein 7.1 g/dL (6.6-8.7)
[2023-06-05 06:14] LABS: NT Pro B Type Natriuretic Pept 1501 pg/mL (0-450); Procalcitonin 2.93 ng/mL (0-0.5)
[2023-06-05 07:03] VITALS: BP 145/79; PULSE 79; RESP 16; TEMP 36.4; O2SAT 94
[2023-06-05] MEDS: cyanocobalamin 1,000 mcg Tablet 1000 MCG PO (08:40)
[2023-06-05] MEDS: phosphorus 250 mg Tablet PO (08:40)
[2023-06-05] MEDS: cefTRIAXone 1,000 MG in sodium chloride 0.9% (plus) 50 ML 100 MG IV (08:40)
[2023-06-05] MEDS: potassium chloride ER 20 mEq Tablet 40 MEQ PO (08:40)
[2023-06-05] MEDS: doxycycline 100 mg Tablet PO (08:40)
[2023-06-05] MEDS: vancomycin 125 mg Capsule PO (08:40)
[2023-06-05] MEDS: gabapentin 300 mg Capsule PO (08:40)
[2023-06-05] MEDS: atorvastatin 40 mg Tablet PO (08:41)
[2023-06-05] MEDS: aspirin 81 mg EC Tablet PO (08:41)
[2023-06-05] MEDS: levothyroxine 75 mcg Tablet PO (08:41)
[2023-06-05 09:24] VITALS: PULSE 81; RESP 18; O2SAT 94
--- NOTE | 2023-06-05 09:59 | P.DS_ITS ---
Discharge Providers Date of Admission: 06/01/23 21:27 Date of Discharge: June 05, 2023 Attending Provider at Admission: Berna Mendosa MD Attending Provider at Discharge: Alberto Frank MD Primary Care Provider: Jun Ling MD Diagnoses at Discharge Discharge Diagnosis (1) Pneumonia: Status: Acute Qualifiers: Laterality: bilateral Lung location: lower lobe of lung Pneumonia type: due to unspecified organism Qualified Code(s): J18.9 - Pneumonia, unspecified organism (2) Sepsis: Status: Acute Qualifiers: Sepsis acute organ dysfunction status: with acute organ dysfunction Sepsis type: sepsis due to unspecified organism Severe sepsis acute organ dysfunction type: encephalopathy Severe sepsis shock status: without septic shock Qualified Code(s): A41.9 - Sepsis, unspecified organism; R65.20 - Severe sepsis without septic shock; G93.41 - Metabolic encephalopathy (3) Neurologic gait disorder: Status: Acute (4) Weakness: Status: Acute (5) Hypoxic: Status: Acute (6) Gram-positive bacteremia: Status: Acute (7) Status post aortic valve replacement with bioprosthetic valve: Status: Acute (8) NSTEMI (non-ST elevated myocardial infarction): Status: Acute (9) C. 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 Patient is stating that his symptoms started today when he woke up, he was not able to get up because of extreme weakness, he did not notice any fever but has been noticing lethargy fatigue without any chest pain. Patient stating that he also experienced 3-4 episode of emesis with diarrhea. Patient is stating that he does not cook at home, lives alone and normally eats at fast food, last night he ate [employer] sausage biscuit. In the ER patient was given septic bolus r his lactic acid was high with source of infection community-acquired pneumonia he is afebrile no leukocytosis, no tachypnea other than tachycardia His D-dimer is extremely high I have requested stat CTA chest prolonged venous drop Blood pressure was soft on admission patient's mentation improved with IV fluid hydration Patient was hospitalized, for pneumonia, sepsis related to pneumonia, NSTEMI, received broad-spectrum antibiotic therapy, overall clinically improved, remains afebrile, on room air Patient's hospital course was complicated with staphylococcal species bacteremia, with coagulase-negative staphylococcal species likely contamination, 1 out of 4 blood cultures positive initially managed with IV antibiotics as repeat blood cultures are negative, discussed with patient, discussed risk and benefits of stopping antibiotics, he voiced understanding, all questions answered, agreed to proceed NSTEMI -? No chest pain complaints ? Serial EKGs, serial troponins, telemetry monitoring, ? 6-hour troponin 40, 6-hour delta 13.08, denies any chest pain CONCLUSIONS Normal left ventricular size, systolic function and wall thickness, with no regional wall motion abnormalities. Left ventricular ejection fraction is estimated at 60%. Grade I/IV diastolic dysfunction (abnormal relaxation filling pattern), normal to mildly elevated filling pressures. Structurally normal mitral valve. Trace mitral valve regurgitation. Normal bioprosthetic aortic valve. No prosthetic regurgitation. Aortic valve mean gradient is 6.8 mmHg. Ascending aorta measures 4.44 cm. No change from the previous study July 2021 -Continue aspirin, statin Patient was hospitalization was complicated by C. difficile colitis, discharged on p.o. vancomycin Physical Exam Const: COMMON NORMALS: no acute distress and patient oriented x3 Resp: COMMON NORMALS: normal respiratory effort, No retractions, No use of accessory muscles and clear to auscultation bilaterally AUSCULTATION: clear to auscultation bilaterally Cardio: COMMON NORMALS: regular rate, regular rhythm, S1 normal heart sound present and S2 normal heart sound present RATE: regular rate RHYTHM: regular rhythm HEART SOUNDS: S1 normal heart sound present and S2 normal heart sound present GI: COMMON NORMALS: Normal to inspection, nondistended, normoactive bowel sounds present and non-tender Extremity: COMMON NORMALS: no pedal edema Neuro: COMMON NORMALS: patient oriented x3 Psych: COMMON NORMALS: mental status grossly normal Discharge Data Studies Completed and Pending Completed Studies During Hospitalization Category Date Time Status CT head wo con* [id number] Stat Cat Scan 06/01/23 16:07 Completed CTA PE [CT angio chest PE protcl [id number]] Stat Cat Scan 06/01/23 21:52 Completed XR KUB portable [id number] Routine Exams 06/04/23 15:15 Completed XR KUB portable [id number] Stat Exams 06/01/23 21:55 Completed XR chest 1V portable [id number] Stat Exams 06/01/23 16:07 [place] [id number] Routine Ultrasound 06/02/23 21:52 Completed CV. echo complete* [id number] Routine Ultrasound 06/02/23 21:32 Completed Pending at discharge Category Date Time Status Blood Culture AM LABS Lab 06/02/23 14:37 Results Blood Culture Stat Lab 06/01/23 17:56 Results OVA and Parasites, Conc and PE Routine Lab 06/02/23 18:04 Received Salmonella / Shigella / Campy Routine Lab 06/02/23 18:04 Received Radiology Impressions Chest X-Ray 06/01/23 16:07 IMPRESSION: Faint bibasilar infiltrates which may indicate early pneumonia Head CT 06/01/23 16:07 IMPRESSION: 1. No acute intracranial pathology. 2. Senescent changes. Chest CTA 06/01/23 21:52 IMPRESSION: 1. No evidence of pulmonary artery embolism. 2. Bilateral posterior lower lobe opacities likely reflecting combination of atelectasis and small areas of consolidation. Correlate with atypical infection. 3. Questionable apparent edema in the medial right upper extremity extending into the axillary region. Nonspecific findings should be correlated with history and physical exam. 4. Suggested proximal aortic repair. 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 Correlate with history. Consider cardiothoracic consultation if this is an unexpected finding. 5. Old granulomatous disease. 6. Other nonemergent findings above. KUB X-Ray 06/04/23 15:15 IMPRESSION: 1. Nonobstructive bowel gas pattern. If there is ongoing clinical concern, consider correlation with CT. Laboratory Results WBC 10.68 10^3/uL (3.29-11.43) 06/05/23 04:33 RBC 4.56 10^6/uL (3.85-5.65) 06/05/23 04:33 Hgb 13.70 g/dL (11.27-16.99) 06/05/23 04:33 Hct 41.4 % (37-53) 06/05/23 04:33 MCV 90.8 fl (82-101) 06/05/23 04:33 MCH 30.0 pg (27-33) 06/05/23 04:33 MCHC 33.1 g/dL (30-55) 06/05/23 04:33 RDW 14.9 % (12.1-15.1) 06/05/23 04:33 Plt Count 242 10^3/cmm (157-399) 06/05/23 04:33 MPV 11.5 fL (7.4-10.4) H 06/05/23 04:33 Neut % (Auto) 81.4 % 06/05/23 04:33 Lymph % (Auto) 8.8 % 06/05/23 04:33 [place] % (Auto) 6.0 % 06/05/23 04:33 Eos % (Auto) 2.7 % 06/05/23 04:33 Baso % (Auto) 0.5 % 06/05/23 04:33 Neut # (Auto) 8.70 10^3/uL (1.8-7.7) H 06/05/23 04:33 Lymph # (Auto) 0.9 10^3/uL (0.8-4.8) 06/05/23 04:33 [place] # (Auto) 0.6 10^3/uL (0.2-0.9) 06/05/23 04:33 Eos # (Auto) 0.3 10^3/uL (0.0-0.8) 06/05/23 04:33 Baso # (Auto) 0.1 10^3/uL (0.0-0.1) 06/05/23 04:33 Nucleated RBC % (auto) 0 % 06/05/23 04:33 Nucleated RBCs # 0.0 /100WBC 06/05/23 04:33 ESR 8 mm/hr (0-10) 06/02/23 05:05 PT 13.60 SECONDS (12.1-14.9) 06/01/23 17:56 INR 1.01 (0.8-1.2) 06/01/23 17:56 APTT 17.1 SECONDS (23.9-36.7) L 06/01/23 17:56 D-Dimer 9.40 ug/mLFEU (0-0.59) H 06/01/23 17:56 Sodium 140 mmol/L (136-145) 06/05/23 04:33 Potassium 3.0 mmol/L (3.5-5.1) L 06/05/23 04:33 Chloride 102 mmol/L (98-107) 06/05/23 04:33 Carbon Dioxide 24 mmol/L (22-29) 06/05/23 04:33 Anion Gap 17.0 (5-19) 06/05/23 04:33 BUN 15 mg/dL (8-23) 06/05/23 04:33 Creatinine 0.8 mg/dL (0.7-1.2) 06/05/23 04:33 GFR Calculation Not Reportable 06/05/23 04:33 Glucose 75 mg/dL (65-115) 06/05/23 04:33 Estimat Average Glucose 120 06/01/23 17:56 Hemoglobin A1c 5.8 % (4.0-6.0) 06/01/23 17:56 Calculated Osmolality 290 mOsm/kg (285-295) 06/05/23 04:33 Lactic Acid 2.2 mmol/L (0.5-2.2) 06/02/23 05:05 Lactic Acid (Sepsis) 1.8 mmol/L (0.5-2.2) 06/02/23 08:05 Calcium 8.8 mg/dL (8.5-10.5) 06/05/23 04:33 Phosphorus 1.7 mg/dL (2.5-4.5) L 06/05/23 04:33 Magnesium 2.2 mg/dL (1.7-2.3) 06/05/23 04:33 Total Bilirubin 1.1 mg/dL (0.15-1.2) 06/05/23 04:33 AST 38 U/L (0-40) 06/05/23 04:33 ALT 27 U/L (0-41) 06/05/23 04:33 Alkaline Phosphatase 92 U/L (40-130) 06/05/23 04:33 Troponin T Baseline 35 ng/L (0-15) H 06/02/23 09:52 Troponin T 120 Minute 33.16 ng/L (0-15) H 06/02/23 11:55 Delta Troponin T -1.84 ABS# (0-10) L 06/02/23 11:55 Troponin T Hi Sens 6Hr 31.97 ng/L (0-15) H 06/02/23 16:02 Troponin T Hi Sens 6Hr Delta -3.03 ng/L (0-12) L 06/02/23 16:02 C-Reactive Protein 51.0 mg/L (0.0-4.9) H 06/05/23 04:33 NT-Pro-B Natriuret Pep 1501 pg/mL (0-450) H 06/05/23 04:33 Total Protein 7.1 g/dL (6.6-8.7) 06/05/23 04:33 Albumin 4.0 g/dL (3.5-5.2) 06/05/23 04:33 Globulin 3.1 g/dL (1.3-4.6) 06/05/23 04:33 Lipase 32 U/L (13-60) 06/01/23 17:56 Vitamin B12 > 2000 pg/mL (232-1245) H 06/01/23 17:56 Procalcitonin 2.93 ng/mL (0-0.5) H 06/05/23 04:33 TSH 3.07 uIU/mL (0.27-4.20) 06/01/23 17:56 TSH 3.11 uIU/mL (0.27-4.20) 06/01/23 17:56 Urine Color Yellow (Yellow) 06/01/23 18:55 Urine Appearance Sl hazy (CLEAR) A 06/01/23 18:55 Urine pH 5 (5-7) 06/01/23 18:55 Ur Specific [place] 1.025 (1.005-1.030) 06/01/23 18:55 Urine Protein 1+ (Negative) H 06/01/23 18:55 Urine Glucose (UA) Norm (Normal) 06/01/23 18:55 Urine Ketones 1+ (Negative) H 06/01/23 18:55 Urine Blood 2+ (Negative) H 06/01/23 18:55 Urine Nitrate Negative (Negative) 06/01/23 18:55 Urine Bilirubin 1+ (Negative) H 06/01/23 18:55 Urine Urobilinogen Norm mg/dL (Negative) 06/01/23 18:55 Ur Leukocyte Esterase Trace (Negative) H 06/01/23 18:55 Urine RBC 0-4 /hpf (0-2) H 06/01/23 18:55 Urine WBC 0-4 /hpf (0-5) H 06/01/23 18:55 Ur Squamous Epith Cells 0-4 /hpf (0-5) H 06/01/23 18:55 Amorphous Sediment Trace /hpf 06/01/23 18:55 Urine Bacteria 1+ /hpf (NONE) H 06/01/23 18:55 Hyaline Casts 0-4 /lpf H 06/01/23 18:55 Urine Mucus 3+ /hpf 06/01/23 18:55 Ethyl Alcohol < 10 mg/dL (0-10) 06/01/23 17:56 Adenovirus (PCR) Not detected (NOT DETECT) 06/02/23 10:42 C. pneumoniae DNA (PCR) Not detected (NOT DETECT) 06/02/23 10:42 C. difficile (PCR) Positive (Negative) H 06/02/23 18:04 C.difficile Tox Confrm Negative (Negative) 06/02/23 18:04 Coronavirus 229E (PCR) Not detected (NOT DETECT) 06/02/23 10:42 Human Metapneumovir PCR Not detected (NOT DETECT) 06/02/23 10:42 Influenza A (H1) PCR Not detected (NOT DETECT) 06/02/23 10:42 Influ A (H1/09) PCR Not detected (NOT DETECT) 06/02/23 10:42 Influenza A (H3) PCR Not detected (NOT DETECT) 06/02/23 10:42 Influenza Type A Ag negative (Negative) 06/01/23 17:47 Influenza Type A (PCR) Not detected (NOT DETECT) 06/02/23 10:42 Influenza Type B Ag negative (Negative) 06/01/23 17:47 Influenza Type B (PCR) Not detected (NOT DETECT) 06/02/23 10:42 M. pneumoniae (PCR) Not detected (NOT DETECT) 06/02/23 10:42 Parainfluenza 1 (PCR) Not detected (NOT DETECT) 06/02/23 10:42 Parainfluenza 2 (PCR) Not detected (NOT DETECT) 06/02/23 10:42 Parainfluenza 3 (PCR) Not detected (NOT DETECT) 06/02/23 10:42 Parainfluenza 4 (PCR) Not detected (NOT DETECT) 06/02/23 10:42 RSV Type A (PCR) Not detected (NOT DETECT) 06/02/23 10:42 RSV Type B (PCR) Not detected (NOT DETECT) 06/02/23 10:42 Entero/Rhino (PCR) Not detected (NOT DETECT) 06/02/23 10:42 SARS-CoV-2 (PCR) Not detected (NOT DETECT) 06/02/23 10:42 SARS-CoV-2 Ag (Rapid) negative (Negative) 06/01/23 17:47 Vitals Last Vital Signs Temp 97.6 F 06/05/23 07:03 Pulse 81 06/05/23 09:24 Resp 18 06/05/23 09:24 BP 145/79 06/05/23 07:03 Pulse Ox 94 06/05/23 09:24 O2 Del Method Room Air 06/05/23 09:24 O2 Flow Rate 2 06/02/23 09:05 Discharge Plan Discharge Patient Disposition: Home Condition: Stable Prescriptions: New levothyroxine 75 mcg Tablet 75 mcg PO DAILY 30 Days Qty: 30 0RF doxycycline monohydrate 100 mg Tablet 100 mg PO BID 5 Days Qty: 10 0RF aspirin 81 mg Tablet,Delayed Release (Dr/Ec) 81 mg PO DAILY 30 Days Qty: 30 0RF vancomycin 125 mg Capsule 125 mg PO QID 9 Days Qty: 36 0RF Continued cyanocobalamin (vitamin B-12) 1,000 mcg capsule See Rx Instructions .ROUTE .COMPLEX Rx Instructions: unknown dose ketoconazole 2 % cream 1 applic topical BID Qty: 30 0RF pravastatin 40 mg tablet 40 mg PO DAILY Qty: 90 1RF gabapentin 300 mg Tablet 300 mg PO TID Discontinued aspirin 325 mg Tablet 325 mg PO DAILY Qty: 100 5RF levothyroxine 50 mcg Tablet See Rx Instructions .ROUTE .COMPLEX Rx Instructions: dose needs to be clarifie (75 mcg or 50 mcg) Discharge Orders: Discharge Order (Routine); Ordered 06/05/23 Ordered By: Alberto Frank Referrals: Jun Ling MD [Primary Care Provider] - 06/06/23 3:30 pm Discharge Diet: Regular Discharge Activity: Resume usual activity Patient Instructions: Doxycycline (By mouth), Levothyroxine (By mouth), Aspirin (By mouth), Vancomycin (By mouth), Heart Failure (DC), Urinary Tract Infection in Men (DC), C. Diff (Clostridioides Difficile) Infection (DC), Bacterial Pneumonia (DC), Altered Mental Status (ED), CHF Stoplight, Opioid Safety, Pain Management Activity Restrictions/Additional Instructions: - For your C. difficile colitis, please hydrate well, continue to hand wash, please use separate laboratory facilities from the rest of your family for the next few days Discharge Attestations Time Spent in Discharge Care*: greater than 30 min Status at Discharge: Cognitive status at discharge: cognitively intact , Behavioral status at discharge: cooperative and dependent in ADL's , Quality Metrics Clinical Quality Measures [ No reported AMI, CVA or VTE this stay] Coding Level of Care Code 57045 Total time (in minutes) for Discharge: 45 Diagnoses Pneumonia J18.9 Laterality: bilateral Lung location: lower lobe of lung Pneumonia type: due to unspecified organism Sepsis A41.9; R65.20; G93.41 Sepsis acute organ dysfunction status: with acute organ dysfunction Sepsis type: sepsis due to unspecified organism Severe sepsis acute organ dysfunction type: encephalopathy Severe sepsis shock status: without septic shock Neurologic gait disorder R26.9 Weakness R53.1 Hypoxic R09.02 Gram-positive bacteremia R78.81 Status post aortic valve replacement with bioprosthetic valve Z95.3 NSTEMI (non-ST elevated myocardial infarction) I21.4 C. difficile diarrhea A04.72
[2023-06-05 11:22] VITALS: BP 145/79; PULSE 81; RESP 18; TEMP 36.4; O2SAT 94
== END 2023-06-05 11:23 | disposition home or self-care (01) | DRG 193 ==
LOC: ER 19:01 → MEDSURG 21:27
PROVIDERS: Admitting Provider Internal Medicine; Emergency Provider Nurse Practitioner Family; PCP Family Medicine; Visit Provider Family Medicine
DX: J18.9 Pneumonia, unspecified organism (principal); G93.41 Metabolic encephalopathy; I21.4 Non-ST elevation (NSTEMI) myocardial infarction; A04.72 Enterocolitis due to Clostridium difficile, not specified as recurrent; E86.0 Dehydration; Z66 Do not resuscitate; R79.1 Abnormal coagulation profile; Z95.2 Presence of prosthetic heart valve; E53.8 Deficiency of other specified B group vitamins; E78.00 Pure hypercholesterolemia, unspecified; E03.9 Hypothyroidism, unspecified; Z79.82 Long term (current) use of aspirin; G62.9 Polyneuropathy, unspecified
CPT/HCPCS: 36415; 70450; 71045; 71275; 74018; 80048; 80053; 80307; 81001; 82274; 82607; 83036; 83605; 83630; 83690; 83735; 83880; 84100; 84145; 84443; 84484; 85025; 85378; 85610; 85651; 85730; 86140; 87040; 87045; 87077; 87086; 87150; 87177; 87186; 87205; 87209; 87324; 87426; 87427; 87449; 87486; 87493; 87581; 87633; 87804; 93005; 93306; 93970; 96361; 96365; 96375; 97110; 97116; 97161; 97530; 99285; J0456; J0696; J2020; J2405; J2543; J3370; J7030; J7050; Q9967

== ENCOUNTER → 2023-06-23 08:56 | Outpatient (BNVA) | payer MEDICARE, SELFPAY | PROVIDERS: PCP Family Medicine; Visit Provider Family Medicine | DX: E87.6 Hypokalemia (principal) | CPT/HCPCS: 80048 ==

== ENCOUNTER → 2023-07-04 08:37 | Outpatient (BNVA) | payer MEDICARE, SELFPAY | PROVIDERS: PCP Family Medicine; Visit Provider Podiatrist Foot & Ankle Surgery | DX: L84 Corns and callosities (principal) | CPT/HCPCS: 99213 ==

== ENCOUNTER 2023-07-26 15:05 | Emergency (ER) | payer MEDICARE, SELFPAY ==
[2023-07-26] VITALS (57 sets, daily range): BP systolic 91–154; BP diastolic 44–79; PULSE 84–130; RESP 19–28; TEMP 38.1; O2SAT 93–97
--- NOTE | 2023-07-26 15:15 | ECG_ITS ---
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 Measurements Intervals [place] Rate: 127 P: 0 GA: 0 QRS: -57 QRSD: 106 T: 76 QT: 299 QTc: 436 Interpretive Statements SinusTACHYCARDIA WITH RAPID VENTRICULAR RESPONSE LEFT AXIS DEVIATION [QRS AXIS < -30] PATTERN CONSISTENT WITH PULMONARY DISEASE LEFT VENTRICULAR HYPERTROPHY AND ST-T CHANGE [VOLTAGE CRITERIA PLUS ST/T ABNORMALITY] Compared to ECG 06/02/2023 16:18:23 ST (T wave) deviation now present Sinus rhythm no longer present Electronically Signed On 07-26-2023 22:59:59 CDT by Rico Curiel M.D. [email or web address]
--- NOTE | 2023-07-26 15:15 | ED_ITS ---
Documented by User: Osmar Raya DO 07/27/23 07:47 HPI - Arrhythmia/Palpitations 2 General: Chief Complaint: Altered Mental Status Stated Complaint: Weakness Time Seen by Provider: 07/26/23 15:09 Source: patient Mode of arrival: ambulatory History of Present Illness: 87-year-old male presents emergency room with complaints of rapid heart rate generally not feeling well weakness. He is very lethargic difficult to get to respond he reports rapid heart rate denies chest or abdominal pain. He was brought in by S crew. No history of A-fib in his past medical history has had a bioprosthetic valve replacement. He has a sternotomy scar. Did not see in his notes and old history that he had a history of heart disease. MD complaint: rapid heart beat and heart racing Onset (ago): day(s) Arrhythmia history: atrial fibrillation Associated symptoms: Deny anxiety, cough, diaphoresis, muscle cramps, nausea, paresthesias, pre-syncope, sense of impending doom, short of breath, syncope or vomiting Review of Systems 2 Const: Denies: fever(s), chills or diaphoresis Card: Reports: palpitations, irregular heart rhythm and edema; Denies: chest pain, syncope or pre-syncope Resp: Denies: dyspnea GI: Denies: abdominal pain, nausea or vomiting : Denies: dysuria, urinary frequency or urinary urgency Musc: Denies: muscle cramps Skin/Breast: Denies: rash Psych: Denies: anxiety PFSH ED 2 PFSH: Medical History Fungal dermatitis B12 deficiency Urinary tract infection COVID-19 Peripheral neuropathy [place] of toe Cellulitis of great toe of right foot Right bundle branch block Atrial fibrillation Pt had post operative fibrillation Aortic valve stenosis and insufficiency, rheumatic Scalp psoriasis Recent urinary tract infection COVID-19 Hypercholesteremia GERD (gastroesophageal reflux disease) Prostatic hypertrophy Hypothyroidism (acquired) Thyroid disease neuropathy Rheumatic fever Surgical History Status post right foot surgery Status post aortic valve replacement with bioprosthetic valve H/O hernia repair x 5 Hx of tonsillectomy Family History Daughter No problems noted. Brother Prostate cancer Social History Smoking and tobacco/nicotine status: never used tobacco/nicotine Alcohol intake: never Substance/Drug Use: never Physical Exam 2 Const: GENERAL APPEARANCE: cooperative and lethargic O RIENTATION/CONSCIOUSNESS: Yes lethargic HENMT: COMMON NORMALS: normocephalic, atraumatic and hearing grossly normal bilaterally HEAD & SCALP: normocephalic and atraumatic Resp: COMMON NORMALS: normal respiratory effort, No retractions, No use of accessory muscles and clear to auscultation bilaterally AUSCULTATION: clear to auscultation bilaterally Cardio: COMMON NORMALS: No murmurs present (Cardio) RATE: tachycardic R HYTHM: abnormal rhythm irregularly irregular GI: COMMON NORMALS: Soft to palpation and No hepatosplenomegaly present A USCULTATION: Yes normoactive bowel sounds PALPATION: Yes Soft to palpation, No Tenderness to palpation present (GI), No Guarding due to palpation present (GI) and Yes No hepatosplenomegaly present Extremity: COMMON NORMALS: normal to inspection, capillary refill normal, no clubbing, cyanosis or edema, no calf tenderness and no pedal edema Neuro: SENSORIUM/ORIENTATION: Yes lethargic Skin: COMMON NORMALS: no rashes or lesions noted GENERAL SKIN EXAM: no rashes or lesions noted Course 2 Vital Signs: Vital signs: Vital Signs Temperature 100.5 F H 07/26/23 15:13 Pulse Rate 88 07/27/23 01:15 Respiratory Rate 23 H 07/27/23 01:15 Blood Pressure 140/68 07/27/23 01:15 Pulse Oximetry 96 07/27/23 01:15 Oxygen Delivery Me thod Nasal Cannula 07/26/23 18:15 Oxygen Flow Rate 4 07/26/23 18:15 MDM - Arrhythmia/Palpitations Medical Decision Making Care signed out to Dr. Craig at change of shift. See final notes for diagnosis and disposition. Lab Data 07/26/23 15:19 07/26/23 15:19 Radiology Impressions Abdomen/Pelvis CT 07/26/23 16:11 IMPRESSION: 1. Suspected acute cholecystitis. Consider correlation with biliary labs and right upper quadrant ultrasound. 2. Inflamed colonic hepatic flexure, at least a component of which is likely secondary to the adjacent inflamed gallbladder. Diverticulitis or focal colitis could have a similar. No perforation or fluid collection. 3. Ascending aortic aneurysm. Abdomen Ultrasound 07/26/23 18:12 IMPRESSION: 1. Findings suggestive of acute cholecystitis. Laboratory Results WBC 11.15 10^3/uL (3.29-11.43) 07/26/23 15:19 RBC 4.63 10^6/uL (3.85-5.65) 07/26/23 15:19 Hgb 14.10 g/dL (11.27-16.99) 07/26/23 15:19 Hct 42.0 % (37-53) 07/26/23 15:19 MCV 90.7 fl (82-101) 07/26/23 15:19 MCH 30.5 pg (27-33) 07/26/23 15:19 MCHC 33.6 g/dL (30-55) 07/26/23 15:19 RDW 15.3 % (12.1-15.1) H 07/26/23 15:19 Plt Count 201 10^3/cmm (157-399) 07/26/23 15:19 MPV 10.9 fL (7.4-10.4) H 07/26/23 15:19 Neut % (Auto) 92.4 % 07/26/23 15:19 Lymph % (Auto) 3.0 % 07/26/23 15:19 [place] % (Auto) 3.8 % 07/26/23 15:19 Eos % (Auto) 0.1 % 07/26/23 15:19 Baso % (Auto) 0.3 % 07/26/23 15:19 Neut # (Auto) 10.32 10^3/uL (1.8-7.7) H 07/26/23 15:19 Lymph # (Auto) 0.3 10^3/uL (0.8-4.8) L 07/26/23 15:19 [place] # (Auto) 0.4 10^3/uL (0.2-0.9) 07/26/23 15:19 Eos # (Auto) 0.0 10^3/uL (0.0-0.8) 07/26/23 15:19 Baso # (Auto) 0.0 10^3/uL (0.0-0.1) 07/26/23 15:19 Nucleated RBC % (auto) 0 % 07/26/23 15:19 Nucleated RBCs # 0.0 /100WBC 07/26/23 15:19 PT 15.90 SECONDS (12.1-14.9) H 07/26/23 15:19 INR 1.23 (0.8-1.2) H 07/26/23 15:19 Specimen Type Arterial 07/26/23 15:16 Sample Site Radial, left 07/26/23 15:16 ABG pH 7.47 (7.35-7.45) H 07/26/23 15:16 ABG pCO2 32.6 mmHg (35-45) L 07/26/23 15:16 ABG pO2 76.3 mmHg (80.0-100.0) L 07/26/23 15:16 ABG HCO3 23.8 mmol/L (22-26) 07/26/23 15:16 ABG O2 Saturation 97.7 07/26/23 15:16 ABG Base Excess 0.7 mmol/L (-2.0-2.0) 07/26/23 15:16 Reji Test Pos 07/26/23 15:16 A-a O2 Gradient 3.9 mmHg (5-10) L 07/26/23 15:16 Hematocrit 41.6 % (42-52) L 07/26/23 15:16 Hgb O2 Saturation 95.4 % (95-100) 07/26/23 15:16 Carboxyhemoglobin 1.8 %THgb (0.4-20.1) 07/26/23 15:16 Methemoglobin 0.5 % (0.4-1.5) 07/26/23 15:16 Total Hemoglobin 13.6 g/dL (14-18) L 07/26/23 15:16 Sodium 136.0 mmol/L (131-143) 07/26/23 15:16 Potassium 3.7 mmol/L (3.5-5.0) 07/26/23 15:16 Glucose 201.0 mg/dL (70-115) H 07/26/23 15:16 Ionized Calcium 1.2 mmol/L (1.1-1.4) 07/26/23 15:16 O2 Delivery Device Oxy mask 07/26/23 15:16 O2 Liters/Min 7.5 % 07/26/23 15:16 Floral Design Teacher ID [place] 07/26/23 15:16 Sodium 135 mmol/L (136-145) L 07/26/23 15:19 Potassium 3.9 mmol/L (3.5-5.1) 07/26/23 15:19 Chloride 98 mmol/L (98-107) 07/26/23 15:19 Carbon Dioxide 21 mmol/L (22-29) L 07/26/23 15:19 Anion Gap 19.9 (5-19) H 07/26/23 15:19 BUN 26 mg/dL (8-23) H 07/26/23 15:19 Creatinine 0.9 mg/dL (0.7-1.2) 07/26/23 15:19 GFR Calculation Not Reportable 07/26/23 15:19 Glucose 215 mg/dL (65-115) H 07/26/23 15:19 Calculated Osmolality 291 mOsm/kg (285-295) 07/26/23 15:19 Lactic Acid 2.5 mmol/L (0.5-2.2) H 07/26/23 18:35 Lactic Acid (Sepsis) 2.7 mmol/L (0.5-2.2) H 07/26/23 21:32 Calcium 8.9 mg/dL (8.5-10.5) 07/26/23 15:19 Total Bilirubin 7.2 mg/dL (0.15-1.2) H* 07/26/23 15:19 AST 444 U/L (0-40) H 07/26/23 15:19 ALT 434 U/L (0-41) H 07/26/23 15:19 Alkaline Phosphatase 240 U/L (40-130) H 07/26/23 15:19 Ammonia 32 umol/L (16-60) 07/26/23 16:27 Creatine Kinase 1207 U/L (39-308) H* 07/26/23 15:19 Troponin T Baseline 138 ng/L (0-15) H* 07/26/23 15:19 Troponin T 120 Minute 131.2 ng/L (0-15) H 07/26/23 17:20 Delta Troponin T -6.8 ABS# (0-10) L 07/26/23 17:20 Troponin T Hi Sens 6Hr 142.6 ng/L (0-15) H 07/26/23 21:32 Troponin T Hi Sens 6Hr Delta 4.6 ng/L (0-12) 07/26/23 21:32 C-Reactive Protein 262.7 mg/L (0.0-4.9) H 07/26/23 21:32 Total Protein 6.3 g/dL (6.6-8.7) L 07/26/23 15:19 Albumin 3.7 g/dL (3.5-5.2) 07/26/23 15:19 Globulin 2.6 g/dL (1.3-4.6) 07/26/23 15:19 Lipase 17 U/L (13-60) 07/26/23 15:19 Procalcitonin 8.46 ng/mL (0-0.5) H 07/26/23 21:32 TSH 2.33 uIU/mL (0.27-4.20) 07/26/23 15:19 Urine Color [place] (Yellow) A 07/26/23 15:45 Urine Appearance Cloudy (CLEAR) A 07/26/23 15:45 Urine pH 5 (5-7) 07/26/23 15:45 Ur Specific [place] 1.025 (1.005-1.030) 07/26/23 15:45 Urine Protein 2+ (Negative) H 07/26/23 15:45 Urine Glucose (UA) Norm (Normal) 07/26/23 15:45 Urine Ketones 1+ (Negative) H 07/26/23 15:45 Urine Blood Not tested (Negative) A 07/26/23 15:45 Urine Nitrate Not tested (Negative) A 07/26/23 15:45 Urine Bilirubin Not tested (Negative) 07/26/23 15:45 Urine Urobilinogen Not tested mg/dL (Negative) A 07/26/23 15:45 Ur Leukocyte Esterase Trace (Negative) H 07/26/23 15:45 Urine RBC 5-10 /hpf (0-2) H 07/26/23 15:45 Urine WBC 0-4 /hpf (0-5) H 07/26/23 15:45 Ur Squamous Epith Cells None /hpf (0-5) 07/26/23 15:45 Amorphous Sediment 1+ /hpf 07/26/23 15:45 Urine Bacteria Trace /hpf (NONE) 07/26/23 15:45 Fine Granular Casts 15-25 /lpf H 07/26/23 15:45 Urine Mucus 1+ /hpf 07/26/23 15:45 Hepatitis A IgM Ab Non-reactive (Nonreactive) 07/26/23 15:16 Hep Bs Antigen Non-reactive (Nonreactive) 07/26/23 15:16 Hep B Core IgM Ab Non-reactive (Nonreactive) 07/26/23 15:16 Hepatitis C Antibody Non-reactive (Nonreactive) 07/26/23 15:16 Discharge Plan Discharge Patient Disposition: Xfer Short-Term Hosp Clinical Impression: Elevated liver enzymes, Elevated bilirubin, Acute cholecystitis Fever Qualifiers: Fever type: unspecified Qualified Code(s): R50.9 - Fever, unspecified Condition: Stable Referrals: Jun Ling MD [Primary Care Provider] - Patient Instructions: Altered Mental Status (ED) Coding Level of Care Code ED Terminal Make Up Operator for Chg Fwd Documented by User: Ck Craig DO 07/26/23 23:41 HPI - Arrhythmia/Palpitations 2 General: Chief Complaint: Altered Mental Status Stated Complaint: Weakness Time Seen by Provider: 07/26/23 15:09 [facility] ED 2 PFSH: Medical History Fungal dermatitis B12 deficiency Urinary tract infection COVID-19 Peripheral neuropathy [place] of toe Cellulitis of great toe of right foot Right bundle branch block Atrial fibrillation Pt had post operative fibrillation Aortic valve stenosis and insufficiency, rheumatic Scalp psoriasis Recent urinary tract infection COVID-19 Hypercholesteremia GERD (gastroesophageal reflux disease) Prostatic hypertrophy Hypothyroidism (acquired) Thyroid disease neuropathy Rheumatic fever Surgical History Status post right foot surgery Status post aortic valve replacement with bioprosthetic valve H/O hernia repair x 5 Hx of tonsillectomy Family History Daughter No problems noted. Brother Prostate cancer Social History Smoking and tobacco/nicotine status: never used tobacco/nicotine Alcohol intake: never Substance/Drug Use: never Course 2 Vital Signs: Vital signs: Vital Signs Temperature 100.5 F H 07/26/23 15:13 Pulse Rate 88 07/27/23 01:15 Respiratory Rate 23 H 07/27/23 01:15 Blood Pressure 140/68 07/27/23 01:15 Pulse Oximetry 96 07/27/23 01:15 Oxygen Delivery Me thod Nasal Cannula 07/26/23 18:15 Oxygen Flow Rate 4 07/26/23 18:15 MDM - Arrhythmia/Palpitations Medical Decision Making Care signed out to Dr. Craig at change of shift. See final notes for diagnosis and disposition. Once all lab was obtained as well as CT scan of the abdomen pelvis, and ultrasound of the right upper quadrant these results was discussed with Dr. Garcia who feels the patient does need an MRCP to rule out stone even with a negative ultrasound and CT. Dr. Russell was consulted he feels that he needs a MRCP/ERCP stat as just may be ascending cholangitis secondary to a small stone that was missed. He suggest we transfer the patient out unless we can get the MRCP done tonight. Franny was called. Dr. Garcia hospitalist agreed to take the patient in transfer. Lab Data 07/26/23 15:19 07/26/23 15:19 Radiology Impressions Abdomen/Pelvis CT 07/26/23 16:11 IMPRESSION: 1. Suspected acute cholecystitis. Consider correlation with biliary labs and right upper quadrant ultrasound. 2. Inflamed colonic hepatic flexure, at least a component of which is likely secondary to the adjacent inflamed gallbladder. Diverticulitis or focal colitis could have a similar. No perforation or fluid collection. 3. Ascending aortic aneurysm. Abdomen Ultrasound 07/26/23 18:12 IMPRESSION: 1. Findings suggestive of acute cholecystitis. Laboratory Results WBC 11.15 10^3/uL (3.29-11.43) 07/26/23 15:19 RBC 4.63 10^6/uL (3.85-5.65) 07/26/23 15:19 Hgb 14.10 g/dL (11.27-16.99) 07/26/23 15:19 Hct 42.0 % (37-53) 07/26/23 15:19 MCV 90.7 fl (82-101) 07/26/23 15:19 MCH 30.5 pg (27-33) 07/26/23 15:19 MCHC 33.6 g/dL (30-55) 07/26/23 15:19 RDW 15.3 % (12.1-15.1) H 07/26/23 15:19 Plt Count 201 10^3/cmm (157-399) 07/26/23 15:19 MPV 10.9 fL (7.4-10.4) H 07/26/23 15:19 Neut % (Auto) 92.4 % 07/26/23 15:19 Lymph % (Auto) 3.0 % 07/26/23 15:19 [place] % (Auto) 3.8 % 07/26/23 15:19 Eos % (Auto) 0.1 % 07/26/23 15:19 Baso % (Auto) 0.3 % 07/26/23 15:19 Neut # (Auto) 10.32 10^3/uL (1.8-7.7) H 07/26/23 15:19 Lymph # (Auto) 0.3 10^3/uL (0.8-4.8) L 07/26/23 15:19 [place] # (Auto) 0.4 10^3/uL (0.2-0.9) 07/26/23 15:19 Eos # (Auto) 0.0 10^3/uL (0.0-0.8) 07/26/23 15:19 Baso # (Auto) 0.0 10^3/uL (0.0-0.1) 07/26/23 15:19 Nucleated RBC % (auto) 0 % 07/26/23 15:19 Nucleated RBCs # 0.0 /100WBC 07/26/23 15:19 PT 15.90 SECONDS (12.1-14.9) H 07/26/23 15:19 INR 1.23 (0.8-1.2) H 07/26/23 15:19 Specimen Type Arterial 07/26/23 15:16 Sample Site Radial, left 07/26/23 15:16 ABG pH 7.47 (7.35-7.45) H 07/26/23 15:16 ABG pCO2 32.6 mmHg (35-45) L 07/26/23 15:16 ABG pO2 76.3 mmHg (80.0-100.0) L 07/26/23 15:16 ABG HCO3 23.8 mmol/L (22-26) 07/26/23 15:16 ABG O2 Saturation 97.7 07/26/23 15:16 ABG Base Excess 0.7 mmol/L (-2.0-2.0) 07/26/23 15:16 Reji Test Pos 07/26/23 15:16 A-a O2 Gradient 3.9 mmHg (5-10) L 07/26/23 15:16 Hematocrit 41.6 % (42-52) L 07/26/23 15:16 Hgb O2 Saturation 95.4 % (95-100) 07/26/23 15:16 Carboxyhemoglobin 1.8 %THgb (0.4-20.1) 07/26/23 15:16 Methemoglobin 0.5 % (0.4-1.5) 07/26/23 15:16 Total Hemoglobin 13.6 g/dL (14-18) L 07/26/23 15:16 Sodium 136.0 mmol/L (131-143) 07/26/23 15:16 Potassium 3.7 mmol/L (3.5-5.0) 07/26/23 15:16 Glucose 201.0 mg/dL (70-115) H 07/26/23 15:16 Ionized Calcium 1.2 mmol/L (1.1-1.4) 07/26/23 15:16 O2 Delivery Device Oxy mask 07/26/23 15:16 O2 Liters/Min 7.5 % 07/26/23 15:16 Floral Design Teacher ID [place] 07/26/23 15:16 Sodium 135 mmol/L (136-145) L 07/26/23 15:19 Potassium 3.9 mmol/L (3.5-5.1) 07/26/23 15:19 Chloride 98 mmol/L (98-107) 07/26/23 15:19 Carbon Dioxide 21 mmol/L (22-29) L 07/26/23 15:19 Anion Gap 19.9 (5-19) H 07/26/23 15:19 BUN 26 mg/dL (8-23) H 07/26/23 15:19 Creatinine 0.9 mg/dL (0.7-1.2) 07/26/23 15:19 GFR Calculation Not Reportable 07/26/23 15:19 Glucose 215 mg/dL (65-115) H 07/26/23 15:19 Calculated Osmolality 291 mOsm/kg (285-295) 07/26/23 15:19 Lactic Acid 2.5 mmol/L (0.5-2.2) H 07/26/23 18:35 Lactic Acid (Sepsis) 2.7 mmol/L (0.5-2.2) H 07/26/23 21:32 Calcium 8.9 mg/dL (8.5-10.5) 07/26/23 15:19 Total Bilirubin 7.2 mg/dL (0.15-1.2) H* 07/26/23 15:19 AST 444 U/L (0-40) H 07/26/23 15:19 ALT 434 U/L (0-41) H 07/26/23 15:19 Alkaline Phosphatase 240 U/L (40-130) H 07/26/23 15:19 Ammonia 32 umol/L (16-60) 07/26/23 16:27 Creatine Kinase 1207 U/L (39-308) H* 07/26/23 15:19 Troponin T Baseline 138 ng/L (0-15) H* 07/26/23 15:19 Troponin T 120 Minute 131.2 ng/L (0-15) H 07/26/23 17:20 Delta Troponin T -6.8 ABS# (0-10) L 07/26/23 17:20 Troponin T Hi Sens 6Hr 142.6 ng/L (0-15) H 07/26/23 21:32 Troponin T Hi Sens 6Hr Delta 4.6 ng/L (0-12) 07/26/23 21:32 C-Reactive Protein 262.7 mg/L (0.0-4.9) H 07/26/23 21:32 Total Protein 6.3 g/dL (6.6-8.7) L 07/26/23 15:19 Albumin 3.7 g/dL (3.5-5.2) 07/26/23 15:19 Globulin 2.6 g/dL (1.3-4.6) 07/26/23 15:19 Lipase 17 U/L (13-60) 07/26/23 15:19 Procalcitonin 8.46 ng/mL (0-0.5) H 07/26/23 21:32 TSH 2.33 uIU/mL (0.27-4.20) 07/26/23 15:19 Urine Color [place] (Yellow) A 07/26/23 15:45 Urine Appearance Cloudy (CLEAR) A 07/26/23 15:45 Urine pH 5 (5-7) 07/26/23 15:45 Ur Specific [place] 1.025 (1.005-1.030) 07/26/23 15:45 Urine Protein 2+ (Negative) H 07/26/23 15:45 Urine Glucose (UA) Norm (Normal) 07/26/23 15:45 Urine Ketones 1+ (Negative) H 07/26/23 15:45 Urine Blood Not tested (Negative) A 07/26/23 15:45 Urine Nitrate Not tested (Negative) A 07/26/23 15:45 Urine Bilirubin Not tested (Negative) 07/26/23 15:45 Urine Urobilinogen Not tested mg/dL (Negative) A 07/26/23 15:45 Ur Leukocyte Esterase Trace (Negative) H 07/26/23 15:45 Urine RBC 5-10 /hpf (0-2) H 07/26/23 15:45 Urine WBC 0-4 /hpf (0-5) H 07/26/23 15:45 Ur Squamous Epith Cells None /hpf (0-5) 07/26/23 15:45 Amorphous Sediment 1+ /hpf 07/26/23 15:45 Urine Bacteria Trace /hpf (NONE) 07/26/23 15:45 Fine Granular Casts 15-25 /lpf H 07/26/23 15:45 Urine Mucus 1+ /hpf 07/26/23 15:45 Hepatitis A IgM Ab Non-reactive (Nonreactive) 07/26/23 15:16 Hep Bs Antigen Non-reactive (Nonreactive) 07/26/23 15:16 Hep B Core IgM Ab Non-reactive (Nonreactive) 07/26/23 15:16 Hepatitis C Antibody Non-reactive (Nonreactive) 07/26/23 15:16 All radiology interpretation(s) finalized by discharge Discharge Plan Discharge Patient Disposition: Xfer Short-Term Hosp Clinical Impression: Elevated liver enzymes, Elevated bilirubin, Acute cholecystitis Fever Qualifiers: Fever type: unspecified Qualified Code(s): R50.9 - Fever, unspecified Condition: Stable Referrals: Jun Ling MD [Primary Care Provider] - Patient Instructions: Altered Mental Status (ED) Coding Level of Care Code ED Terminal Make Up Operator for Cassius Cadet
[2023-07-26 15:27] LABS: ABG PCO2 32.6 mmHg (35-45); ABG PH Result 7.47 (7.35-7.45); Alveolar-Arterial Oxygen Gradi 3.9 mmHg (5-10); Arterial Blood Gas Hematocrit 41.6 % (42-52); Base Excess ABG 0.7 mmol/L (-2.0-2.0); Blood Gas Allen Test Pos; Blood Gas LPM 7.5 %; Blood Gas Operator Identificat WALCI; Blood Gas Sample Site Radial, left; Blood Gas Sample Type Arterial; Carboxyhemoglobin 1.8 %THgb (0.4-20.1); HCO3 ABG 23.8 mmol/L (22-26); HGB O2 Sat 95.4 % (95-100); Ionized Calcium Level - ABG 1.2 mmol/L (1.1-1.4); Methemoglobin 0.5 % (0.4-1.5); Oxygen Device OXY MASK; Oxygen Saturation ABG 97.7; PO2 ABG 76.3 mmHg (80.0-100.0); Potassium Level - ABG 3.7 mmol/L (3.5-5.0); Total Hemoglobin 13.6 g/dL (14-18)
[2023-07-26 15:28] LABS: Basophils % 0.3 %; Eosinophils % 0.1 %; Lymphocytes # 0.3 10^3/uL (0.8-4.8); Mean Corpuscular HGB Conc 33.6 g/dL (30-55); Mean Corpuscular Hemoglobin 30.5 pg (27-33); Mean Corpuscular Volume 90.7 fl (82-101); Mean Platelet Volume 10.9 fL (7.4-10.4); Monocytes # 0.4 10^3/uL (0.2-0.9); Monocytes % 3.8 %; Neutrophils # 10.32 10^3/uL (1.8-7.7); Neutrophils % 92.4 %; Nucleated Red Blood Cells % 0 %; Platelet Count 201 10^3/cmm (157-399); Red Blood Count 4.63 10^6/uL (3.85-5.65); Red Cell Distribution Width 15.3 % (12.1-15.1); White Blood Count 11.15 10^3/uL (3.29-11.43)
[2023-07-26] MEDS: dilTIAZem 5 mg/mL SDV 5 mL 20 MG IVP (15:31)
[2023-07-26] MEDS: dilTIAZem 100 MG in sodium chloride 0.9% (add-van) 100 ML IV (15:35)
[2023-07-26 16:00] LABS: Alanine Aminotransferase 434 U/L (0-41); Albumin Level 3.7 g/dL (3.5-5.2); Alkaline Phosphatase 240 U/L (40-130); Anion Gap 19.9 (5-19); Aspartate Amino Transferase 444 U/L (0-40); Blood Urea Nitrogen 26 mg/dL (8-23); Calcium 8.9 mg/dL (8.5-10.5); Carbon Dioxide 21 mmol/L (22-29); Chloride 98 mmol/L (98-107); Globulin 2.6 g/dL (1.3-4.6); Glucose 215 mg/dL (65-115); Osmolality Calculated 291 mOsm/kg (285-295); Potassium 3.9 mmol/L (3.5-5.1); Sodium 135 mmol/L (136-145); Thyroid Stimulating Hormone 2.33 uIU/mL (0.27-4.20); Total Protein 6.3 g/dL (6.6-8.7)
[2023-07-26 16:07] LABS: Glucose Urine UA Norm (Normal); Protein Urine 2+ (Negative); Specific Gravity, Urine 1.025 (1.005-1.030); Urine Appearance Cloudy (CLEAR); Urine Color Orange (Yellow); pH Urine 5 (5-7)
[2023-07-26 16:08] LABS: Total Bilirubin 7.2 mg/dL (0.15-1.2)
[2023-07-26 16:08] LABS: Add Urine Microscopic? YES; Amorphous Sediment Urine 1+ /hpf; Bacteria Urine TRACE /hpf; Bilirubin Urine Not Tested (Negative); Blood Urine Not Tested (Negative); Ketones Urine 1+ (Negative); Leukocyte Esterase Urine Trace (Negative); Mucus Urine 1+ /hpf; Nitrate Urine Not Tested (Negative); Urobilinogen Urine Not Tested mg/dL (Negative); WBC Urine 0-4 /hpf (0-5)
[2023-07-26 16:09] LABS: Add Urine Culture? No; Fine Granular Casts Urine 15-25 /lpf
[2023-07-26 16:09] LABS: Troponin(5th) Baseline 138 ng/L (0-15)
--- NOTE | 2023-07-26 16:11 | CTR_ITS ---
PROCEDURE INFORMATION: Exam: CT Abdomen And Pelvis Without Contrast Exam date and time: 07/26/2023 5:00 PM Age: 87 years old Clinical indication: Abdominal pain; Generalized TECHNIQUE: Imaging protocol: Computed tomography of the abdomen and pelvis without contrast. Radiation optimization: All CT scans at this facility use at least one of these dose optimization techniques: automated exposure control; mA and/or kV adjustment per patient size (includes targeted exams where dose is matched to clinical indication); or iterative reconstruction. COMPARISON: CT kidney stone [id number] 02/07/2022 4:13 AM RADIATION DOSE METRICS: Total DLP (mGy-cm): 953 FINDINGS: Lungs: Subsegmental bibasilar atelectasis. The visualized lung bases are otherwise clear. Aneurysmal dilatation of the ascending thoracic aorta to approximately 4.9 cm. There appears to have been prior repair of the ascending aorta. Aortic valve replacement noted. Diaphragm: Moderate hiatal hernia with the GE junction and a portion of the gastric body above the diaphragm. Liver: No evidence of focal hepatic lesion within limitation of a noncontrast exam. Gallbladder and bile ducts: Gallbladder is inflamed with wall thickening and pericholecystic inflammatory change. There is suspected cholelithiasis. No evidence of intra-hepatic or extra-hepatic biliary dilatation. Pancreas: Moderately atrophic. Otherwise grossly unremarkable. Spleen: Grossly unremarkable. Adrenal glands: Grossly unremarkable. Kidneys and ureters: No gross renal parenchymal abnormality. No evidence of hydronephrosis or ureteral stone. Stomach and bowel: The colonic hepatic flexure is inflamed, possibly secondarily inflamed given the adjacent inflamed gallbladder. Diverticulitis or focal colitis could have a similar. No bowel obstruction. Appendix: Normal appendix. Intraperitoneal space: No evidence of free air or fluid collection. Vasculature: No evidence of aneurysmal dilitation of abdominal aorta. Lymph nodes: No evidence of adenopathy. Urinary bladder: The bladder is decompressed by a Street catheter in expected position. There is moderate bladder wall thickening, a component of which may be due to nondistention. Consider correlation with urinalysis to exclude cystitis. Reproductive: Grossly unremarkable. Bones/joints: No evidence of acute fracture or aggresive osseous lesion. Soft tissues: No evidence of fluid collection or hematoma in the superficial soft tissues. CT/CT abdomen pelvis wo con [id number] IMPRESSION: 1. Suspected acute cholecystitis. Consider correlation with biliary labs and right upper quadrant ultrasound. 2. Inflamed colonic hepatic flexure, at least a component of which is likely secondary to the adjacent inflamed gallbladder. Diverticulitis or focal colitis could have a similar. No perforation or fluid collection. 3. Ascending aortic aneurysm.
[2023-07-26 16:28] LABS: INR 1.23 (0.8-1.2)
[2023-07-26 16:29] LABS: Lipase 17 U/L (13-60)
[2023-07-26 16:31] LABS: Creatine Phosphokinase 1207 U/L (39-308)
[2023-07-26 17:09] LABS: Ammonia 32 umol/L (16-60)
--- NOTE | 2023-07-26 17:15 | ECG_ITS ---
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 Measurements Intervals [place] Rate: 101 P: 7 TN: 166 QRS: -50 QRSD: 106 T: 58 QT: 315 QTc: 409 Interpretive Statements SINUS TACHYCARDIA LEFT AXIS DEVIATION [QRS AXIS < -30] PATTERN CONSISTENT WITH PULMONARY DISEASE INCOMPLETE RIGHT BUNDLE BRANCH BLOCK [90+ ms QRS DURATION, TERMINAL R IN V1/V2, 40+ ms S IN I/aVL/V4/V5/V6] MODERATE VOLTAGE CRITERIA FOR LVH, CONSIDER NORMAL VARIANT [MEETS CRITERIA IN ONE OF: R(aVL), S(V1), R(V5), R(V5/V6)+S(V1)] Compared to ECG 07/26/2023 15:12:15 Incomplete right bundle-branch block now present Atrial flutter no longer present ST (T wave) deviation no longer present Electronically Signed On 07-27-2023 20:06:14 CDT by Rico Curiel M.D. [id number]
[2023-07-26] MEDS: piperacillin-tazobactam 3.375 GM in sodium chloride 0.9% (plus) 50 ML IV (17:30)
[2023-07-26 18:09] LABS: Troponin 5 2HR Delta -6.8 ABS# (0-10)
[2023-07-26 18:10] LABS: Troponin 5 2HR 131.2 ng/L (0-15)
--- NOTE | 2023-07-26 18:12 | USR_ITS ---
PROCEDURE INFORMATION: Exam: US Abdomen, Limited; Right Upper Quadrant Exam date and time: 07/26/2023 7:14 PM Age: 87 years old Clinical indication: Other: Elevated lfts; Additional info: Ruq US elevated lfts abnormal CT TECHNIQUE: Imaging protocol: Real time ultrasound of the abdomen with image documentation. Limited exam focused on the right upper quadrant. COMPARISON: CT abdomen pelvis wo con [id number] 07/26/2023 5:00 PM FINDINGS: Liver: Visualized hepatic parenchyma is echogenic. The liver contour is grossly smooth. Gallbladder: There is cholelithiasis and biliary sludge. There is gallbladder wall thickening to 7 mm. Biliary ducts: The CBD is nondilated, measuring 6 mm. No sonographic evidence of intraductal stone. Pancreas: The pancreas is obscured bowel gas. Right kidney: The right kidney is echogenic and measures 10.5 cm in length. No evidence of hydronephrosis. US/US abdomen limited [id number] IMPRESSION: 1. Findings suggestive of acute cholecystitis.
--- NOTE | 2023-07-26 18:45 | PC.NURSE ---
PATIENT ABLE TO ANSWER QUESTIONS APPROPRIATELY AND SPEAK TO NURSE. PATIENT IS MADE OF AWARE OF HOW HE WAS FOUND AT HOME AND TREATMENT THAT HAS BEEN PROVIDED SO FAR. PATIENT VERBALIZED UNDERSTANDING.
[2023-07-26 19:05] LABS: Lactic Sepsis W/Reflex 2.5 mmol/L (0.5-2.2)
[2023-07-26 20:29] LABS: Reflex Lactate Order REFLEX LACTIC ORDERD
[2023-07-26 20:58] LABS: Hepatitis A Antibody IgM Non-Reactive (Nonreactive); Hepatitis B Core IgM Non-Reactive (Nonreactive); Hepatitis B Surface Antigen Non-Reactive (Nonreactive); Hepatitis C Virus Antibody Non-Reactive (Nonreactive)
--- NOTE | 2023-07-26 21:15 | ECG_ITS ---
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 Measurements Intervals [place] Rate: 89 P: 32 SC: 165 QRS: -53 QRSD: 102 T: 60 QT: 336 QTc: 411 Interpretive Statements SINUS RHYTHM LEFT AXIS DEVIATION [QRS AXIS < -30] PATTERN CONSISTENT WITH PULMONARY DISEASE INCOMPLETE RIGHT BUNDLE BRANCH BLOCK [90+ ms QRS DURATION, TERMINAL R IN V1/V2, 40+ ms S IN I/aVL/V4/V5/V6] MODERATE VOLTAGE CRITERIA FOR LVH, CONSIDER NORMAL VARIANT [MEETS CRITERIA IN ONE OF: R(aVL), S(V1), R(V5), R(V5/V6)+S(V1)] NONSPECIFIC T-WAVE ABNORMALITY Compared to ECG 07/26/2023 17:15:37 T-wave abnormality now present Sinus tachycardia no longer present Electronically Signed On 07-27-2023 20:06:33 CDT by Rico Curiel M.D. [id number]
[2023-07-26 21:57] LABS: Troponin 5 6HR Delta 4.6 ng/L (0-12)
[2023-07-26 22:02] LABS: Lactic Acid level (Lactate) 2.7 mmol/L (0.5-2.2)
[2023-07-26 22:08] LABS: Troponin 5 6HR 142.6 ng/L (0-15)
[2023-07-26 22:20] LABS: C Reactive Protein 262.7 mg/L (0.0-4.9); Procalcitonin 8.46 ng/mL (0-0.5)
[2023-07-27] VITALS: BP 131/70; PULSE 85; RESP 23; O2SAT 96
--- NOTE | 2023-07-27 00:07 | PC.NURSE ---
Explained to patient that he will be transferred to [facility] due to need for MRCP, pt asked nurse if he could drive himself, nurse advised patient that he is not able to drive himself. Pt is not able to reposition himself on his own. Nurse has also rounded on patient more often due to patient inability to remember that he has a call light for needs. Pt then asked if he could just ride a [employer] transport van to [facility], nurse explained to patient that he is currently receiving a continuous medication by IV that is controlling his heart rate. Pt attempted to sign his transfer paperwork but is very weak and slightly confused by remarks of driving himself , he only makes short faint [place] in random places on paper. Nurse had second nurse sign transport paperwork with her.
[2023-07-27 00:15] VITALS: BP 130/70; PULSE 90; RESP 22; O2SAT 97
[2023-07-27 00:30] VITALS: BP 114/93; PULSE 90; RESP 24; O2SAT 96
[2023-07-27 00:45] VITALS: BP 120/80; PULSE 89; RESP 23; O2SAT 96
[2023-07-27 01:00] VITALS: BP 140/68; PULSE 91; RESP 23; O2SAT 96
[2023-07-27 01:15] VITALS: BP 140/68; PULSE 88; RESP 23; O2SAT 96
--- NOTE | 2023-07-27 05:21 | PC.NURSE ---
Contacted Camila Brito at [facility] with preliminary Blood culture results. 2/6 positive for gram neg rods
== END 2023-07-27 01:39 | disposition short-term general hospital (02) ==
PROVIDERS: Emergency Medicine; Emergency Provider Family Medicine; PCP Family Medicine
DX: K81.0 Acute cholecystitis (principal); R17 Unspecified jaundice; R74.8 Abnormal levels of other serum enzymes; R50.9 Fever, unspecified
CPT/HCPCS: 36415; 36600; 51702; 74176; 76705; 80051; 80053; 80074; 81001; 82140; 82330; 82550; 82805; 83605; 83690; 84145; 84443; 84484; 85025; 85610; 86140; 87040; 87077; 87150; 87186; 87205; 93005; 96365; 96366; 96367; 96375; 99285; J2543; J3490

== ENCOUNTER → 2023-08-16 07:20 | Outpatient (BNVA) | payer MEDICARE, SELFPAY | PROVIDERS: PCP Family Medicine; Visit Provider Podiatrist Foot & Ankle Surgery | DX: L84 Corns and callosities (principal) | CPT/HCPCS: 11055; 99213 ==

== ENCOUNTER → 2023-09-01 15:16 | Outpatient (BNVA) | payer MEDICARE, SELFPAY | PROVIDERS: PCP Family Medicine; Visit Provider Surgery | DX: K81.9 Cholecystitis, unspecified (principal) | CPT/HCPCS: 99204 ==

== ENCOUNTER 2023-09-08 09:15 | Day surgery (SDC) | payer MEDICARE, SELFPAY ==
[2023-09-08] VITALS (17 sets, daily range): BP systolic 142–188; BP diastolic 76–96; PULSE 63–78; RESP 14–19; TEMP 36.2–36.9; O2SAT 90–99; BMI 25.7
--- NOTE | 2023-09-08 10:19 | W.PM.OPSUD ---
Surgery/Procedure H&P Update DATE OF PROCEDURE: September 08, 2023 DATE H&P PERFORMED: 09/01/23 H&P UPDATE INFORMATION: I have reviewed H&P completed within last 30 days, I have examined patient prior to procedure and No changes to prior documentation PLANNED PROCEDURE: Operation Date: 09/08/23 11:25 Proposed Procedures p Laparoscopic Cholecystectomy 81285, K80.20(Not Applicable) - Lucien Garcia DO
[2023-09-08] MEDS: sodium chloride 0.9% 1,000 ML 30 ML IV (11:28)
--- NOTE | 2023-09-08 11:38 | P.ANESASSM_ITS ---
Pre-Anesthetic Assessment Height/Weight: Height 1.83 m Weight 86.183 kg Temp Pulse Resp BP Pulse Ox O2 Del Method 98.4 F 71 18 148/89 96 Room Air 09/08/23 09:56 09/08/23 09:56 09/08/23 09:56 09/08/23 09:56 09/08/23 09:56 09/08/23 10:00 Operation Date: 09/08/23 11:25 Proposed Procedures p Laparoscopic Cholecystectomy 67475, K80.20(Not Applicable) - Lucien Garcia DO Familial anesthetic complications: None Was Beta Keily taken within 24 hours: N/A Was Clonidine taken within 24 hours: N/A Last intake: Intake Last Liquid Date 09/07/23 Last Liquid Time 18:00 Last Solid Date 09/07/23 Last Solid Time 18:00 Social No alcohol and No tobacco Exam alert, oriented x 3, clear to auscultation bilaterally and regular rate & rhythm Airway Mallampati: Class II Dentition: chipped and other CV/HEM Hypertension Aortic Valve (porcine) in 2019 Metabolic Thyroid Disease Anesthetic Plan ASA status: 3 Anesthesia: General Risk of > 500 ml blood loss (7ml/kg in children): No Medications/Allergies Home Medications Medication Instructions Recorded Confirmed Last Taken Type cyanocobalamin (vitamin B-12) 1,000 mcg PO TID 12/22/22 09/07/23 08/03/23 History 1,000 mcg capsule gabapentin 400 mg capsule 400 mg PO TID 07/26/23 09/07/23 09/07/23 History levothyroxine 75 mcg tablet 75 mcg PO QAM 07/26/23 09/07/23 09/07/23 History aspirin 81 mg tablet,delayed 81 mg PO DAILY 09/01/23 09/07/23 08/03/23 History release pravastatin 40 mg tablet 40 mg PO 1XD 09/07/23 09/07/23 09/07/23 History Allergies Allergy/AdvReac Type Severity Reaction Status Date / Time atorvastatin Allergy ALGY-Hives Verified 09/07/23 12:57 duloxetine [From Cymbalta] Allergy Unknown Verified 09/07/23 12:48 Current Medications Generic Name Dose Route Start Last Admin Trade Name Freq PRN Reason Stop Dose Admin Sodium Chloride 1,000 mls @ 30 mls/hr 09/08/23 09:30 09/08/23 11:28 Sodium Chloride 0.9% IV 09/09/23 09:29 30 mls/hr .Q24H CINDY Administration PFSH Anesthesia Medical History Cholelithiasis Fungal dermatitis B12 deficiency Urinary tract infection COVID-19 Peripheral neuropathy [place] of toe Cellulitis of great toe of right foot Right bundle branch block Atrial fibrillation Pt had post operative fibrillation Aortic valve stenosis and insufficiency, rheumatic Scalp psoriasis Recent urinary tract infection COVID-19 Hypercholesteremia GERD (gastroesophageal reflux disease) Prostatic hypertrophy Hypothyroidism (acquired) Thyroid disease neuropathy Rheumatic fever Surgical History Status post right foot surgery Status post aortic valve replacement with bioprosthetic valve H/O hernia repair x 5 Hx of tonsillectomy Family History Daughter No problems noted. Brother Prostate cancer Social History Smoking and tobacco/nicotine status: never used tobacco/nicotine Alcohol intake: never Substance/Drug Use: never Data Anesthesia Cardiac Studies: Echocardiogram 06/02/23 Echocardiogram Limited Views 08/13/21
[2023-09-08] MEDS: ceFAZolin 2,000 MG in sodium chloride 0.9% (plus) 50 ML 100 MG IV (12:20)
[2023-09-08] MEDS: lidocaine-epi 2% PF 1:200,000 20 mL SDV XX (12:40)
--- NOTE | 2023-09-08 13:13 | P.OP_ITS ---
Operative Report Date of procedure: September 08, 2023 Pre-op diagnosis: Cholecystitis with cholelithiasis Post-op diagnosis: same Procedure done: Laparoscopic cholecystectomy Surgeon: Lucien Garcia DO Procedure: Estimated blood loss: 5 mL Specimens: Gallbladder to pathology Complications: None apparent Description of procedure: Patient was wheeled into the operative room and placed on the OR table in a supine position. Abdomen was inspected prepped and draped in usual sterile fashion. Time-out was performed and all present were in agreement. A 15 blade scalp was used to make a stab incision in the left upper quadrant and intra- abdominal insufflation was achieved using a Veress needle. After localizing the tissue incisions were made and a 5 millimeter trocar was placed into the umbilicus as well as 2 in the right upper quadrant. A 12 millimeter trocar was placed in the epigastrium. Gallbladder was grasped and elevated. The triangle of Calot was carefully dissected using blunt dissection and electrocautery until the triangle of Calot clearly identified. The cystic duct was clipped proximal ly and double clipped distally. The duct was then ligated proximally. The cystic artery was doubly clipped and ligated. The gallbladder was then removed from the liver bed using electrocautery. The gallbladder was removed from the abdomen using an Endo-Catch bag through the epigastric incision. The liver bed was inspected and no bleeding was seen. The abdomen was irrigated and suctioned. All ports removed. Skin was washed and dried. Incisions were closed with 4-0 Monocryl in a subcuticular interrupted fashion. Skin glue was applied. Patient tolerated the procedure well.
[2023-09-08] MEDS: hyDRALAzine 20 mg/mL INJ 1 mL 5 MG IVP (13:45)
[2023-09-08] MEDS: HYDROcodone-acetaminophen 7.5-325 mg Tablet 1 TAB PO (14:34)
--- NOTE | 2023-09-08 15:56 | SUR.PHASEII ---
15:00 abdominal incisions clean and dry. no redness or drainage.
== END 2023-09-08 15:45 | disposition home or self-care (01) ==
PROVIDERS: PCP Family Medicine; Visit Provider Surgery
PROC: 0FT44ZZ Resection of Gallbladder, Percutaneous Endoscopic Approach (ICD-10-PCS; CPT 47562; principal; 2023-09-08 12:30)
DX: K80.10 Calculus of gallbladder with chronic cholecystitis without obstruction (principal); I10 Essential (primary) hypertension; Z95.2 Presence of prosthetic heart valve; Z86.16 Personal history of COVID-19; I48.91 Unspecified atrial fibrillation; E78.00 Pure hypercholesterolemia, unspecified; K21.9 Gastro-esophageal reflux disease without esophagitis; Z79.82 Long term (current) use of aspirin
CPT/HCPCS: 47562; 88304; J0360; J0690; J1100; J1885; J2405; J2710; J3010; J3490; J7030

== ENCOUNTER 2023-09-10 09:02 | Inpatient (IN) | payer MEDICARE, SELFPAY ==
[2023-09-10] VITALS (44 sets, daily range): BP systolic 98–172; BP diastolic 58–79; PULSE 79–154; RESP 9–23; TEMP 36.6–37.7; O2SAT 64–97; BMI 26.7
--- NOTE | 2023-09-10 09:25 | XRR_ITS ---
PROCEDURE INFORMATION: Exam: XR Chest Exam date and time: 09/10/2023 9:58 AM Age: 87 years old Clinical indication: Cough and fever; Prior surgery; Surgery date: 6+ months; Surgery type: Heart gb; Additional info: Fever, cough TECHNIQUE: Imaging protocol: Radiologic exam of the chest. Views: 2 views. COMPARISON: CT angio chest PE protcl [id number] 06/01/2023 11:41 PM FINDINGS: Lungs: Low lung volumes are seen. The lungs are otherwise clear No consolidation. Pleural spaces: Unremarkable. No pleural effusion. No pneumothorax. Heart/Mediastinum: Unremarkable. No cardiomegaly. Bones/joints: Metallic sternotomy wires are present. Other findings: Similar findings are seen comparing to prior examination XR/XR chest 2V* [id number] IMPRESSION: 1. No acute findings. 2. Low lung volumes. 3. Metallic sternotomy wires are present
--- NOTE | 2023-09-10 09:30 | PC.NURSE ---
pt oxygen saturation decreased to 86% while sleeping. pt breathing with mouth, this nurse attempted NC application, but did not increase oxygen sat. applied simple mask on 2L, oxygen sat increased to 93%. pt very drowsy.
[2023-09-10 09:49] LABS: Basophils # 0.1 10^3/uL (0.0-0.1); Basophils % 0.5 %; Eosinophils # 0.1 10^3/uL (0.0-0.8); Eosinophils % 0.5 %; Hematocrit 39.3 % (37-53); Lymphocytes # 0.7 10^3/uL (0.8-4.8); Lymphocytes % 4.7 %; Mean Corpuscular HGB Conc 31.6 g/dL (30-55); Mean Corpuscular Hemoglobin 30.4 pg (27-33); Mean Corpuscular Volume 96.3 fl (82-101); Mean Platelet Volume 11.1 fL (7.4-10.4); Monocytes # 1.4 10^3/uL (0.2-0.9); Monocytes % 9.4 %; Neutrophils # 12.63 10^3/uL (1.8-7.7); Neutrophils % 84.3 %; Nucleated Red Blood Cells % 0 %; Platelet Count 205 10^3/cmm (157-399); Red Blood Count 4.08 10^6/uL (3.85-5.65); Red Cell Distribution Width 15.2 % (12.1-15.1); White Blood Count 14.97 10^3/uL (3.29-11.43)
[2023-09-10] MEDS: sodium chloride 0.9% 500 ML IV (09:53)
[2023-09-10 10:08] LABS: Lactic Sepsis W/Reflex 2.4 mmol/L (0.5-2.2)
[2023-09-10 10:09] LABS: Alanine Aminotransferase 71 U/L (0-41); Albumin Level 3.7 g/dL (3.5-5.2); Alkaline Phosphatase 149 U/L (40-130); Anion Gap 16.1 (5-19); Aspartate Amino Transferase 99 U/L (0-40); Blood Urea Nitrogen 25 mg/dL (8-23); Calcium 9.1 mg/dL (8.5-10.5); Carbon Dioxide 25 mmol/L (22-29); Chloride 99 mmol/L (98-107); Globulin 3.5 g/dL (1.3-4.6); Glucose 120 mg/dL (65-115); Osmolality Calculated 288 mOsm/kg (285-295); Potassium 4.1 mmol/L (3.5-5.1); Sodium 136 mmol/L (136-145); Total Bilirubin 2.4 mg/dL (0.15-1.2); Total Protein 7.2 g/dL (6.6-8.7)
[2023-09-10 10:29] LABS: Glucose Urine UA Norm (Normal); Ketones Urine 1+ (Negative); Protein Urine 1+ (Negative); Specific Gravity, Urine 1.025 (1.005-1.030); Urine Appearance Clear (CLEAR); Urine Color Orange (Yellow); pH Urine 5 (5-7)
[2023-09-10 10:30] LABS: Add Urine Culture? Yes; Add Urine Microscopic? YES; Bacteria Urine 1+ /hpf; Bilirubin Urine 1+ (Negative); Blood Urine 3+ (Negative); Leukocyte Esterase Urine 2+ (Negative); Nitrate Urine Negative (Negative); Squamous Epithelial Cell Urine 0-4 /hpf (0-5); Urobilinogen Urine 4 mg/dL (Negative); WBC Urine 15-25 /hpf (0-5)
--- NOTE | 2023-09-10 10:42 | ED_ITS ---
HPI - Fever 2 General: Chief Complaint: Fever Stated Complaint: FEVER; WEAKNESS Time Seen by Provider: 09/10/23 09:07 History of Present Illness: 87-year-old male presents with a fever. Patient did have a cholecystectomy last Tuesday. Presents today with a fever. Patient does have some generalized malaise. No abdominal pain. Review of Systems 2 Const: Reports: fever(s) and fatigue Resp: Denies: dyspnea or wheezing PFSH ED 2 PFSH: Medical History Cholelithiasis Fungal dermatitis B12 deficiency Urinary tract infection COVID-19 Peripheral neuropathy [place] of toe Cellulitis of great toe of right foot Right bundle branch block Atrial fibrillation Pt had post operative fibrillation Aortic valve stenosis and insufficiency, rheumatic Scalp psoriasis Recent urinary tract infection COVID-19 Hypercholesteremia GERD (gastroesophageal reflux disease) Prostatic hypertrophy Hypothyroidism (acquired) Thyroid disease neuropathy Rheumatic fever Surgical History Status post right foot surgery Status post aortic valve replacement with bioprosthetic valve H/O hernia repair x 5 Hx of tonsillectomy Family History Daughter No problems noted. Brother Prostate cancer Social History Smoking and tobacco/nicotine status: never used tobacco/nicotine Alcohol intake: never Substance/Drug Use: never Physical Exam 2 Const: COMMON NORMALS: no acute distress, patient oriented x3 and alert Resp: COMMON NORMALS: normal respiratory effort, No use of accessory muscles and clear to auscultation bilaterally AUSCULTATION: clear to auscultation bilaterally Cardio: COMMON NORMALS: regular rate and regular rhythm RATE: regular rate RHYTHM: regular rhythm Extremity: COMMON NORMALS: normal to inspection and capillary refill normal Neuro: COMMON NORMALS: patient oriented x3, no focal motor deficits and no sensory deficits noted SENSORIUM/ORIENTATION: Yes alert Course 2 Vital Signs: Vital signs: Vital Signs Temperature 100 F H 09/10/23 11:50 Pulse Rate 111 H 09/10/23 13:20 Respiratory Rate 9 L 09/10/23 13:20 Blood Pressure 103/71 09/10/23 13:20 Pulse Oximetry 96 09/10/23 13:20 Oxygen Delivery Me thod Oxymask 09/10/23 12:11 MDM - Fever Medical Decision Making Patient diagnostics ordered reviewed interpreted by me. Patient's labs show increased elevated white count. Patient labs otherwise show no acute findings. Patient's chest x-ray shows no acute findings. I did obtain a CT a chest abdomen pelvis because patient started having tachycardic episodes with heart rate reaching 150s. He did require some mild O2 saturation. Patient with urinalysis is consistent with a UTI which is likely the cause of his fevers. Patient started on Rocephin. CTA shows no acute PEs or other acute findings on CT chest abdomen pelvis. Patient to be admitted to Dr. Frank for further inpatient management. Lab Data 09/10/23 09:43 09/10/23 09:43 Radiology Impressions Chest X-Ray 09/10/23 09:25 IMPRESSION: 1. No acute findings. 2. Low lung volumes. 3. Metallic sternotomy wires are present Chest/Abdomen/Pelvis CT 09/10/23 12:13 IMPRESSION: 1. The examination does not show a pulmonary embolism. 2. Negative for right heart strain. 3. Ectatic ascending thoracic aorta 4. Status post sternotomy 5. Scattered calcified granulomas in both lungs . 6. Bilateral pleural thickening. IMPRESSION: 1. Hepatic steatosis no focal hepatic abnormality. 2. Dilated urinary bladder. 3. Cholecystectomy 4. Hiatal hernia . 5. Apparent inflammatory changes in the gastric antrum Laboratory Results WBC 14.97 10^3/uL (3.29-11.43) H 09/10/23 09:43 RBC 4.08 10^6/uL (3.85-5.65) 09/10/23 09:43 Hgb 12.40 g/dL (11.27-16.99) 09/10/23 09:43 Hct 39.3 % (37-53) 09/10/23 09:43 MCV 96.3 fl (82-101) 09/10/23 09:43 MCH 30.4 pg (27-33) 09/10/23 09:43 MCHC 31.6 g/dL (30-55) 09/10/23 09:43 RDW 15.2 % (12.1-15.1) H 09/10/23 09:43 Plt Count 205 10^3/cmm (157-399) 09/10/23 09:43 MPV 11.1 fL (7.4-10.4) H 09/10/23 09:43 Neut % (Auto) 84.3 % 09/10/23 09:43 Lymph % (Auto) 4.7 % 09/10/23 09:43 [place] % (Auto) 9.4 % 09/10/23 09:43 Eos % (Auto) 0.5 % 09/10/23 09:43 Baso % (Auto) 0.5 % 09/10/23 09:43 Neut # (Auto) 12.63 10^3/uL (1.8-7.7) H 09/10/23 09:43 Lymph # (Auto) 0.7 10^3/uL (0.8-4.8) L 09/10/23 09:43 [place] # (Auto) 1.4 10^3/uL (0.2-0.9) H 09/10/23 09:43 Eos # (Auto) 0.1 10^3/uL (0.0-0.8) 09/10/23 09:43 Baso # (Auto) 0.1 10^3/uL (0.0-0.1) 09/10/23 09:43 Nucleated RBC % (auto) 0 % 09/10/23 09:43 Nucleated RBCs # 0.0 /100WBC 09/10/23 09:43 Sodium 136 mmol/L (136-145) 09/10/23 09:43 Potassium 4.1 mmol/L (3.5-5.1) 09/10/23 09:43 Chloride 99 mmol/L (98-107) 09/10/23 09:43 Carbon Dioxide 25 mmol/L (22-29) 09/10/23 09:43 Anion Gap 16.1 (5-19) 09/10/23 09:43 BUN 25 mg/dL (8-23) H 09/10/23 09:43 Creatinine 1.0 mg/dL (0.7-1.2) 09/10/23 09:43 GFR Calculation Not Reportable 09/10/23 09:43 Glucose 120 mg/dL (65-115) H 09/10/23 09:43 Calculated Osmolality 288 mOsm/kg (285-295) 09/10/23 09:43 Lactic Acid 2.4 mmol/L (0.5-2.2) H 09/10/23 09:43 Lactic Acid (Sepsis) 1.9 mmol/L (0.5-2.2) 09/10/23 12:55 Calcium 9.1 mg/dL (8.5-10.5) 09/10/23 09:43 Total Bilirubin 2.4 mg/dL (0.15-1.2) H 09/10/23 09:43 AST 99 U/L (0-40) H 09/10/23 09:43 ALT 71 U/L (0-41) H 09/10/23 09:43 Alkaline Phosphatase 149 U/L (40-130) H 09/10/23 09:43 Total Protein 7.2 g/dL (6.6-8.7) 09/10/23 09:43 Albumin 3.7 g/dL (3.5-5.2) 09/10/23 09:43 Globulin 3.5 g/dL (1.3-4.6) 09/10/23 09:43 Urine Color [place] (Yellow) A 09/10/23 10:18 Urine Appearance Clear (CLEAR) 09/10/23 10:18 Urine pH 5 (5-7) 09/10/23 10:18 Ur Specific [place] 1.025 (1.005-1.030) 09/10/23 10:18 Urine Protein 1+ (Negative) H 09/10/23 10:18 Urine Glucose (UA) Norm (Normal) 09/10/23 10:18 Urine Ketones 1+ (Negative) H 09/10/23 10:18 Urine Blood 3+ (Negative) H 09/10/23 10:18 Urine Nitrate Negative (Negative) 09/10/23 10:18 Urine Bilirubin 1+ (Negative) H 09/10/23 10:18 Urine Urobilinogen 4 mg/dL (Negative) H 09/10/23 10:18 Ur Leukocyte Esterase 2+ (Negative) H 09/10/23 10:18 Urine RBC 5-10 /hpf (0-2) H 09/10/23 10:18 Urine WBC 15-25 /hpf (0-5) H 09/10/23 10:18 Ur Squamous Epith Cells 0-4 /hpf (0-5) H 09/10/23 10:18 Amorphous Sediment Not Reportable 09/10/23 10:18 Urine Bacteria 1+ /hpf (NONE) H 09/10/23 10:18 All radiology interpretation(s) finalized by discharge Discharge Plan Discharge Patient Disposition: Admitted As Inpatient Clinical Impression: Acute UTI, Tachycardia Condition: Stable Coding Level of Care Code ED Fisheries Specialist for Cassius Cadet
--- NOTE | 2023-09-10 11:00 | PC.NURSE ---
per Dr. Macias to take pt off oxygen to complete room air trial, pt maintaining 90%
[2023-09-10] MEDS: cefTRIAXone 2,000 MG in sodium chloride 0.9% (plus) 50 ML 100 MG IV (11:06)
[2023-09-10 11:34] LABS: Reflex Lactate Order REFLEX LACTIC ORDERD
--- NOTE | 2023-09-10 11:37 | ECG_ITS ---
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 Measurements Intervals [place] Rate: 150 P: 0 OK: 0 QRS: -47 QRSD: 102 T: 85 QT: 267 QTc: 422 Interpretive Statements ATRIAL FLUTTER/TACHYCARDIA WITH RAPID VENTRICULAR RESPONSE LEFT AXIS DEVIATION [QRS AXIS < -30] PATTERN CONSISTENT WITH PULMONARY DISEASE LEFT VENTRICULAR HYPERTROPHY AND ST-T CHANGE [VOLTAGE CRITERIA PLUS ST/T ABNORMALITY] CRITICAL TEST RESULT INTERPRETATION BASED ON A DEFAULT AGE OF 40 YEARS Compared to ECG 07/26/2023 21:10:39 ST (T wave) deviation now present Sinus rhythm no longer present Incomplete right bundle-branch block no longer present T-wave abnormality no longer present Electronically Signed On 09-11-2023 9:52:17 CDT by Luis M Rosado M.D. [email or web address] [id number] [email or web address]
[2023-09-10] MEDS: acetaminophen 325 mg Tablet 650 MG PO (12:05)
[2023-09-10] MEDS: sodium chloride 0.9% 1,000 ML 125 ML IV (12:05)
--- NOTE | 2023-09-10 12:09 | PC.NURSE ---
pt oxygenation saturation decreased to 84% on room air, applied oxymask to pt on 2L, pt oxygen saturation increased to 92%, Dr. Ludwig aware.
--- NOTE | 2023-09-10 12:13 | CTR_ITS ---
PROCEDURE INFORMATION: Exam: CTA Chest With Contrast Exam date and time: 09/10/2023 12:21 PM Age: 87 years old Clinical indication: Fever; Shortness of breath; Prior surgery; Surgery date: <1 month; Surgery type: Gb heart; Additional info: Post op fever, new tachy SOB, R/O pe TECHNIQUE: Imaging protocol: Computed tomographic angiography of the chest with contrast. Exam focused on the arteries. 3D rendering (Not supervised by radiologist): MIP and/or 3D reconstructed images were created by the technologist. Radiation optimization: All CT scans at this facility use at least one of these dose optimization techniques: automated exposure control; mA and/or kV adjustment per patient size (includes targeted exams where dose is matched to clinical indication); or iterative reconstruction. Contrast material: OMNI 350; Contrast volume: 100 ml; Contrast route: INTRAVENOUS (IV); COMPARISON: CT angio chest PE protcl [id number] 06/01/2023 11:41 PM RADIATION DOSE METRICS: Total DLP (mGy-cm): 1309.15 FINDINGS: Pulmonary arteries: Normal. No pulmonary emboli. Aorta: There is ectatic ascending thoracic aorta with AP measurement of 5 cm at the level of the right pulmonary artery. No aortic dissection. Lungs: Calcified granulomas bilateral lower lobes. No consolidation. No masses. Pleural spaces: Pleural thickening is seen in the posterior aspect of the bilateral lower lobes No pneumothorax. No pleural effusion. Eventration of the right hemidiaphragm. Heart: Negative for right heart strain No cardiomegaly. No pericardial effusion. Lymph nodes: Unremarkable. No enlarged lymph nodes. Bones/joints: Metallic sternotomy wires are present. No acute fracture. Soft tissues: Unremarkable. PROCEDURE INFORMATION: Exam: CT Abdomen And Pelvis With Contrast Exam date and time: 09/10/2023 12:21 PM Age: 87 years old Clinical indication: Fever; Shortness of breath; Prior surgery; Surgery date: <1 month; Surgery type: Gb heart; Additional info: Post op fever, new tachy SOB, R/O pe TECHNIQUE: Imaging protocol: Computed tomography of the abdomen and pelvis with contrast. Radiation optimization: All CT scans at this facility use at least one of these dose optimization techniques: automated exposure control; mA and/or kV adjustment per patient size (includes targeted exams where dose is matched to clinical indication); or iterative reconstruction. Contrast material: OMNI 350; Contrast volume: 100 ml; Contrast route: INTRAVENOUS (IV); COMPARISON: CT abdomen pelvis wo con [id number] 07/26/2023 5:00 PM RADIATION DOSE METRICS: Total DLP (mGy-cm): 1309.15 FINDINGS: Liver: There is diffuse hepatic lucency consistent with steatosis. No mass. Gallbladder and biliary ducts: Status post cholecystectomy. Pancreas: Normal. No ductal dilation. Spleen: Normal. No splenomegaly. Adrenal glands: Normal. No mass. Kidneys and ureters: Normal. No hydronephrosis. Stomach and bowel: There is a hiatal hernia measuring 5.9 cm x 4.2 cm. No obstruction. The antrum of the stomach shows indistinct appearance with thickening of its [place] . There is inflammatory omental stranding seen in the area of the gallbladder fossa and the stomach these findings may be due to postsurgical changes in the gallbladder fossa Appendix: No evident of appendicitis. Intraperitoneal space: Unremarkable. No free air. No significant fluid collection. Vasculature: Unremarkable. No abdominal aortic aneurysm. Lymph nodes: Unremarkable. No enlarged lymph nodes. Urinary bladder: Dilated with fluid. Reproductive: Unremarkable as visualized. Bones/joints: Osteoarthritis No acute fracture. Soft tissues: There is subcutaneous emphysema in the right lateral abdominal wall CT/CT angio chest w abd pel wo/w IMPRESSION: 1. The examination does not show a pulmonary embolism. 2. Negative for right heart strain. 3. Ectatic ascending thoracic aorta 4. Status post sternotomy 5. Scattered calcified granulomas in both lungs . 6. Bilateral pleural thickening. IMPRESSION: 1. Hepatic steatosis no focal hepatic abnormality. 2. Dilated urinary bladder. 3. Cholecystectomy 4. Hiatal hernia . 5. Apparent inflammatory changes in the gastric antrum
[2023-09-10] MEDS: iohexol 350 mg/mL 500 mL Btl (per mL) IV (12:21)
[2023-09-10 13:18] LABS: Lactic Acid level (Lactate) 1.9 mmol/L (0.5-2.2)
--- NOTE | 2023-09-10 14:19 | ECG_ITS ---
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 Measurements Intervals [place] Rate: 102 P: 0 ND: 0 QRS: -42 QRSD: 107 T: 58 QT: 330 QTc: 432 Interpretive Statements Sinus tachycardia with PAC LEFT AXIS DEVIATION [QRS AXIS < -30] PATTERN CONSISTENT WITH PULMONARY DISEASE Compared to ECG 09/10/2023 11:37:53 Left ventricular hypertrophy no longer present ST (T wave) deviation no longer present Atrial flutter/fibrillation resolved Electronically Signed On 09-11-2023 9:53:37 CDT by Luis M Rosado M.D. [email or web address] [id number]
--- NOTE | 2023-09-10 14:19 | USR_ITS ---
PROCEDURE INFORMATION: Exam: US Duplex Lower Extremity Veins, Bilateral Exam date and time: 09/10/2023 4:14 PM Age: 87 years old Clinical indication: Edema, localized; Lower extremity, bilateral; Additional info: Swelling TECHNIQUE: Imaging protocol: Real-time duplex ultrasound of the bilateral extremities with 2-D peñaloza scale, color Doppler flow and spectral waveform analysis including responses to compression and other maneuvers (when performed) with image documentation. Complete exam focused on the lower extremity veins. COMPARISON: CT angio chest w abd pel wo/w 09/10/2023 12:21 PM FINDINGS: Right deep veins: Unremarkable. The common femoral, femoral, proximal profunda femoral and popliteal veins are patent without thrombus. Normal Doppler waveforms. Normal compressibility and/or augmentation response. Left deep veins: Unremarkable. The common femoral, femoral, proximal profunda femoral and popliteal veins are patent without thrombus. Normal Doppler waveforms. Normal compressibility and/or augmentation response. Superficial veins: Greater saphenous veins at the saphenofemoral junctions are patent bilaterally without thrombus. Soft tissues: Unremarkable. US/CV venous duplex [facility] [id number] IMPRESSION: No evidence of deep vein thrombosis.
--- NOTE | 2023-09-10 14:21 | PM.HP ---
Providers/Chief Complaint Primary Care Provider: Jun Ling MD Chief Complaint: FEVER; WEAKNESS History of Present Illness Clovis Adan is a 87 year old male With recent history of cholecystectomy, history of C. difficile, history of staph bacteremia, history of hypoxia, history of NSTEMI, who presents [facility] due to altered mental status, fevers, fatigue, malaise, poor appetite. Currently patient is alert to person, place not to time he can follow commands at times I can get history from him, but at times he becomes confused patient's family numbers at bedside, patient's family tells me that since his cholecystectomy has been doing well, yesterday he actually was able to ambulate, he has not had a bowel movement as of yet but Pardeep says that he did have a bowel movement, has been urinating since his surgery, but apparently last night he became confused had fevers last night, fevers throughout the morning, more confused this morning more fatigue, malaise, he currently is on the oxy mask, at 3 L he does use oxygen at home, currently he does report diffuse abdominal pain, no nausea, vomiting, denies any flank pain, he is having trouble urinating currently, cannot empty his bladder he tells me, denies any chest pain Review of Systems Const: Reports: fever(s) Card: Denies: chest pain Resp: Denies: dyspnea GI: Reports: abdominal pain and nausea Medications/Allergies Home Medications Medication Instructions Recorded Confirmed Last Taken Type cyanocobalamin (vitamin B-12) 1,000 mcg PO TID 12/22/22 09/07/23 08/03/23 History 1,000 mcg capsule gabapentin 400 mg capsule 400 mg PO TID 07/26/23 09/07/23 09/07/23 History levothyroxine 75 mcg tablet 75 mcg PO QAM 07/26/23 09/07/23 09/07/23 History aspirin 81 mg tablet,delayed 81 mg PO DAILY 09/01/23 09/07/23 08/03/23 History release pravastatin 40 mg tablet 40 mg PO 1XD 09/07/23 09/07/23 09/07/23 History docusate sodium 100 mg capsule 100 mg PO BID #14 caps 09/08/23 Unknown Rx (Colace) hydrocodone 7.5 mg-acetaminophen 1 tab PO Q6H PRN pain #20 tabs 09/08/23 Unknown Rx 325 mg tablet polyethylene glycol 3350 17 17 g PO DAILY 7 days #119 grams 09/08/23 Unknown Rx gram/dose oral powder (Miralax) Allergies Allergy/AdvReac Type Severity Reaction Status Date / Time atorvastatin Allergy ALGY-Hives Verified 09/10/23 09:08 duloxetine [From Cymbalta] Allergy Unknown Verified 09/10/23 09:08 PFSH Acute PFSH: Medical History (Updated 09/10/23 @ 14:26 by Alberto Frank MD) Urinary tract infection Cholelithiasis Fungal dermatitis B12 deficiency COVID-19 Peripheral neuropathy [place] of toe Cellulitis of great toe of right foot Right bundle branch block Atrial fibrillation Pt had post operative fibrillation Aortic valve stenosis and insufficiency, rheumatic Scalp psoriasis Recent urinary tract infection COVID-19 Hypercholesteremia GERD (gastroesophageal reflux disease) Prostatic hypertrophy Hypothyroidism (acquired) Thyroid disease neuropathy Rheumatic fever Surgical History (Updated 09/10/23 @ 14:26 by Alberto Frank MD) Status post right foot surgery Status post aortic valve replacement with bioprosthetic valve H/O hernia repair x 5 Hx of tonsillectomy Family History Daughter No problems noted. Brother Prostate cancer Social History Smoking and tobacco/nicotine status: never used tobacco/nicotine Alcohol intake: never Substance/Drug Use: never Vitals/I&O/Wt Last Vital Signs Temp 100 F H 09/10/23 11:50 Pulse 111 H 09/10/23 13:20 Resp 9 L 09/10/23 13:20 BP 103/71 09/10/23 13:20 Pulse Ox 96 09/10/23 13:20 O2 Del Method Oxymask 09/10/23 12:11 09/09/23 09/10/23 09/10/23 22:59 06:59 14:59 Intake Total 550 / 550 Balance 550 / 550 Weight last 48 hrs Weight 86.183 kg Physical Exam Const: COMMON NORMALS: no acute distress EXAM LIMITATIONS: altered mental status ORIENTATION/CONSCIOUSNESS: Yes awake, Yes oriented to person, Yes oriented to place and Yes confused; not oriented to time HENMT: COMMON NORMALS: normocephalic HEAD & SCALP: normocephalic Eye: COMMON NORMALS: Equal, round and reactive pupils present Neck/C-Spine: COMMON NORMALS: no JVD Lymph: LYMPHATIC: no lymphadenopathy noted Chest: COMMONS NORMALS: normal inspection of the chest Resp: COMMON NORMALS: normal respiratory effort, No retractions, No use of accessory muscles and clear to auscultation bilaterally AUSCULTATION: clear to auscultation bilaterally Cardio: COMMON NORMALS: regular rate, regular rhythm, S1 normal heart sound present and S2 normal heart sound present RATE: regular rate RHYTHM: regular rhythm HEART SOUNDS: S1 normal heart sound present and S2 normal heart sound present GI: OTHER: Abdomen soft, distended, diffuse tenderness, no guarding, rebound, rigidity, diminished bowel sounds in all 4 quadrants, surgical site looks clean and dry, Extremity: COMMON NORMALS: no calf tenderness and no pedal edema Neuro: OTHER: He can follow commands, but is easily confused, neurologic testing is difficult Urinary Catheter Management: Carrera: Cath Placed During This Visit: yes Urinary Catheter Date of Insertion: 09/10/23 Urinary Catheter Time of Insertion: 14:18 Sepsis: Is patient septic: Yes Focused sepsis exam performed: Yes Focused sepsis exam: dp/pt pulses diminished, no mottling, pale lower extremities, cap refill> 2 seconds Data 09/10/23 09:43 09/10/23 09:43 A&P Assessment and plan (1) Acute encephalopathy: (2) Urinary tract infection: (3) Urinary retention: (4) Sepsis: Qualifiers: Sepsis acute organ dysfunction status: with acute organ dysfunction Sepsis type: sepsis due to unspecified organism Severe sepsis acute organ dysfunction type: encephalopathy Severe sepsis shock status: without septic shock Qualified Code(s): A41.9 - Sepsis, unspecified organism; R65.20 - Severe sepsis without septic shock; G93.41 - Metabolic encephalopathy (5) Hypoxia: (6) S/P cholecystectomy: (7) Transaminitis: (8) Elevated lactic acid level: (9) Tachycardia: (10) Status post aortic valve replacement with bioprosthetic valve: Plan Acute encephalopathy ? Secondary to UTI ? Neurochecks, aspiration precautions, and a stroke scale, Send keep n.p.o. Urinary tract infection ? With urinary retention, place carrera ? Follow urine cultures Blood cultures ? Zosyn for antibiotic coverage -crp, procal, bnp, trop series Acute hypoxia ? CT angiogram the chest negative for PE ? No complaints of cough, Keep n.p.o., ? Monitor respiratory status closely ? DuoNeb Sepsis Sepsis features given tachycardia, febrile state, elevated lactic acid, elevated white blood cell count, secondary UTI Is receiving IV fluids Surgical discuss her EKGs, EKG Hypothyroidism continue levothyroxine Status post cholecystectomy with transaminitis, elevated bilirubin, will monitor Full code ? Lovenox DVT prophylaxis -protonix gi prophylaxis Attestations Medical Necessity Statement*: Patient requires hospitalization, inpatient, greater than 2 minutes, ICU admission due to acute encephalopathy, UTI, acute hypoxia, sepsis, hypothyroidism, Diagnoses Acute encephalopathy G93.40 Urinary tract infection N39.0 Urinary retention R33.9 Sepsis A41.9; R65.20; G93.41 Sepsis acute organ dysfunction status: with acute organ dysfunction Sepsis type: sepsis due to unspecified organism Severe sepsis acute organ dysfunction type: encephalopathy Severe sepsis shock status: without septic shock Hypoxia R09.02 S/P cholecystectomy Z90.49 Transaminitis R74.01 Elevated lactic acid level R79.89 Tachycardia R00.0 Status post aortic valve replacement with bioprosthetic valve Z95.3
[2023-09-10 14:49] LABS: Gamma Glutamyl Transferase 159 U/L (8-61)
--- NOTE | 2023-09-10 14:53 | CTR_ITS ---
PROCEDURE INFORMATION: Exam: CT Head Without Contrast Exam date and time: 09/10/2023 3:05 PM Age: 87 years old Clinical indication: Stroke-like symptoms; Left facial droop; Additional info: Face droop TECHNIQUE: Imaging protocol: Computed tomography of the head without contrast. Radiation optimization: All CT scans at this facility use at least one of these dose optimization techniques: automated exposure control; mA and/or kV adjustment per patient size (includes targeted exams where dose is matched to clinical indication); or iterative reconstruction. Other technique: STROKE PROTOCOL was implemented. COMPARISON: CT head wo con* [id number] 06/01/2023 6:16 PM RADIATION DOSE METRICS: Total DLP (mGy-cm): 1137.68 FINDINGS: Brain: Age-appropriate cerebral volume loss No hemorrhage. Unremarkable white matter. No mass effect. Cerebral ventricles: There is age appropriate ventriculomegaly. Paranasal sinuses: Visualized sinuses are unremarkable. No fluid levels. Mastoid air cells: Visualized mastoid air cells are well aerated. Bones: Unremarkable. No acute fracture. Soft tissues: Unremarkable. CT/CT head wo con* [id number] IMPRESSION: 1. No acute intracranial abnormality. 2. Age-appropriate ventriculomegaly and cerebral volume loss ASSESSMENT: ASPECTS ([place] Stroke Program Early CT Score) is 10.
[2023-09-10 14:59] LABS: NT Pro B Type Natriuretic Pept 1315 pg/mL (0-450); Procalcitonin 0.57 ng/mL (0-0.5)
--- NOTE | 2023-09-10 15:00 | PC.NURSE ---
recieved to icu 7 awake and alert speech garbled slightly,also noted left mouth droop ER nurse with pt unaware of prior droop said some slurring speech prior. noted rate fluctuation .. called placed to doctor seen within [address] done at this time
[2023-09-10 15:10] LABS: C Reactive Protein 258.1 mg/L (0.0-4.9); Lipase 16 U/L (13-60)
[2023-09-10] MEDS: piperacillin-tazobactam 3.375 GM in sodium chloride 0.9% (plus) 50 ML IV ×2 (15:32→23:48)
[2023-09-10] MEDS: gabapentin 400 mg Capsule PO ×2 (15:32→21:14)
[2023-09-10] MEDS: enoxaparin 40 mg/0.4 mL Syringe SUBCUT (15:32)
[2023-09-10] MEDS: pantoprazole 40 mg SDV IVP (15:32)
[2023-09-10] MEDS: lactated ringers 1,000 ML 75 ML IV (15:32)
[2023-09-10 15:33] LABS: Chol HDL Ratio 2.96 mg/dL (1.0-5.00); Cholesterol 169 mg/dL (0-200); HDL Cholesterol 57 mg/dL (60-100); LDL Cholesterol Calculated 89 mg/dL (50-129); LDL HDL Ratio 1.56 RATIO (0.00-3.22); Thyroid Stimulating Hormone 3.02 uIU/mL (0.27-4.20); Triglycerides 114 mg/dL (0-150)
[2023-09-10 15:41] LABS: Estmated Average Glucose 108; Hemoglobin A1C 5.4 % (4.0-6.0)
--- NOTE | 2023-09-10 16:03 | PC.NURSE ---
pt later related that left mouth droop had been inherited from father and has had it for years no difficulty swallowing
--- NOTE | 2023-09-10 16:13 | ECG_ITS ---
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 Measurements Intervals [place] Rate: 85 P: 14 AK: 179 QRS: -48 QRSD: 109 T: 32 QT: 356 QTc: 424 Interpretive Statements SINUS RHYTHM LEFT AXIS DEVIATION [QRS AXIS < -30] PATTERN CONSISTENT WITH PULMONARY DISEASE MINIMAL VOLTAGE CRITERIA FOR LVH, CONSIDER NORMAL VARIANT [MEETS CRITERIA IN ONE OF: R(aVL), S(V1), R(V5), R(V5/V6)+S(V1)] Compared to ECG 09/10/2023 14:48:47 Atrial flutter no longer present Electronically Signed On 09-11-2023 9:57:41 CDT by Luis M Rosado M.D. [id number]
[2023-09-10 17:12] LABS: Troponin(5th) Baseline 32 ng/L (0-15)
[2023-09-10 17:58] LABS: Adenovirus Not Detected (NOT DETECT); Chlamydia Pneumoniae Not Detected (NOT DETECT); Coronavirus 229E,HKU1,NL63,OC4 Not Detected (NOT DETECT); Human Metapneumovirus Not Detected (NOT DETECT); Human Rhinovirus/Enterovirus Not Detected (NOT DETECT); Influenza A Not Detected (NOT DETECT); Influenza A H1 Not Detected (NOT DETECT); Influenza A H1-2009 Not Detected (NOT DETECT); Influenza A H3 Not Detected (NOT DETECT); Influenza B Not Detected (NOT DETECT); Mycoplasma Pneumoniae Not Detected (NOT DETECT); Parainfluenza Virus Type 1 Not Detected (NOT DETECT); Parainfluenza Virus Type 2 Not Detected (NOT DETECT); Parainfluenza Virus Type 3 Not Detected (NOT DETECT); Parainfluenza Virus Type 4 Not Detected (NOT DETECT); Respiratory Syncytial Virus A Not Detected (NOT DETECT); Respiratory Syncytial Virus B Not Detected (NOT DETECT); SARS-COV-2 Not Detected (NOT DETECT)
[2023-09-10 19:37] LABS: Troponin 5 2HR 41.06 ng/L (0-15); Troponin 5 2HR Delta 9.06 ABS# (0-10)
--- NOTE | 2023-09-10 20:13 | ECG_ITS ---
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 Measurements Intervals [place] Rate: 80 P: 57 SD: 181 QRS: -45 QRSD: 110 T: 52 QT: 348 QTc: 403 Interpretive Statements SINUS RHYTHM PATTERN CONSISTENT WITH PULMONARY DISEASE LEFT ANTERIOR FASCICULAR BLOCK [QRS AXIS <= -45, QR IN I, RS IN II] MODERATE VOLTAGE CRITERIA FOR LVH, CONSIDER NORMAL VARIANT [MEETS CRITERIA IN ONE OF: R(aVL), S(V1), R(V5), R(V5/V6)+S(V1)] Compared to ECG 09/10/2023 16:38:42 Left anterior fascicular block now present Left-axis deviation no longer present Electronically Signed On 09-11-2023 9:58:08 CDT by Luis M Rosado M.D. [id number]
[2023-09-10 23:19] LABS: Troponin 5 6HR 55.59 ng/L (0-15)
[2023-09-10 23:24] LABS: Troponin 5 6HR Delta 23.59 ng/L (0-12)
[2023-09-11] VITALS (15 sets, daily range): BP systolic 106–149; BP diastolic 53–83; PULSE 79–93; RESP 13–22; TEMP 36.3–36.9; O2SAT 80–100
[2023-09-11 03:55] LABS: Basophils # 0.1 10^3/uL (0.0-0.1); Basophils % 0.4 %; Eosinophils # 0.1 10^3/uL (0.0-0.8); Eosinophils % 0.8 %; Lymphocytes # 1.3 10^3/uL (0.8-4.8); Lymphocytes % 9.1 %; Mean Corpuscular HGB Conc 31.9 g/dL (30-55); Mean Corpuscular Hemoglobin 31.2 pg (27-33); Mean Corpuscular Volume 97.9 fl (82-101); Mean Platelet Volume 11.7 fL (7.4-10.4); Monocytes # 1.4 10^3/uL (0.2-0.9); Monocytes % 10.2 %; Neutrophils # 10.94 10^3/uL (1.8-7.7); Neutrophils % 78.8 %; Nucleated Red Blood Cells % 0 %; Platelet Count 141 10^3/cmm (157-399); Red Blood Count 3.27 10^6/uL (3.85-5.65); Red Cell Distribution Width 15.1 % (12.1-15.1); White Blood Count 13.88 10^3/uL (3.29-11.43)
[2023-09-11 04:21] LABS: Lactic Sepsis W/Reflex 1.3 mmol/L (0.5-2.2)
[2023-09-11 04:22] LABS: Alanine Aminotransferase 42 U/L (0-41); Albumin Level 2.7 g/dL (3.5-5.2); Alkaline Phosphatase 125 U/L (40-130); Blood Urea Nitrogen 16 mg/dL (8-23); Calcium 8.2 mg/dL (8.5-10.5); Carbon Dioxide 25 mmol/L (22-29); Chloride 105 mmol/L (98-107); Globulin 3.2 g/dL (1.3-4.6); Glucose 113 mg/dL (65-115); Magnesium 1.9 mg/dL (1.7-2.3); Osmolality Calculated 284 mOsm/kg (285-295); Sodium 136 mmol/L (136-145); Total Bilirubin 1.8 mg/dL (0.15-1.2); Total Protein 5.9 g/dL (6.6-8.7)
[2023-09-11 04:23] LABS: Anion Gap 10.3 (5-19); Aspartate Amino Transferase 50 U/L (0-40); Potassium 4.3 mmol/L (3.5-5.1)
[2023-09-11] MEDS: levothyroxine 75 mcg Tablet PO (05:28)
[2023-09-11] MEDS: lactated ringers 1,000 ML 75 ML IV (05:29)
[2023-09-11] MEDS: piperacillin-tazobactam 3.375 GM in sodium chloride 0.9% (plus) 50 ML IV ×3 (07:10→23:48)
[2023-09-11] MEDS: gabapentin 400 mg Capsule PO ×3 (09:10→20:41)
[2023-09-11] MEDS: aspirin 81 mg EC Tablet PO (09:10)
[2023-09-11] MEDS: fixodent 39 gm Tube 1 APPLIC DENTAL (09:11)
--- NOTE | 2023-09-11 13:51 | P.PN_ITS ---
Subjective 2 Subjective: he was seen this morning, To person, place, not to time, he follows all commands, denies any fevers, no chills, he would prefer to remain on a clear liquid diet, complaining about an upset stomach, denies any slurring of his words, I again had a discussion with him about his left slight facial droop at the corner of his left manage he tells me he has always had diet, denies any focal weakness, no focal neurologic deficits on my examination, no focal weakness, he remains on oxy mask, Vitals/I&O/Wt Last Vital Signs Temp 98.4 F 09/11/23 04:00 Pulse 81 09/11/23 12:00 Resp 18 09/11/23 12:00 BP 122/54 09/11/23 12:00 Pulse Ox 98 09/11/23 12:00 O2 Del Method Oxymask 09/10/23 15:00 09/10/23 09/11/23 09/11/23 22:59 06:59 14:59 Intake Total 420 / 970 1100 / 2070 1830 / 1830 Output Total 1200 / 1200 450 / 1650 Balance -780 / -230 650 / 420 1830 / 1830 Weight last 48 hrs Weight 91.989 kg Weight 89.358 kg Weight 86.183 kg Physical Exam 2 Const: COMMON NORMALS: no acute distress and patient oriented x3 Resp: COMMON NORMALS: normal respiratory effort, No retractions, No use of accessory muscles and clear to auscultation bilaterally AUSCULTATION: clear to auscultation bilaterally Cardio: COMMON NORMALS: regular rate, regular rhythm, S1 normal heart sound present and S2 normal heart sound present RATE: regular rate RHYTHM: r egular rhythm HEART SOUNDS: S1 normal heart sound present and S2 normal heart sound present GI: COMMON NORMALS: Normal to inspection, nondistended, normoactive bowel sounds present and non-tender Extremity: COMMON NORMALS: no pedal edema Neuro: COMMON NORMALS: patient oriented x3 Urinary Catheter Management: Carrera: Cath Placed During This Visit: yes Reason for Continuing Indwelling Catheter: Accurate Measurement of Urinary Output in Critically Ill Patients Urinary Catheter Date of Insertion: 09/10/23 Urinary Catheter Time of Insertion: 14:18 Data 09/11/23 03:46 09/11/23 03:46 Micro: Microbiology 09/10/23 10:18 Urine Culture - Preliminary Urine,Clean Catch 09/10/23 09:43 Blood Culture - Preliminary Blood SPECIMEN COLLECTED 09/10/23 09:40 Blood Culture - Preliminary Blood SPECIMEN COLLECTED A&P Assessment and plan (1) Acute encephalopathy: (2) Urinary tract infection: (3) Urinary retention: (4) Sepsis: Qualifiers: Sepsis acute organ dysfunction status: with acute organ dysfunction S epsis type: sepsis due to unspecified organism Severe sepsis acute organ dysfunction type: encephalopathy Severe sepsis shock status: without septic shock Qualified Code(s): A41.9 - Sepsis, unspecified organism; R65.20 - Severe sepsis without septic shock; G93.41 - Metabolic encephalopathy (5) Hypoxia: (6) S/P cholecystectomy: (7) Transaminitis: (8) Elevated lactic acid level: (9) Tachycardia: (10) Status post aortic valve replacement with bioprosthetic valve: Plan Acute encephalopathy ? Secondary to UTI ? Neurochecks, aspiration precautions, and a stroke scale, Advance diet as tolerated Urinary tract infection ? With urinary retention, place carrera ? Follow urine cultures Blood cultures ? Zosyn for antibiotic coverage Acute hypoxia, ? CT angiogram the chest negative for PE ? No complaints of cough, Advance diet as tolerated ? Monitor respiratory status closely -Will consider Lasix therapy ? DuoNeb Sepsis Sepsis features given tachycardia, febrile state, elevated lactic acid, elevated white blood cell count, secondary UTI NSTEMI No chest pain complaints, Cardiac echo Hypothyroidism continue levothyroxine Status post cholecystectomy with transaminitis, elevated bilirubin, will monitor Full code ? Lovenox DVT prophylaxis -protonix gi prophylaxis Attestations 2 Medical Necessity Statement*: Patient requires hospitalization for UTI, sepsis, encephalopathy, NSTEMI Diagnoses Acute encephalopathy G93.40 Urinary tract infection N39.0 Urinary retention R33.9 Sepsis A41.9; R65.20; G93.41 Sepsis acute organ dysfunction status: with acute organ dysfunction Sepsis type: sepsis due to unspecified organism Severe sepsis acute organ dysfunction type: encephalopathy Severe sepsis shock status: without septic shock Hypoxia R09.02 S/P cholecystectomy Z90.49 Transaminitis R74.01 Elevated lactic acid level R79.89 Tachycardia R00.0 Status post aortic valve replacement with bioprosthetic valve Z95.3
--- NOTE | 2023-09-11 13:55 | USCV_ITS ---
Clovis Adan Age: 87 Gender: M : 1935 Exam Date: 09/11/2023 16:30 Ordering Phys: Alberto Frank MD Technologist: Reyes Meza Exam Location: [facility] [place] Indication: nstemi BP: 122 / 54 HR: Rhythm: Sinus Technical Quality: Adequate MEASUREMENTS (Male / Female) Normal Values 2D ECHO LV Diastolic Diameter PLAX 4.6 cm 4.2 - 5.9 / 3.9 - 5.3 cm IVS Diastolic Thickness 1.1 cm 0.6 - 1.0 / 0.6 - 0.9 cm IVS Systolic Thickness 1.4 cm LVPW Diastolic Thickness 1.7 cm 0.6 - 1.0 / 0.6 - 0.9 cm LVPW Systolic Thickness 2.2 cm LVOT Diameter 2.0 cm LV Ejection Fraction 2D Teich 59.6 % LV Ejection Fraction MOD 2C 58.2 % LV Ejection Fraction 2C AL 58.8 % LA Diameter 4.5 cm RA Systolic Volume 4C AL 29.4 ml RA Systolic Volume 4C MOD 29.6 ml LA Sys Volume AL 43.8 cm cubed LA Sys Volume Index AL 20.1 cm cubed/m squared Aorta at Sinotubular Diameter 3.4 cm IVC Diameter 2.1 cm M-MODE LA Ao Ratio MM 1.0 AV Cusp Separation MM 1.3 cm FINDINGS Left Ventricle Study is limited to two-dimensional examination with M-mode. No Doppler examination obtained. Normal left ventricular size, systolic function and wall thickness, with no regional wall motion abnormalities. Left ventricular ejection fraction is estimated at 60 %. Right Ventricle Normal right ventricular size and systolic function. Right Atrium The right atrium is normal in size. Left Atrium The left atrium is normal in size. Mitral Valve Structurally normal mitral valve. Aortic Valve Aortic valve not well visualized. Aortic valve appears prosthetic. Tricuspid Valve Tricuspid valve not well visualized. Pulmonic Valve Pulmonic valve not well visualized. Pericardium Normal pericardium without effusion. 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 IVC Inferior vena cava not visualized. CONCLUSIONS Study is limited to two-dimensional examination with M-mode. No Doppler examination obtained. Normal left ventricular size, systolic function and wall thickness, with no regional wall motion abnormalities. Left ventricular ejection fraction is estimated at 60 %. 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 Previous echo was 3 months ago. No change. No change from the previous study of July 2021. Dr. Luis M Rosado MD (Electronically Signed) Final Date: 11 September 2023 17:20 S
[2023-09-11] MEDS: FUROsemide 10 mg/mL SDV 2mL 20 MG IVP (14:41)
[2023-09-11] MEDS: pantoprazole 40 mg SDV IVP (14:41)
[2023-09-11] MEDS: enoxaparin 40 mg/0.4 mL Syringe SUBCUT (14:41)
[2023-09-11] MEDS: phosphorus 250 mg Tablet PO (16:56)
[2023-09-12] VITALS (23 sets, daily range): BP systolic 103–146; BP diastolic 60–81; PULSE 76–103; RESP 12–23; TEMP 36.6–38.4; O2SAT 91–98; BMI 25.9
--- NOTE | 2023-09-12 05:04 | PC.NURSE ---
NIH Stroke Scale Patient sleeping well prior to waking up for NIH stroke assessment. During assessment, patient noted to have left sided facial droop, right arm drift, some effort noted against gravity on bilateral legs, as well as some slurred speech. Patient unable to identify ideas/objects depicted in NIH scale scoring sheet. Patient severely weak, unable to properly perform limb ataxia assessment. Total NIH scale score 8, when previous score was 2. Dr. Arias notified of patient weakness, confusion, and new NIH score. Order received to complete another NIH stroke scale assessment at 0600.
[2023-09-12 05:15] LABS: Basophils % 0.3 %; Eosinophils # 0.2 10^3/uL (0.0-0.8); Eosinophils % 1.5 %; Hematocrit 37.8 % (37-53); Lymphocytes % 8.4 %; Mean Corpuscular HGB Conc 32.8 g/dL (30-55); Mean Corpuscular Volume 94.5 fl (82-101); Mean Platelet Volume 11.1 fL (7.4-10.4); Monocytes # 1.2 10^3/uL (0.2-0.9); Monocytes % 10.1 %; Neutrophils # 9.54 10^3/uL (1.8-7.7); Neutrophils % 79.1 %; Nucleated Red Blood Cells % 0 %; Platelet Count 195 10^3/cmm (157-399); Red Cell Distribution Width 14.5 % (12.1-15.1); White Blood Count 12.06 10^3/uL (3.29-11.43)
[2023-09-12 05:33] LABS: Alanine Aminotransferase 32 U/L (0-41); Albumin Level 3.1 g/dL (3.5-5.2); Alkaline Phosphatase 131 U/L (40-130); Anion Gap 13.7 (5-19); Aspartate Amino Transferase 27 U/L (0-40); Blood Urea Nitrogen 12 mg/dL (8-23); Calcium 8.4 mg/dL (8.5-10.5); Carbon Dioxide 25 mmol/L (22-29); Chloride 100 mmol/L (98-107); Globulin 3.2 g/dL (1.3-4.6); Glucose 107 mg/dL (65-115); Magnesium 1.9 mg/dL (1.7-2.3); Osmolality Calculated 280 mOsm/kg (285-295); Phosphorus 2.2 mg/dL (2.5-4.5); Potassium 3.7 mmol/L (3.5-5.1); Sodium 135 mmol/L (136-145); Total Bilirubin 1.3 mg/dL (0.15-1.2); Total Protein 6.3 g/dL (6.6-8.7)
[2023-09-12] MEDS: levothyroxine 75 mcg Tablet PO (06:22)
[2023-09-12] MEDS: piperacillin-tazobactam 3.375 GM in sodium chloride 0.9% (plus) 50 ML IV ×3 (07:41→23:11)
[2023-09-12] MEDS: phosphorus 250 mg Tablet PO ×2 (08:30→17:43)
[2023-09-12] MEDS: gabapentin 400 mg Capsule PO ×3 (08:31→20:27)
[2023-09-12] MEDS: aspirin 81 mg EC Tablet PO (08:31)
--- NOTE | 2023-09-12 10:10 | PC.SOCIAL ---
IMM Update pg 2 of IMM Update and reviewed w patient. Copy provided and copy dated, initialed and placed in chart.
--- NOTE | 2023-09-12 13:40 | PC.NURSE ---
DNR/AND Patient's daughter, Rema, asked that patient be DNR and that is what he has always been. Patient is slightly confused but also agrees that he wishes to be DNR. Dr. Morales notified.
--- NOTE | 2023-09-12 14:57 | PC.OT ---
OT EVALUATION ATTEMPTED TWICE TODAY. PATIENT IS SLEEPING SOUNDLY ON BOTH ATTEMPTS. NURSING AWARE
[2023-09-12] MEDS: enoxaparin 40 mg/0.4 mL Syringe SUBCUT (15:12)
[2023-09-12] MEDS: pantoprazole 40 mg SDV IVP (15:12)
--- NOTE | 2023-09-12 16:48 | P.PN_ITS ---
Subjective 2 Subjective: He states he is doing all right. He is overall weaker compared to prior, needing assistance with feeding, being fed lunch by his daughter at bedside. States that he wants to get up to get around, wants to be able to get strong enough to return home. Reported to have some confusion today. Vitals/I&O/Wt Last Vital Signs Temp 97.9 F 09/12/23 05:00 Pulse 87 09/12/23 16:00 Resp 18 09/12/23 16:00 BP 134/61 09/12/23 16:00 Pulse Ox 93 09/12/23 16:00 O2 Del Method Room Air 09/12/23 16:00 O2 Flow Rate 1 09/12/23 12:00 09/12/23 09/12/23 09/12/23 06:59 14:59 22:59 Intake Total 50 / 3150 770 / 770 50 / 820 Output Total 2200 / 4400 Balance -2150 / -1250 770 / 770 50 / 820 Weight last 48 hrs Weight 86.636 kg Weight 91.989 kg Physical Exam 2 Narrative: Accompanied by his daughter. Const: COMMON NORMALS: alert; negative for patient oriented x3 (Names the year and the president, does not name the month.) GENERAL APPEARANCE: cooperative O RIENTATION/CONSCIOUSNESS: Yes awake HENMT: COMMON NORMALS: oropharynx normal Neck/C-Spine: COMMON NORMALS: no JVD Resp: COMMON NORMALS: normal respiratory effort and clear to auscultation bilaterally AUSCULTATION: clear to auscultation bilaterally Cardio: COMMON NORMALS: no JVD, regular rhythm, S1 normal heart sound present, S2 normal heart sound present and No murmurs present (Cardio) RHYTHM: regular rhythm HEART SOUNDS: S1 normal heart sound present and S2 normal heart sound present GI: COMMON NORMALS: Normal to inspection, nondistended, normoactive bowel sounds present, Soft to palpation and non-tender PALPATION: Yes Soft to palpation Extremity: COMMON NORMALS: no joint enlargement and no pedal edema Neuro: COMMON NORMALS: moves all extremities; negative for patient oriented x3 (Names the year and the president, does not name the month.) SENSORIUM/ORIENTATION: Yes alert OTHER: Left-sided facial droop. Mild slurring. Mildly slowed cognition, otherwise awake, alert, following directions, answering questions. Does not require some guidance/reprompting. Somewhat slowed FNF. Tracks horizontally. Visual dodson full to confrontation, no visual extinction. There is minimal right arm drift. Both lower extremities drop to bed symmetrically. Sensation symmetrical, no sensory extinction. Peripheral neuropathy. Skin: COMMON NORMALS: no rashes or lesions noted GENERAL SKIN EXAM: no rashes or lesions noted Urinary Catheter Management: Carrera: Cath Placed During This Visit: yes Reason for Continuing Indwelling Catheter: Accurate Measurement of Urinary Output in Critically Ill Patients Urinary Catheter Date of Insertion: 09/10/23 Urinary Catheter Time of Insertion: 14:18 Data 09/12/23 05:06 09/12/23 05:06 Micro: Microbiology 09/10/23 10:18 Urine Culture - Final Urine,Clean Catch 09/10/23 09:43 Blood Culture - Preliminary Blood NEGATIVE TO DATE 09/10/23 09:40 Blood Culture - Preliminary Blood NEGATIVE TO DATE A&P Assessment and plan (1) Acute encephalopathy: (2) Urinary tract infection: (3) Urinary retention: (4) Sepsis: Qualifiers: Sepsis acute organ dysfunction status: with acute organ dysfunction S epsis type: sepsis due to unspecified organism Severe sepsis acute organ dysfunction type: encephalopathy Severe sepsis shock status: without septic shock Qualified Code(s): A41.9 - Sepsis, unspecified organism; R65.20 - Severe sepsis without septic shock; G93.41 - Metabolic encephalopathy (5) Hypoxia: (6) S/P cholecystectomy: (7) Transaminitis: (8) Elevated lactic acid level: (9) Tachycardia: (10) Status post aortic valve replacement with bioprosthetic valve: Plan Acute encephalopathy: Some persistence of confusion, mild delirium with acute encephalopathy secondary to UTI per history obtained from his daughter. Continue treatment. Reviewed vitals, CBC, CMP, magnesium, urine culture. Concern with increased stroke scale reading last night, discussed with patient and his daughter. On exam he does have some right upper extremity drift. He has persistence of left-sided facial droop, which is chronic and he has had it since his 30s. He does have mild slurred speech. Word finding difficulty is not apparent, although he does not speak much. He is weaker, needing assistance with feeding, his daughter is feeding his lunch. He is able to lift the spoon with his left hand, juice box with his right, however, he is held bringing it up to his mouth. Etiology of chronic left-sided facial droop is unclear, but discussed possible old CVA, although no obvious lesion was noted on noncontrast CT. Certainly as per discussion is difficult to say whether he may not have had an additional stroke. Additional evaluation could be obtained by MRI, however, with his some persistent delirium, as well as overall as per discussion limited goals of care, as well as elevated risk of falls, despite having history of atrial fibrillation, would be at high risk of bleeding, not a good candidate for anticoagulation especially his last admission was due to a fall. Discussed they could consider referral for Watchman device, although his daughter states he would not be willing to undergo the procedure. Overall he would like minimal interventions and medical care. Per discussion it seems he has come to terms, with his having in December and him turning 88 soon, that he may not live much longer. he and his daughter would be willing for him to undergo rehabilitation, and PT and OT are requested and I am adding case management consultation. Their other consideration will be hospice care. He would like to pass away at home when the time comes. With regards to possible CVA consensus is to continue aspirin as well as statin at current time. ? Neurochecks, aspiration precautions, and a stroke scale, discussed with speech therapist. Advance diet as tolerated Urinary tract infection: Reviewed urine culture, so far 10-20,000 normal pedro. Continue treatment of UTI. Follow-up urine culture. ? With urinary retention, place carrera ? Follow urine cultures Blood cultures ? Zosyn for antibiotic coverage Acute hypoxia, ? CT angiogram the chest negative for PE ? No complaints of cough, Advance diet as tolerated ? Monitor respiratory status closely -Will consider Lasix therapy ? DuoNeb Sepsis Sepsis features given tachycardia, febrile state, elevated lactic acid, elevated white blood cell count, secondary UTI NSTEMI No chest pain complaints, Cardiac echo Hypothyroidism continue levothyroxine Status post cholecystectomy with transaminitis, elevated bilirubin, will monitor Goals of care, CODE STATUS: Per extensive discussion of goals of care with his daughter and patient pursuing at bedside, patient's had in December, he had since repeatedly stated that he would not want resuscitation in case of cardiopulmonary arrest, he has overall come to terms that his time may be coming and he would not want aggressive interventions. Discussed with nursing staff as well, we do not see any advanced directives in the chart from before. CODE STATUS adjusted to AND/DNR. He has persistent left-sided Attestations 2 Medical Necessity Statement*: Continue admission for assessment of management of acute encephalopathy, possible CVA, goals of care discussion, UTI, post discharge planning and arrangements. Diagnoses Acute encephalopathy G93.40 Urinary tract infection N39.0 Urinary retention R33.9 Sepsis A41.9; R65.20; G93.41 Sepsis acute organ dysfunction status: with acute organ dysfunction Sepsis type: sepsis due to unspecified organism Severe sepsis acute organ dysfunction type: encephalopathy Severe sepsis shock status: without septic shock Hypoxia R09.02 S/P cholecystectomy Z90.49 Transaminitis R74.01 Elevated lactic acid level R79.89 Tachycardia R00.0 Status post aortic valve replacement with bioprosthetic valve Z95.3
--- NOTE | 2023-09-12 17:16 | PC.NURSE ---
Report called to [facility] on [facility], first contact on PT contacts list notified of PT room change. All belongings gathered with aid of Dedra, family member, who will be transporting belongings to [place].
--- NOTE | 2023-09-12 17:40 | PC.NURSE ---
Pt arrives to Medical Surgical floor. With initial assessment, pt is febrile with temp of 101.2. Tylenol given per orders.
[2023-09-12] MEDS: acetaminophen 325 mg Tablet 650 MG PO (17:43)
[2023-09-13] VITALS (8 sets, daily range): BP systolic 109–161; BP diastolic 61–83; PULSE 86–96; RESP 16–20; TEMP 36.5–37.2; O2SAT 91–96
[2023-09-13 05:53] LABS: Basophils % 0.4 %; Eosinophils # 0.2 10^3/uL (0.0-0.8); Hematocrit 34.3 % (37-53); Lymphocytes # 0.8 10^3/uL (0.8-4.8); Lymphocytes % 7.6 %; Mean Corpuscular HGB Conc 33.2 g/dL (30-55); Mean Corpuscular Hemoglobin 30.2 pg (27-33); Mean Platelet Volume 11.5 fL (7.4-10.4); Monocytes # 1.2 10^3/uL (0.2-0.9); Monocytes % 10.5 %; Neutrophils # 8.58 10^3/uL (1.8-7.7); Neutrophils % 78.7 %; Nucleated Red Blood Cells % 0 %; Platelet Count 222 10^3/cmm (157-399); Red Blood Count 3.77 10^6/uL (3.85-5.65); Red Cell Distribution Width 14.3 % (12.1-15.1); White Blood Count 10.91 10^3/uL (3.29-11.43)
[2023-09-13] MEDS: levothyroxine 75 mcg Tablet PO (06:06)
[2023-09-13 06:18] LABS: Alanine Aminotransferase 34 U/L (0-41); Albumin Level 2.5 g/dL (3.5-5.2); Alkaline Phosphatase 165 U/L (40-130); Anion Gap 15.5 (5-19); Aspartate Amino Transferase 36 U/L (0-40); Blood Urea Nitrogen 11 mg/dL (8-23); Calcium 8.4 mg/dL (8.5-10.5); Carbon Dioxide 23 mmol/L (22-29); Chloride 101 mmol/L (98-107); Globulin 3.8 g/dL (1.3-4.6); Glucose 110 mg/dL (65-115); Magnesium 2.1 mg/dL (1.7-2.3); Osmolality Calculated 282 mOsm/kg (285-295); Phosphorus 2.2 mg/dL (2.5-4.5); Potassium 3.5 mmol/L (3.5-5.1); Sodium 136 mmol/L (136-145); Total Bilirubin 1.2 mg/dL (0.15-1.2); Total Protein 6.3 g/dL (6.6-8.7)
[2023-09-13 06:58] LABS: Slide Review Slide Review Perform
[2023-09-13] MEDS: phosphorus 250 mg Tablet PO ×2 (09:19→16:26)
[2023-09-13] MEDS: gabapentin 400 mg Capsule PO ×3 (09:19→20:25)
[2023-09-13] MEDS: piperacillin-tazobactam 3.375 GM in sodium chloride 0.9% (plus) 50 ML IV ×2 (09:19→16:25)
[2023-09-13] MEDS: aspirin 81 mg EC Tablet PO (09:19)
[2023-09-13] MEDS: pantoprazole 40 mg SDV IVP (15:12)
[2023-09-13] MEDS: enoxaparin 40 mg/0.4 mL Syringe SUBCUT (15:12)
--- NOTE | 2023-09-13 15:58 | P.PN_ITS ---
Subjective 2 Subjective: Sleeping. Wakes up to voice. Denies pain or discomfort or any new symptoms. Vitals/I&O/Wt Last Vital Signs Temp 97.7 F 09/13/23 11:25 Pulse 94 09/13/23 11:25 Resp 18 09/13/23 11:25 BP 121/69 09/13/23 11:25 Pulse Ox 96 09/13/23 11:25 O2 Del Method Room Air 09/13/23 11:25 O2 Flow Rate 1 09/12/23 12:00 09/13/23 09/13/23 09/13/23 06:59 14:59 22:59 Intake Total 50 / 930 530 / 530 Output Total 1200 / 1700 Balance -1150 / -770 530 / 530 Weight last 48 hrs Weight 86.636 kg Weight 86.636 kg Physical Exam 2 Const: COMMON NORMALS: alert; negative for patient oriented x3 (Names the year and the president, does not name the month.) GENERAL APPEARANCE: cooperative O RIENTATION/CONSCIOUSNESS: Yes awake HENMT: COMMON NORMALS: oropharynx normal Neck/C-Spine: COMMON NORMALS: no JVD Resp: COMMON NORMALS: normal respiratory effort and clear to auscultation bilaterally AUSCULTATION: clear to auscultation bilaterally Cardio: COMMON NORMALS: no JVD, regular rhythm, S1 normal heart sound present, S2 normal heart sound present and No murmurs present (Cardio) RHYTHM: regular rhythm HEART SOUNDS: S1 normal heart sound present and S2 normal heart sound present GI: COMMON NORMALS: Normal to inspection, nondistended, normoactive bowel sounds present, Soft to palpation and non-tender PALPATION: Yes Soft to palpation Extremity: COMMON NORMALS: no joint enlargement and no pedal edema Neuro: COMMON NORMALS: moves all extremities; negative for patient oriented x3 (Names the year and the president, does not name the month.) SENSORIUM/ORIENTATION: Yes alert OTHER: Left-sided facial droop. Mild slurring. Mildly slowed cognition, otherwise awake, alert, following directions, answering questions. Does not require some guidance/reprompting. Somewhat slowed FNF. Tracks horizontally. Visual dodson full to confrontation, no visual extinction. Today there is no right arm drift. Both lower extremities drop to bed symmetrically. Sensation symmetrical, no sensory extinction. Peripheral neuropathy. Skin: COMMON NORMALS: no rashes or lesions noted GENERAL SKIN EXAM: no rashes or lesions noted Urinary Catheter Management: Carrera: Cath Placed During This Visit: yes Reason for Continuing Indwelling Catheter: Other Urinary Catheter Date of Insertion: 09/10/23 Urinary Catheter Time of Insertion: 14:18 Data 09/13/23 05:30 09/13/23 05:30 A&P Assessment and plan (1) Acute encephalopathy: (2) Urinary tract infection: (3) Urinary retention: (4) Sepsis: Qualifiers: Sepsis acute organ dysfunction status: with acute organ dysfunction S epsis type: sepsis due to unspecified organism Severe sepsis acute organ dysfunction type: encephalopathy Severe sepsis shock status: without septic shock Qualified Code(s): A41.9 - Sepsis, unspecified organism; R65.20 - Severe sepsis without septic shock; G93.41 - Metabolic encephalopathy (5) Hypoxia: (6) S/P cholecystectomy: (7) Transaminitis: (8) Elevated lactic acid level: (9) Tachycardia: (10) Status post aortic valve replacement with bioprosthetic valve: Plan Acute encephalopathy: Improvement in right arm drift with resolution noted today. Encephalopathy with improvement, she is oriented x 3, he is able to. Me the year and month. Reviewed vitals, CBC, CMP, magnesium, urine culture. Urine culture final result with mixed urogenital pedro. He is afebrile without leukocytosis, no signs of ongoing sepsis. Possible CVA. Reviewed echocardiogram. Normal ejection fraction, no RWMA. With functional decline, more pronounced weakness, discussed with physical therapist, he is working with therapy. Discussed with welfare case worker, arrangements for SNF underway. Concern with increased stroke scale reading last night, discussed with patient and his daughter. On exam he does have some right upper extremity drift. He has persistence of left-sided facial droop, which is chronic and he has had it since his 30s. He does have mild slurred speech. Word finding difficulty is not apparent, although he does not speak much. He is weaker, needing assistance with feeding, his daughter is feeding his lunch. He is able to lift the spoon with his left hand, juice box with his right, however, he is held bringing it up to his mouth. Etiology of chronic left-sided facial droop is unclear, but discussed possible old CVA, although no obvious lesion was noted on noncontrast CT. Certainly as per discussion is difficult to say whether he may not have had an additional stroke. Additional evaluation could be obtained by MRI, however, with his some persistent delirium, as well as overall as per discussion limited goals of care, as well as elevated risk of falls, despite having history of atrial fibrillation, would be at high risk of bleeding, not a good candidate for anticoagulation especially his last admission was due to a fall. Discussed they could consider referral for Watchman device, although his daughter states he would not be willing to undergo the procedure. Overall he would like minimal interventions and medical care. Per discussion it seems he has come to terms, with his having in December and him turning 88 soon, that he may not live much longer. he and his daughter would be willing for him to undergo rehabilitation, and PT and OT are requested and I am adding case management consultation. Their other consideration will be hospice care. He would like to pass away at home when the time comes. With regards to possible CVA consensus is to continue aspirin as well as statin at current time. ? Neurochecks, aspiration precautions, and a stroke scale, discussed with speech therapist. Advance diet as tolerated Urinary tract infection: ? With urinary retention, place carrera. Add Flomax. De-escalate antibiotic. Changed to cefdinir. Stop Zosyn. ? Follow urine cultures Blood cultures reviewed, so far negative. Acute hypoxia, ? CT angiogram the chest negative for PE ? No complaints of cough, Advance diet as tolerated ? Monitor respiratory status closely -Will consider Lasix therapy ? DuoNeb Sepsis Sepsis features given tachycardia, febrile state, elevated lactic acid, elevated white blood cell count, secondary UTI NSTEMI No chest pain complaints, Cardiac echo Hypothyroidism continue levothyroxine Status post cholecystectomy with transaminitis, elevated bilirubin, will monitor Goals of care, CODE STATUS: Per extensive discussion of goals of care with his daughter and patient pursuing at bedside, patient's had in December, he had since repeatedly stated that he would not want resuscitation in case of cardiopulmonary arrest, he has overall come to terms that his time may be coming and he would not want aggressive interventions. Discussed with nursing staff as well, we do not see any advanced directives in the chart from before. CODE STATUS adjusted to AND/DNR. He has persistent left-sided Attestations 2 Medical Necessity Statement*: Continue admission for assessment of management of acute encephalopathy, possible CVA, de-escalation of antibiotic for UTI, post discharge planning and arrangements. and High MDM includes amount and/or complexity of data reviewed/ordered [ resulted lab(s)/test(s), ordered lab(s)/test(s) and other healthcare professional discussion] as documented Diagnoses Acute encephalopathy G93.40 Urinary tract infection N39.0 Urinary retention R33.9 Sepsis A41.9; R65.20; G93.41 Sepsis acute organ dysfunction status: with acute organ dysfunction Sepsis type: sepsis due to unspecified organism Severe sepsis acute organ dysfunction type: encephalopathy Severe sepsis shock status: without septic shock Hypoxia R09.02 S/P cholecystectomy Z90.49 Transaminitis R74.01 Elevated lactic acid level R79.89 Tachycardia R00.0 Status post aortic valve replacement with bioprosthetic valve Z95.3
[2023-09-13] MEDS: acetaminophen 325 mg Tablet 650 MG PO (16:27)
[2023-09-13] MEDS: tamsulosin 0.4 mg Capsule PO (17:18)
[2023-09-13] MEDS: cefdinir 300 MG CAPSULE PO (17:26)
--- NOTE | 2023-09-13 17:47 | PC.NURSE ---
Pt moves to [id number] due to previous roommate yelling. Pt verbalizes thanks. Notifies daughter, Dedra, of room change.
[2023-09-14] VITALS (12 sets, daily range): BP systolic 106–147; BP diastolic 56–79; PULSE 80–107; RESP 16–19; TEMP 36.6–38.8; O2SAT 91–93
[2023-09-14] MEDS: acetaminophen 325 mg Tablet 650 MG PO ×2 (05:06→16:44)
[2023-09-14] MEDS: levothyroxine 75 mcg Tablet PO (05:06)
[2023-09-14] MEDS: phosphorus 250 mg Tablet PO ×2 (08:19→17:22)
[2023-09-14] MEDS: aspirin 81 mg EC Tablet PO (08:20)
[2023-09-14] MEDS: tamsulosin 0.4 mg Capsule PO (08:20)
[2023-09-14] MEDS: cefdinir 300 MG CAPSULE PO ×2 (08:20→17:22)
[2023-09-14] MEDS: gabapentin 400 mg Capsule PO ×3 (08:20→20:41)
--- NOTE | 2023-09-14 09:42 | PC.SOCIAL ---
IMM Update Pg. 2 of IMM updated and reviewed with patient who verbalized understanding. Copy provided.
[2023-09-14] MEDS: enoxaparin 40 mg/0.4 mL Syringe SUBCUT (14:32)
[2023-09-14] MEDS: pantoprazole 40 mg SDV IVP (14:33)
--- NOTE | 2023-09-14 20:10 | XRR_ITS ---
PROCEDURE INFORMATION: Exam: XR Chest Exam date and time: 09/14/2023 9:14 PM Age: 87 years old Clinical indication: Fever TECHNIQUE: Imaging protocol: Radiologic exam of the chest. Views: 1 view. COMPARISON: CT angio chest w abd pel wo/w 09/10/2023 12:21 PM FINDINGS: Lungs: No focal consolidation. Multiple calcified granulomas noted. Pleural spaces: No evidence of pneumothorax. No evidence of pleural effusion. 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 Cardiomediastinal silhouette is otherwise within normal limits. Bones/joints: No evidence of acute osseous abnormality. XR/XR chest 1V portable [id number] IMPRESSION: 1. No acute cardiopulmonary abnormality.
--- NOTE | 2023-09-14 20:14 | P.PN_ITS ---
Subjective 2 Subjective: Sitting up in chair. Denies any complaints. Vitals/I&O/Wt Last Vital Signs Temp 98.2 F 09/14/23 20:00 Pulse 107 H 09/14/23 20:00 Resp 19 H 09/14/23 20:00 BP 106/56 09/14/23 20:00 Pulse Ox 91 09/14/23 20:00 O2 Del Method Room Air 09/14/23 20:00 O2 Flow Rate 1 09/12/23 12:00 09/14/23 09/14/23 09/14/23 06:59 14:59 22:59 Intake Total 880 / 880 Output Total 700 / 1250 350 / 350 750 / 1100 Balance -700 / -550 530 / 530 -750 / -220 Weight last 48 hrs Weight 86.636 kg Weight 86.636 kg Physical Exam 2 Narrative: Accompanied by his daughter. Const: COMMON NORMALS: alert; negative for patient oriented x3 (Names the year and the president, does not name the month.) GENERAL APPEARANCE: cooperative O RIENTATION/CONSCIOUSNESS: Yes awake HENMT: COMMON NORMALS: oropharynx normal Neck/C-Spine: COMMON NORMALS: no JVD Resp: COMMON NORMALS: normal respiratory effort and clear to auscultation bilaterally AUSCULTATION: clear to auscultation bilaterally Cardio: COMMON NORMALS: no JVD, regular rhythm, S1 normal heart sound present, S2 normal heart sound present and No murmurs present (Cardio) RHYTHM: regular rhythm HEART SOUNDS: S1 normal heart sound present and S2 normal heart sound present GI: COMMON NORMALS: Normal to inspection, nondistended, normoactive bowel sounds present, Soft to palpation and non-tender PALPATION: Yes Soft to palpation Extremity: COMMON NORMALS: no joint enlargement and no pedal edema Neuro: COMMON NORMALS: moves all extremities; negative for patient oriented x3 (Names the year and the president, does not name the month.) SENSORIUM/ORIENTATION: Yes alert OTHER: Left-sided facial droop. Mild slurring. Mildly slowed cognition, otherwise awake, alert, following directions, answering questions. Does not require some guidance/reprompting. Somewhat slowed FNF. Tracks horizontally. Visual dodson full to confrontation, no visual extinction. Today there is no right arm drift. Both lower extremities drop to bed symmetrically. Sensation symmetrical, no sensory extinction. Peripheral neuropathy. Skin: COMMON NORMALS: no rashes or lesions noted GENERAL SKIN EXAM: no rashes or lesions noted Urinary Catheter Management: Carrera: Cath Placed During This Visit: yes Reason for Continuing Indwelling Catheter: Chronic Indwelling Urinary Catheter on Admission Urinary Catheter Date of Insertion: 09/10/23 Urinary Catheter Time of Insertion: 14:18 Data 09/13/23 05:30 09/13/23 05:30 A&P Assessment and plan (1) Acute encephalopathy: (2) Urinary tract infection: (3) Urinary retention: (4) Sepsis: Qualifiers: Sepsis acute organ dysfunction status: with acute organ dysfunction S epsis type: sepsis due to unspecified organism Severe sepsis acute organ dysfunction type: encephalopathy Severe sepsis shock status: without septic shock Qualified Code(s): A41.9 - Sepsis, unspecified organism; R65.20 - Severe sepsis without septic shock; G93.41 - Metabolic encephalopathy (5) Hypoxia: (6) S/P cholecystectomy: (7) Transaminitis: (8) Elevated lactic acid level: (9) Tachycardia: (10) Status post aortic valve replacement with bioprosthetic valve: Plan Acute encephalopathy: Improving. He is awake and alert, sitting up. Appears to be slightly stronger today. Improvement in right arm drift with resolution noted today. Encephalopathy with improvement, she is oriented x 3, he is able to. Me the year and month. Reviewed vitals, CBC, CMP, urine culture. Urine culture final result with mixed urogenital pedro. Continue treatment for suspected UTI. Additional assessment of chest x-ray due to fever. Arrangements underway for rehabilitation. Discussed with returned case inspector. Fever: Spiked fever. Continues on treatment for UTI although urine culture been unrevealing. Repeat chest x-ray. Repeat CBC, CMP. No diarrhea, or other GI complaints. No integumentary issues. Possible CVA. Discussed with returned case inspector, arrangements underway for rehabilitation. Echocardiogram: Normal ejection fraction, no RWMA. Right upper extremity drift has resolved. With functional decline, more pronounced weakness, discussed with physical therapist, he is working with therapy. Discussed with returned case inspector, arrangements for SNF underway. Concern with increased stroke scale reading last night, discussed with patient and his daughter. On exam he does have some right upper extremity drift. He has persistence of left-sided facial droop, which is chronic and he has had it since his 30s. He does have mild slurred speech. Word finding difficulty is not apparent, although he does not speak much. He is weaker, needing assistance with feeding, his daughter is feeding his lunch. He is able to lift the spoon with his left hand, juice box with his right, however, he is held bringing it up to his mouth. Etiology of chronic left-sided facial droop is unclear, but discussed possible old CVA, although no obvious lesion was noted on noncontrast CT. Certainly as per discussion is difficult to say whether he may not have had an additional stroke. Additional evaluation could be obtained by MRI, however, with his some persistent delirium, as well as overall as per discussion limited goals of care, as well as elevated risk of falls, despite having history of atrial fibrillation, would be at high risk of bleeding, not a good candidate for anticoagulation especially his last admission was due to a fall. Discussed they could consider referral for Watchman device, although his daughter states he would not be willing to undergo the procedure. Overall he would like minimal interventions and medical care. Per discussion it seems he has come to terms, with his having in December and him turning 88 soon, that he may not live much longer. he and his daughter would be willing for him to undergo rehabilitation, and PT and OT are requested and I am adding case management consultation. Their other consideration will be hospice care. He would like to pass away at home when the time comes. With regards to possible CVA consensus is to continue aspirin as well as statin at current time. ? Neurochecks, aspiration precautions, and a stroke scale, discussed with speech therapist. Advance diet as tolerated Urinary tract infection:Urine culture unrevealing. Continue cefdinir. ? With urinary retention, place carrera. Add Flomax. Blood cultures reviewed, so far negative. Acute hypoxia, ? CT angiogram the chest negative for PE ? No complaints of cough, Advance diet as tolerated ? Monitor respiratory status closely -Will consider Lasix therapy ? DuoNeb Sepsis Sepsis features given tachycardia, febrile state, elevated lactic acid, elevated white blood cell count, secondary UTI NSTEMI No chest pain complaints, Cardiac echo Hypothyroidism continue levothyroxine Status post cholecystectomy with transaminitis, elevated bilirubin, will monitor Goals of care, CODE STATUS: Per extensive discussion of goals of care with his daughter and patient pursuing at bedside, patient's had in December, he had since repeatedly stated that he would not want resuscitation in case of cardiopulmonary arrest, he has overall come to terms that his time may be coming and he would not want aggressive interventions. Discussed with nursing staff as well, we do not see any advanced directives in the chart from before. CODE STATUS adjusted to AND/DNR. He has persistent left-sided Attestations 2 Medical Necessity Statement*: Continue admission for assessment of management of acute encephalopathy, possible CVA, de-escalation of antibiotic for UTI, post discharge planning and arrangements. and High MDM includes amount and/or complexity of data reviewed/ordered [ ordered lab(s)/test(s) and other healthcare professional discussion] as documented Diagnoses Acute encephalopathy G93.40 Urinary tract infection N39.0 Urinary retention R33.9 Sepsis A41.9; R65.20; G93.41 Sepsis acute organ dysfunction status: with acute organ dysfunction Sepsis type: sepsis due to unspecified organism Severe sepsis acute organ dysfunction type: encephalopathy Severe sepsis shock status: without septic shock Hypoxia R09.02 S/P cholecystectomy Z90.49 Transaminitis R74.01 Elevated lactic acid level R79.89 Tachycardia R00.0 Status post aortic valve replacement with bioprosthetic valve Z95.3
[2023-09-15] VITALS: BP 139/79; PULSE 82; RESP 19; TEMP 37.7; O2SAT 93
[2023-09-15 03:56] VITALS: BP 104/65; PULSE 87; RESP 19; TEMP 36.7; O2SAT 92
[2023-09-15 05:56] LABS: Basophils # 0.1 10^3/uL (0.0-0.1); Basophils % 0.5 %; Eosinophils # 0.2 10^3/uL (0.0-0.8); Eosinophils % 1.4 %; Hematocrit 34.6 % (37-53); Lymphocytes # 1.5 10^3/uL (0.8-4.8); Lymphocytes % 10.9 %; Mean Corpuscular HGB Conc 33.2 g/dL (30-55); Mean Corpuscular Hemoglobin 30.3 pg (27-33); Mean Corpuscular Volume 91.3 fl (82-101); Mean Platelet Volume 10.7 fL (7.4-10.4); Monocytes # 1.5 10^3/uL (0.2-0.9); Monocytes % 10.6 %; Neutrophils # 10.26 10^3/uL (1.8-7.7); Neutrophils % 74.6 %; Nucleated Red Blood Cells % 0 %; Platelet Count 292 10^3/cmm (157-399); Red Blood Count 3.79 10^6/uL (3.85-5.65); Red Cell Distribution Width 14.6 % (12.1-15.1); White Blood Count 13.74 10^3/uL (3.29-11.43)
[2023-09-15 06:21] LABS: Alanine Aminotransferase 34 U/L (0-41); Alkaline Phosphatase 182 U/L (40-130); Anion Gap 13.7 (5-19); Aspartate Amino Transferase 36 U/L (0-40); Blood Urea Nitrogen 17 mg/dL (8-23); Calcium 8.6 mg/dL (8.5-10.5); Carbon Dioxide 28 mmol/L (22-29); Chloride 102 mmol/L (98-107); Globulin 3.7 g/dL (1.3-4.6); Glucose 99 mg/dL (65-115); Osmolality Calculated 292 mOsm/kg (285-295); Potassium 3.7 mmol/L (3.5-5.1); Sodium 140 mmol/L (136-145); Total Bilirubin 0.8 mg/dL (0.15-1.2); Total Protein 6.7 g/dL (6.6-8.7)
[2023-09-15] MEDS: levothyroxine 75 mcg Tablet PO (06:24)
[2023-09-15 07:28] VITALS: BP 126/74; PULSE 81; RESP 18; TEMP 37.6; O2SAT 92
[2023-09-15] MEDS: gabapentin 400 mg Capsule PO ×2 (09:24→15:23)
[2023-09-15] MEDS: phosphorus 250 mg Tablet PO (09:24)
[2023-09-15] MEDS: tamsulosin 0.4 mg Capsule PO (09:24)
[2023-09-15] MEDS: aspirin 81 mg EC Tablet PO (09:24)
[2023-09-15] MEDS: cefdinir 300 MG CAPSULE PO (09:24)
[2023-09-15 09:32] VITALS: PULSE 78; RESP 18; O2SAT 94
[2023-09-15 11:28] LABS: SARS Covid-2 Antigen negative (Negative)
[2023-09-15 12:53] VITALS: BP 113/70; PULSE 90; RESP 19; TEMP 36.8; O2SAT 94
--- NOTE | 2023-09-15 13:17 | P.DS_ITS ---
Discharge Providers Date of Admission: 09/10/23 13:59 Date of Discharge: September 15, 2023 Attending Provider at Admission: Alberto Frank MD Attending Provider at Discharge: Mir Morales Primary Care Provider: Jun Ling MD Diagnoses at Discharge Discharge Diagnosis (1) Acute encephalopathy: Status: Acute (2) Urinary tract infection: Status: Acute (3) Urinary retention: Status: Acute (4) Sepsis: Status: Resolved Qualifiers: Sepsis acute organ dysfunction status: with acute organ dysfunction Sepsis type: sepsis due to unspecified organism Severe sepsis acute organ dysfunction type: encephalopathy Severe sepsis shock status: without septic shock Qualified Code(s): A41.9 - Sepsis, unspecified organism; R65.20 - Severe sepsis without septic shock; G93.41 - Metabolic encephalopathy (5) Hypoxia: Status: Resolved (6) S/P cholecystectomy: Status: Acute (7) Transaminitis: Status: Acute (8) Elevated lactic acid level: Status: Acute (9) Tachycardia: Status: Acute (10) Status post aortic valve replacement with bioprosthetic valve: Status: Acute Reason for Visit Reason for Visit: FEVER; WEAKNESS Hospital Course Hospital Course Pleasant 87-year-old gentleman with recent cholecystectomy, was admitted after presenting with weakness, altered mental status, acute encephalopathy was found presentation with confusion, on presentation with leukocytosis 15,000, febrile, found to have complicated urinary tract infection with sepsis, CT chest abdomen pelvis with and without contrast showed no PE, negative extending down to, scattered calcified granulomas in both lungs, bilateral pleural thickening, hepatic steatosis without focal hepatic abnormality, dilated urinary bladder, cholecystectomy, hiatal hernia, inflammatory changes in the gastric antrum. Was diagnosed with urinary tract infection, acute encephalopathy. Was also noted to have facial droop, slurred speech. There is has been a chronic finding but overnight was found to have worsening NIH, in addition with word finding difficulty as well as right upper extremity drift. Question of possible stroke discussed with him and his daughter. He does have history of atrial fibrillation. His goals of care are very limited, however, and with elevated risk of falls he is not a good candidate for anticoagulation. On discussion of different options consensus was to continue aspirin, statin. Consideration may be given to Watchman device referral, although his daughter does not think that he would likely want to undergo further procedures. Consensus on discussion was also not to pursue MRI of the brain. Patient family are agreeable to rehabilitation as he has been weaker than usual and he is excepted to continue rehabilitation at SNF. His mental status gradually improved and encephalopathy resolved. He did show improvement in focal neurologic symptoms with resolution of right upper extremity drift and word finding difficulty. He is noted at risk of aspiration, instructed on aspiration precautions, dysphagia diet was continued with level 2 minced and moist. He started on PPI due to incidentally noted gastritis on CT. Please follow-up. Physical Exam Narrative: Accompanied by his daughter. Const: COMMON NORMALS: alert; negative for patient oriented x3 (Names the year and the president, does not name the month.) GENERAL APPEARANCE: cooperative ORIENTATION/CONSCIOUSNESS: Yes awake HENMT: COMMON NORMALS: oropharynx normal Neck/C-Spine: COMMON NORMALS: no JVD Resp: COMMON NORMALS: normal respiratory effort and clear to auscultation bilaterally AUSCULTATION: clear to auscultation bilaterally Cardio: COMMON NORMALS: no JVD, regular rhythm, S1 normal heart sound present, S2 normal heart sound present and No murmurs present (Cardio) RHYTHM: regular rhythm HEART SOUNDS: S1 normal heart sound present and S2 normal heart sound present GI: COMMON NORMALS: Normal to inspection, nondistended, normoactive bowel sounds present, Soft to palpation and non-tender PALPATION: Yes Soft to palpation Extremity: COMMON NORMALS: no joint enlargement and no pedal edema Neuro: COMMON NORMALS: moves all extremities; negative for patient oriented x3 (Names the year and the president, does not name the month.) SENSORIUM/ORIENTATION: Yes alert OTHER: Left-sided facial droop. Mild slurring. Skin: COMMON NORMALS: no rashes or lesions noted GENERAL SKIN EXAM: no rashes or lesions noted Urinary Catheter Management: Street: Cath Placed During This Visit: yes Reason for Continuing Indwelling Catheter: Acute Urinary Retention or Obstruction Urinary Catheter Date of Insertion: 09/10/23 Urinary Catheter Time of Insertion: 14:18 Discharge Data Studies Completed and Pending Completed Studies During Hospitalization Category Date Time Status CT head wo con* [id number] Routine Cat Scan 09/10/23 14:[address] abdomen pelvis [CT angio chest w abd pel Cat Scan 09/10/23 12:13 Completed wo/w] Stat CXRP [XR chest 1V portable [id number]] Routine Exams 09/14/23 20:10 Completed XR chest 2V* [id number] Stat Exams 09/10/23 09:25 [place] [id number] Stat Ultrasound 09/10/23 14:19 Completed CV. echo limited [id number] Routine Ultrasound 09/11/23 13:55 Completed Pending at discharge Category Date Time Status Blood Culture Stat Lab 09/10/23 09:43 Results Complete Blood Count w/Auto AM LABS Lab 09/16/23 04:00 Ordered Complete Blood Count w/Auto AM LABS Lab 09/17/23 04:00 Ordered Comprehensive Metabolic Panel AM LABS Lab 09/16/23 04:00 Ordered Comprehensive Metabolic Panel AM LABS Lab 09/17/23 04:00 Ordered Sputum Culture and Gram Stain Stat Lab 09/10/23 14:23 Uncollected Radiology Impressions Chest/Abdomen/Pelvis CT 09/10/23 12:13 IMPRESSION: 1. The examination does not show a pulmonary embolism. 2. Negative for right heart strain. 3. Ectatic ascending thoracic aorta 4. Status post sternotomy 5. Scattered calcified granulomas in both lungs . 6. Bilateral pleural thickening. IMPRESSION: 1. Hepatic steatosis no focal hepatic abnormality. 2. Dilated urinary bladder. 3. Cholecystectomy 4. Hiatal hernia . 5. Apparent inflammatory changes in the gastric antrum Venous Duplex 09/10/23 14:19 IMPRESSION: No evidence of deep vein thrombosis. Head CT 09/10/23 14:53 IMPRESSION: 1. No acute intracranial abnormality. 2. Age-appropriate ventriculomegaly and cerebral volume loss ASSESSMENT: ASPECTS ([place] Stroke Program Early CT Score) is 10. Chest X-Ray 09/14/23 20:10 IMPRESSION: 1. No acute cardiopulmonary abnormality. Laboratory Results WBC 13.74 10^3/uL (3.29-11.43) H 09/15/23 05:27 RBC 3.79 10^6/uL (3.85-5.65) L 09/15/23 05:27 Hgb 11.50 g/dL (11.27-16.99) 09/15/23 05:27 Hct 34.6 % (37-53) L 09/15/23 05:27 MCV 91.3 fl (82-101) 09/15/23 05:27 MCH 30.3 pg (27-33) 09/15/23 05:27 MCHC 33.2 g/dL (30-55) 09/15/23 05:27 RDW 14.6 % (12.1-15.1) 09/15/23 05:27 Plt Count 292 10^3/cmm (157-399) 09/15/23 05:27 MPV 10.7 fL (7.4-10.4) H 09/15/23 05:27 Neut % (Auto) 74.6 % 09/15/23 05:27 Lymph % (Auto) 10.9 % 09/15/23 05:27 Emmet % (Auto) 10.6 % 09/15/23 05:27 Eos % (Auto) 1.4 % 09/15/23 05:27 Baso % (Auto) 0.5 % 09/15/23 05:27 Neut # (Auto) 10.26 10^3/uL (1.8-7.7) H 09/15/23 05:27 Lymph # (Auto) 1.5 10^3/uL (0.8-4.8) 09/15/23 05:27 Emmet # (Auto) 1.5 10^3/uL (0.2-0.9) H 09/15/23 05:27 Eos # (Auto) 0.2 10^3/uL (0.0-0.8) 09/15/23 05:27 Baso # (Auto) 0.1 10^3/uL (0.0-0.1) 09/15/23 05:27 Nucleated RBC % (auto) 0 % 09/15/23 05:27 Nucleated RBCs # 0.0 /100WBC 09/15/23 05:27 D-Dimer 2.30 ug/mLFEU (0-0.59) H 09/10/23 09:43 Sodium 140 mmol/L (136-145) 09/15/23 05:27 Potassium 3.7 mmol/L (3.5-5.1) 09/15/23 05:27 Chloride 102 mmol/L (98-107) 09/15/23 05:27 Carbon Dioxide 28 mmol/L (22-29) 09/15/23 05:27 Anion Gap 13.7 (5-19) 09/15/23 05:27 BUN 17 mg/dL (8-23) 09/15/23 05:27 Creatinine 0.8 mg/dL (0.7-1.2) 09/15/23 05:27 GFR Calculation Not Reportable 09/15/23 05:27 Glucose 99 mg/dL (65-115) 09/15/23 05:27 Estimat Average Glucose 108 09/10/23 09:43 Hemoglobin A1c 5.4 % (4.0-6.0) 09/10/23 09:43 Calculated Osmolality 292 mOsm/kg (285-295) 09/15/23 05:27 Lactic Acid 1.3 mmol/L (0.5-2.2) 09/11/23 03:46 Lactic Acid (Sepsis) 1.9 mmol/L (0.5-2.2) 09/10/23 12:55 Calcium 8.6 mg/dL (8.5-10.5) 09/15/23 05:27 Phosphorus 2.2 mg/dL (2.5-4.5) L 09/13/23 05:30 Magnesium 2.1 mg/dL (1.7-2.3) 09/13/23 05:30 Total Bilirubin 0.8 mg/dL (0.15-1.2) 09/15/23 05:27 GGT 159 U/L (8-61) H 09/10/23 09:43 AST 36 U/L (0-40) 09/15/23 05:27 ALT 34 U/L (0-41) 09/15/23 05:27 Alkaline Phosphatase 182 U/L (40-130) H 09/15/23 05:27 Troponin T Baseline 32 ng/L (0-15) H 09/10/23 16:07 Troponin T 120 Minute 41.06 ng/L (0-15) H 09/10/23 18:35 Delta Troponin T 9.06 ABS# (0-10) 09/10/23 18:35 Troponin T Hi Sens 6Hr 55.59 ng/L (0-15) H 09/10/23 22:31 Troponin T Hi Sens 6Hr Delta 23.59 ng/L (0-12) H* 09/10/23 22:31 C-Reactive Protein 258.1 mg/L (0.0-4.9) H 09/10/23 09:43 NT-Pro-B Natriuret Pep 1315 pg/mL (0-450) H 09/10/23 09:43 Total Protein 6.7 g/dL (6.6-8.7) 09/15/23 05:27 Albumin 3.0 g/dL (3.5-5.2) L 09/15/23 05: Globulin 3.7 g/dL (1.3-4.6) 09/15/23 05:27 Triglycerides 114 mg/dL (0-150) 09/10/23 09:43 Cholesterol 169 mg/dL (0-200) 09/10/23 09:43 LDL Cholesterol, Calc 89 mg/dL (50-129) 09/10/23 09:43 HDL Cholesterol 57 mg/dL (60-100) L 09/10/23 09:43 LDL/HDL Ratio 1.56 RATIO (0.00-3.22) 09/10/23 09:43 Cholesterol/HDL Ratio 2.96 mg/dL (1.0-5.00) 09/10/23 09:43 Lipase 16 U/L (13-60) 09/10/23 09:43 Procalcitonin 0.57 ng/mL (0-0.5) H 09/10/23 09:43 TSH 3.02 uIU/mL (0.27-4.20) 09/10/23 09:43 Urine Color Morris (Yellow) A 09/10/23 10:18 Urine Appearance Clear (CLEAR) 09/10/23 10:18 Urine pH 5 (5-7) 09/10/23 10:18 Ur Specific [place] 1.025 (1.005-1.030) 09/10/23 10:18 Urine Protein 1+ (Negative) H 09/10/23 10:18 Urine Glucose (UA) Norm (Normal) 09/10/23 10:18 Urine Ketones 1+ (Negative) H 09/10/23 10:18 Urine Blood 3+ (Negative) H 09/10/23 10:18 Urine Nitrate Negative (Negative) 09/10/23 10:18 Urine Bilirubin 1+ (Negative) H 09/10/23 10:18 Urine Urobilinogen 4 mg/dL (Negative) H 09/10/23 10:18 Ur Leukocyte Esterase 2+ (Negative) H 09/10/23 10:18 Urine RBC 5-10 /hpf (0-2) H 09/10/23 10:18 Urine WBC 15-25 /hpf (0-5) H 09/10/23 10:18 Ur Squamous Epith Cells 0-4 /hpf (0-5) H 09/10/23 10:18 Amorphous Sediment Not Reportable 09/10/23 10:18 Urine Bacteria 1+ /hpf (NONE) H 09/10/23 10:18 Adenovirus (PCR) Not detected (NOT DETECT) 09/10/23 15:50 C. pneumoniae DNA (PCR) Not detected (NOT DETECT) 09/10/23 15:50 Coronavirus 229E (PCR) Not detected (NOT DETECT) 09/10/23 15:50 Human Metapneumovir PCR Not detected (NOT DETECT) 09/10/23 15:50 Influenza A (H1) PCR Not detected (NOT DETECT) 09/10/23 15:50 Influ A (H1/09) PCR Not detected (NOT DETECT) 09/10/23 15:50 Influenza A (H3) PCR Not detected (NOT DETECT) 09/10/23 15:50 Influenza Type A (PCR) Not detected (NOT DETECT) 09/10/23 15:50 Influenza Type B (PCR) Not detected (NOT DETECT) 09/10/23 15:50 M. pneumoniae (PCR) Not detected (NOT DETECT) 09/10/23 15:50 Parainfluenza 1 (PCR) Not detected (NOT DETECT) 09/10/23 15:50 Parainfluenza 2 (PCR) Not detected (NOT DETECT) 09/10/23 15:50 Parainfluenza 3 (PCR) Not detected (NOT DETECT) 09/10/23 15:50 Parainfluenza 4 (PCR) Not detected (NOT DETECT) 09/10/23 15:50 RSV Type A (PCR) Not detected (NOT DETECT) 09/10/23 15:50 RSV Type B (PCR) Not detected (NOT DETECT) 09/10/23 15:50 Entero/Rhino (PCR) Not detected (NOT DETECT) 09/10/23 15:50 SARS-CoV-2 (PCR) Not detected (NOT DETECT) 09/10/23 15:50 SARS-CoV-2 Ag (Rapid) negative (Negative) 09/15/23 10:45 Vitals Last Vital Signs Temp 98.3 F 09/15/23 12:53 Pulse 90 09/15/23 12:53 Resp 19 H 09/15/23 12:53 BP 113/70 09/15/23 12:53 Pulse Ox 94 09/15/23 12:53 O2 Del Method Room Air 09/15/23 12:53 O2 Flow Rate 1 09/12/23 12:00 Discharge Plan Discharge Patient Disposition: Xfer SNF Condition: Stable Prescriptions: New tamsulosin 0.4 mg Capsule 0.4 mg PO DAILY Qty: 90 0RF levofloxacin 750 mg tablet 750 mg PO DAILY 5 Days Qty: 5 0RF pantoprazole 40 mg tablet,delayed release (DR/EC) 40 mg PO DAILY 42 Days Qty: 42 0RF Continued cyanocobalamin (vitamin B-12) 1,000 mcg capsule 1,000 mcg PO TID aspirin 81 mg tablet,delayed release (DR/EC) 81 mg PO DAILY gabapentin 400 mg capsule 400 mg PO TID levothyroxine 75 mcg tablet 75 mcg PO QAM pravastatin 40 mg tablet 40 mg PO 1XD hydrocodone-acetaminophen 7.5-325 mg tablet 1 tab PO Q6H PRN (Reason: pain) Qty: 20 0RF docusate sodium [Colace] 100 mg capsule 100 mg PO BID Qty: 14 0RF polyethylene glycol 3350 [Miralax] 17 gram/dose powder 17 g PO DAILY 7 Days Qty: 119 0RF Discharge Orders: Discharge Order (Routine); Ordered 09/15/23 Ordered By: Mir Morales Referrals: [facility] [Outside] Jun Ling MD [Primary Care Provider] - 09/21/23 10:00 am Discharge Diet: As Directed Discharge Activity: Increase activity as tolerated and As per PT/OT instructions Patient Instructions: Levofloxacin (By mouth) (Levaquin, Levaquin Leva-perla), Tamsulosin (By mouth) (Flomax), Pantoprazole (By mouth) (Protonix), A-fib (Atrial Fibrillation) (GEN), Urinary Tract Infection in Men (GEN), Ischemic Stroke (GEN), Aspiration Precautions (GEN), Opioid Safety Activity Restrictions/Additional Instructions: Follow-up with your primary doctor for reassessment after treatment for urinary tract infection, as well as possible stroke. As per limited goals of care, consider discussion regarding further treatment of atrial fibrillation with anticoagulation not being a good option, consideration of referral for Watchman device. Continue aspirin and cholesterol medication. Maintain strict fall precautions. Maintain aspiration precautions, dysphagia evel 5 diet with minced and moist foods, make sure you are fully upright while eating, tucking her chin, fully awake and alert. Follow-up with your primary doctor for reassessment of prostate enlargement. Follow-up with your primary doctor regarding incidentally noted gastritis. Discharge Attestations Time Spent in Discharge Care*: greater than 30 min Status at Discharge: Cognitive status at discharge: cognitively intact , Behavioral status at discharge: cooperative and dependent in ADL's , Quality Metrics Clinical Quality Measures [ No reported AMI, CVA or VTE this stay] Coding Level of Care Code 56715 Total time (in minutes) for Discharge: 50 Diagnoses Acute encephalopathy G93.40 Urinary tract infection N39.0 Urinary retention R33.9 Sepsis A41.9; R65.20; G93.41 Sepsis acute organ dysfunction status: with acute organ dysfunction Sepsis type: sepsis due to unspecified organism Severe sepsis acute organ dysfunction type: encephalopathy Severe sepsis shock status: without septic shock Hypoxia R09.02 S/P cholecystectomy Z90.49 Transaminitis R74.01 Elevated lactic acid level R79.89 Tachycardia R00.0 Status post aortic valve replacement with bioprosthetic valve Z95.3
[2023-09-15] MEDS: enoxaparin 40 mg/0.4 mL Syringe SUBCUT (15:23)
[2023-09-15 15:44] VITALS: BP 113/70; PULSE 90; RESP 19; TEMP 36.8; O2SAT 94
== END 2023-09-15 15:47 | disposition skilled nursing facility (03) | DRG 871 ==
LOC: ER 13:59 → ICU 14:30 → MEDSURG 09-12 17:30
PROVIDERS: Admitting Provider Family Medicine; Emergency Provider Student in an Organized Health Care Education/Training Program; PCP Family Medicine; Visit Provider Internal Medicine
DX: A41.9 Sepsis, unspecified organism (principal); G93.41 Metabolic encephalopathy; E87.20 Acidosis, unspecified; R65.20 Severe sepsis without septic shock; Z11.52 Encounter for screening for COVID-19; I25.2 Old myocardial infarction; Z99.81 Dependence on supplemental oxygen; Z79.82 Long term (current) use of aspirin; Z87.440 Personal history of urinary (tract) infections; Z86.16 Personal history of COVID-19; I48.91 Unspecified atrial fibrillation; E78.00 Pure hypercholesterolemia, unspecified; K21.9 Gastro-esophageal reflux disease without esophagitis; E03.9 Hypothyroidism, unspecified; Z95.3 Presence of xenogenic heart valve; R33.9 Retention of urine, unspecified; Z66 Do not resuscitate; K76.0 Fatty (change of) liver, not elsewhere classified
CPT/HCPCS: 36415; 51702; 70450; 71045; 71046; 71275; 74178; 80053; 80061; 81001; 82977; 83036; 83605; 83690; 83735; 83880; 84100; 84145; 84443; 84484; 85025; 85378; 86140; 87040; 87086; 87426; 87486; 87581; 87633; 88304; 92507; 92523; 92526; 92610; 93005; 93308; 93970; 96365; 96372; 96374; 96376; 97110; 97116; 97162; 97167; 97530; 97535; 99285; C9113; J0360; J0690; J0696; J1100; J1650; J1885; J1940; J2405; J2543; J2710; J3010; J3490; J7030; J7040; J7120; Q9967

== ENCOUNTER → 2023-10-25 07:50 | Outpatient (BNVA) | payer MEDICARE, SELFPAY | PROVIDERS: PCP Family Medicine; Visit Provider Podiatrist Foot & Ankle Surgery | DX: L84 Corns and callosities (principal); L60.3 Nail dystrophy; I73.9 Peripheral vascular disease, unspecified | CPT/HCPCS: 11056; 11721 ==

== ENCOUNTER 2023-11-18 16:43 | Emergency (ER) | payer MEDICARE, SELFPAY ==
[2023-11-18 16:45] VITALS: BP 147/84; PULSE 106; RESP 18; TEMP 36.8; O2SAT 93; BMI 24.7
[2023-11-18 17:49] LABS: Charge for UA Resulting for Rev
[2023-11-18 17:52] LABS: Bilirubin Urine Negative (Negative); Blood Urine 2+ (Negative); Glucose Urine UA Negative (Normal); Ketones Urine Trace (Negative); Leukocyte Esterase Urine Trace (Negative); Nitrate Urine Positive (Negative); Protein Urine 2+ (Negative); Specific Gravity, Urine 1.021 (1.005-1.030); Urine Appearance Cloudy (CLEAR); Urine Color Yellow (Yellow)
[2023-11-18 17:57] LABS: Bacteria Urine 4+ /hpf; Hyaline Casts Urine 46.74 /lpf; RBC Urine 21-50 /hpf (0-2); Squamous Epithelial Cell Urine 0-5 /hpf (0-5)
--- NOTE | 2023-11-18 17:58 | W.ED.FALL ---
HPI - Fall General: Chief Complaint: Fall Stated Complaint: LACERATION Time Seen by Provider: 11/18/23 17:09 Source: patient, family and EMS Mode of arrival: EMS Limitations: no limitations History of Present Illness: Patient is an 87-year-old male brought into the emergency department by ambulance due to a couple falls onset today. First fall occurred earlier this morning while he was outside, there is unknown downtime, reported by family in the room. He then had another fall subsequently prior to arrival, where he was changing laundry and fell into the dryer, suffering a skin tear to his right elbow. At this time, patient is only complaining of the injury to his right elbow, has no neurological symptoms reported and states that he did not hit his head with either fall. He also was unaware how long he might have been down the first fall, but states that the second fall he was only down for a couple of minutes before someone helped him up. He has no other symptoms to report at this time, arrives with essentially normal vitals. Is not on blood thinner but does take an aspirin. He does appear neurologically intact on initial examination. States that he had no symptoms prior to any of these falls, they will simply trip and falls. MD complaint: fall Fall from: standing Fall witnessed: no Place fall occurred: home Loss of consciousness: None Prolonged down time: unclear Symptoms prior to fall: none Context: tripped/slipped Location of injury - extremities: Right: elbow Associated symptoms-after fall: Denies abdominal pain, chest pain, headache(s), lightheadedness or neck pain Related Data Home Medications Medication Instructions Recorded Confirmed cyanocobalamin (vitamin B-12) 1,000 mcg PO TID 12/22/22 11/16/23 1,000 mcg capsule gabapentin 400 mg capsule 400 mg PO TID 07/26/23 11/16/23 levothyroxine 75 mcg tablet 75 mcg PO QAM 07/26/23 11/16/23 aspirin 81 mg tablet,delayed 81 mg PO DAILY 09/01/23 11/16/23 release Previous Rx's Medication Instructions Recorded docusate sodium 100 mg capsule 100 mg PO BID #14 caps 09/08/23 (Colace) hydrocodone 7.5 mg-acetaminophen 1 tab PO Q6H PRN pain #20 tabs 09/08/23 325 mg tablet tamsulosin 0.4 mg capsule 0.4 mg PO DAILY #90 [facility] 09/15/23 mupirocin 2 % topical ointment 1 applic topical BID 2 weeks #22 10/25/23 grams cefdinir 300 mg capsule 300 mg PO BID 10 days #20 [facility] 11/18/23 Allergies Allergy/AdvReac Type Severity Reaction Status Date / Time atorvastatin Allergy ALGY-Hives Verified 10/25/23 07:58 duloxetine [From Cymbalta] Allergy Unknown Verified 10/25/23 07:58 Review of Systems General: Reports: 10 or more systems reviewed and unremarkable except in HPI and below Const: Reports: other (Falls); Denies: fever(s), chills or fatigue Eyes: Denies: change in vision ENMT: Denies: throat pain, ear or mastoid pain or nasal discharge Card: Denies: chest pain, palpitations, swelling of feet/ankles or lightheadedness Resp: Denies: dyspnea, productive cough or wheezing GI: Denies: abdominal pain, nausea, vomiting, diarrhea or constipation : Denies: flank pain, difficulty urinating, dysuria or urinary frequency Musc: Denies: neck pain, back pain or joint pain Skin/Breast: Reports: new lesions (Skin tear right elbow); Denies: rash Neuro: Denies: headache(s), numbness in extremities or weakness in extremities PFSH ED PFSH: Medical History Urinary tract infection Cholelithiasis Fungal dermatitis B12 deficiency COVID-19 Peripheral neuropathy [place] of toe Cellulitis of great toe of right foot Right bundle branch block Atrial fibrillation Pt had post operative fibrillation Aortic valve stenosis and insufficiency, rheumatic Scalp psoriasis Recent urinary tract infection COVID-19 Hypercholesteremia GERD (gastroesophageal reflux disease) Prostatic hypertrophy Hypothyroidism (acquired) Thyroid disease neuropathy Rheumatic fever Surgical History Status post right foot surgery Status post aortic valve replacement with bioprosthetic valve H/O hernia repair x 5 Hx of tonsillectomy Family History Daughter No problems noted. Brother Prostate cancer Social History Smoking and tobacco/nicotine status: former use of tobacco/nicotine Alcohol intake: never Substance/Drug Use: never Physical Exam Const: COMMON NORMALS: no acute distress, patient oriented x3 and no limitations GENERAL APPEARANCE: cooperative, comfortable and well developed ORIENTATION/CONSCIOUSNESS: Yes awake, Yes oriented to person, Yes oriented to place and Yes oriented to time HENMT: COMMON NORMALS: normocephalic, atraumatic, hearing grossly normal bilaterally and Normal external nose present HEAD & SCALP: normocephalic and atraumatic; no Oliveros's sign, no palpable skull fracture, no raccoon eyes and no scalp tenderness FACE & SINUS: normal facial exam and face symmetric NOSE: Normal external nose present Eye: COMMON NORMALS: Equal, round and reactive pupils present, EOMs intact bilaterally and conjunctivae normal CONJUNCTIVA: Yes conjunctivae normal PUPIL: Yes Equal, round and reactive pupils present Neck/C-Spine: COMMON NORMALS: full ROM, supple and no JVD Resp: COMMON NORMALS: normal respiratory effort, No retractions, No use of accessory muscles and clear to auscultation bilaterally AUSCULTATION: clear to auscultation bilaterally Cardio: COMMON NORMALS: no JVD, regular rate, regular rhythm, No clicks present (Cardio), No murmurs present (Cardio) and No rub (Cardio) RATE: regular rate RHYTHM: regular rhythm GI: COMMON NORMALS: Normal to inspection, nondistended, normoactive bowel sounds present, Soft to palpation and non-tender AUSCULTATION: Yes normoactive bowel sounds PALPATION: Yes Soft to palpation RECTAL EXAM: Yes deferred : COMMON NORMALS: Yes no CVA tenderness BLADDER/KIDNEY EXAM: Yes no CVA tenderness Back/Pelvis: COMMON NORMALS: no CVA tenderness, thoracic and lumbar spine normal to inspection, no thoracic nor lumbar tenderness and thoraco-lumbar ROM normal Extremity: COMMON NORMALS: full ROM and capillary refill normal Neuro: COMMON NORMALS: patient oriented x3, CN's II-XII intact bilaterally, moves all extremities, no focal motor deficits and no sensory deficits noted SENSORIUM/ORIENTATION: Yes oriented to person, Yes oriented to place and Yes oriented to time Psych: COMMON NORMALS: mental status grossly normal and Normal thought process present THOUGHT PROCESS: Normal thought process present Skin: NARRATIVE SKIN EXAM: Small linear skin tear to patient's right elbow, no active bleeding and appears very superficial Course Vital Signs: Vital signs: Vital Signs Temperature 98.3 F 11/18/23 16:45 Pulse Rate 106 H 11/18/23 16:45 Respiratory Rate 18 11/18/23 16:45 Blood Pressure 147/84 11/18/23 16:45 Pulse Oximetry 93 11/18/23 16:45 Oxygen Delivery Me thod Room Air 11/18/23 16:45 MDM - Fall Medical Decision Making Patient brought in by ambulance today after having a couple of falls. Patient's only complaint with skin tear to right elbow. Family in the room states that both falls were accidental, patient confirms that these were both simple trip and falls and he had no symptoms prior. First fall was unknown how long he was down, family member states was not very long. Second fall he was only down for a minute or so. Patient has history of recurrent urinary tract infections, family would like him checked for this. CT head and neck was ordered, however family denies meeting this is a state he has not had any neurological symptoms and that he lives with him and can monitor him at home. The abrasion to his right arm was clearly just a skin tear and can be treated conservatively. He is not on any blood thinners. He was neurologically intact on physical examination and there were no signs of head trauma or injury. Urine did reveal evidence of urinary tract infection, sample was obtained from Street catheter. Will treat for urinary tract infection and informed to follow-up with primary care. Strict return precautions were given. Lab Data Laboratory Results Urine Color Yellow (Yellow) 11/18/23 17:23 Urine Appearance Cloudy (CLEAR) A 11/18/23 17:23 Urine pH 5.0 (5-7) 11/18/23 17:23 Ur Specific [place] 1.021 (1.005-1.030) 11/18/23 17:23 Urine Protein 2+ (Negative) A 11/18/23 17:23 Urine Glucose (UA) Negative (Normal) 11/18/23 17:23 Urine Ketones Trace (Negative) 11/18/23 17:23 Urine Blood 2+ (Negative) A 11/18/23 17:23 Urine Nitrate Positive (Negative) A 11/18/23 17:23 Urine Bilirubin Negative (Negative) 11/18/23 17:23 Urine Urobilinogen 1.0 mg/dL (Negative) 11/18/23 17:23 Ur Leukocyte Esterase Trace (Negative) A 11/18/23 17:23 Urine RBC 21-50 /hpf (0-2) H 11/18/23 17:23 Urine WBC 11-20 /hpf (0-5) H 11/18/23 17:23 Ur Squamous Epith Cells 0-5 /hpf (0-5) 11/18/23 17:23 Amorphous Sediment Not Reportable 11/18/23 17:23 Urine Bacteria 4+ /hpf (NONE) H 11/18/23 17:23 Hyaline Casts 46.74 /lpf 11/18/23 17:23 No radiology studies performed this visit Discharge Plan Discharge Patient Disposition: Home Clinical Impression: Falls, Abrasion of elbow, right, Acute UTI Condition: Stable Prescriptions: New cefdinir 300 mg capsule 300 mg PO BID 10 Days Qty: 20 0RF No Action cyanocobalamin (vitamin B-12) 1,000 mcg capsule 1,000 mcg PO TID mupirocin 2 % ointment 1 applic topical BID 14 Days Qty: 22 0RF aspirin 81 mg tablet,delayed release (DR/EC) 81 mg PO DAILY gabapentin 400 mg capsule 400 mg PO TID levothyroxine 75 mcg tablet 75 mcg PO QAM hydrocodone-acetaminophen 7.5-325 mg tablet 1 tab PO Q6H PRN (Reason: pain) Qty: 20 0RF docusate sodium [Colace] 100 mg capsule 100 mg PO BID Qty: 14 0RF tamsulosin 0.4 mg Capsule 0.4 mg PO DAILY Qty: 90 0RF Discharge Orders: Discharge ED (Routine); Ordered 11/18/23 Ordered By: Brian Sanchez Referrals: Jun Ling MD [Primary Care Provider] - Discharge Diet: As Directed Discharge Activity: Increase activity as tolerated Patient Instructions: Fall Prevention for Older Adults (ED), Urinary Tract Infection in Older Adults (ED) Activity Restrictions/Additional Instructions: Antibiotics as prescribed. Please monitor patient closely as discussed. With any new or concerning symptoms you have please return for reevaluation. Plenty of fluids. Continue home medications. Coding Level of Care Code ED [employer] Gas[employer] for Cassius Cadet
[2023-11-18 18:52] LABS: Add Urine Culture? Yes; Amorphous Sediment Urine TRACE /hpf; Coarse Granular Casts Urine 0-4 /lpf; Mucus Urine TRACE /hpf; UA Slide Review UA Slide Review Perf
[2023-11-18] MEDS: cefdinir 300 MG CAPSULE PO (19:14)
[2023-11-18 19:55] VITALS: BP 141/82; PULSE 89; RESP 16; TEMP 36.8; O2SAT 95
== END 2023-11-18 19:16 | disposition home or self-care (01) ==
PROVIDERS: Emergency Provider Physician Assistant; PCP Family Medicine
DX: S50.311A Abrasion of right elbow, initial encounter (principal); N39.0 Urinary tract infection, site not specified; R29.6 Repeated falls; Z79.82 Long term (current) use of aspirin; Z87.891 Personal history of nicotine dependence; W18.39XA Other fall on same level, initial encounter
CPT/HCPCS: 81003; 81015; 87077; 87086; 87186; 99284

== ENCOUNTER 2023-12-07 16:02 | Emergency (ER) | payer MEDICARE, SELFPAY ==
[2023-12-07 16:05] VITALS: BP 169/82; PULSE 89; RESP 16; TEMP 36.4; O2SAT 97; BMI 24.4
--- NOTE | 2023-12-07 16:15 | W.ED.MALEGU ---
HPI - Male Genitourinary General: Chief complaint: Urogenital-Male Stated complaint: catheder is leaking Time Seen by Provider: 12/07/23 16:13 History of Present Illness: 87-year-old man was recently treated for urinary tract infection and had a Street catheter placed couple days ago for urinary retention. He says today he started having leaking around the Street catheter output into his penis. No pain. No fevers. No abdominal pain. No nausea or vomiting. He spoke to his PCP who told to come to the emergency room. He has follow-up with urology in [place] very soon. Related Data Home Medications Medication Instructions Recorded Confirmed cyanocobalamin (vitamin B-12) 1,000 mcg PO TID 12/22/22 11/16/23 1,000 mcg capsule gabapentin 400 mg capsule 400 mg PO TID 07/26/23 11/16/23 levothyroxine 75 mcg tablet 75 mcg PO QAM 07/26/23 11/16/23 aspirin 81 mg tablet,delayed 81 mg PO DAILY 09/01/23 11/16/23 release Previous Rx's Medication Instructions Recorded docusate sodium 100 mg capsule 100 mg PO BID #14 caps 09/08/23 (Colace) hydrocodone 7.5 mg-acetaminophen 1 tab PO Q6H PRN pain #20 tabs 09/08/23 325 mg tablet tamsulosin 0.4 mg capsule 0.4 mg PO DAILY #90 caps 09/15/23 mupirocin 2 % topical ointment 1 applic topical BID 2 weeks #22 10/25/23 grams Allergies Allergy/AdvReac Type Severity Reaction Status Date / Time atorvastatin Allergy ALGY-Hives Verified 10/25/23 07:58 duloxetine [From Cymbalta] Allergy Unknown Verified 10/25/23 07:58 Review of Systems Narrative: Constitutional symptoms: Negative except as documented in HPI. Skin symptoms: Negative except as documented in HPI. Eye symptoms: Negative except as documented in HPI. ENMT symptoms: Negative except as documented in HPI. Respiratory symptoms: Negative except as documented in HPI. Cardiovascular symptoms: Negative except as documented in HPI. Gastrointestinal symptoms: Negative except as documented in HPI. Genitourinary symptoms: Negative except as documented in HPI. Musculoskeletal symptoms: Negative except as documented in HPI. Neurologic symptoms: Negative except as documented in HPI. Psychiatric symptoms: Negative except as documented in HPI. Endocrine symptoms: Negative except as documented in HPI. PFSH ED PFSH: Medical History Urinary tract infection Cholelithiasis Fungal dermatitis B12 deficiency COVID-19 Peripheral neuropathy [place] of toe Cellulitis of great toe of right foot Right bundle branch block Atrial fibrillation Pt had post operative fibrillation Aortic valve stenosis and insufficiency, rheumatic Scalp psoriasis Recent urinary tract infection COVID-19 Hypercholesteremia GERD (gastroesophageal reflux disease) Prostatic hypertrophy Hypothyroidism (acquired) Thyroid disease neuropathy Rheumatic fever Surgical History Status post right foot surgery Status post aortic valve replacement with bioprosthetic valve H/O hernia repair x 5 Hx of tonsillectomy Family History Daughter No problems noted. Brother Prostate cancer Social History Smoking and tobacco/nicotine status: former use of tobacco/nicotine Alcohol intake: never Substance/Drug Use: never Physical Exam Narrative: EXAM NARRATIVE: General: Alert, no acute distress. Skin: Warm, dry. Head: Normocephalic, atraumatic. Neck: Supple, trachea midline. Eye: Extraocular movements are intact. Ears, nose, mouth and throat: mucosa moist. Cardiovascular: Regular, Normal peripheral perfusion. Respiratory: Lungs are clear to auscultation, respirations are non-labored, breath sounds are equal, Symmetrical chest wall expansion. Gastrointestinal: Soft, Nontender, Non distended Musculoskeletal: Normal ROM, no deformity. : There is a Street in place. There does appear to be some urine leakage Neurological: Alert and oriented, No focal neurological deficit observed. Psychiatric: Cooperative, appropriate mood & affect. Course Vital Signs: Vital signs: Vital Signs Temperature 97.6 F 12/07/23 16:05 Pulse Rate 89 12/07/23 16:05 Respiratory Rate 16 12/07/23 16:05 Blood Pressure 169/82 12/07/23 16:05 Pulse Oximetry 97 12/07/23 16:05 Oxygen Delivery Me thod Room Air 12/07/23 16:05 MDM - Male Medical Decision Making Assessment and plan: Street catheter malfunction ?Street catheter replaced by nursing. - Discharged home - Discussed plan with patient. Answered any questions. - Evaluation and treatment of this problem were appropriate in the emergency setting. No radiology studies performed this visit Discharge Plan Discharge Patient Disposition: Home Clinical Impression: Street catheter problem Condition: Stable Prescriptions: No Action cyanocobalamin (vitamin B-12) 1,000 mcg capsule 1,000 mcg PO TID mupirocin 2 % ointment 1 applic topical BID 14 Days Qty: 22 0RF aspirin 81 mg tablet,delayed release (DR/EC) 81 mg PO DAILY gabapentin 400 mg capsule 400 mg PO TID levothyroxine 75 mcg tablet 75 mcg PO QAM hydrocodone-acetaminophen 7.5-325 mg tablet 1 tab PO Q6H PRN (Reason: pain) Qty: 20 0RF docusate sodium [Colace] 100 mg capsule 100 mg PO BID Qty: 14 0RF tamsulosin 0.4 mg Capsule 0.4 mg PO DAILY Qty: 90 0RF Discharge Orders: Discharge ED (Routine); Ordered 12/07/23 Ordered By: Elvia Stephenson Referrals: Jun Ling MD [Primary Care Provider] - Discharge Diet: Usual diet Discharge Activity: Increase activity as tolerated Patient Instructions: Street Catheter Placement and Care (ED) Activity Restrictions/Additional Instructions: Thank you for choosing [facility] for your healthcare needs today. Please realize this is an emergency room and that we are providing you with a medical screening exam and this may not be complete and all inclusive of all the testing and or work up that you may need to determine your ailment or severity of your illness. You have been screened and evaluated and felt safe for discharge. Health conditions do change or evolve sometimes and as such it is important that you follow up with your Primary Doctor to be re checked, 3-5 days is a general good time frame for follow up. You are always welcome to return to the ED for re assessment if your symptoms are worsening or you have new concerns Coding Level of Care Code ED P[employer] Wall Technician for Cassius Cadet
[2023-12-07 16:30] VITALS: BP 163/84; PULSE 96; O2SAT 94
== END 2023-12-07 16:30 | disposition home or self-care (01) ==
PROVIDERS: Emergency Provider Emergency Medicine; PCP Family Medicine
DX: T83.038A Leakage of other urinary catheter, initial encounter (principal); Z79.82 Long term (current) use of aspirin; Z87.891 Personal history of nicotine dependence
CPT/HCPCS: 51702; 99283

== ENCOUNTER → 2023-12-14 09:30 | Outpatient (BNVA) | payer MEDICARE, SELFPAY | PROVIDERS: PCP Family Medicine; Visit Provider Nurse Practitioner Family | DX: Z95.3 Presence of xenogenic heart valve (principal) | CPT/HCPCS: 99213 ==

== ENCOUNTER → 2024-02-06 09:51 | Outpatient (BNVA) | payer MEDICARE, SELFPAY | PROVIDERS: PCP Family Medicine; Visit Provider Family Medicine | DX: E03.9 Hypothyroidism, unspecified (principal); U07.1 COVID-19 | CPT/HCPCS: 80053; 84443; 85025 ==

== ENCOUNTER → 2024-11-05 08:10 | Outpatient (BNVA) | payer MEDICARE, SELFPAY | PROVIDERS: PCP Family Medicine; Visit Provider Podiatrist Foot & Ankle Surgery | DX: I73.9 Peripheral vascular disease, unspecified (principal); L84 Corns and callosities | CPT/HCPCS: 99213 ==

== ENCOUNTER → 2024-11-20 07:23 | Outpatient (BNVA) | payer MEDICARE, SELFPAY | PROVIDERS: PCP Family Medicine; Visit Provider Podiatrist Foot & Ankle Surgery | DX: I73.9 Peripheral vascular disease, unspecified (principal); L84 Corns and callosities | CPT/HCPCS: 99213 ==

== ENCOUNTER → 2024-12-03 09:46 | Outpatient (BNVA) | payer MEDICARE, SELFPAY | PROVIDERS: PCP Family Medicine; Visit Provider Family Medicine | DX: E03.9 Hypothyroidism, unspecified (principal) | CPT/HCPCS: 80053; 84443; 85025 ==

== ENCOUNTER → 2024-12-13 12:10 | Outpatient (BNVA) | payer MEDICARE, SELFPAY | PROVIDERS: PCP Family Medicine; Visit Provider Internal Medicine Cardiovascular Disease | DX: Z95.3 Presence of xenogenic heart valve (principal) | CPT/HCPCS: 99214 ==

== ENCOUNTER → 2025-01-22 07:11 | Outpatient (BNVA) | payer MEDICARE, SELFPAY | PROVIDERS: PCP Family Medicine; Visit Provider Podiatrist Foot & Ankle Surgery | DX: L84 Corns and callosities (principal); I73.9 Peripheral vascular disease, unspecified | CPT/HCPCS: 99213 ==

== ENCOUNTER → 2025-03-18 07:13 | Outpatient (BNVA) | payer MEDICARE, SELFPAY | PROVIDERS: PCP Family Medicine; Visit Provider Podiatrist Foot & Ankle Surgery | DX: L84 Corns and callosities (principal); I73.9 Peripheral vascular disease, unspecified | CPT/HCPCS: 99213 ==